=== PATIENT | female | born 1955 | race Caucasian/White ===

== ENCOUNTER 2017-09-05 11:10 | Observation (INO) | payer OTHER ==
--- NOTE | 2017-09-05 11:49 | ED ---
General Adult HPI - General Chief complaint: Shortness of Breath Stated complaint: fluid on lungs Time Seen by Provider: 09/05/17 11:10 Source: patient, RN notes reviewed Mode of arrival: ambulatory Limitations: no limitations - History of Present Illness Initial comments: This is a 62-year-old female presents emergency Department complaining of shortness of breath for the last few days. Patient states she went to an urgent care clinic and they sent her into the emergency department. Patient states she's had no fever cough but she has had some shortness of breath and occasionally some chest pain. Patient states currently she has no chest pain but she still feels a little bit short of breath. Patient denies any sputum production. Patient states she was a smoker but quit about 25 years ago. Patient denies any abdominal pain patient denies nausea vomiting diarrhea per patient denies any headache patient denies numbness weakness. Patient denies lightheadedness dizziness or near-syncopal episode. Patient denies any recent injury or trauma. - Related Data Home Medications Medication Instructions Recorded Confirmed No Known Home Medications [No 09/05/17 09/05/17 Known Home Medications] Allergies Allergy/AdvReac Type Severity Reaction Status Date / Time adhesive Allergy Rash/Hives Verified 09/05/17 12:03 Review of Systems ROS Statement: Those systems with pertinent positive or pertinent negative responses have been documented in the HPI. ROS Other: All systems not noted in ROS Statement are negative. Past Medical History Past Medical History: Cancer, Hypertension Additional Past Medical History / Comment(s): breast cancer History of Any Multi-Drug Resistant Organisms: None Reported Past Surgical History: Breast Surgery Additional Past Surgical History / Comment(s): mastectomy left 2004, lumpectomy Past Psychological History: No Psychological Hx Reported Smoking Status: Never smoker Past Alcohol Use History: None Reported Past Drug Use History: None Reported General Exam - General Exam Comments Initial Comments: GENERAL: Patient is well-developed and well-nourished. Patient is nontoxic and well- hydrated and is in mild distress. ENT: Neck is soft and supple. No significant lymphadenopathy is noted. Oropharynx is clear. Moist mucous membranes. Neck has full range of motion without eliciting any pain. EYES: The sclera were anicteric and conjunctiva were pink and moist. Extraocular movements were intact and pupils were equal round and reactive to light. Eyelids were unremarkable. PULMONARY: Unlabored respirations. Patient has decreased breath sounds in the right base. No audible rales rhonchi or wheezing was noted. CARDIOVASCULAR: There is a regular rate and rhythm without any murmurs gallops or rubs. ABDOMEN: Soft and nontender with normal bowel sounds. No palpable organomegaly was noted. There is no palpable pulsatile mass. SKIN: Skin is clear with no lesions or rashes and otherwise unremarkable. NEUROLOGIC: Patient is alert and oriented x3. Cranial nerves II through XII are grossly intact. Motor and sensory are also intact. Normal speech, volume and content. Symmetrical smile. MUSCULOSKELETAL: Normal extremities with adequate strength and full range of motion. No lower extremity swelling or edema. No calf tenderness. LYMPHATICS: No significant lymphadenopathy is noted PSYCHIATRIC: Normal psychiatric evaluation. Normal interpersonal interactions appears functionally intact in deals appropriately with others. No signs of depression. No signs of anxiety. Limitations: no limitations Course Vital Signs 09/05/17 09/05/17 09/05/17 11:13 11:44 12:17 Temperature 97.1 F L Pulse Rate 126 H 108 H Respiratory 16 24 19 Rate Blood Pressure 188/89 176/99 O2 Sat by Pulse 96 98 Oximetry 09/05/17 13:15 Temperature Pulse Rate 100 Respiratory 20 Rate Blood Pressure 188/100 O2 Sat by Pulse 99 Oximetry Medical Decision Making - Medical Decision Making EKG shows sinus tachycardia at 110 bpm GA interval is 140 QRS 108 QT interval 376 QTC is 508 per patient's EKG shows a right bundle branch block. Patient was T-wave inversions in leads V1 and V2 and V3. CT of the chest showed bilateral pleural effusions and some abdominal ascites. Patient denies any history of this. I spoke with Dr. Trejo he agreed to admit the patient admitted the patient I consult to cardiology - Lab Data Result diagrams: 09/05/17 12:09/05/17 12:17 Lab Results 09/05/17 09/05/17 09/05/17 Range/Units 12:17 12:17 12:17 WBC 8.5 (3.8-10.6) k/uL RBC 5.33 (3.80-5.40) m/uL Hgb 14.2 (11.4-16.0) gm/dL Hct 45.7 (34.0-46.0) % MCV 85.9 (80.0-100.0) fL MCH 26.6 (25.0-35.0) pg MCHC 31.0 (31.0-37.0) g/dL RDW 14.0 (11.5-15.5) % Plt Count 383 (150-450) k/uL Neutrophils % 80 % Lymphocytes % 14 % Monocytes % 4 % Eosinophils % 1 % Basophils % 0 % Neutrophils # 6.7 (1.3-7.7) k/uL Lymphocytes # 1.2 (1.0-4.8) k/uL Monocytes # 0.4 (0-1.0) k/uL Eosinophils # 0.1 (0-0.7) k/uL Basophils # 0.0 (0-0.2) k/uL PT (9.0-12.0) sec INR (<1.2) APTT (22.0-30.0) sec D-Dimer (<0.60) mg/L FEU Sodium 142 (137-145) mmol/L Potassium 4.6 (3.5-5.1) mmol/L Chloride 103 (98-107) mmol/L Carbon Dioxide 26 (22-30) mmol/L Anion Gap 13 mmol/L BUN 9 (7-17) mg/dL Creatinine 0.62 (0.52-1.04) mg/dL Est GFR (MDRD) Af Amer >60 (>60 ml/min/1.73 sqM) Est GFR (MDRD) Non-Af >60 (>60 ml/min/1.73 sqM) Glucose 105 H (74-99) mg/dL Plasma Lactic Acid Tamir (0.7-2.0) mmol/L Calcium 10.1 (8.4-10.2) mg/dL Magnesium 1.9 (1.6-2.3) mg/dL Total Bilirubin 0.5 (0.2-1.3) mg/dL AST 31 (14-36) U/L ALT 27 (9-52) U/L Alkaline Phosphatase 92 (38-126) U/L Total Creatine Kinase 38 (30-135) U/L CK-MB (CK-2) 0.3 (0.0-2.4) ng/mL CK-MB (CK-2) Rel Index 0.8 Troponin I <0.012 (0.000-0.034) ng/mL NT-Pro-B Natriuret Pep pg/mL Total Protein 8.2 (6.3-8.2) g/dL Albumin 4.2 (3.5-5.0) g/dL Urine Color Urine Appearance (Clear) Urine pH (5.0-8.0) Ur Specific [place] (1.001-1.035) Urine Protein (Negative) Urine Glucose (UA) (Negative) Urine Ketones (Negative) Urine Blood (Negative) Urine Nitrite (Negative) Urine Bilirubin (Negative) Urine Urobilinogen (<2.0) mg/dL Ur Leukocyte Esterase (Negative) Urine RBC (0-5) /hpf Urine WBC (0-5) /hpf Ur Squamous Epith Cells (0-4) /hpf Calcium Oxalate Crystal (None) /hpf Urine Mucus (None) /hpf 09/05/17 09/05/17 09/05/17 Range/Units 12:17 12:17 12:17 WBC (3.8-10.6) k/uL RBC (3.80-5.40) m/uL Hgb (11.4-16.0) gm/dL Hct (34.0-46.0) % MCV (80.0-100.0) fL MCH (25.0-35.0) pg MCHC (31.0-37.0) g/dL RDW (11.5-15.5) % Plt Count (150-450) k/uL Neutrophils % % Lymphocytes % % Monocytes % % Eosinophils % % Basophils % % Neutrophils # (1.3-7.7) k/uL Lymphocytes # (1.0-4.8) k/uL Monocytes # (0-1.0) k/uL Eosinophils # (0-0.7) k/uL Basophils # (0-0.2) k/uL PT 11.0 (9.0-12.0) sec INR 1.1 (<1.2) APTT 25.8 (22.0-30.0) sec D-Dimer 1.41 H (<0.60) mg/L FEU Sodium (137-145) mmol/L Potassium (3.5-5.1) mmol/L Chloride (98-107) mmol/L Carbon Dioxide (22-30) mmol/L Anion Gap mmol/L BUN (7-17) mg/dL Creatinine (0.52-1.04) mg/dL Est GFR (MDRD) Af Amer (>60 ml/min/1.73 sqM) Est GFR (MDRD) Non-Af (>60 ml/min/1.73 sqM) Glucose (74-99) mg/dL Plasma Lactic Acid Tamir 1.3 (0.7-2.0) mmol/L Calcium (8.4-10.2) mg/dL Magnesium (1.6-2.3) mg/dL Total Bilirubin (0.2-1.3) mg/dL AST (14-36) U/L ALT (9-52) U/L Alkaline Phosphatase (38-126) U/L Total Creatine Kinase (30-135) U/L CK-MB (CK-2) (0.0-2.4) ng/mL CK-MB (CK-2) Rel Index Troponin I (0.000-0.034) ng/mL NT-Pro-B Natriuret Pep 101 pg/mL Total Protein (6.3-8.2) g/dL Albumin (3.5-5.0) g/dL Urine Color Urine Appearance (Clear) Urine pH (5.0-8.0) Ur Specific [place] (1.001-1.035) Urine Protein (Negative) Urine Glucose (UA) (Negative) Urine Ketones (Negative) Urine Blood (Negative) Urine Nitrite (Negative) Urine Bilirubin (Negative) Urine Urobilinogen (<2.0) mg/dL Ur Leukocyte Esterase (Negative) Urine RBC (0-5) /hpf Urine WBC (0-5) /hpf Ur Squamous Epith Cells (0-4) /hpf Calcium Oxalate Crystal (None) /hpf Urine Mucus (None) /hpf 09/05/17 Range/Units 12:17 WBC (3.8-10.6) k/uL RBC (3.80-5.40) m/uL Hgb (11.4-16.0) gm/dL Hct (34.0-46.0) % MCV (80.0-100.0) fL MCH (25.0-35.0) pg MCHC (31.0-37.0) g/dL RDW (11.5-15.5) % Plt Count (150-450) k/uL Neutrophils % % Lymphocytes % % Monocytes % % Eosinophils % % Basophils % % Neutrophils # (1.3-7.7) k/uL Lymphocytes # (1.0-4.8) k/uL Monocytes # (0-1.0) k/uL Eosinophils # (0-0.7) k/uL Basophils # (0-0.2) k/uL PT (9.0-12.0) sec INR (<1.2) APTT (22.0-30.0) sec D-Dimer (<0.60) mg/L FEU Sodium (137-145) mmol/L Potassium (3.5-5.1) mmol/L Chloride (98-107) mmol/L Carbon Dioxide (22-30) mmol/L Anion Gap mmol/L BUN (7-17) mg/dL Creatinine (0.52-1.04) mg/dL Est GFR (MDRD) Af Amer (>60 ml/min/1.73 sqM) Est GFR (MDRD) Non-Af (>60 ml/min/1.73 sqM) Glucose (74-99) mg/dL Plasma Lactic Acid Tamir (0.7-2.0) mmol/L Calcium (8.4-10.2) mg/dL Magnesium (1.6-2.3) mg/dL Total Bilirubin (0.2-1.3) mg/dL AST (14-36) U/L ALT (9-52) U/L Alkaline Phosphatase (38-126) U/L Total Creatine Kinase (30-135) U/L CK-MB (CK-2) (0.0-2.4) ng/mL CK-MB (CK-2) Rel Index Troponin I (0.000-0.034) ng/mL NT-Pro-B Natriuret Pep pg/mL Total Protein (6.3-8.2) g/dL Albumin (3.5-5.0) g/dL Urine Color Yellow Urine Appearance Cloudy H (Clear) Urine pH 5.5 (5.0-8.0) Ur Specific [place] 1.025 (1.001-1.035) Urine Protein 1+ H (Negative) Urine Glucose (UA) Negative (Negative) Urine Ketones 1+ H (Negative) Urine Blood Small H (Negative) Urine Nitrite Negative (Negative) Urine Bilirubin Negative (Negative) Urine Urobilinogen <2.0 (<2.0) mg/dL Ur Leukocyte Esterase Trace H (Negative) Urine RBC 5 (0-5) /hpf Urine WBC 18 H (0-5) /hpf Ur Squamous Epith Cells 2 (0-4) /hpf Calcium Oxalate Crystal Moderate H (None) /hpf Urine Mucus Rare H (None) /hpf Disposition Clinical Impression: Bilateral pleural effusion, Ascites Disposition: ADMITTED IP TO THIS HOSP Referrals: Hilaria Obando MD [Primary Care Provider] - 1-2 days Time of Disposition: 14:42
--- NOTE | 2017-09-05 12:46 | XR ---
EXAMINATION TYPE: XR chest 2V DATE OF EXAM: 09/05/2017 COMPARISON: 09/05/2017 TECHNIQUE: PA and lateral views submitted. HISTORY: Shortness of breath FINDINGS: Bilateral consolidation and pleural effusion greater on the right. Heart size is enlarged. Pericardia l effusion in the differential. Surgical clips in the left axilla. No pneumothorax. IMPRESSION: 1. Stable bilateral consolidation and pleural effusion correlate for mild central venous congestion.
[2017-09-05 12:53] LABS: Appearance,Urine Cloudy (Clear); Bilirubin,Urine Negative (Negative); Blood,Urine Small (Negative); Calcium Oxalate Crystals,Urine Moderate /hpf; Color,Urine Yellow; Glucose,Urine (UA) Negative (Negative); Ketones,Urine 1+ (Negative); Leukocyte Esterase,Urine Trace (Negative); Mucus,Urine Rare /hpf; Nitrite,Urine Negative (Negative); PH, Urine 5.5 (5.0-8.0); Protein,Urine 1+ (Negative); RBC,Urine 5 /hpf (0-5); Specific Gravity,Urine 1.025 (1.001-1.035); Squamous Epithelial Cell,Urine 2 /hpf (0-4); Urobilinogen,Urine <2.0 mg/dL (<2.0); WBC,Urine 18 /hpf (0-5)
[2017-09-05 12:54] LABS: Basophils % (A) 0 %; Eosinophils # (A) 0.1 k/uL (0-0.7); Eosinophils % (A) 1 %; HCT 45.7 % (34.0-46.0); HGB 14.2 gm/dL (11.4-16.0); Lymphocytes # (A) 1.2 k/uL (1.0-4.8); Lymphocytes % (A) 14 %; MCH 26.6 pg (25.0-35.0); MCV 85.9 fL (80.0-100.0); Mean Platelet Volume 7.2; Monocytes # (A) 0.4 k/uL (0-1.0); Monocytes % (A) 4 %; Neutrophils # (A) 6.7 k/uL (1.3-7.7); Neutrophils % (A) 80 %; Platelet Count 383 k/uL (150-450); RBC 5.33 m/uL (3.80-5.40); WBC 8.5 k/uL (3.8-10.6)
[2017-09-05 12:57] LABS: ALT 27 U/L (9-52); AST 31 U/L (14-36); Albumin 4.2 g/dL (3.5-5.0); Alkaline Phosphatase 92 U/L (38-126); Anion Gap 13 mmol/L; Blood Urea Nitrogen 9 mg/dL (7-17); Calcium 10.1 mg/dL (8.4-10.2); Carbon Dioxide 26 mmol/L (22-30); Chloride 103 mmol/L (98-107); Glucose 105 mg/dL (74-99); Magnesium 1.9 mg/dL (1.6-2.3); Potassium 4.6 mmol/L (3.5-5.1); Sodium 142 mmol/L (137-145); Total Bilirubin 0.5 mg/dL (0.2-1.3); Total Protein 8.2 g/dL (6.3-8.2)
[2017-09-05 13:07] LABS: Creatine Kinase 38 U/L (30-135)
[2017-09-05 13:20] LABS: Creatine Kinase MB 0.3 ng/mL (0.0-2.4); Troponin I <0.012 ng/mL (0.000-0.034)
[2017-09-05 13:32] LABS: D-Dimer 1.41 mg/L FEU (<0.60); INR 1.1 (<1.2); Partial Thromboplastin Time 25.8 sec (22.0-30.0)
[2017-09-05] MEDS ORDERED: RX INFO: IV CONTRAST WAS GIVEN 1 EACH MISC MISCELLANE PRN (13:48)
--- NOTE | 2017-09-05 14:29 | CT ---
EXAMINATION TYPE: CT chest angio for PE DATE OF EXAM: 09/05/2017 COMPARISON: Chest x-ray from earlier today HISTORY: TAMI and cough x3-[address] DLP: 567 mGycm. Automated Exposure Control for Dose Reduction was Utilized. CONTRAST: CTA scan of the thorax is performed with IV Contrast, patient injected with 100ml mL of Omnipaque 350 , pulmonary embolism protocol. MIP Images are created on CT scanner and reviewed. FINDINGS: LUNGS: There is large right-sided pleural effusion and moderate to large left-sided effusion. There i s associated compressive atelectasis. There is additional focal groundglass opacity right lower lung anteriorly could reflect edema and/or infiltrate and more patchy edema and/or atelectasis anterior to the compressive atelectasis in the left lung. No pneumothorax is seen bilaterally. There is complete right lower lobe atelectasis. There is local mass effect with deviation of esophagus due to fluid in right azygoesophageal recess to left of midline. MEDIASTINUM: There is satisfactory enhancement of the pulmonary artery and its branches, there is no CT evidence for pulmonary embolism. There are no greater than 1 cm hilar or mediastinal lymph nodes. No cardiomegaly or pericardial effusion is seen. OTHER: There is partial visualization of moderate amount of ascites in the upper abdomen predominantl y surrounding the liver and spleen. Slightly irregular fluid in the anterior upper abdomen is concern ing for malignant ascites. Heterogeneous enhancement of spleen is presumed due to timing of contrast imaging for pulmonary embolism. Gallbladder has distended margins with intraluminal small gallstones. IMPRESSION: 1. No CT evidence for pulmonary embolism. 2. Large right and moderate to large size left pleural effusion. No cardiomegaly to suggest CHF. Ther e is partial visualization of at least moderate abdominal ascites. Consider further investigation of ascites. Consider imaging guided thoracentesis for both diagnostic and/or therapeutic purposes. Both pleural effusions are sufficient size.
[2017-09-05] MEDS ORDERED: SODIUM CHLORIDE 0.9% 1,000 ML IV ONE (14:43)
[2017-09-05 17:06] VITALS: RESP 18
[2017-09-05] MEDS ORDERED: ACETAMINOPHEN TAB 325 MG TAB PO PRN (17:23)
[2017-09-05] MEDS ORDERED: METOPROLOL TARTRATE 25 MG TAB PO SCH (18:00)
[2017-09-05] MEDS ORDERED: FUROSEMIDE 10 MG/ML 4 ML VIAL IV SCH (18:00)
--- NOTE | 2017-09-05 19:36 | P.HPIM ---
History of Present Illness This is a 62-year-old female presents emergency Department complaining of shortness of breath for the last few days. Patient states she went to an urgent care clinic and they sent her into the emergency department. In denied any significant orthopnea PND patient doesn't have any history of congestive heart failure patient had normal BNP. Patient denied any family history of nephrotic syndrome does have mild proteinuria in the urine patient is found to have bilateral pleural effusions significant on the right side patient does have history of breast cancer on the left side and left-sided mastectomy. Patient is not an alcoholic and also obtain hepatitis panel patient does have ascites as well INR is essentially within normal limits patient does not have any elevated liver enzymes. Etiology of bilateral pleural effusions is unknown patient is to get an ultrasound for pleural effusions will need a pleural tap which will help in diagnosis and to find etiology of his bilateral pleural effusions. Etiology of bilateral pleural effusions is unknown at this time patient will be started on IV Lasix for symptomatic relief due to hypervolemia. Review of Systems REVIEW OF SYSTEMS: CONSTITUTIONAL: No fever, no malaise, no fatigue. HEENT: No recent visual problems or hearing problems. Denied any sore throat. CARDIOVASCULAR: No chest pain, orthopnea, PND, no palpitations, no syncope. PULMONARY: no cough, no hemoptysis. GASTROINTESTINAL: No diarrhea, no nausea, no vomiting, no abdominal pain. Normoactive bowel sounds. NEUROLOGICAL: No headaches, no weakness, no numbness. HEMATOLOGICAL: Denies any bleeding or petechiae. GENITOURINARY: Denies any burning micturition, frequency, or urgency. MUSCULOSKELETAL/RHEUMATOLOGICAL: Denies any joint pain, swelling, or any muscle pain. ENDOCRINE: Denies any polyuria or polydipsia. The rest of the 14-point review of systems is negative. Past Medical History Past Medical History: Cancer, Hypertension Additional Past Medical History / Comment(s): breast cancer, enlarged heart, gout in the past History of Any Multi-Drug Resistant Organisms: None Reported Past Surgical History: Breast Surgery Additional Past Surgical History / Comment(s): lumpectomy, thenmastectomy left 2004, benign tumors removed form back of head as child, eye sx as child Past Anesthesia/Blood Transfusion Reactions: No Reported Reaction Smoking Status: Former smoker - Past Family History Mother Family Medical History: Cancer, Hypertension Additional Family Medical History / Comment(s): breast cancer, enlarged heart, Father Family Medical History: Coronary Artery Disease (CAD), Hypertension, Renal Disease Additional Family Medical History / Comment(s): cabg Brother(s) Family Medical History: Cancer Sister(s) Additional Family Medical History / Comment(s): had 2 sisters. one had hx of hypertension and kidney cancer, other sister had hypertension, breast cancer Medications and Allergies Home Medications Medication Instructions Recorded Confirmed Type No Known Home Medications [No 09/05/17 09/05/17 History Known Home Medications] Allergies Allergy/AdvReac Type Severity Reaction Status Date / Time adhesive Allergy Rash/Hives Verified 09/05/17 16:43 Physical Exam Vitals: Vital Signs Temp Pulse Pulse Resp BP BP Pulse Ox 09/05/17 19:05 108 H 178/98 09/05/17 17:05 116 H 167/112 09/05/17 16:45 97.9 F 116 H 18 155/124 94 L 09/05/17 16:17 96.9 F L 109 H 20 179/92 98 09/05/17 15:15 101 H 20 172/86 99 09/05/17 14:15 100 20 181/87 99 09/05/17 13:15 100 20 188/100 99 09/05/17 12:17 108 H 19 176/99 98 09/05/17 11:44 24 09/05/17 11:13 97.1 F L 126 H 16 188/89 96 Intake and Output 09/05/17 09/05/17 09/05/17 06:59 14:59 22:59 Intake Total 118 Balance 118 Intake: Oral 118 Other: # Voids 0 Weight 68.039 kg Patient Weight 09/06/17 06:59 Weight 68.039 kg PHYSICAL EXAMINATION: GENERAL: The patient is alert and oriented x3, not in any acute distress. Well developed, well nourished. HEENT: Pupils are round and equally reacting to light. EOMI. No scleral icterus. No conjunctival pallor. Normocephalic, atraumatic. No pharyngeal erythema. No thyromegaly. CARDIOVASCULAR: S1 and S2 present. No murmurs, rubs, or gallops. PULMONARY: Patient does not have any wheezing or crackles does have stone at a loss in the right posterior lung [place]. ABDOMEN: Abdomen is distended with shifting dullness, active bowel sounds no organomegaly was appreciated. MUSCULOSKELETAL: No joint swelling or deformity. EXTREMITIES: No cyanosis, clubbing, or pedal edema. NEUROLOGICAL: Gross neurological examination did not reveal any focal deficits. SKIN: No rashes. Results CBC & Chem 7: 09/05/17 12:17 12 12:17 Labs: Abnormal Lab Results - Last 24 Hours (Table) 09/05/17 09/05/17 09/05/17 Range/Units 12: 12: 12:17 D-Dimer 1.41 H (<0.60) mg/L FEU Glucose 105 H (74-99) mg/dL Urine Appearance Cloudy H (Clear) Urine Protein 1+ H (Negative) Urine Ketones 1+ H (Negative) Urine Blood Small H (Negative) Ur Leukocyte Esterase Trace H (Negative) Urine WBC 18 H (0-5) /hpf Calcium Oxalate Crystal Moderate H (None) /hpf Urine Mucus Rare H (None) /hpf Assessment and Plan Plan: #1 shortness of breath: Secondary to bilateral pleural effusion, patient will need diagnostic tobacco synthesis. Etiology of bilateral pleural effusions is unknown echo cardiac will be obtain although my suspicion is low that heart failure is causing this will also get nephrology opinion regarding nephrotic syndrome patient does have mild proteinuria in the urine. My suspicion is low for cirrhosis inspite ascites, we'll also obtain hepatitis panel. #2 ascites: Will need further evaluation further evaluation with the diagnostic thoracocentesis most probably tomorrow. #3 anemia: Secondary to hypoxemia #4 history of breast cancer in remission patient is status post mastectomy. Her effusions doesn't appear to be malignant at this point of time but unknown
--- NOTE | 2017-09-05 22:03 | US ---
EXAMINATION TYPE: US chest DATE OF EXAM: 09/05/2017 COMPARISON: NONE CLINICAL HISTORY: Chest markings for poss. thoracentesis. EXAM MEASUREMENTS: Right Pleural Effusion fluid pocket: 12.9 cm Right skin to fluid thickness: 2.7 cm Left Pleural Effusion fluid pocket: 8.8 cm Left skin to fluid thickness: 2.4 cm Right side marked for possible thoracentesis outside the dept. Left side marked for possible thoracentesis outside the dept. Pulmonologists are able to review the images in the patient?s EMR. IMPRESSION: BILATERAL PLEURAL EFFUSION RIGHT AND LEFT CHEST MARKED FOR POSSIBLE THORACENTESIS
[2017-09-06 01:59] LABS: Hepatitis A Antibody IgM Non-Reactive (Non-Reactive); Hepatitis B Core IgM Non-Reactive (Non-Reactive)
[2017-09-06 06:07] LABS: Basophils # (A) 0.1 k/uL (0-0.2); Basophils % (A) 0 %; Eosinophils % (A) 0 %; HCT 37.6 % (34.0-46.0); HGB 12.2 gm/dL (11.4-16.0); Lymphocytes # (A) 1.4 k/uL (1.0-4.8); Lymphocytes % (A) 12 %; MCH 26.6 pg (25.0-35.0); MCHC 32.6 g/dL (31.0-37.0); MCV 81.8 fL (80.0-100.0); Mean Platelet Volume 6.8; Monocytes # (A) 0.6 k/uL (0-1.0); Monocytes % (A) 5 %; Neutrophils # (A) 9.5 k/uL (1.3-7.7); Neutrophils % (A) 81 %; Platelet Count 395 k/uL (150-450); RDW 13.5 % (11.5-15.5); WBC 11.7 k/uL (3.8-10.6)
[2017-09-06 06:19] LABS: Anion Gap 17 mmol/L; Blood Urea Nitrogen 10 mg/dL (7-17); Calcium 9.7 mg/dL (8.4-10.2); Carbon Dioxide 22 mmol/L (22-30); Chloride 101 mmol/L (98-107); Glucose 112 mg/dL (74-99); Potassium 3.7 mmol/L (3.5-5.1); Sodium 140 mmol/L (137-145)
[2017-09-06 06:57] VITALS: BP 160/106; PULSE 114; TEMP 98.1
--- NOTE | 2017-09-06 09:41 | P.NPCON ---
History of Present Illness - Reason for Consult proteinuria - History of Present Illness Reason for consultation: Rule out nephrotic syndrome History of present illness: patient is a 62-year-old female seen in renal consultation to rule out nephrotic syndrome. Patient presented to the hospital with worsening shortness of breath going on for the last couple of months. She denies lower extremity edema. She denies any prior history of kidney disease. Her creatinine today 0.6. She is going to maintain Lasix 40 mg IV twice daily. She was scheduled for possible thoracentesis but it appears the effusions are too small at this time. Her hepatitis panel was noted to be negative. Patient states her father was on dialysis but is not sure of the cause. Her urinalysis revealed 1+ proteinuria with 5 RBCs and 18 white cells. She denies any gross hematuria. She did have an episode of vomiting this morning but otherwise she's been tolerating oral intake well. She denies history of heart failure but states she 's been told about an enlarged heart. Hemodynamically she's been stable. She does have history of high blood pressure but she stopped taking her medications a few months ago after she ran out. Her blood pressures this admission have been running high. Overall her dyspnea is improved. Vital signs are stable. General: The patient appeared well nourished and normally developed. HEENT: Head exam is unremarkable. Neck is without jugular venous distension. LUNGS: Lungs are clear to auscultation and percussion. Breath sounds decreased. HEART: Rate and Rhythm are regular. First and second heart sounds normal. No murmurs, rubs or gallops. ABDOMEN: Abdominal exam reveals normal bowel sounds. Non-tender and non- distended. No evidence of peritonitis. EXTREMITITES: No clubbing, cyanosis, or edema. Past Medical History Past Medical History: Cancer, Hypertension Additional Past Medical History / Comment(s): breast cancer, enlarged heart, gout in the past History of Any Multi-Drug Resistant Organisms: None Reported Past Surgical History: Breast Surgery Additional Past Surgical History / Comment(s): lumpectomy, thenmastectomy left 2004, benign tumors removed form back of head as child, eye sx as child Past Anesthesia/Blood Transfusion Reactions: No Reported Reaction Smoking Status: Former smoker - Past Family History Mother Family Medical History: Cancer, Hypertension Additional Family Medical History / Comment(s): breast cancer, enlarged heart, Father Family Medical History: Coronary Artery Disease (CAD), Hypertension, Renal Disease Additional Family Medical History / Comment(s): cabg Brother(s) Family Medical History: Cancer Sister(s) Additional Family Medical History / Comment(s): had 2 sisters. one had hx of hypertension and kidney cancer, other sister had hypertension, breast cancer Medications and Allergies Home Medications Medication Instructions Recorded Confirmed Type No Known Home Medications [No 09/05/17 09/05/17 History Known Home Medications] Allergies Allergy/AdvReac Type Severity Reaction Status Date / Time adhesive Allergy Rash/Hives Verified 09/05/17 16:43 Physical Exam Vitals: Vital Signs Temp Pulse Pulse Resp BP BP Pulse Ox 09/06/17 04:00 98.1 F 114 H 16 160/106 92 L 09/06/17 00:00 98.5 F 109 H 16 115/112 94 L 09/05/17 20:00 97.1 F L 101 H 16 165/108 09/05/17 19:05 108 H 178/98 09/05/17 17:05 116 H 167/112 09/05/17 16:45 97.9 F 116 H 18 155/124 94 L 09/05/17 16:17 96.9 F L 109 H 20 179/92 98 09/05/17 15:15 101 H 20 172/86 99 09/05/17 14:15 100 20 181/87 99 09/05/17 13:15 100 20 188/100 99 09/05/17 12:17 108 H 19 176/99 98 09/05/17 11:44 24 09/05/17 11:13 97.1 F L 126 H 16 188/89 96 Intake and Output 09/05/17 09/06/17 09/06/17 22:59 06:59 14:59 Intake Total 118 120 Balance 118 120 Intake: Oral 118 120 Other: Voiding Method Toilet Toilet # Voids 0 0 Weight 68.039 kg 66.4 kg Results - Lab Results Most recent lab results Calcium 9.7 mg/dL (8.4-10.2) 09/06/17 05:34 Magnesium 1.9 mg/dL (1.6-2.3) 09/05/17 12:17 09/06/17 05:34 09/06/17 05:34 Assessment and Plan Plan: assessment: #1. Dyspnea secondary to pleural effusions. Unclear as to the cause of her pleural effusions. No history of liver disease or kidney disease. Doubt nephrotic syndrome as her albumin level is 4.2 and only 1+ proteinuria noted on urinalysis. She does have an history of enlarged heart and may have developed congestive heart failure although her BNP level was normal. #2. Pyuria. #3. Benign hypertension. Uncontrolled. Plan: Continue Lasix 40 mg IV twice daily for now. Add lisinopril 10 mg daily. Recheck urinalysis. Quantify proteinuria. Check urine culture. Pending above results, will consider serologic workup. Thank you for the consultation. I will continue to follow the patient with you during her hospital stay.
--- NOTE | 2017-09-06 10:19 | ECHOF ---
Referral Reason:Pleural effusions MEASUREMENTS -------- HEIGHT: 154.9 cm WEIGHT: 68.0 kg BP: 181/87 RVIDd: 3.3 cm (< 3.3) IVSd: 1.3 cm (0.6 - 1.1) LVIDd: 2.8 cm (3.9 - 5.3) LVPWd: 1.3 cm (0.6 - 1.1) IVSs: 1.6 cm LVIDs: 2.2 cm LVPWs: 1.5 cm LA Diam: 2.5 cm (2.7 - 3.8) LAESV Index (A-L): 10.92 ml/m Ao Diam: 2.7 cm (2.0 - 3.7) AV Cusp: 1.5 cm (1.5 - 2.6) MV EXCURSION: 13.666 mm (> 18.000) MV EF SLOPE: 54 mm/s (70 - 150) EPSS: 0.3 cm FINDINGS -------- Resting tachycardia (HR>100bpm). This was a technically adequate study. The left ventricular size is normal. There is mild concentric left ventricular hypertrophy. Overa ll left ventricular systolic function is normal with, an EF between 55 - 60 %. The right ventricle is mildly enlarged. Normal LA size by volume 22+/-6 ml/m2. The right atrium is normal in size. The aortic valve is trileaflet and appears structurally normal. Mild mitral annular calcification present. The tricuspid valve appears structurally normal. The pulmonic valve was not well visualized. The aortic root size is normal. IVC Not well visulized. There is no pericardial effusion. Pleural Effusion with Fibrin. CONCLUSIONS -------- 1. Resting tachycardia (HR>100bpm). 2. This was a technically adequate study. 3. The left ventricular size is normal. 4. There is mild concentric left ventricular hypertrophy. 5. Overall left ventricular systolic function is normal with, an EF between 55 - 60 %. 6. The right ventricle is mildly enlarged. 7. Normal LA size by volume 22+/-6 ml/m2. 8. The right atrium is normal in size. 9. The aortic valve is trileaflet and appears structurally normal. 10. Mild mitral annular calcification present. 11. The tricuspid valve appears structurally normal. 12. The pulmonic valve was not well visualized. 13. The aortic root size is normal. 14. IVC Not well visulized. 15. There is no pericardial effusion. 16. Pleural Effusion with Fibrin. PUBLIC SAFETY DISPATCHER: Joana Aguilar RDCS
[2017-09-06] MEDS ORDERED: IOHEXOL 350 MG/ML 25 ML BOTTLE (ORAL USE) PO ONE ×3 (10:30→15:03)
[2017-09-06] MEDS ORDERED: METOPROLOL TARTRATE 25 MG TAB ONE (10:30)
[2017-09-06] MEDS ORDERED: ACETAMINOPHEN TAB 325 MG TAB ONE (10:30)
[2017-09-06] MEDS ORDERED: FUROSEMIDE 10 MG/ML 4 ML VIAL ONE (10:30)
--- NOTE | 2017-09-06 10:36 | CONS ---
CONSULTATION CHIEF COMPLAINT: Shortness of breath. This is a 62-year-old lady with history of breast cancer and hypertension who presented to hospital complaining of shortness of breath for the last few days. It is mild to moderate intensity, got progressively worse. Did not have clear-cut relieving or exacerbating factors. She denies leg edema, paroxysmal nocturnal dyspnea or orthopnea. Her BNP is normal. She also has ascites. Cardiology has been consulted to rule out congestive heart failure. Her clinical presentation is not consistent with congestive heart failure. At the time of my evaluation, she is comfortable at rest and is free of symptoms and is receiving IV Lasix. The patient is to undergo thoracentesis to diagnose an etiology for her pleural effusion. PAST MEDICAL HISTORY: Significant for CA breast and hypertension. MEDICATIONS: None. ALLERGIES: None. FAMILY HISTORY: Negative for premature coronary artery disease. SOCIAL HISTORY: Negative for current smoking, EtOH abuse or drug abuse. REVIEW OF SYSTEMS: HEENT is unremarkable. CARDIAC: As described above. RESPIRATORY: Significant for shortness of breath. GI: Negative. GENITOURINARY: Negative. NEUROLOGICAL: Negative. HEMATOLOGICAL: Negative. MUSCULOSKELETAL: Significant for joint pains. ENDOCRINE: Negative. CONSTITUTIONAL: Negative for fever, malaise, fatigue. Rest of the systems review is not relevant. PHYSICAL EXAMINATION: On exam, comfortable at rest. Vital signs are stable. Chest exam reveals diminished air entry at the bases. Heart exam reveals first and second heart sounds. No gallop. Abdomen appears distended. Exam of the extremities did not reveal any edema. Peripheral pulses are felt. LABS: Labs show that the BNP is normal. Creatinine is 0.6. Hemoglobin is 14.2. ASSESSMENT: 1. Shortness of breath secondary to bilateral pleural effusion. 2. Ascites. 3. History of breast cancer. PLAN: The patient's clinical presentation is not consistent with a diagnosis of congestive heart failure. Given the history of CA breast, malignancy is a very high likelihood as the other etiologies such as nephrotic syndrome. I agree with the current management plans of Dr. Trejo. I will obtain a 2D echo. If the LV function is normal, no further cardiac intervention is necessary at this time. Thank you for allowing us to participate in the care of this pleasant lady. MMODL / IJN: [id number] /
[2017-09-06] MEDS ORDERED: LIDOCAINE 2% INJ 20 MG/ML (20 ML MDV) ONE (11:30)
--- NOTE | 2017-09-06 22:55 | CONS ---
CONSULTATION DATE OF CONSULTATION: 09/06/2017 REASON FOR CONSULTATION: Dyspnea, pleural effusions. This is a very pleasant 62-year-old female patient who follows with Dr. Obando as her primary care physician. She has a history of hypertension and previous breast cancer. She is status post left mastectomy with chemoradiation in 2003. She does have a 21- year history of of smoking 1 to 2 packs per day; however, she quit 25 years ago. She presented to the emergency room with complaints of increasing cough and shortness of breath over 3 to 4 weeks now. Her cough has been dry; rare phlegm. She denied any fever, chills or night sweats. She denied any nausea, vomiting, diarrhea. She denied any hemoptysis. Denies any significant weight loss. Her chest x-ray revealed bilateral pleural effusions. Her ultrasound of the chest revealed significant pockets, more so on the right. A 2-dimensional echocardiogram revealed preserved left ventricular systolic function with estimated ejection fraction of 55% to 60%. On the CT scan the pleural effusions were noted as well as significant abdominal ascites. She is seen today in consultation. Currently she is awake and alert, in no acute distress. She is maintaining good oxygen saturations in the 90s on room air. She denies any significant abdominal pain. No chest discomfort. PAST MEDICAL HISTORY: Past medical includes breast cancer and hypertension. PAST SURGICAL HISTORY: Past surgical history includes left mastectomy. SOCIAL HISTORY: Positive for smoking for 21 years at 1 to 2 packs per day; however, quit 25 years ago. Her allergies and medications were reviewed. REVIEW OF SYSTEMS: A 14-point review of system was conducted; all negative other than as mentioned in HPI. PHYSICAL EXAMINATION: She is awake and alert, in no acute distress. HEAD: Normocephalic. Sclerae anicteric. NECK: Supple. Trachea midline. Her lungs are clear anteriorly. There are crackles in the bilateral posterior bases, diminished, more so on the right. Her abdomen is distended with a positive fluid wave. Bowel sounds are present. There is trace peripheral edema. No clubbing. No cyanosis. Peripheral pulses are intact. INVESTIGATIONS: Chest x-ray, CT scan, echocardiogram. LABS: Labs were all reviewed. Medications are reviewed. IMPRESSION: 1. Dyspnea secondary to moderate to large bilateral pleural effusions, right greater than left. There is some suspicion for neoplasm, possibly ovarian in nature based on the ascites and bilateral pleural effusions. 2. History of left-sided breast cancer. 3. Remote history of heavy tobacco use. 4. Ascites. 5. Hypertension. PLAN: The patient was seen and evaluated by Dr. Teresa. Her chest x-ray, labs and CT scans were all reviewed. He did go ahead and remove 1900 mL of dark fluid. The suspicion for malignancy is fairly high. No evidence of congestive heart failure. No cardiomegaly. BNP normal. It appears to be an exudative fluid. A CT scan of the abdomen would be recommended. The patient could go home today. She should follow up in our office in 1 week. We will repeat a chest x-ray then. She would require full pulmonary function testing to evaluate the severity of her suspected COPD. A PET scan may be needed as well. Will await fluid analysis results and discuss them in detail with her in the office. She is agreeable to the plan. She is anxious to go home. Will discuss with the hospitalist. Time not including procedure greater than 30 minutes. MMODL / IJN: [id number] /
--- NOTE | 2017-09-06 23:58 | PCN ---
PROCEDURE NOTE OPERATIVE REPORT: Right-sided thoracentesis. PREOPERATIVE DIAGNOSIS: Large right-sided pleural effusion with ascites and left pleural effusion. POSTOP DIAGNOSIS: Large right-sided pleural effusion with ascites and left pleural effusion. ANESTHESIA: Used 4 cc of 2% lidocaine. PROCEDURE: Patient was placed in a sitting upright position, the area below the right scapula was prepared in a sterile fashion, and drapes were applied. The area was locally anesthetized using a few mL of 2% lidocaine and this correlated to the 8th intercostal space and tip of the scapula. There was an area localized by ultrasound guidance. Then, a 26-gauge needle was inserted at the same site and advanced until the fluid was localized. Then a small stab wound was made with the skin with a 11 scalpel, and the thoracentesis catheter and needle were used and used into the pleural space until fluid was obtained. Then, the catheter was advanced over the needle, and the needle was pulled out of the pleural space. Free-flowing fluid was removed, roughly 1900 mL of mckenzie colored fluid removed from the right pleural space. The fluid was sent for different diagnostic studies. The procedure was well tolerated, and there was no evidence of any immediate complications. Chest x-ray was ordered postoperatively. MMODL / IJN: [id number] /
--- NOTE | 2017-09-07 04:44 | CT ---
EXAMINATION TYPE: CT abdomen pelvis w con DATE OF EXAM: 09/06/2017 COMPARISON: NONE HISTORY: Abdominal pain CONTRAST: CT scan of the abdomen and pelvis is performed and , patient injected with 100 cc Omnipaque 300 FINDINGS: LUNG BASES-: Moderate to large bilateral pleural effusions measuring 5.8 cm AP dimension on the right and 6.28 cm AP dimension on the left. Associated compressive atelectasis. LIVER/GB: Suspect gallbladder sludge. Gallbladder is mildly distended at 8.2 cm. No space occupyin g hepatic lesion. Biliary tree is of normal caliber. PANCREAS: No inflammation. No distinct mass. SPLEEN: No splenic enlargement. No lesion seen. ADRENALS: No nodule. No thickening. KIDNEYS/BLADDER: No hydronephrosis. No nephrolithiasis. No disctinct renal mass. Urinary bladder g rossly unremarkable. BOWEL: Normal appendix. Normal bowel caliber. No inflammation. GENITAL ORGANS: Large multi lobulated masses within the pelvis felt to reflect ovarian carcinoma unti l proven otherwise. There is displacement of the uterus and urinary bladder. Mass is difficult to mike sure however estimated measurement is 19.2 x 15.7 x 13.1 cm. LYMPH NODES: No greater than 1cm abdominal or pelvic lymph nodes are appreciated. AORTA: No significant abnormality. OSSEOUS STRUCTURES: No significant abnormality is seen. OTHER: Large amount of ascites throughout the abdomen and pelvis. There is omental engorgement withou t definitive caking at this time. IMPRESSION: 1. Findings felt to reflect ovarian carcinoma until proven otherwise. See above discussion. 2. Large amount of ascites within the abdomen or pelvis. 3. Suspect gallbladder sludge with distention of the gallbladder. 4. Bilateral pleural effusions and compressive atelectasis.
--- NOTE | 2017-09-07 05:15 | XR ---
EXAMINATION TYPE: TEMPORARY DATE OF EXAM: 09/06/2017 COMPARISON: 09/05/2017 TECHNIQUE: One view submitted. HISTORY: Postthoracentesis FINDINGS: Persistent bilateral pleural effusions and consolidation. Underlying venous congestion not excluded. Postsurgical change overlying the left chest. No sizable pneumothorax. Biapical pleural thickening. IMPRESSION: 1. Improvement in the right-sided pleural effusion with no sizable pneumothorax. Persistent bilateral consolidation and pleural effusions are present.
[2017-09-07 09:41] LABS: Appearance,BF Hazy; Color,BF Yellow; Nucleated Cells, Body Fluid 225 /uL; RBC, Body Fluid 2020 /uL
[2017-09-07 09:44] LABS: Mononuclear WBC,Body Fluid 96 %; Polynuclear WBC,Body Fluid 4 %; Total Cells Counted,Body Fluid 100
--- NOTE | 2017-09-07 11:21 | P.DS ---
Providers Date of admission: 09/05/17 14:43 Attending physician: Eboni Trejo Consults: 09/05/17 14:49 Consult Physician Urgent Consulting Provider: [facility] Consult Reason/Comments: Pleural effusion Do you want consulting provider notified?: Yes 09/05/17 17:21 Consult Physician Routine Consulting Provider: Endy Teresa Consult Reason/Comments: Bilateral Effusion Do you want consulting provider notified?: Yes 09/05/17 19:00 Consult Physician Routine Consulting Provider: Anson Saenz Consult Reason/Comments: R/O Nephrotic syndrome Do you want consulting provider notified?: Yes Primary care physician: Hilaria Obando [facility] Course: Patient is 62-year-old female admitted for bilateral pleural effusion shortness of breath ascites patient was assessed for although other etiologies. Patient does not appear to have CHF nephrotic syndrome of cirrhosis. Because of which obtained a CT of the abdomen with concerns of ovarian cancer. I do not have any data available by the time patient was discharged and patient wanted to be discharged patient underwent tobacco sepsis yesterday please refer to pulmonology dictation for further details. Today I am I did review her CAT scan which did show masses in the ovary and abdomen, highly suspicious for ovarian cancer. I discussed with the customer advocacy manager who will evaluate the patient is an outpatient regarding these findings and patient will be referred to [facility]IE[facility] oncology from their clinic. Patient has significant a symptomatically improvement after tobacco sepsis as today. Next PHYSICAL EXAMINATION: GENERAL: The patient is alert and oriented x3, not in any acute distress. Well developed, well nourished. HEENT: Pupils are round and equally reacting to light. EOMI. No scleral icterus. No conjunctival pallor. Normocephalic, atraumatic. No pharyngeal erythema. No thyromegaly. CARDIOVASCULAR: S1 and S2 present. No murmurs, rubs, or gallops. PULMONARY: Chest is clear to auscultation, no wheezing or crackles. ABDOMEN: Soft, nontender, nondistended, normoactive bowel sounds. No palpable organomegaly. MUSCULOSKELETAL: No joint swelling or deformity. EXTREMITIES: No cyanosis, clubbing, or pedal edema. NEUROLOGICAL: Gross neurological examination did not reveal any focal deficits. SKIN: No rashes. Assessment and Plan Plan: #1 shortness of breath: Secondary to bilateral pleural effusion, hospital etiologies as mentioned above. Patient does not appear to have nephrotic syndrome patient will be discharged on Lasix #2 ascites: Probably due to ovarian cancer #3 anemia: Secondary to hypoxemia #4 history of breast cancer in remission patient is status post mastectomy. Her effusions doesn't appear to be malignant at this point of time but unknown Plan - Discharge Summary Discharge Rx Participant: No New Discharge Prescriptions: No Action No Known Home Medications [No Known Home Medications] Discharge Medication List No Known Home Medications [No Known Home Medications] 09/05/17 [History] Follow up Appointment(s)/Referral(s): Hilaria Obando MD [Primary Care Provider] - 1-2 days Discharge Disposition: HOME SELF-CARE
--- NOTE | 2017-09-10 08:49 | ECHOF ---
Referral Reason:CP MEASUREMENTS -------- HEIGHT: 154.9 cm WEIGHT: 68.0 kg BP: IVSd: 1.4 cm (0.6 - 1.1) LVIDd: 2.5 cm (3.9 - 5.3) LVPWd: 1.2 cm (0.6 - 1.1) IVSs: 1.5 cm LVIDs: 1.8 cm LVPWs: 1.7 cm Ao Diam: 2.6 cm (2.0 - 3.7) AV Cusp: 1.9 cm (1.5 - 2.6) LA Diam: 2.9 cm (2.7 - 3.8) MV EXCURSION: 14.577 mm (> 18.000) MV EF SLOPE: 55 mm/s (70 - 150) EPSS: 0.6 cm MV E Juan R: 0.64 m/s MV DecT: 77 ms MV A Juan R: 0.84 m/s MV E/A Ratio: 0.76 RAP: 5.00 mmHg RVSP: 9.64 mmHg FINDINGS -------- Resting tachycardia (HR>100bpm). This was a technically adequate study. The left ventricular size is normal. There is moderate concentric left ventricular hypertrophy. O verall left ventricular systolic function is normal with, an EF between 55 - 60 %. The right ventricle is normal in size and function. The left atrium is normal in size. The right atrium is normal in size. The aortic valve is trileaflet, and appears structurally normal. No aortic stenosis or regurgitation. There is trace mitral regurgitation. Trace tricuspid regurgitation present. The right ventricular systolic pressure, as measured by Dopp ler, is 9.64mmHg. Pulmonic valve appears structurally normal. The aortic root size is normal. Normal inferior vena cava with normal inspiratory collapse consistent with estimated right atrial pre ssure of 5 mmHg. There is a trivial pericardial effusion present. CONCLUSIONS -------- 1. Resting tachycardia (HR>100bpm). 2. This was a technically adequate study. 3. The left ventricular size is normal. 4. There is moderate concentric left ventricular hypertrophy. 5. Overall left ventricular systolic function is normal with, an EF between 55 - 60 %. 6. The right ventricle is normal in size and function. 7. The left atrium is normal in size. 8. The right atrium is normal in size. 9. The aortic valve is trileaflet, and appears structurally normal. No aortic stenosis or regurgitati on. 10. There is trace mitral regurgitation. 11. Trace tricuspid regurgitation present. 12. The right ventricular systolic pressure, as measured by Doppler, is 9.64mmHg. 13. Pulmonic valve appears structurally normal. 14. The aortic root size is normal. 15. Normal inferior vena cava with normal inspiratory collapse consistent with estimated right atrial pressure of 5 mmHg. 16. There is a trivial pericardial effusion present. [employer] DEVELOPMENT TEAM LEAD: Mirella Valencia RDCS
--- NOTE | 2017-10-02 07:55 | CDI ---
Outpatient Documentation Clarification Form Date: 10-02-17 CDS/Baggage And Mail Agent Name: Patti Lemos Phone: If you have question, contact Kasie Sin, Registered Dental Assistant at [phone] M-F 8:30 am to 6pm. Patient Name: Georgina Farley Admit Date: 09-05-17 Discharge Date: 09-06-17 ATTENTION: The Clinical Documentation Specialists (CDI) and [facility] Coding Staff appreciate your assistance in clarifying documentation. Please respond to the clarification below the line at the bottom and electronically sign. The CDI & [facility] Coding staff will review the response and follow-up if needed. Please note: Queries are made part of the Legal Health Record. If you have any questions, please contact the author of this message via ITS or call the Registered Dental Assistant. Dr. Garsia, Please confirm the following diagnoses. Positive malignant cells on pleural effusion path report. If you agree with "malignant pleural effusion" please add diagnosis below the line on this page. Per discharge summary, ascites: probable due to ovarian cancer. Please add "ovarian cancer" OR "suspected ovarian cancer" as a diagnosis below the line on this page. Thank you. MTDD
--- NOTE | 2017-10-02 14:07 | CDI ---
Outpatient Documentation Clarification Form Date: 10-02-17 CDS/Administrative Asst Name: Patti Lemos Phone: If you have question, contact Kasie Sin, Road Machine Operator at M-F 8:30 am to 6pm. Patient Name: Georgina Farley Admit Date: 09-05-17 Discharge Date: 09-06-17 ATTENTION: The Clinical Documentation Specialists (CDI) and [facility] Coding Staff appreciate your assistance in clarifying documentation. Please respond to the clarification below the line at the bottom and electronically sign. The CDI & [facility] Coding staff will review the response and follow-up if needed. Please note: Queries are made part of the Legal Health Record. If you have any questions, please contact the author of this message via ITS or call the Road Machine Operator. Outpatient Documentation Clarification Form Dr. Trejo, Please confirm the following diagnoses: 1. Per path report for pleural effusion-positive malignant cells----Does this indicate malignant pleural effusion or other condition? Please enter your diagnosis related to this below the line on this form. 2. Per Discharge Summary- ascites-probably due to ovarian cancer. Outpatient coding guidelines require that documentation be clear related to confirmed or uncertain diagnosis. a. Please enter your diagnosis clarification below the line on this form either i. Ovarian Cancer confirmed ii. Ovarian Cancer suspected. Thank you. pleural effusion-positive malignant cells malignant pleural effusion ascites-probably due to malignancy etiology uncertain MTDD
== END 2017-09-06 18:12 | disposition home or self-care (01) ==
LOC: EC 11:10 → INTOOBSV 14:43 → 6SEL 14:43 → UNDODISIN 09-06 18:12
PROVIDERS: ADMIT Hospitalist; ATTEND Hospitalist
PROC: 0W993ZZ Drainage of Right Pleural Cavity, Percutaneous Approach (ICD-10-PCS; principal; 2017-09-06)
DX: J91.0 Malignant pleural effusion (principal); R18.8 Other ascites; I11.9 Hypertensive heart disease without heart failure; R09.02 Hypoxemia; Z80.51 Family history of malignant neoplasm of kidney; Z82.49 Family history of ischemic heart disease and other diseases of the circulatory system; Z85.3 Personal history of malignant neoplasm of breast; Z87.891 Personal history of nicotine dependence; Z90.12 Acquired absence of left breast and nipple; Z92.21 Personal history of antineoplastic chemotherapy; Z92.3 Personal history of irradiation; Z91.048 Other nonmedicinal substance allergy status; R11.10 Vomiting, unspecified; T50.996A Underdosing of other drugs, medicaments and biological substances, initial encounter; Z91.128 Patient's intentional underdosing of medication regimen for other reason; N39.0 Urinary tract infection, site not specified; R80.9 Proteinuria, unspecified; N83.9 Noninflammatory disorder of ovary, fallopian tube and broad ligament, unspecified; D64.9 Anemia, unspecified
CPT/HCPCS: 32555; 96361 ×2; 96374; 99285; 36415; 93005; 93306 ×2; 85379; 82150; 88108; 88305; 83880; 80053; 80048; 80074; 89050; 82550; 82553; 83605; 83735; 84484; 85025 ×2; 85610; 85730; 81001; 88342; 87040; 88341; 83615; 84157; 71010; 71020; 76604; 71275; 74177; G0378 ×2; J1940 ×2; Q9967 ×2; 96360; 96375; 96376

== ENCOUNTER → 2017-09-19 | Outpatient (CLI) | payer OTHER | END | disposition home or self-care (01) | LOC: LABWHC1 11:18 | PROVIDERS: ATTEND Internal Medicine | DX: R19.00 Intra-abdominal and pelvic swelling, mass and lump, unspecified site (principal) | CPT/HCPCS: 36415; 81503 ==

== ENCOUNTER → 2017-10-25 | Outpatient (CLI) | payer OTHER ==
[2017-10-25 14:09] LABS: Creatinine,Urine Random 168.5 mg/dL
[2017-10-25 14:14] LABS: ALT 26 U/L (9-52); AST 36 U/L (14-36); Albumin 4.3 g/dL (3.5-5.0); Alkaline Phosphatase 82 U/L (38-126); Anion Gap 15 mmol/L; Blood Urea Nitrogen 8 mg/dL (7-17); Calcium 9.9 mg/dL (8.4-10.2); Carbon Dioxide 26 mmol/L (22-30); Chloride 102 mmol/L (98-107); Glucose 88 mg/dL (74-99); Potassium 4.2 mmol/L (3.5-5.1); Sodium 143 mmol/L (137-145); Total Bilirubin 0.6 mg/dL (0.2-1.3); Total Protein 8.3 g/dL (6.3-8.2)
== END | disposition home or self-care (01) ==
LOC: LABWHC1 13:11
PROVIDERS: ATTEND Nurse Practitioner Family
DX: N04.9 Nephrotic syndrome with unspecified morphologic changes (principal)
CPT/HCPCS: 36415; 80053; 82570; 84156

== ENCOUNTER → 2017-10-25 | Outpatient (CLI) | payer OTHER ==
--- NOTE | 2017-10-25 16:01 | US ---
EXAMINATION TYPE: US chest DATE OF EXAM: 10/25/2017 COMPARISON: NONE CLINICAL HISTORY: J91.8 Plueral Effusion. EXAM MEASUREMENTS: Right Pleural Effusion fluid pocket: 18.5 cm Right skin to fluid thickness: 3.6 cm Left Pleural Effusion fluid pocket: 9.1 cm Left skin to fluid thickness: 3.6 cm Right side marked for possible thoracentesis outside the dept. Left side marked for possible thoracentesis outside the dept. Dr Teresa walked to inpatient side to do thora in [address]. Pulmonologists are able to review the images in the patient?s EMR. IMPRESSIONS: 1. Bilateral pleural effusions
--- NOTE | 2017-10-25 16:18 | XR ---
EXAMINATION TYPE: XR chest 1V portable DATE OF EXAM: 10/25/2017 COMPARISON: 09/06/2017 INDICATION: Status post right thoracentesis TECHNIQUE: Single frontal view of the chest is obtained. FINDINGS: The heart size is normal. The pulmonary vasculature is normal. There is a small right pleural effusion. Small left pleural effusion is present. Multiple surgical cl ips are within the left axillary region. Upper lung drummond are clear. No pneumothorax is evident. IMPRESSION: 1. Small bilateral pleural effusions right greater than left. 2. No pneumothorax postthoracentesis
--- NOTE | 2017-10-25 19:31 | PCN ---
PROCEDURE NOTE OPERATIVE PROCEDURE: Right-sided thoracentesis. PREOPERATIVE DIAGNOSIS: Malignant pleural effusion secondary to ovarian cancer. POSTOPERATIVE DIAGNOSIS: Malignant pleural effusion secondary to ovarian cancer. ANESTHESIA USED: 2 mL of 1% lidocaine. PROCEDURE: The patient was placed in a sitting upright position, the area of the back below the right scapula was prepared in a sterile fashion and drapes were applied. The area was earlier localized by ultrasound, and there was a large pocket of fluid noted, and the markings were placed at the 8th intercostal space and tip of the scapula. Then, the site at the 8th intercostal space at the tip of the scapula was anesthetized using 2 mL of 1% lidocaine. A 26-gauge needle was inserted at the same site, advanced into the pleural space until the fluid was localized by needle. Then a standard thoracentesis catheter and needle were used. The area was incised slightly with a size 11 scalpel, and then the thoracentesis catheter and needle were inserted through the site of the incision, advanced into the pleural space until the fluid was obtained. Then, the catheter was advanced out of the needle, and the needle was pulled out of the pleural space. Free-flowing fluid was removed, 2000 mL of straw-colored fluid was removed from the right pleural space. Some pain was noted at the end of the procedure. Procedure was well tolerated. No evidence of any immediate complications. Chest x-ray was ordered postoperatively. MMODL / IJN: [id number] /
== END | disposition home or self-care (01) ==
LOC: RADUSWWP 15:00
PROVIDERS: ATTEND Internal Medicine
DX: J90 Pleural effusion, not elsewhere classified (principal)
CPT/HCPCS: 71045; 76604

== ENCOUNTER 2017-11-15 10:35 | Day surgery (SDC) | payer OTHER ==
[2017-11-13 11:39] VITALS: BMI 26.9
--- NOTE | 2017-11-15 07:14 | P.GSHP ---
History of Present Illness H&P Date: 11/15/17 Chief Complaint: Malignant pleural effusion, ovarian cancer 62-year-old female with a history of ovarian cancer. This was recently diagnosed within the last year or so. She doesn't history of prior breast cancer as well. She has a history of a malignant pleural effusion. Underwent thoracentesis by pulmonary on 10/29. 2 L was removed. Here today for Port-A- Cath placement. Past Medical History Past Medical History: Cancer, Hypertension Additional Past Medical History / Comment(s): having thoracentesis last done =2L removed per pt and in Aug, scheduled for thorancentesis with Dr Teresa at office 11-14-17, current ovarian CA,nasal drip with slight bloody drainage, current steroids with chemo-receiving chemo every 2 weeks-last dose 11-07-17, breast cancer-rec chemo and rad, enlarged heart, gout in the past, History of Any Multi-Drug Resistant Organisms: None Reported Past Surgical History: Breast Surgery Additional Past Surgical History / Comment(s): lumpectomy, mastectomy left 2004 , benign tumors removed form back of head as child, eye sx as child,port a cath insertion and removal Past Anesthesia/Blood Transfusion Reactions: No Reported Reaction Additional Past Anesthesia/Blood Transfusion Reaction / Comment(s): no hx blood transfusion Smoking Status: Former smoker - Past Family History Mother Family Medical History: Cancer, Hypertension Additional Family Medical History / Comment(s): breast cancer, enlarged heart, Father Family Medical History: Coronary Artery Disease (CAD), Hypertension, Renal Disease Additional Family Medical History / Comment(s): cabg Brother(s) Family Medical History: Hypertension Sister(s) Additional Family Medical History / Comment(s): had 2 sisters. one had hx of hypertension and kidney cancer, other sister had hypertension, breast cancer Medications and Allergies Home Medications Medication Instructions Recorded Confirmed Type CARBOplatin [Paraplatin] 1 dose IV Q14D 11/13/17 11/13/17 History Lisinopril [Prinivil] 20 mg PO QAM 11/13/17 11/13/17 History PACLitaxel [Taxol] 1 dose IV Q14D 11/13/17 11/13/17 History Allergies Allergy/AdvReac Type Severity Reaction Status Date / Time adhesive Allergy blisters-states Verified 11/13/17 11:21 "can use paper tape" hydromorphone [From Dilaudid] AdvReac Nausea & Verified 11/13/17 11:22 Vomiting Surgical - Exam Deferred until patient arrives Assessment and Plan (1) Ovarian cancer Narrative/Plan: Will proceed with Port-A-Cath placement. Status: Acute Code(s): C56.9 - MALIGNANT NEOPLASM OF UNSPECIFIED OVARY SNOMED Code(s): 443037781
[~2017-11-15 10:35] MED LIST: DEXAMETHASONE SOD PHOSPHATE 10 MG/ML 1 ML VIAL IV ONE; HEPARIN SODIUM,PORCINE 5,000 UNIT/ML 1 ML VIAL SQ ONE; LACTATED RINGERS 1,000 ML IV SCH; LIDOCAINE 1% 20 ML VIAL (10MG/ML) FOR IV START INTRADERMA PRN; Pre Op ABX Message 1 EACH MISC MISCELLANE ONE; SCOPOLAMINE 1.5MG/72HR PATCH TRANSDERM ONE
[2017-11-15 12:07] VITALS: TEMP 98.4
--- NOTE | 2017-11-15 12:43 | P.HPADDEND ---
H&P Addendum H&P Addendum Date: 11/15/17 Physical exam: General: Well-developed, well-nourished HEENT: Normocephalic, sclerae nonicteric Abdomen: Nontender, nondistended Extremities: No edema Neuro: Alert and oriented
[2017-11-15] MEDS ORDERED: HEPARIN SODIUM,PORCINE 100 UNIT/ML 5 ML VIAL IV ONE (12:51)
[2017-11-15] MEDS ORDERED: LIDOCAINE (PF) 10 MG/ML 2 ML VIAL SQ ONE (12:51)
[2017-11-15] MEDS ORDERED: MIDAZOLAM 2 MG/2 ML VIAL ONE (12:53)
[2017-11-15] MEDS ORDERED: PROPOFOL 10 MG/ML 20 ML VIAL IV ONE (12:53)
[2017-11-15] MEDS ORDERED: fentaNYL (PF) 50 MCG/ML 2 ML AMP ONE (12:53)
[2017-11-15] MEDS ORDERED: LIDOCAINE 1% INJ 10MG/ML (20 ML MDV) ONE (12:53)
[2017-11-15] MEDS ORDERED: SODIUM CHLORIDE 0.9% 50 ML with ceFAZolin 2,000 MG IV ONE ×2 (13:14)
[2017-11-15] MEDS ORDERED: NALOXONE 0.4 MG/ML 1 ML VIAL IV PRN (13:41)
[2017-11-15] MEDS ORDERED: LIDOCAINE 1% INJ 10MG/ML (20 ML MDV) SQ ONE (13:42)
--- NOTE | 2017-11-15 13:44 | P.OP ---
Date of Procedure: 11/15/17 Procedure(s) Performed: PREOPERATIVE DIAGNOSIS: Ovarian cancer POSTOPERATIVE DIAGNOSIS: Same PROCEDURE: Port-A-Cath placement SURGEON: Paul EBL: Minimal ANESTHESIA: Sedation COMPLICATIONS: None OPERATIVE PROCEDURE: Patient was brought and placed on the operative table in the supine position. The patient was sedated per anesthesia that time. The chest and neck were prepped and draped in usual sterile fashion. The ultrasound probe was used to identify the location of the right internal jugular vein. The skin was localized with lidocaine. The Seldinger needle was advanced into the IJ under ultrasound guidance. The wire was advanced through the needle under fluoroscopic guidance into the superior vena cava. A port pocket was created in the right infraclavicular location through the previous scar site. The catheter was tunneled from the wire entrance site to the port pocket. The port was then connected to the catheter. The dilator introducer was threaded over the guidewire. The guidewire and dilator were then removed. The catheter was advanced through the introducer and introducer was then removed. The tip was seen to be in the right atrial junction. Of note a recurrent effusion was identified on the fluoroscopy. Port was flushed with both saline and a Hep-Lock solution. There was good flow both in and out of the port. The port was sutured in underlying tissues using 3-0 silk sutures. The subcutaneous tissues were reapproximated using 3-0 Vicryl sutures and the skin at both locations using 4-0 Monocryl sutures. Steri-Strips and sterile dressings then applied. DISPOSITION: Stable to recovery room
--- NOTE | 2017-11-15 13:48 | FL ---
EXAMINATION TYPE: FL guided central line placemt HISTORY: Fluoroscopy time Impression: 1. Fluoroscopy support provided to the referring physician. 5 seconds of fluoroscopy time provided..
--- NOTE | 2017-11-15 14:15 | XR ---
EXAMINATION TYPE: XR chest 1V confirm line [facility] DATE OF EXAM: 11/15/2017 COMPARISON: 11/14/2017 HISTORY: Line placement TECHNIQUE: Single frontal view of the chest is obtained. FINDINGS: Bilateral consolidation and pleural effusion greater on the right. Surgical clips in the l eft axilla. Diffuse interstitial pattern noted. Right-sided Mediport catheter seen with the tip overl vicente the cavoatrial junction. No pneumothorax. Diffuse osteopenia. IMPRESSION: 1. Bilateral consolidation and pleural effusion. Mediport catheter seen with the tip overlying the ca voatrial junction.
[2017-11-15 14:24] VITALS: BP 162/90; PULSE 98; RESP 18
== END 2017-11-15 15:04 | disposition home or self-care (01) ==
LOC: OR 10:35
PROVIDERS: ATTEND Surgery
DX: C56.1 Malignant neoplasm of right ovary (principal); I10 Essential (primary) hypertension; Z90.12 Acquired absence of left breast and nipple; Z87.891 Personal history of nicotine dependence; Z82.49 Family history of ischemic heart disease and other diseases of the circulatory system; J91.0 Malignant pleural effusion; Z80.3 Family history of malignant neoplasm of breast; Z85.3 Personal history of malignant neoplasm of breast; Z88.5 Allergy status to narcotic agent; Z91.048 Other nonmedicinal substance allergy status; Z79.899 Other long term (current) drug therapy; Z92.21 Personal history of antineoplastic chemotherapy
CPT/HCPCS: 77001; 36561; C1788; J2250; J1644; J1642; J1100; J2001; J3010; J0690; J2704

== ENCOUNTER 2017-11-26 09:34 | Day surgery (SDC) | payer OTHER ==
[2017-11-22 15:17] VITALS: BMI 27.3
[~2017-11-26 09:34] MED LIST changes: -HEPARIN SODIUM,PORCINE 5,000 UNIT/ML 1 ML VIAL SQ ONE; +MIDAZOLAM 2 MG/2 ML VIAL IV PRN; +MORPHINE SULFATE 4 MG/ML SYRINGE IV PRN; +ONDANSETRON 4 MG/2 ML VIAL IVP ONE
[2017-11-26] MEDS ORDERED: LIDOCAINE 1% 20 ML VIAL (10MG/ML) FOR IV START INTRADERMA ONE (10:36)
[2017-11-26] MEDS ORDERED: ceFAZolin IN SWFI 2 GM/20 ML SYRINGE IVP STA (11:17)
[2017-11-26] MEDS ORDERED: ceFAZolin 1,000 MG in DEXTROSE/WATER 1 50ML.BAG IVPB STA (11:20)
[2017-11-26] MEDS ORDERED: PROPOFOL 10 MG/ML 20 ML VIAL IV ONE (11:23)
[2017-11-26] MEDS ORDERED: LACTATED RINGERS 1,000 ML IV ONE (11:23)
[2017-11-26] MEDS ORDERED: fentaNYL (PF) 50 MCG/ML 2 ML AMP ONE (11:23)
[2017-11-26] MEDS ORDERED: MIDAZOLAM 2 MG/2 ML VIAL ONE (11:23)
[2017-11-26] MEDS ORDERED: LIDOCAINE 1% INJ 10MG/ML (20 ML MDV) SQ ONE (11:44)
[2017-11-26 12:24] VITALS: TEMP 97.5
--- NOTE | 2017-11-26 12:33 | OP ---
OPERATIVE REPORT DATE OF SURGERY: 11/26/2017. PREOPERATIVE DIAGNOSIS: Malignant pleural effusion. POSTOPERATIVE DIAGNOSIS: Malignant pleural effusion. PROCEDURE: Placement of right PleurX catheter under fluoroscopic guidance. SURGEON: Andrew Campos MD. PHOTOENGRAVING MACHINE OPERATOR/TENDER: None. ANESTHESIA: Local with IV sedation. SPECIMEN: Pleural fluid. EBL: Minimal. COMPLICATIONS: None. INDICATION: The patient is a 62-year-old female with a known history of breast cancer status post mastectomy and chemotherapy, who was admitted to the hospital with pleural effusion. Right thoracentesis was performed with cytology consistent with probable metastatic breast cancer. CT scan of the abdomen and pelvis did show an ovarian mass. Placement of a PleurX catheter was recommended. The risks, benefits, and alternatives to this procedure were discussed with the patient. All questions werer answered. Consent was obtained. FINDINGS: There was approximately 1700 mL of serous fluid drained from the right pleural space. PROCEDURE IN DETAIL: The patient was taken to the operating room and placed supine on the operating table. She was prepped and draped in the usual sterile fashion. Intravenous sedation was administered. Local anesthetic was infiltrated along the right anterior axillary line at approximately the 6th intercostal space. A finder needle was used to enter the right chest over the underlying rib. Return of serous fluid was noted. Under fluoroscopic guidance, a guidewire was then passed into the right pleural space without difficulty. Its position was confirmed again using fluoroscopy. Additional local anesthetic was infiltrated into the subcutaneous tissue. A counter incision was made. A PleurX catheter was then tunneled between these two incisions in the subcutaneous tissue. Using standard Seldinger technique, the dilator was placed over the guidewire under fluoroscopic guidance and advanced easily. The breakaway sheath was then placed in a similar fashion. The PleurX catheter was advanced through the breakaway sheath quite easily. Approximately 1700 mL of serous fluid was drained from the right pleural space. Final positioning of the Pleurx catheter was confirmed using fluoroscopy. The catheter was secured to the skin using a suture. The counter incision was closed with single interrupted Vicryl suture. Sterile dressing was applied. The patient appeared to tolerate the procedure well. There were no immediate complications. She returned to the recovery room in stable condition. MMODL / IJN: [id number] / [facility]
--- NOTE | 2017-11-26 12:49 | XR ---
EXAMINATION TYPE: XR chest 1V portable DATE OF EXAM: 11/26/2017 COMPARISON: 11/15/2017 HISTORY: Pleurx catheter placement TECHNIQUE: Single frontal view of the chest is obtained. FINDINGS: Right-sided catheter seen with interval reduction in amount pleural fluid. Small bilateral effusions and basilar consolidation persist. Underlying venous congestion not excluded. Surgical clips overlying the left axilla and there is diffuse osteopenia. Small 5% apical pneumothora x suspected. IMPRESSION: 1. Interval reduction in amount of pleural fluid post catheter insertion. A small 5% apical pneumotho rax suspected.
--- NOTE | 2017-11-26 12:57 | FL ---
EXAMINATION TYPE: FL guided central line placemt HISTORY: Fluoroscopy time Impression: 1. Fluoroscopy support provided to the referring physician. 14 seconds of fluoroscopy provided..
[2017-11-26 15:06] VITALS: RESP 20
[2017-11-26 15:23] VITALS: BP 126/59; PULSE 94
== END 2017-11-26 14:35 | disposition home health service (06) ==
LOC: OR 09:34
PROVIDERS: ATTEND Surgery
DX: I10 Essential (primary) hypertension (principal); Z90.10 Acquired absence of unspecified breast and nipple; Z92.21 Personal history of antineoplastic chemotherapy; Z85.3 Personal history of malignant neoplasm of breast; Z79.899 Other long term (current) drug therapy; Z88.5 Allergy status to narcotic agent; Z91.09 Other allergy status, other than to drugs and biological substances; J91.0 Malignant pleural effusion
CPT/HCPCS: 32550; 88108; 88305; 88342; 88341; 75989; 71045; J2250; J2270; J1100; J2405; J2001; J3010; J0690; J2704; 77001

== ENCOUNTER → 2017-12-26 | Outpatient (CLI) | payer OTHER ==
[2017-12-26 11:02] LABS: Blood Urea Nitrogen 10 mg/dL (7-17)
--- NOTE | 2017-12-26 12:47 | CT ---
EXAMINATION TYPE: CT abdomen pelvis w con DATE OF EXAM: 12/26/2017 COMPARISON: 09/06/2017 HISTORY: 62-year-old female Follow up breast and ovarian cancer TECHNIQUE: Contiguous axial scanning of the abdomen and pelvis following administration of 100 ml Omn ipaque 300 IV contrast. Delayed images through the kidneys and coronal/sagittal reconstructions perf ormed. CT DLP: 514.3 mGycm Automated exposure control for dose reduction was used. FINDINGS: Left breast surgically absent. Heart normal size without pericardial effusion. Continued moderate-sized left pleural effusion. There is improvement in the degree of basilar left lo wer lobe atelectasis. There is increased inferior lingular atelectasis. Right-sided pleural drain is present with decrease in size of the right pleural effusion, now small r esidual right pleural effusion. Small hiatal hernia. Area of subtle hypodense lesion measures 1.2 cm peripheral right liver lobe vers us 9 mm, previously. Approximately 3 other subcentimeter hypodensities remain unchanged and are too s mall for accurate characterization. Portal venous system is patent; no biliary ductal dilatation. Gallbladder, adrenal glands, kidneys, spleen, and pancreas within normal limits. No dilated small bowel or free air. There is significant improvement in the previous abdominal pelvic ascites. Small amount of residual pelvic free fluid remains. Very large complex solid cystic pelvic mass measures 19.1 m wide by 13.9 cm AP versus 19.2 x 15.7 cm, previously. Overall size has not significantly changed but there are solid mural enhancing component s that show interval increase in size on the left side of the mass, for example, axial image 71 measu ring 2.2 cm versus 1.5 cm, previously and axial image 64 measuring 3.1 cm versus 2.5 cm, previously. Uterus and ovaries are of secured in this mass. Bones: Degenerative changes lower lumbar spine. No osseous destructive process. Congenital fusion L4 -L5. IMPRESSION: 1. REDEMONSTRATED VERY LARGE COMPLEX SOLID CYSTIC PELVIC MASS LIKELY OF OVARIAN ORIGIN. THIS IS RELAT IVELY SIMILAR IN SIZE MEASURING 19.1 CM VERSUS 19.2 CM, PREVIOUSLY. HOWEVER, A COUPLE AREAS OF ENHANC ING MURAL BASED SOFT TISSUE SHOW INCREASING SIZE, FOR EXAMPLE, ON AXIAL IMAGE 64 AND 71 MEASURING 3.1 AND 2.2 CM (VERSUS 2.5 AND 1.5 CM, PREVIOUSLY AND RESPECTIVELY). 2. IMPROVEMENT AND THE PREVIOUS ABDOMINAL ASCITES, ONLY A SMALL AMOUNT OF PELVIC ASCITES REMAINS. 3. A SMALL 1.2 CM LESION IN THE RIGHT LIVER LOBE APPEARS SLIGHTLY LARGER VERSUS 9 MM, PREVIOUSLY. 4. RIGHT-SIDED PLEURAL CATHETER IS IN PLACE. THERE IS A RESIDUAL SMALL RIGHT PLEURAL EFFUSION, IMPROV ED FROM PRIOR. 5. PERSISTENT MODERATE SIZED LEFT PLEURAL EFFUSION BUT WITH IMPROVING ADJACENT LEFT LOWER LOBE ATELEC TASIS. SOME INCREASING INFERIOR LINGULAR ATELECTASIS IS NOTED.
== END | disposition home or self-care (01) ==
LOC: RADPROMAIN 09:24
PROVIDERS: ATTEND Internal Medicine Hematology & Oncology
DX: C56.1 Malignant neoplasm of right ovary (principal); R18.8 Other ascites; K76.89 Other specified diseases of liver; Z88.5 Allergy status to narcotic agent; Z91.048 Other nonmedicinal substance allergy status
CPT/HCPCS: 82565; 84520; 74177; J1642; Q9967

== ENCOUNTER → 2018-01-03 | Outpatient (CLI) | payer OTHER ==
[2018-01-03 11:28] LABS: Appearance,Urine Clear (Clear); Bilirubin,Urine Negative (Negative); Blood,Urine Negative (Negative); Color,Urine Yellow; Glucose,Urine (UA) Negative (Negative); Ketones,Urine Negative (Negative); Leukocyte Esterase,Urine Small (Negative); Mucus,Urine Occasional /hpf; Nitrite,Urine Negative (Negative); Protein,Urine Negative (Negative); RBC,Urine 2 /hpf (0-5); Specific Gravity,Urine 1.022 (1.001-1.035); Squamous Epithelial Cell,Urine 2 /hpf (0-4); Urobilinogen,Urine <2.0 mg/dL (<2.0); WBC,Urine 8 /hpf (0-5)
[2018-01-03 11:36] LABS: ALT 25 U/L (9-52); AST 24 U/L (14-36); Albumin 3.8 g/dL (3.5-5.0); Alkaline Phosphatase 84 U/L (38-126); Anion Gap 13 mmol/L; Blood Urea Nitrogen 15 mg/dL (7-17); Calcium 9.2 mg/dL (8.4-10.2); Carbon Dioxide 25 mmol/L (22-30); Chloride 103 mmol/L (98-107); Glucose 84 mg/dL (74-99); Potassium 3.9 mmol/L (3.5-5.1); Sodium 141 mmol/L (137-145); Total Bilirubin 0.4 mg/dL (0.2-1.3); Total Protein 6.8 g/dL (6.3-8.2)
[2018-01-03 11:45] LABS: Creatinine,Urine Random 147.7 mg/dL
== END | disposition home or self-care (01) ==
LOC: LABWHC1 10:33
PROVIDERS: ATTEND Nurse Practitioner Family
DX: N39.0 Urinary tract infection, site not specified (principal); R80.9 Proteinuria, unspecified; I10 Essential (primary) hypertension
CPT/HCPCS: 36415; 80053; 81001; 82570; 84156

== ENCOUNTER → 2018-04-22 | Outpatient (CLI) | payer OTHER ==
--- NOTE | 2018-04-22 15:40 | CT ---
EXAMINATION TYPE: CT ChestAbdPelvis w con DATE OF EXAM: 04/22/2018 COMPARISON: Body 12/26/2017 and chest 09/05/2017 HISTORY: 63-year-old female f/u breast and ovarian ca TECHNIQUE: Contiguous axial scanning of the chest, abdomen, and pelvis performed with IV Contrast, pa tient injected with 100 mL of Isovue 300. Delayed images through the kidneys were obtained. Coronal/s agittal reconstructions performed. CT DLP: 1083 mGycm Automated exposure control for dose reduction was used. FINDINGS: Chest: Heart normal size without pericardial effusion. Right anterior chest wall injection port with catheter tip at the cavoatrial junction. Aorta normal caliber with conventional branching anatomy. Patient is status post left mastectomy with left axillary node dissection. No thoracic lymphadenopathy by CT size criteria. A right-sided pleural catheter remains in place. No pleural effusion or consolidation. Minimal biapic al pleural parenchymal scarring. No suspicious pulmonary nodules are seen. ABDOMEN: Small hiatal hernia. Approximately 3 subcentimeter hypodensities in the liver are too small for accurate CT characterizati on and are unchanged. A 1.2 cm heterogeneous hypodense lesion peripheral right liver lobe also remain s unchanged. The gallbladder appears debris filled, possible containing multiple gallstones. No abnormal gallbladd er distention. Adrenal glands, kidneys, spleen with hilar splenule,, and pancreas appear within normal limits. Scattered small mesenteric lymph nodes are present. There is moderate to severe circumferential wall thickening of the distal 25 cm of the terminal ileum with luminal narrowing and moderate surrounding edema and fat stranding. Mild pelvic ascites and mild lower abdominal interloop fluid likely reactive. No pneumatosis or free air. No dilated small bowel loops. Oral contrast has progressed to the rectum. No pericolonic inflammatory change. Pelvis: Bladder urine distended. Interval cholecystectomy and bilateral salpingo-oophorectomy. Pelvic fluids. No pelvic lymphadenopathy identified. Bones: Degenerative changes lower lumbar spine. No osseous destructive process. Congenital fusion of the L4- L5 vertebral bodies. IMPRESSION: 1. INTERVAL HYSTERECTOMY AND BILATERAL SALPINGO-OOPHORECTOMY. PRIOR LEFT MASTECTOMY AND AXILLARY NODE DISSECTION. 2. THE DISTAL 25 CM OF THE TERMINAL ILEUM SHOWS MODERATE TO SEVERE WALL THICKENING AND SURROUNDING IN FLAMMATION. CORRELATE FOR POSSIBLE TREATMENT-RELATED TOXICITY AND/OR INFECTIOUS ENTERITIS. 3. MILD LOWER ABDOMINAL INTERLOOP FLUID AND MILD PELVIC FREE FLUID ARE LIKELY REACTIVE TO THIS INFLAM MATION. 4. THE 1.2 CM LESION IN THE PERIPHERAL RIGHT LIVER LOBE IS UNCHANGED ARE A FEW OTHER TINY SUBCENTI METER LIVER HYPODENSITIES. 5. A RIGHT-SIDED PLEURAL CATHETER REMAINS IN PLACE. 6. SUSPECT MULTIPLE GALLSTONES. SMALL HIATAL HERNIA.
== END | disposition home or self-care (01) ==
LOC: RADPROMAIN 12:26
PROVIDERS: ATTEND Internal Medicine Hematology & Oncology
DX: C50.912 Malignant neoplasm of unspecified site of left female breast (principal); C56.1 Malignant neoplasm of right ovary; K76.9 Liver disease, unspecified; K44.9 Diaphragmatic hernia without obstruction or gangrene; K63.89 Other specified diseases of intestine; Z90.710 Acquired absence of both cervix and uterus; Z90.722 Acquired absence of ovaries, bilateral
CPT/HCPCS: 71260; 74177; J1642; Q9967

== ENCOUNTER 2018-04-30 08:44 | Day surgery (SDC) | payer OTHER ==
[2018-04-29 12:10] VITALS: BMI 23.8
[~2018-04-30 08:44] MED LIST changes: -LIDOCAINE 1% 20 ML VIAL (10MG/ML) FOR IV START INTRADERMA PRN; -MORPHINE SULFATE 4 MG/ML SYRINGE IV PRN; -Pre Op ABX Message 1 EACH MISC MISCELLANE ONE; -SCOPOLAMINE 1.5MG/72HR PATCH TRANSDERM ONE; +ceFAZolin IN SWFI 2 GM/20 ML SYRINGE IVP ONE
[2018-04-30] MEDS ORDERED: LIDOCAINE 1% 20 ML VIAL (10MG/ML) FOR IV START INTRADERMA ONE (09:52)
[2018-04-30] MEDS ORDERED: LIDOCAINE 1% INJ 10MG/ML (20 ML MDV) SQ ONE (10:43)
[2018-04-30] MEDS ORDERED: fentaNYL (PF) 50 MCG/ML 2 ML AMP IVP ONE (11:05)
[2018-04-30] MEDS ORDERED: fentaNYL (PF) 50 MCG/ML 2 ML AMP IV ONE (11:10)
[2018-04-30] MEDS ORDERED: IBUPROFEN 600 MG TAB PO PRN (11:27)
--- NOTE | 2018-04-30 11:59 | OP ---
OPERATIVE REPORT DATE OF SURGERY: 04/30/2018 PREOPERATIVE DIAGNOSIS: Malignant pleural effusion. POSTOPERATIVE DIAGNOSIS: Malignant pleural effusion. PROCEDURE: Removal of PleurX catheter. SURGEON: Andrew Campos MD. PARK SUPERINTENDENT: None. ANESTHESIA: Local with IV sedation. SPECIMENS: None. ESTIMATED BLOOD LOSS: Minimal. COMPLICATIONS: None. INDICATION: The patient is a 63-year-old female with a history of breast cancer and known malignant pleural effusion. Placement of a PleurX catheter was performed in November of 2017. Over the past several weeks, she has had very minimal drainage out of her PleurX catheter. She denies shortness of breath. Removal of the PleurX catheter was requested. The risks, benefits, and alternatives to this procedure were discussed with the patient. All of her questions were answered. Consent was obtained. PROCEDURE IN DETAIL: The patient was taken to the operating room, placed supine on the operating table. The right chest was prepped and draped in the usual sterile fashion. Local anesthesia was infiltrated into the skin and subcutaneous tissue. IV sedation was administered. Using a Joann clamp, the exit site of the PleurX catheter was gently dilated and the cuff was dissected free. Using gentle retraction, the PleurX catheter was then easily pulled and was easily extracted and the entire PleurX catheter was pulled out intact. It did not appear to be clogged. Hemostasis was assured. A sterile dressing was applied. The patient appeared to tolerate the procedure well. There were no immediate complications. She returned to the recovery room in stable condition. MMODL / IJN: [id number] /
[2018-04-30] MEDS ORDERED: KETOROLAC 30 MG/ML 1 ML VIAL IVP PRN (12:04)
[2018-04-30] MEDS ORDERED: NALOXONE 0.4 MG/ML 1 ML VIAL IV PRN (12:04)
[2018-04-30] MEDS ORDERED: ACETAMINOPHEN TAB 325 MG TAB PO PRN (12:04)
[2018-04-30] MEDS ORDERED: BENZOCAINE/MENTHOL LOZENG 1 EACH LOZENGE MUCOUS MEM PRN (12:04)
[2018-04-30 13:25] VITALS: BP 149/77; PULSE 112; RESP 12; TEMP 97.4
[2018-04-30] MEDS ORDERED: FAMOTIDINE 20 MG TAB PO SCH (21:00)
[2018-05-01] MEDS ORDERED: LISINOPRIL 20 MG TAB PO SCH (09:00)
[2018-05-01] MEDS ORDERED: EXEMESTANE PO SCH (09:00)
== END 2018-04-30 15:30 | disposition home or self-care (01) ==
LOC: OR 08:44 → 3SUR 10:51 → OR 15:30
PROVIDERS: ATTEND Surgery
DX: J91.0 Malignant pleural effusion (principal); Z85.3 Personal history of malignant neoplasm of breast; Z46.82 Encounter for fitting and adjustment of non-vascular catheter; Z79.1 Long term (current) use of non-steroidal anti-inflammatories (NSAID); Z79.899 Other long term (current) drug therapy; Z88.5 Allergy status to narcotic agent; Z91.09 Other allergy status, other than to drugs and biological substances; Z79.811 Long term (current) use of aromatase inhibitors; Z87.891 Personal history of nicotine dependence; I10 Essential (primary) hypertension
CPT/HCPCS: 32552; J1100; J2405; J2001; J3010; J0690

== ENCOUNTER → 2018-10-24 | Outpatient (CLI) | payer OTHER ==
--- NOTE | 2018-10-24 13:50 | CT ---
EXAMINATION TYPE: CT ChestAbdPelvis w con DATE OF EXAM: 10/24/2018 COMPARISON: Prior CT chest abdomen pelvis 04/22/2018 HISTORY: Ovarian CA, breast CA follow up CT DLP: 638.3 mGycm Automated exposure control for dose reduction was used. CONTRAST: CT scan of the chest, abdomen and pelvis is performed with Oral Contrast and with IV Contrast, patien t injected with 100 mL of Isovue 300. FINDINGS: Post left mastectomy change is again seen. There is a small hiatal hernia. There is a Port- A-Cath in the right pectoral region, the catheter goes by internal jugular approach to the level of t he superior vena cava. Pleural drainage catheter has been removed on the right. LUNGS: The lungs are grossly clear, there is no concerning parenchymal mass or nodule identified. T here is no pleural effusion or pneumothorax seen. The tracheobronchial tree is patent. MEDIASTINUM: There are no greater than 1 cm hilar or mediastinal lymph nodes. No pericardial effusi on is seen. AORTA: No significant abnormality is seen. OTHER: No additional significant abnormality is seen. LIVER/GB: No significant interval change is appreciated. PANCREAS: No significant abnormality is seen. SPLEEN: No significant abnormality is seen. ADRENALS: No significant abnormality is seen. KIDNEYS: No significant abnormality is seen. REPRODUCTIVE ORGANS: Not seen. BOWEL: Interval improvement in much of the bowel wall thickening. Diverticular change in the sigmoid colon. FREE AIR: No Free Air visible. ASCITES: None seen. RETROPERITONEAL ADENOPATHY: No retroperitoneal adenopathy is seen. LYMPH NODES: No greater than 1 cm abdominal or pelvic lymph nodes are appreciated. URINARY BLADDER: No significant abnormality is seen. PELVIC ADENOPATHY: None visualized. OSSEOUS STRUCTURES: No significant abnormality is seen. IMPRESSION: There is interval improvement in the bowel wall thickening. No evident recurrence.
== END ==
LOC: RADCTMAIN 10:40
PROVIDERS: ATTEND Internal Medicine Hematology & Oncology
DX: K92.89 Other specified diseases of the digestive system (principal); C50.912 Malignant neoplasm of unspecified site of left female breast; C56.1 Malignant neoplasm of right ovary
CPT/HCPCS: 71260; 74177; J1642; Q9967

== ENCOUNTER → 2019-01-12 | Outpatient (CLI) | payer OTHER ==
--- NOTE | 2019-01-12 11:19 | MM ---
Reason for exam: additional evaluation requested from prior study. History: Patient is postmenopausal, has history of ovarian cancer at age 61, has history of breast cancer at age 49, and is nulliparous. Family history of breast cancer in mother at age 48 and breast cancer in sister at age 55. Mastectomy of the left breast, 2004. Physical Findings: Nurse did not find any significant physical abnormalities on exam. MG Diagnostic Mammo RT w CAD CC and MLO view(s) were taken of the right breast. There are scattered fibroglandular densities. Scattered secretory calcifications. No significant new findings when compared with previous films. These results were verbally communicated with the patient and result sheet given to the patient on 01/12/19. ASSESSMENT: Benign, BI-RAD 2 RECOMMENDATION: Routine screening mammogram of the right breast in 1 year.
== END | disposition home or self-care (01) ==
LOC: RADMAMWWP 10:16
PROVIDERS: ATTEND Internal Medicine Hematology & Oncology
DX: Z08 Encounter for follow-up examination after completed treatment for malignant neoplasm (principal); Z85.3 Personal history of malignant neoplasm of breast; Z90.12 Acquired absence of left breast and nipple
CPT/HCPCS: 77065

== ENCOUNTER → 2019-03-31 | Outpatient (CLI) | payer OTHER ==
--- NOTE | 2019-03-31 14:30 | USB ---
Reason for exam: clinical finding. History: Patient is postmenopausal, has history of ovarian cancer at age 61, has history of breast cancer at age 49, and is nulliparous. Family history of breast cancer in mother at age 48 and breast cancer in sister at age 55. Mastectomy of the left breast, 2004. Indicated problem(s): large axillary lymph nodes in the right breast. Physical Findings: Nurse did not find any significant physical abnormalities on exam. US Breast RT Right complete breast ultrasound includes all four quadrants, the retroareolar region and axilla. Finding demonstrates a 0.5 x 0.4 x 0.3cm oval, cystic lesion at 12 o'clock. These results were verbally communicated with the patient and result sheet given to the patient on 03/31/19. ASSESSMENT: Benign, BI-RAD 2 RECOMMENDATION: Follow-up diagnostic mammogram of the right breast in 9 months. Back on schedule for December 2019.
== END | disposition home or self-care (01) ==
LOC: RADUSWWP 13:24
PROVIDERS: ATTEND Internal Medicine Hematology & Oncology
DX: Z08 Encounter for follow-up examination after completed treatment for malignant neoplasm (principal); Z85.3 Personal history of malignant neoplasm of breast

== ENCOUNTER → 2020-03-15 | Outpatient (CLI) | payer MEDICARE ==
--- NOTE | 2020-03-16 10:08 | MM ---
Reason for exam: screening (asymptomatic). Last mammogram was performed 1 year and 2 months ago. History: Patient is postmenopausal, has history of ovarian cancer at age 61, has history of breast cancer at age 49, and is nulliparous. Family history of breast cancer in mother at age 48 and breast cancer in sister at age 55. Mastectomy of the left breast, 2005. Physical Findings: A clinical breast exam by your physician is recommended on an annual basis and results should be correlated with mammographic findings. MG 3D Scr Niki Unilateral W/Cad CC and MLO view(s) were taken of the right breast. Prior study comparison: January 12, 2019, right breast MG diagnostic mammo RT w CAD. The breast tissue is heterogeneously dense. This may lower the sensitivity of mammography. Stable benign calcifications. There is no discrete abnormality. No significant changes when compared with prior studies. ASSESSMENT: Benign, BI-RAD 2 RECOMMENDATION: Routine screening mammogram of the right breast in 1 year.
== END | disposition home or self-care (01) ==
LOC: RADMAMWWP 13:47
PROVIDERS: ATTEND Internal Medicine Hematology & Oncology
DX: Z08 Encounter for follow-up examination after completed treatment for malignant neoplasm (principal); Z85.3 Personal history of malignant neoplasm of breast; Z90.10 Acquired absence of unspecified breast and nipple
CPT/HCPCS: 77067

== ENCOUNTER → 2020-12-16 | Outpatient (CLI) | payer MEDICARE ==
[2020-12-16 11:05] LABS: African American GFR (CKD) >90 (>60 ml/min/1.73 sqM); Blood Urea Nitrogen 15 mg/dL (7-17); Non-African American GFR(CKD) 85 (>60 ml/min/1.73 sqM)
--- NOTE | 2020-12-16 18:53 | CT ---
EXAMINATION TYPE: CT ChestAbdPelvis w con DATE OF EXAM: 12/16/2020 INDICATION: Malignant neoplasm of Rt ovary COMPARISON: 10/26/2019 CT DLP: 1188 mGycm CONTRAST: Performed with Oral Contrast and with IV Contrast, patient injected with 100 mL of Isovue 300. TECHNIQUE: Axial images at 5 mm thick sections. Reconstructed images in the coronal plane. Delayed images through the kidneys. FINDINGS: CT CHEST: Portion of the thyroid visualized is normal. There is a left breast prosthesis. No suspicious lung nodules or focal infiltrates are present. No enlarged mediastinal or hilar adenopathy is evident. The ascending aorta diameter at the level of the main pulmonary artery is 3.7 cm. The main pulmonary artery diameter at the bifurcation is 2.4 cm. There is a small hiatal hernia present. CT ABDOMEN: Liver: Normal Spleen: Normal Pancreas: Normal Adrenal glands: The adrenal glands are normal. Gallbladder: Normal Kidneys: No masses are evident. No hydronephrosis is present. No cysts are present. Delayed images were obtained through the kidneys, which remain unremarkable. Aorta: Normal Inferior vena cava: Normal. CT PELVIS: Loops of bowel within the abdomen and pelvis are normal. Some diverticular changes to the sigmoid co chente. There are loops of bowel which are incompletely distended or lack oral contrast limiting their evaluation. Appendix: Normal as visualized. Urinary bladder: Normal. Genitourinary structures: Uterus and ovaries are not identified. Osseous structures: No suspicious lytic or sclerotic lesions. Facet degenerative changes are within t he lower lumbar spine. IMPRESSIONS: 1. No suspicious changes to suggest metastatic or recurrent breast cancer.
== END | disposition home or self-care (01) ==
LOC: RADCTMAIN 10:19
PROVIDERS: ATTEND Internal Medicine Hematology & Oncology
DX: C56.1 Malignant neoplasm of right ovary (principal); C50.912 Malignant neoplasm of unspecified site of left female breast; Z88.5 Allergy status to narcotic agent; Z91.048 Other nonmedicinal substance allergy status
CPT/HCPCS: 82565; 84520; 71260; 74177; 36415; Q9967

== ENCOUNTER → 2021-05-31 | Outpatient (CLI) | payer MEDICARE ==
--- NOTE | 2021-06-01 12:08 | MM ---
Reason for exam: screening (asymptomatic). Last mammogram was performed 1 year and 2 months ago. History: Patient is postmenopausal, has history of ovarian cancer at age 61, has history of breast cancer at age 49, and is nulliparous. Family history of breast cancer in mother at age 48 and breast cancer in sister at age 55. Mastectomy of the left breast, 2004. Benign excisional biopsy of the right breast, 1989. Taking antineoplastic beginning at age 49. Physical Findings: A clinical breast exam by your physician is recommended on an annual basis and results should be correlated with mammographic findings. MG 3D Scr Niki Unilateral W/Cad CC and MLO view(s) were taken of the right breast. Prior study comparison: March 15, 2020, bilateral MG 3d scr niki unilateral w/cad. January 12, 2019, right breast MG diagnostic mammo RT w CAD. There are scattered fibroglandular densities. There are benign appearing round, linear calcifications in the right breast. There is chronic nodularity in the right breast. There is no discrete abnormality. ASSESSMENT: Benign, BI-RAD 2 RECOMMENDATION: Routine screening mammogram of the right breast in 1 year.
== END | disposition home or self-care (01) ==
LOC: RADMAMWWP 10:15
PROVIDERS: ATTEND Internal Medicine Hematology & Oncology
DX: Z12.31 Encounter for screening mammogram for malignant neoplasm of breast (principal); Z78.0 Asymptomatic menopausal state; Z80.3 Family history of malignant neoplasm of breast; Z85.3 Personal history of malignant neoplasm of breast; Z85.43 Personal history of malignant neoplasm of ovary; Z90.12 Acquired absence of left breast and nipple
CPT/HCPCS: 77067

== ENCOUNTER → 2021-12-29 | Outpatient (CLI) | payer MEDICARE ==
[2021-12-29 13:26] LABS: African American GFR (CKD) >90 (>60 ml/min/1.73 sqM); Blood Urea Nitrogen 9 mg/dL (7-17); Non-African American GFR(CKD) 85 (>60 ml/min/1.73 sqM)
--- NOTE | 2021-12-29 15:03 | CT ---
EXAMINATION TYPE: CT ChestAbdPelvis w con DATE OF EXAM: 12/29/2021 COMPARISON: 12/16/2020 HISTORY: Malignant neoplasm of right ovary CT DLP: 1157.10 mGycm Automated exposure control for dose reduction was used. CONTRAST: CT scan of the chest, abdomen and pelvis is performed with Oral Contrast and with IV Contrast, patien t injected with 100 ml mL of Isovue 300. FINDINGS: CT chest: There is been interval development of a small to moderate left pleural effusion. The lungs are clear of consolidative, interstitial or masslike density. The great vessels the chest are normal and there is no mediastinal, hilar or axillary adenopathy. There is been a left mastectomy and lymphadenectomy on the left involving the left axilla. There is no focal lytic or blastic osseous lesion. CT abdomen and pelvis: There is been interval development of marked ascites. There is mild diffuse bowel wall thickening of the ileum and of the descending and sigmoid colon but there is no bowel obstruction. There is no free intraperitoneal air. Gallbladder is normal. No focal mass within the liver, pancreas, spleen or adrenal glands. The kidneys excrete contrast promptly and symmetrically and there is no solid renal mass or hydroneph rosis. The caliber of the abdominal aorta is normal and there is no retroperitoneal adenopathy. There are surgical absence of uterus. There is no pelvic mass or abscess. There is no focal lytic or blastic osseous abnormality. IMPRESSION: 1. Interval development of a small to moderate left pleural effusion. 2. Interval development of marked ascites. 3. Interval development of mild diffuse thickening of the distal ileum and distal colon.
== END | disposition home or self-care (01) ==
LOC: RADCTMAIN 11:45
PROVIDERS: ATTEND Internal Medicine Hematology & Oncology
DX: C56.1 Malignant neoplasm of right ovary (principal); C50.912 Malignant neoplasm of unspecified site of left female breast; J90 Pleural effusion, not elsewhere classified; R18.8 Other ascites; K63.89 Other specified diseases of intestine
CPT/HCPCS: 82565; 84520; 71260; 74177; 36415; Q9967

== ENCOUNTER 2022-02-02 12:01 | Emergency (ER) | payer MEDICARE ==
--- NOTE | 2022-02-02 12:43 | ED ---
General Adult HPI - General Chief complaint: Recheck/Abnormal Lab/Rx Stated complaint: Sent by PCP Time Seen by Provider: 02/02/22 12:30 Source: patient, RN notes reviewed, old records reviewed Mode of arrival: ambulatory Limitations: no limitations - History of Present Illness Initial comments: This is a 66-year-old female who has a past medical history significant for breast cancer in 2005 and ovarian cancer in 2018. Patient comes in today because she has noticed over the last month that her stomach has become larger. Patient states she went to see her primary medical care doctor and then set up an appointment with Dr. Eva Velasquez saw today. I want her to come over to the emergency department and she if she can get a paracentesis. Patient states the abdomen does not hurt she's had no nausea vomiting diarrhea. Patient states that she just has noticed that her clothes aren't fitting and that she looks like she is . Patient denies any recent fever chills or cough. - Related Data Home Medications Medication Instructions Recorded Confirmed lisinopriL [Prinivil] 20 mg PO QAM 11/13/17 04/30/18 Exemestane [Aromasin] 25 mg PO DAILY 04/29/18 04/30/18 Ibuprofen [Motrin] 600 mg PO Q6HR PRN 04/29/18 04/30/18 Allergies Allergy/AdvReac Type Severity Reaction Status Date / Time adhesive Allergy blisters-states Verified 02/02/22 12:05 "can use paper tape" hydromorphone [From Dilaudid] AdvReac Nausea & Verified 02/02/22 12:05 Vomiting Review of Systems ROS Statement: Those systems with pertinent positive or pertinent negative responses have been documented in the HPI. ROS Other: All systems not noted in ROS Statement are negative. Past Medical History Past Medical History: Cancer, Hyperlipidemia, Hypertension Additional Past Medical History / Comment(s): PLEURAL EFFUSION, PLEUR-X CATH PL ACED 11/26/17; HX Thoracentesis. 04/2004 HX BREAST CA, REOCCURANCE 04/2017 W/ METS TO OVARIES, COMPLETED CHEMO 02/07/18; HAS "SPOT ON LIVER." Enlarged heart. HX Gout. History of Any Multi-Drug Resistant Organisms: None Reported Past Surgical History: Breast Surgery, Hysterectomy Additional Past Surgical History / Comment(s): LT Lumpectomy. Mastectomy left 2004. Benign tumors removed back of head as child, Eye sx as child. Port-A-Cath Insertion, Removal; PORT-A-CATH 11/15/17. PLEURX CATH 11/26/17. HAKEEM 02/2018. Past Anesthesia/Blood Transfusion Reactions: No Reported Reaction, Family History of Problems w/ Anesthesia Additional Past Anesthesia/Blood Transfusion Reaction / Comment(s): MOTHER AWOKE DURING A SURGERY. Past Psychological History: Depression Past Alcohol Use History: Rare Past Drug Use History: None Reported - Past Family History Mother Family Medical History: Cancer, Hypertension Additional Family Medical History / Comment(s): breast cancer, enlarged heart, Father Family Medical History: Coronary Artery Disease (CAD), Hypertension, Renal Disease Additional Family Medical History / Comment(s): cabg Brother(s) Family Medical History: Hypertension Sister(s) Family Medical History: Cancer Additional Family Medical History / Comment(s): had 2 sisters. one had hx of hypertension and kidney cancer, other sister had hypertension, breast cancer General Exam - General Exam Comments Initial Comments: GENERAL: Patient is well-developed and well-nourished. Patient is nontoxic and well-hyd rated and is in mild distress. ENT: Neck is soft and supple. No significant lymphadenopathy is noted. Oropharynx is clear. Moist mucous membranes. EYES: The sclera were anicteric and conjunctiva were pink and moist. Extraocular movements were intact and pupils were equal round and reactive to light. Eyelids were unremarkable. PULMONARY: Unlabored respirations. Good breath sounds bilaterally. No audible rales rhonchi or wheezing was noted. CARDIOVASCULAR: There is a regular rate and rhythm without any murmurs gallops or rubs. ABDOMEN: Significantly distended abdomen and appears to be fluid filled consistent with ascites SKIN: Skin is clear with no lesions or rashes and otherwise unremarkable. NEUROLOGIC: Patient is alert and oriented x3. Cranial nerves II through XII are grossly intact. Motor and sensory are also intact. Normal speech, volume and content. Symmetrical smile. MUSCULOSKELETAL: Normal extremities with adequate strength and full range of motion. LYMPHATICS: No significant lymphadenopathy is noted PSYCHIATRIC: Normal psychiatric evaluation. Limitations: no limitations Course Vital Signs 02/02/22 02/02/22 02/02/22 12:02 13:40 13:45 Temperature 98.5 F Pulse Rate 125 H Pulse Rate [ 84 89 Pulse Oximetery ] Respiratory 20 18 16 Rate Blood Pressure 151/78 Blood Pressure 143/89 [Right Arm] O2 Sat by Pulse 96 100 100 Oximetry 02/02/22 02/02/22 02/02/22 14:00 14:15 14:30 Temperature Pulse Rate Pulse Rate [ 93 94 91 Pulse Oximetery ] Respiratory 18 16 18 Rate Blood Pressure Blood Pressure 153/89 143/90 146/105 [Right Arm] O2 Sat by Pulse 100 100 100 Oximetry 02/02/22 02/02/22 02/02/22 14:40 14:55 15:10 Temperature Pulse Rate 90 89 Pulse Rate [ 89 Pulse Oximetery ] Respiratory 18 16 16 Rate Blood Pressure 160/92 160/84 Blood Pressure 160/92 [Right Arm] O2 Sat by Pulse 100 100 100 Oximetry Medical Decision Making - Medical Decision Making Patient had a paracentesis in the emergency department. Patient's vitals of been tracked and she is stable to be discharged. Patient is without complaint - Lab Data Result diagrams: 02/02/22 13:10 02/02/22 13:10 Lab Results 02/02/22 02/02/22 02/02/22 Range/Units 13:10 13:10 13:10 WBC 9.8 (3.8-10.6) k/uL RBC 4.21 (3.80-5.40) m/uL Hgb 11.8 (11.4-16.0) gm/dL Hct 35.7 (34.0-46.0) % MCV 84.8 (80.0-100.0) fL MCH 27.9 (25.0-35.0) pg MCHC 33.0 (31.0-37.0) g/dL RDW 12.7 (11.5-15.5) % Plt Count 329 (150-450) k/uL MPV 6.8 Neutrophils % 77 % Lymphocytes % 15 % Monocytes % 4 % Eosinophils % 2 % Basophils % 1 % Neutrophils # 7.6 (1.3-7.7) k/uL Lymphocytes # 1.5 (1.0-4.8) k/uL Monocytes # 0.4 (0-1.0) k/uL Eosinophils # 0.2 (0-0.7) k/uL Basophils # 0.1 (0-0.2) k/uL PT 10.8 (9.0-12.0) sec INR 1.0 (<1.2) Sodium 140 (137-145) mmol/L Potassium 3.8 (3.5-5.1) mmol/L Chloride 107 (98-107) mmol/L Carbon Dioxide 22 (22-30) mmol/L Anion Gap 11 mmol/L BUN 9 (7-17) mg/dL Creatinine 0.67 (0.52-1.04) mg/dL Est GFR (CKD-EPI)AfAm >90 (>60 ml/min/1.73 sqM) Est GFR (CKD-EPI)NonAf >90 (>60 ml/min/1.73 sqM) Glucose 98 (74-99) mg/dL Calcium 9.1 (8.4-10.2) mg/dL Total Bilirubin 0.4 (0.2-1.3) mg/dL AST 24 (14-36) U/L ALT 16 (4-34) U/L Alkaline Phosphatase 95 (38-126) U/L Total Protein 7.1 (6.3-8.2) g/dL Albumin 4.0 (3.5-5.0) g/dL Disposition Clinical Impression: Ascites, S/P abdominal paracentesis Disposition: HOME SELF-CARE Condition: Good Instructions (If sedation given, give patient instructions): Ascites (ED), Paracentesis (DC) Is patient prescribed a controlled substance at d/c from ED?: No Referrals: Hilaria Obando MD [Primary Care Provider] - 1-2 days Time of Disposition: 15:41
[2022-02-02 13:14] LABS: Basophils # (A) 0.1 k/uL (0-0.2); Basophils % (A) 1 %; Eosinophils # (A) 0.2 k/uL (0-0.7); Eosinophils % (A) 2 %; HCT 35.7 % (34.0-46.0); HGB 11.8 gm/dL (11.4-16.0); Lymphocytes # (A) 1.5 k/uL (1.0-4.8); Lymphocytes % (A) 15 %; MCH 27.9 pg (25.0-35.0); MCV 84.8 fL (80.0-100.0); Mean Platelet Volume 6.8; Monocytes # (A) 0.4 k/uL (0-1.0); Monocytes % (A) 4 %; Neutrophils # (A) 7.6 k/uL (1.3-7.7); Neutrophils % (A) 77 %; Platelet Count 329 k/uL (150-450); RBC 4.21 m/uL (3.80-5.40); RDW 12.7 % (11.5-15.5); WBC 9.8 k/uL (3.8-10.6)
[2022-02-02 13:22] LABS: Prothrombin Time 10.8 sec (9.0-12.0)
[2022-02-02 13:23] LABS: ALT 16 U/L (4-34); AST 24 U/L (14-36); African American GFR (CKD) >90 (>60 ml/min/1.73 sqM); Alkaline Phosphatase 95 U/L (38-126); Anion Gap 11 mmol/L; Blood Urea Nitrogen 9 mg/dL (7-17); Calcium 9.1 mg/dL (8.4-10.2); Carbon Dioxide 22 mmol/L (22-30); Chloride 107 mmol/L (98-107); Glucose 98 mg/dL (74-99); Non-African American GFR(CKD) >90 (>60 ml/min/1.73 sqM); Potassium 3.8 mmol/L (3.5-5.1); Sodium 140 mmol/L (137-145); Total Bilirubin 0.4 mg/dL (0.2-1.3); Total Protein 7.1 g/dL (6.3-8.2)
[2022-02-02 15:12] VITALS: RESP 16
[2022-02-02 15:51] VITALS: BP 148/89; PULSE 97; TEMP 98.3
== END 2022-02-02 15:53 | disposition home or self-care (01) ==
LOC: EC 12:01
DX: R18.8 Other ascites (principal); Z79.890 Hormone replacement therapy; I10 Essential (primary) hypertension; E78.5 Hyperlipidemia, unspecified; Z91.048 Other nonmedicinal substance allergy status; Z88.5 Allergy status to narcotic agent
CPT/HCPCS: 36415; 49083; 80053; 85025; 85610; 99284

== ENCOUNTER → 2022-02-23 | Outpatient (CLI) | payer MEDICARE ==
--- NOTE | 2022-02-27 06:09 | PE ---
EXAMINATION TYPE: PET CT fusion skull to thigh DATE OF EXAM: 02/26/2022 COMPARISON: Most recent full body CT December 29, 2021 and older studies. HISTORY: Left-sided mastectomy 2004. Newly diagnosed right-sided breast cancer. History of ovarian ca ncer. TECHNIQUE: Following the intravenous administration of 12.07 mCi of F-18 FDG, whole body images are performed from the skull base to the midthigh. Images are reviewed on the computer in the coronal, a xial, and sagittal planes. Reconstructed rotating images are created on independent workstation and reviewed on the computer. A localization and attenuation correction CT is performed in conjunction with the PET scan. Blood glucose level equals 89. SCAN: Initial Scan FINDINGS: SKULL BASE AND NECK: No abnormal hypermetabolic uptake. CHEST, MEDIASTINUM, AND HILAR REGION: Left breast surgically absent with surgical clips in the left a xilla. No abnormal hypermetabolic masses in the right breast or suspicious right axillary adenopathy. There is small to moderate size left pleural effusion increased in size from most recent CT. No area s of abnormal hypermetabolic uptake. ABDOMEN AND PELVIS: Significant intraperitoneal nondependent fluid redemonstrated. Mild nonspecific b owel uptake. Normal excretion. No definitive hypermetabolic masses or lymph nodes. Uterus surgically absent. OSSEOUS STRUCTURES: No definitive abnormal hypermetabolic lesions. OTHER CT: Prominent ventricles only partially imaged, cannot rule out normal pressure hydrocephalus. Correlate clinically. Gallbladder has distended margins with dependent small gallstones. Diverticula in the sigmoid colon a re present. Scattered pelvic phleboliths. IMPRESSION: Nonlayering intraperitoneal fluid in patient with ovarian cancer with some areas of thick ening and slight nodularity suspicious for peritoneal carcinomatosis remains present. No areas of abn ormal hypermetabolic uptake to suggest metastatic disease. If there is new right breast neoplasm, it is not well identified on this PET/CT.
== END | disposition home or self-care (01) ==
LOC: RADPETMAIN 13:07
PROVIDERS: ATTEND Internal Medicine Hematology & Oncology
DX: C56.1 Malignant neoplasm of right ovary (principal); C50.911 Malignant neoplasm of unspecified site of right female breast
CPT/HCPCS: 78815; A9552

== ENCOUNTER 2022-03-27 12:01 | Day surgery (SDC) | payer MEDICARE ==
[2022-03-27 12:36] LABS: Platelet Count 252 k/uL (150-450)
[2022-03-27 12:38] VITALS: TEMP 97.8
[2022-03-27 12:56] LABS: INR 0.9 (<1.2); Prothrombin Time 10.2 sec (9.0-12.0)
[2022-03-27] MEDS ORDERED: LIDOCAINE 1% PF 10 MG/ML (5 ML AMP) SQ ONE (13:48)
[2022-03-27 15:20] VITALS: BP 146/78; PULSE 89; RESP 16
--- NOTE | 2022-03-27 16:45 | US ---
EXAMINATION TYPE: US paracentesis abd w/image DATE OF EXAM: 03/27/2022 COMPARISON: NONE HISTORY: Ascites. PROCEDURE: Maximal barrier technique was utilized. The skin overlying a suitable pocket of fluid was localized with ultrasound and the overlying skin was prepped and draped. Ultrasound was utilized with sterile technique. Lidocaine was used for local anesthesia and a skin salty made with a scalpel. Catheter was advanced under direct ultrasound guidance into a suitable pocket of fluid and approximately 5.8 liter s of ascites fluid were removed. Catheter was withdrawn and hemostasis achieved. There is no immedi ate complication; the patient is discharged in stable condition. IMPRESSION: STATUS POST ULTRASOUND GUIDED PARACENTESIS FOR PALLIATION OF ASCITES. THIS PROCEDURE WA S PERFORMED BY THE UNDERSIGNED.
== END 2022-03-27 15:20 | disposition home or self-care (01) ==
LOC: RADPROMAIN 12:01
PROVIDERS: ATTEND Internal Medicine Hematology & Oncology
DX: R18.8 Other ascites (principal); Z88.5 Allergy status to narcotic agent; Z91.09 Other allergy status, other than to drugs and biological substances; Z79.899 Other long term (current) drug therapy; Z87.891 Personal history of nicotine dependence; Z82.49 Family history of ischemic heart disease and other diseases of the circulatory system; Z80.3 Family history of malignant neoplasm of breast; Z80.51 Family history of malignant neoplasm of kidney; Z84.1 Family history of disorders of kidney and ureter
CPT/HCPCS: 85049; 85610; 36415; 49083; J2001

== ENCOUNTER → 2022-08-21 | Outpatient (CLI) | payer MEDICARE ==
--- NOTE | 2022-08-22 10:35 | MM ---
Reason for Exam: Screening (asymptomatic). Last mammogram was performed 1 year(s) and 3 month(s) ago. Patient History: Menarche at age 10. Patient has no children. Left ovary removed at age 62. Right ovary removed at age 62. Hysterectomy at age 62. Postmenopausal. Breast cancer, age 49. Ovarian cancer, age 61. 1989, Benign Excisional Biopsy on the right side. 2004, Mastectomy on the Left side. Sister had breast cancer, age 55. Mother had breast cancer, age 48. Prior Study Comparison: 01/12/2019 Right Diagnostic Mammogram, [facility]. 03/15/2020 Bilateral Screening Mammogram, [facility]. 05/31/2021 Bilateral Screening Mammogram, [facility]. Tissue Density: There are scattered fibroglandular densities. Findings: Analyzed By CAD. There are benign round and linear calcifications in the right breast redemonstrated. Stable small circumscribed round 5 mm lesion anteriorly in the right breast. There is no suspicious new group of microcalcifications or new distortion in the right breast. Overall Assessment: Benign, BI-RAD 2 Management: Screening Mammogram of the right breast in 1 year. A clinical breast exam by your physician is recommended on an annual basis and results should be correlated with mammographic findings. Electronically signed and approved by: Naresh Frances M.D.
== END | disposition home or self-care (01) ==
LOC: RADMAMWWP 12:32
PROVIDERS: ATTEND Internal Medicine Hematology & Oncology
DX: Z12.31 Encounter for screening mammogram for malignant neoplasm of breast (principal); Z80.3 Family history of malignant neoplasm of breast; Z78.0 Asymptomatic menopausal state; Z98.890 Other specified postprocedural states
CPT/HCPCS: 77067

== ENCOUNTER → 2022-12-03 | Outpatient (CLI) | payer MEDICARE ==
[2022-12-03 13:32] LABS: African American GFR (CKD) >90 (>60 ml/min/1.73 sqM); Blood Urea Nitrogen 12 mg/dL (7-17); Non-African American GFR(CKD) >90 (>60 ml/min/1.73 sqM)
--- NOTE | 2022-12-03 15:49 | CT ---
EXAMINATION TYPE: CT ChestAbdPelvis w con DATE OF EXAM: 12/03/2022 COMPARISON: PET/CT 02/23/2022 and 12/29/2021 CT HISTORY: 67-year-old female C56.1, with history of breast CA. Carcinoma right ovary. TECHNIQUE: Contiguous axial scanning of the chest, abdomen, and pelvis performed with IV Contrast, pa tient injected with 100 mL of Isovue 300. Delayed images through the kidneys were obtained. Coronal/s agittal reconstructions performed. CT DLP: 1481 mGycm Automated exposure control for dose reduction was used. FINDINGS: CHEST: The heart is normal size without pericardial effusion. Borderline ectatic ascending aorta 3.5 cm. Conventional arch vessels branching anatomy. No thoracic lymphadenopathy by CT size criteria. Previous left axillary lymph node dissection with acosta rgical clips. Patient is also status post left mastectomy. Stable 3 mm nodularity right apex. No consolidation or pleural effusion. Minimal emphysematous change s in the upper lungs. There appears to be a small hiatal hernia but with a circumferential wall thickening and some adjacen t fat stranding. There is also mild wall thickening of the distal esophagus. Direct visualization rec ommended to exclude a significant distal esophagitis or gastritis. ABDOMEN: A few subtle hypodensities measuring up to 7 mm within the liver appear to have been present previous ly. These are nonspecific and probably represent benign cysts. Mild prominence to the bile duct at 6 mm, acceptable given patient's age. Gallbladder is hydropic and 4.7 cm wide and shows no surrounding inflammation. Extensive heterogeneous internal material is pres ent, likely combination of sludge or noncalcified stones. Portal venous system is patent. Adrenal glands, kidneys, spleen with hilar splenule, and pancreas within normal limits. There appears to be trace fluid along the posterior wall of the gastric body, axial image 55. Additio nal trace anterior perihepatic ascites fluid. Scattered mild interloop fluid also remains. Significa nt improvement in the previous moderate to large abdominal ascites. No dilated small bowel or free air. There is circumferential wall thickening of distal ileum to the level of the ileocecal valve. Cluster ed loops of small bowel in the pelvis show wall thickening as well, axial image 101. Additional circu mferential wall thickening of the hepatic flexure of the colon. No mesenteric or retroperitoneal adenopathy seen. There is mild stool distally in the colon. Sigmoid diverticulosis. PELVIS: Mild circumferential bladder wall thickening. Trace stranding pelvic fluid. Numerous pelvic fluid was . Uterus surgically absent. Neither ovary is identified. BONES: Prominent foci of soft tissue air overlying the bilateral gluteal regions within the subcutaneous triny pose layer. Findings suggest multiple subcutaneous injections. Congenital interbody ankylosis L4-L5. Disc osteophyte complex above this level at L3-L4 mildly narrow s the spinal canal. No osseous destructive process seen. Sclerotic focus within the right iliac bone suggestive of bone island, unchanged IMPRESSION: 1. STATUS POST LEFT MASTECTOMY AND left axillary node dissection. Additional hysterectomy and bilater al salpingo-oophorectomies. 2. Circumferential wall thickening of the distal ileum, wall thickening of clustered small bowel loop s in the pelvis, and also of the hepatic flexure of the colon. Correlate for nonspecific enterocoliti s. Serosal disease is also in the differential though the thickening shows no associated nodularity. This may make serosal disease less likely. 3. Trace abdominopelvic ascites fluid remains, significantly improved from the patient's 02/23/2022 ex am. 4. Otherwise, no evidence for metastatic disease. Follow-up as clinically indicated. 5. Small hiatal hernia with circumferential wall thickening and some associated inflammation. Additio nal mild wall thickening of the distal esophagus. Correlate with patient's symptoms and with direct v isualization for possible significant distal esophagitis/gastritis. 6. Sludge and noncalcified stones filling the gallbladder. Sigmoid diverticulosis. Mild circumferenti al bladder wall thickening could represent cystitis, chronic bladder wall hypertrophy, or chronic pos ttreatment change. 7. Prominent foci of air in the subcutaneous adipose layer overlying both gluteal regions. Correlate for subcutaneous injections.
== END | disposition home or self-care (01) ==
LOC: RADCTMAIN 11:41
PROVIDERS: ATTEND Internal Medicine Hematology & Oncology
DX: C56.1 Malignant neoplasm of right ovary (principal); C50.912 Malignant neoplasm of unspecified site of left female breast; J91.0 Malignant pleural effusion; I10 Essential (primary) hypertension; K22.89 Other specified disease of esophagus; K44.9 Diaphragmatic hernia without obstruction or gangrene; K57.30 Diverticulosis of large intestine without perforation or abscess without bleeding; K80.20 Calculus of gallbladder without cholecystitis without obstruction; N32.89 Other specified disorders of bladder; R18.8 Other ascites
CPT/HCPCS: 82565; 84520; 71260; 74177; Q9967

== ENCOUNTER 2023-02-05 06:07 | Day surgery (SDC) | payer MEDICARE ==
[~2023-02-05 06:07] MED LIST changes: -DEXAMETHASONE SOD PHOSPHATE 10 MG/ML 1 ML VIAL IV ONE; +LIDOCAINE 1% (10MG/ML) FOR IV START INTRADERMA PRN; -MIDAZOLAM 2 MG/2 ML VIAL IV PRN; -ONDANSETRON 4 MG/2 ML VIAL IVP ONE; -ceFAZolin IN SWFI 2 GM/20 ML SYRINGE IVP ONE
[2023-02-05 06:53] VITALS: TEMP 97.4
[2023-02-05] MEDS ORDERED: LIDOCAINE 2% INJ 20 MG/ML (2 ML VIAL) ONE (07:21)
[2023-02-05] MEDS ORDERED: PROPOFOL 10 MG/ML 20 ML VIAL IV ONE (07:21)
--- NOTE | 2023-02-05 07:47 | P.PCN ---
Date of Procedure: 02/05/23 Procedure(s) Performed: BRIEF HISTORY: Patient is a 59-year-old, pleasant, female scheduled for an upper endoscopy with possible dilation as a part of evaluation of progressive dysphagia to solids for the last 3-4 weeks duration.. She was diagnosed with metastatic ovarian Cancer as follows with .she recently had CT of the chest, abdomen and pelvis that revealed circumferential of the distal esophagus as well as abnormal thickening of the hepatic flexure as well as the terminal ileum and hence he scheduled for an upper endoscopy as well as colonoscopy today. However the patient did not drink the prep and hence we're proceeding with an upper endoscopy only. PROCEDURE PERFORMED: Esophagoscopy with biopsy and dilation PREOPERATIVE DIAGNOSIS: Progressive dysphagia to solids for the last 2 months duration. IV sedation per anesthesia. PROCEDURE: After informed consent was obtained, the patient was brought into the endoscopy unit. IV sedation was administered by Anesthesia under continuous monitoring. Initially the Olympus GIF-140 video endoscope was inserted into the mouth. Esophagus intubated without any difficulty. It was gradually advanced into the the distal esophagus. The previously centimeters from the incisors there was a tight esophagus which are identified with a luminal diameter of almost 3-4 mm. I could not advance the scope. The scope was removed and a pediatric upper scope was introduced into the mouth and esophagus intubated without any difficulty and was advanced into the distal esophagus. Despite applying moderate pressure I was unable to advance the scope any further. At this time and proceed with dilation using 8-10 mm TTS balloon in a sequential fashion for 60 seconds. Following this there was some oozing identified but I still wasn't able to advance the scope safely into the stomach. At this time multiple biopsies were done from the esophageal stricture but there was friable mucosa identified. Just proximal to the stricture there was evidence of Anderson's esophagus which are also biopsied. The Rest of the esophagus appeared normal. The patient tolerated the procedure well. IMPRESSION: 1. Tight distal esophageal stricture at 25 cm from the incisors which did not allow the passage of the scope despite using a pediatric scope, status post dilation using 8-10 mm TTS balloon. Thickened esophageal folds with friability of the mucosa suspicious for neoplasm status post multiple biopsies . 2. Scope could not be advanced beyond the esophageal stricture. RECOMMENDATIONS: The findings of this examination were discussed with the patient .as well as a family. She was advised to follow with the biopsy results. She'll be seen in office in one week. In the meantime she was advised to continue with soft diet.
[2023-02-05 07:50] VITALS: RESP 16
[2023-02-05 08:03] VITALS: BP 143/68; PULSE 82
== END 2023-02-05 08:24 | disposition home or self-care (01) ==
LOC: ORWHC2ENDO 06:07
PROVIDERS: ATTEND Internal Medicine Gastroenterology
DX: K22.719 Barrett's esophagus with dysplasia, unspecified (principal); K22.2 Esophageal obstruction; I10 Essential (primary) hypertension; E78.5 Hyperlipidemia, unspecified; F32.A Depression, unspecified; Z79.899 Other long term (current) drug therapy; Z85.3 Personal history of malignant neoplasm of breast
CPT/HCPCS: 43239; 43249; J2704; J2001; C1726; 88305; 88341; 88342

== ENCOUNTER → 2023-06-26 | Outpatient (CLI) | payer MEDICARE ==
--- NOTE | 2023-06-26 20:42 | CT ---
EXAMINATION TYPE: CT ChestAbdPelvis wo con DATE OF EXAM: 06/26/2023 COMPARISON: 12/03/2022, 02/23/2022 HISTORY: 68-year-old female C56.1, metastatic breast CA. Patient with history of previous ovarian can cer. Left mastectomy in 2004, with more recently diagnosed right breast cancer. TECHNIQUE: Contiguous axial scanning of the chest, abdomen, and pelvis without IV contrast. Coronal a nd sagittal reconstructions performed. CT DLP: 905 mGycm Automated exposure control for dose reduction was used. FINDINGS: CHEST: The heart is normal size without pericardial effusion. Mild generalized anasarca change. Ectatic ascending aorta and 3.8 cm with conventional arch vessel branching anatomy. The patient is status post left mastectomy and left axillary node dissection. No thoracic lymphadenopathy by CT size criteria Lungs show mild emphysematous changes with biapical pleural parenchymal scarring Tiny 2 mm anterior right upper lobe pulmonary nodule unchanged from 02/23/2022. 3 mm posterior left lower lobe pulmonary nodule remains unchanged. ABDOMEN: Redemonstrated distended gallbladder measuring up to 4.6 cm wide with internal sludge and calculi. No surrounding inflammation seen. Noncontrast appearance of the liver, adrenal glands, kidneys, spleen with small hilar splenule, and pancreas show no gross anomaly. Moderate circumferential distal esophageal wall thickening is noted. There is progressive moderate ci rcumferential antral and pyloric wall thickening. No dilated small bowel. No free air. Soft tissue stranding and edema throughout the intra-abdominal f at with scattered nonenlarged mesenteric nodes. * While there is no nish omental nodularity, there is increased focal mural thickening along the as cending colon, axial images 371 and 383. * Additional focal mural thickening along the mid sigmoid colon, axial images 476 and 470. * Mural thickening of an adjacent small bowel loop in the upper pelvis, axial image 466. * Some peritoneal thickening and fluid along the anterior pelvis has increased, axial 506. Sigmoid diverticulosis. No definite acute inflammation. PELVIS: Loculated peritoneal fluid in the cul-de-sac measuring up to 5.0 cm. Similar moderate circumferential bladder wall thickening. Small pelvic phleboliths. Fluid and thickening along the anterior pelvis as mentioned above has increased. Uterus surgically absent. Neither ovary is seen, likely also surgical ly absent. BONES: Levoconvex curvature lumbar spine. Congenital interbody ankylosis L4-L5. Anterior endplate spondylosi s lower thoracic spine. IMPRESSION: 1. FOCAL AREAS OF MURAL OF SOFT TISSUE THICKENING ALONG THE ASCENDING COLON, MID SIGMOID COLON, AND A N ADJACENT SMALL BOWEL LOOP IN THE UPPER PELVIS. FINDINGS SUSPICIOUS FOR EARLY PERITONEAL DISEASE REC URRENCE. 2. INCREASED SOFT TISSUE THICKENING AND FLUID ALONG THE ANTERIOR INTRAPELVIC SPACE AND NEW LOCULATED CUL-DE-SAC FLUID MEASURING 5.0 CM ALSO SUSPICIOUS FOR PERITONEAL DISEASE. 3. CORRELATE FOR ONGOING DISTAL ESOPHAGITIS. THERE IS NOW ALSO MODERATE ANTRAL WALL THICKENING OF THE STOMACH. CORRELATE FOR GASTRITIS. DIRECT VISUALIZATION TO EXCLUDE THE POSSIBILITY OF NEW NEOPLASM HE RE. 4. STATUS POST LEFT MASTECTOMY AND LEFT AXILLARY NODE DISSECTION.
== END | disposition home or self-care (01) ==
LOC: RADCTMAIN 12:52
PROVIDERS: ATTEND Internal Medicine Hematology & Oncology
DX: C56.1 Malignant neoplasm of right ovary (principal); C50.912 Malignant neoplasm of unspecified site of left female breast; J91.0 Malignant pleural effusion; I10 Essential (primary) hypertension; Z90.13 Acquired absence of bilateral breasts and nipples; K63.89 Other specified diseases of intestine
CPT/HCPCS: 71250; 74176

== ENCOUNTER 2023-08-17 12:50 | Inpatient (IN) | payer MEDICARE ==
[2023-08-17] MEDS ORDERED: SODIUM CHLORIDE 0.9% 1,000 ML IV STA (14:20)
[2023-08-17] MEDS ORDERED: FAMOTIDINE 20 MG/2 ML VIAL IV STA (14:20)
[2023-08-17] MEDS ORDERED: ONDANSETRON 4 MG/2 ML VIAL IVP STA (14:20)
--- NOTE | 2023-08-17 14:30 | ED ---
General Adult HPI - General Chief complaint: Nausea/Vomiting/Diarrhea Stated complaint: N/V Time Seen by Provider: 08/17/23 13:55 Source: patient, RN notes reviewed Mode of arrival: ambulatory Limitations: no limitations - History of Present Illness Initial comments: Patient is a pleasant 68-year-old female presenting to the emergency department with concerns with nausea vomiting. Onset of symptoms was a few weeks ago. Patient has had decreased oral intake. Patient has lost around 20 pounds in the past several months. Patient does have known anesthetic breast cancer and does see oncology. Patient has tried antiemetic at home without improvement of symptoms. No fever. No abdominal pain. - Related Data Home Medications Medication Instructions Recorded Confirmed lisinopriL [Prinivil] 20 mg PO DAILY 11/13/17 02/05/23 Ondansetron [Zofran] 4 mg PO Q4H PRN 02/04/23 02/05/23 Palbociclib [Ibrance] 125 mg PO DAILY 02/04/23 02/05/23 Allergies Allergy/AdvReac Type Severity Reaction Status Date / Time adhesive Allergy blisters-states Verified 02/05/23 06:49 "can use paper tape" hydromorphone [From Dilaudid] AdvReac Nausea & Verified 02/05/23 06:49 Vomiting Review of Systems ROS Statement: Those systems with pertinent positive or pertinent negative responses have been documented in the HPI. ROS Other: All systems not noted in ROS Statement are negative. Constitutional: Denies: fever Eyes: Denies: eye pain ENT: Denies: ear pain Respiratory: Denies: dyspnea Cardiovascular: Denies: chest pain Endocrine: Reports: fatigue Gastrointestinal: Reports: nausea, vomiting. Denies: abdominal pain Genitourinary: Denies: dysuria Musculoskeletal: Denies: back pain Skin: Denies: rash Neurological: Denies: headache Past Medical History Past Medical History: Cancer, Hyperlipidemia, Hypertension Additional Past Medical History / Comment(s): PLEURAL EFFUSION, PLEUR-X CATH PLACED 11/26/17; HX Thoracentesis. 04/2004 HX BREAST CA, REOCCURANCE 04/2017 W/ METS TO OVARIES, COMPLETED CHEMO 02/07/18; HAS "SPOT ON LIVER." Enlarged heart. HX Gout. recurrence of cancer from aspiration of fluid from stomach x2, issues swallowing food, lymphodema left arm History of Any Multi-Drug Resistant Organisms: None Reported Past Surgical History: Breast Surgery, Hysterectomy Additional Past Surgical History / Comment(s): LT Lumpectomy. Mastectomy left 2004. Benign tumors removed back of head as child, Eye sx as child. Port-A-Cath Insertion, Removal; PORT-A-CATH 11/15/17. PLEURX CATH 11/26/17. HAKEEM 02/2018. Past Anesthesia/Blood Transfusion Reactions: No Reported Reaction, Family History of Problems w/ Anesthesia Additional Past Anesthesia/Blood Transfusion Reaction / Comment(s): MOTHER AWOKE DURING A SURGERY. Past Psychological History: Depression Smoking Status: Former smoker Past Alcohol Use History: None Reported Past Drug Use History: None Reported - Past Family History Mother Family Medical History: Cancer, Hypertension Additional Family Medical History / Comment(s): breast cancer, enlarged heart, Father Family Medical History: Coronary Artery Disease (CAD), Hypertension, Renal Disease Additional Family Medical History / Comment(s): cabg Brother(s) Family Medical History: Hypertension Sister(s) Family Medical History: Cancer Additional Family Medical History / Comment(s): had 2 sisters. one had hx of hypertension and kidney cancer, other sister had hypertension, breast cancer General Exam Limitations: no limitations General appearance: alert, in no apparent distress Head exam: Present: normocephalic Eye exam: Present: normal appearance Neck exam: Present: normal inspection Respiratory exam: Present: normal lung sounds bilaterally Cardiovascular Exam: Present: regular rate, normal rhythm GI/Abdominal exam: Present: soft. Absent: distended, tenderness, pulsatile mass Extremities exam: Present: normal inspection Neurological exam: Present: alert Psychiatric exam: Present: normal affect, normal mood Skin exam: Present: normal color Course Vital Signs 08/17/23 12:58 Temperature 98.4 F Pulse Rate 65 Respiratory 18 Rate Blood Pressure 102/71 O2 Sat by Pulse 94 L Oximetry EKG Findings - EKG Results: EKG: interpreted by ERMD (Left axis. Right bundle branch block. Nonspecific ST-T.), sinus rhythm Medical Decision Making - Medical Decision Making Was pt. sent in by a medical professional or institution (, PA, PASTE MIXING SUPERVISOR, urgent care, hospital, or shelter...) When possible be specific @ -No Did you speak to anyone other than the patient for history (EMS, parent, family, police, friend...)? What history was obtained from this source @ -No Did you review nursing and triage notes (agree or disagree)? Why? @ -I reviewed and agree with nursing and triage notes Were old charts reviewed (outside hosp., previous admission, EMS record, old EKG, old radiological studies, urgent care reports/EKG's, shelter records)? Report findings @ -Previous labs reviewed Differential Diagnosis (chest pain, altered mental status, abdominal pain women, abdominal pain men, vaginal bleeding, weakness, fever, dyspnea, syncope, headache, dizziness, GI bleed, back pain, seizure, CVA, palpatations, mental health, musculoskeletal)? @ -Differential Abdominal Pain Women: Appendicitis, Cholecystitis, diverticulosis, ischemic bowel, pancreatitis, hepatitis, UTI, gastroenteritis, AAA, incarcerated hernia, bowel obstruction, constipation, inflammatory bowel, hepatitis, peptic ulcer disease, splenic infarction, perforated viscus, vulvitis, ovarian torsion, PID, kidney stone, placenta abruption, this is not meant to be an all-inclusive list EKG interpreted by me (3pts min.). @ -As above X-rays interpreted by me (1pt min.). @ -None done CT interpreted by me (1pt min.). @ -None done U/S interpreted by me (1pt. min.). @ -None done What testing was considered but not performed or refused? (CT, X-rays, U/S, labs)? Why? @ -None What meds were considered but not given or refused? Why? @ -None Did you discuss the management of the patient with other professionals (professionals i.e. , PA, PASTE MIXING SUPERVISOR, lab, RT, psych nurse, social services, joint yarner, teacher, nuclear officer, case filler)? Give summary @ -Case was discussed with Dr. Trejo, who will admit covering for Dr. Boggs, who admits for Dr. Obando. Was smoking cessation discussed for >3mins.? @ -No Was critical care preformed (if so, how long)? @ -No Were there social determinants of health that impacted care today? How? (Homelessness, low income, unemployed, alcoholism, drug addiction, transportation, low edu. Level, literacy, decrease access to med. care, long-term, rehab)? @ -No Was there de-escalation of care discussed even if they declined (Discuss DNR or withdrawal of care, Hospice)? DNR status @ -No What co-morbidities impacted this encounter? (DM, HTN, Smoking, COPD, CAD, Cancer, CVA, ARF, Chemo, Hep., AIDS, mental health diagnosis, sleep apnea, morbid obesity)? @ -History of metastatic breast cancer Was patient admitted / discharged? Hospital course, mention meds given and route, prescriptions, significant lab abnormalities, going to OR and other p ertinent info. @ -Patient reevaluated and updated. Patient has AK eye and hypokalemia. Patient will be admitted with placement. Admission orders written. Oncology consult placed Undiagnosed new problem with uncertain prognosis? @ -No Drug Therapy requiring intensive monitoring for toxicity (Heparin, Nitro, Insulin, Cardizem)? @ -No Were any procedures done? @ -No Diagnosis/symptom? @ -Acute kidney injury, hypokalemia Acute, or Chronic, or Acute on Chronic? @ -Acute, acute Uncomplicated (without systemic symptoms) or Complicated (systemic symptoms)? @ -default Side effects of treatment? @ -No Exacerbation, Progression, or Severe Exacerbation? @ -No Poses a threat to life or bodily function? How? (Chest pain, [place], [place], pneumonia, PE, COPD, DKA, ARF, appy, cholecystitis, CVA, Diverticulitis, Homicidal, Suicidal, threat to staff... and all critical care pts) @ -No - Lab Data Result diagrams: 08/17/23 13:32 08/17/23 13:32 Lab Results 08/17/23 08/17/23 08/17/23 Range/Units 13:32 13:32 13:32 WBC 17.6 H (3.8-10.6) k/uL RBC 4.05 (3.80-5.40) m/uL Hgb 12.3 (11.4-16.0) gm/dL Hct 34.7 (34.0-46.0) % MCV 85.5 (80.0-100.0) fL MCH 30.3 (25.0-35.0) pg MCHC 35.4 (31.0-37.0) g/dL RDW 12.5 (11.5-15.5) % Plt Count 337 (150-450) k/uL MPV 7.2 Neutrophils % 93 % Lymphocytes % 2 % Monocytes % 4 % Eosinophils % 0 % Basophils % 0 % Neutrophils # 16.3 H (1.3-7.7) k/uL Lymphocytes # 0.3 L (1.0-4.8) k/uL Monocytes # 0.7 (0-1.0) k/uL Eosinophils # 0.0 (0-0.7) k/uL Basophils # 0.1 (0-0.2) k/uL Poikilocytosis Slight PT 11.5 (10.0-12.5) sec INR 1.1 (<1.2) APTT 22.8 (22.0-30.0) sec Sodium 135 L (137-145) mmol/L Potassium 2.7 L* (3.5-5.1) mmol/L Chloride 78 L (98-107) mmol/L Carbon Dioxide 40 H (22-30) mmol/L Anion Gap 17 mmol/L BUN 73 H (7-17) mg/dL Creatinine 1.77 H (0.52-1.04) mg/dL Est GFR (CKD-EPI)AfAm 33 (>60 ml/min/1.73 sqM) Est GFR (CKD-EPI)NonAf 29 (>60 ml/min/1.73 sqM) Glucose 158 H (74-99) mg/dL Plasma Lactic Acid Tamir (0.7-2.0) mmol/L Calcium 9.1 (8.4-10.2) mg/dL Total Bilirubin 2.1 H (0.2-1.3) mg/dL AST 36 (14-36) U/L ALT 23 (4-34) U/L Alkaline Phosphatase 56 (38-126) U/L Total Protein 7.9 (6.3-8.2) g/dL Albumin 4.3 (3.5-5.0) g/dL 08/17/23 Range/Units 13:32 WBC (3.8-10.6) k/uL RBC (3.80-5.40) m/uL Hgb (11.4-16.0) gm/dL Hct (34.0-46.0) % MCV (80.0-100.0) fL MCH (25.0-35.0) pg MCHC (31.0-37.0) g/dL RDW (11.5-15.5) % Plt Count (150-450) k/uL MPV Neutrophils % % Lymphocytes % % Monocytes % % Eosinophils % % Basophils % % Neutrophils # (1.3-7.7) k/uL Lymphocytes # (1.0-4.8) k/uL Monocytes # (0-1.0) k/uL Eosinophils # (0-0.7) k/uL Basophils # (0-0.2) k/uL Poikilocytosis PT (10.0-12.5) sec INR (<1.2) APTT (22.0-30.0) sec Sodium (137-145) mmol/L Potassium (3.5-5.1) mmol/L Chloride (98-107) mmol/L Carbon Dioxide (22-30) mmol/L Anion Gap mmol/L BUN (7-17) mg/dL Creatinine (0.52-1.04) mg/dL Est GFR (CKD-EPI)AfAm (>60 ml/min/1.73 sqM) Est GFR (CKD-EPI)NonAf (>60 ml/min/1.73 sqM) Glucose (74-99) mg/dL Plasma Lactic Acid Tamir 2.6 H* (0.7-2.0) mmol/L Calcium (8.4-10.2) mg/dL Total Bilirubin (0.2-1.3) mg/dL AST (14-36) U/L ALT (4-34) U/L Alkaline Phosphatase (38-126) U/L Total Protein (6.3-8.2) g/dL Albumin (3.5-5.0) g/dL Disposition Clinical Impression: Acute kidney injury, Hypokalemia Disposition: ADMITTED IP TO THIS HOSP Is patient prescribed a controlled substance at d/c from ED?: No Referrals: Hilaria Obando MD [Primary Care Provider] - 1-2 days Time of Disposition: 15:27
[2023-08-17 14:37] LABS: INR 1.1 (<1.2); Partial Thromboplastin Time 22.8 sec (22.0-30.0); Prothrombin Time 11.5 sec (10.0-12.5)
[2023-08-17 14:49] LABS: ALT 23 U/L (4-34); AST 36 U/L (14-36); African American GFR (CKD) 33 (>60 ml/min/1.73 sqM); Albumin 4.3 g/dL (3.5-5.0); Alkaline Phosphatase 56 U/L (38-126); Anion Gap 17 mmol/L; Blood Urea Nitrogen 73 mg/dL (7-17); Calcium 9.1 mg/dL (8.4-10.2); Carbon Dioxide 40 mmol/L (22-30); Chloride 78 mmol/L (98-107); Glucose 158 mg/dL (74-99); Non-African American GFR(CKD) 29 (>60 ml/min/1.73 sqM); Sodium 135 mmol/L (137-145); Total Bilirubin 2.1 mg/dL (0.2-1.3); Total Protein 7.9 g/dL (6.3-8.2)
[2023-08-17 15:02] LABS: Basophils # (A) 0.1 k/uL (0-0.2); Basophils % (A) 0 %; Eosinophils % (A) 0 %; HCT 34.7 % (34.0-46.0); HGB 12.3 gm/dL (11.4-16.0); Lymphocytes # (A) 0.3 k/uL (1.0-4.8); Lymphocytes % (A) 2 %; MCH 30.3 pg (25.0-35.0); MCHC 35.4 g/dL (31.0-37.0); MCV 85.5 fL (80.0-100.0); Mean Platelet Volume 7.2; Monocytes # (A) 0.7 k/uL (0-1.0); Monocytes % (A) 4 %; Neutrophils # (A) 16.3 k/uL (1.3-7.7); Neutrophils % (A) 93 %; Platelet Count 337 k/uL (150-450); Poikilocytosis Slight; RBC 4.05 m/uL (3.80-5.40); RDW 12.5 % (11.5-15.5); WBC 17.6 k/uL (3.8-10.6)
[2023-08-17 15:16] LABS: Potassium 2.7 mmol/L (3.5-5.1)
[2023-08-17] MEDS ORDERED: POTASSIUM CHLORIDE 20 MEQ in WATER FOR INJECTION 1 100ML.BAG IVPB STA (15:22)
[2023-08-17] MEDS ORDERED: ONDANSETRON 4 MG/2 ML VIAL IVP PRN (15:23)
[2023-08-17] MEDS ORDERED: NALOXONE 0.4 MG/ML 1 ML VIAL IV PRN (15:23)
[2023-08-17] MEDS ORDERED: POTAS-SOD-PHOS 278-164-250 MG 1 EACH PACKET PO SCH (16:00)
[2023-08-17] MEDS ORDERED: POTASSIUM BICARBONATE/CIT AC 20 MEQ TABLET.EFF PO ONE (16:24)
[2023-08-17] MEDS: 0.9% NACL WITH KCL 20 MEQ/L 1,000 ML IV SCH (21:00)
[2023-08-18] MEDS: 0.9% NACL WITH KCL 20 MEQ/L 1,000 ML IV SCH (05:12)
[2023-08-18] MEDS ORDERED: PANTOPRAZOLE 40 MG/10 ML VIAL IV SCH (09:00)
[2023-08-18] MEDS ORDERED: METOCLOPRAMIDE 5 MG/ML 2 ML VIAL IVP PRN (11:08)
[2023-08-18] MEDS ORDERED: ONDANSETRON 4 MG/2 ML VIAL IVP PRN (11:08)
[2023-08-18 12:28] LABS: Basophils % (A) 0 %; Eosinophils % (A) 0 %; HCT 27.9 % (34.0-46.0); Lymphocytes # (A) 0.4 k/uL (1.0-4.8); Lymphocytes % (A) 5 %; MCH 29.7 pg (25.0-35.0); MCHC 34.2 g/dL (31.0-37.0); MCV 86.8 fL (80.0-100.0); Mean Platelet Volume 7.7; Monocytes # (A) 0.3 k/uL (0-1.0); Monocytes % (A) 4 %; Neutrophils # (A) 7.9 k/uL (1.3-7.7); Neutrophils % (A) 90 %; Platelet Count 255 k/uL (150-450); Poikilocytosis Slight; RBC 3.21 m/uL (3.80-5.40); RDW 12.5 % (11.5-15.5); WBC 8.8 k/uL (3.8-10.6)
[2023-08-18 12:31] LABS: HGB 9.5 gm/dL (11.4-16.0)
[2023-08-18 12:36] LABS: ALT 17 U/L (4-34); AST 24 U/L (14-36); African American GFR (CKD) 40 (>60 ml/min/1.73 sqM); Albumin 3.2 g/dL (3.5-5.0); Albumin/Globulin Ratio 1.2; Alkaline Phosphatase 53 U/L (38-126); Anion Gap 9 mmol/L; Blood Urea Nitrogen 57 mg/dL (7-17); Calcium 8.2 mg/dL (8.4-10.2); Carbon Dioxide 40 mmol/L (22-30); Chloride 88 mmol/L (98-107); Globulin 2.7 g/dL; Glucose 100 mg/dL (74-99); Magnesium 2.1 mg/dL (1.6-2.3); Non-African American GFR(CKD) 35 (>60 ml/min/1.73 sqM); Phosphorus 2.8 mg/dL (2.5-4.5); Sodium 137 mmol/L (137-145); Total Bilirubin 0.9 mg/dL (0.2-1.3); Total Protein 5.9 g/dL (6.3-8.2)
[2023-08-18 12:42] LABS: Potassium 2.5 mmol/L (3.5-5.1)
[2023-08-18] MEDS ORDERED: IOPAMIDOL CONTRAST (ORAL USE) VIAL PO PRN (12:48)
[2023-08-18] MEDS ORDERED: Potassium Replacement Protocol 1 EACH MISC MISCELLANE PRN (12:49)
[2023-08-18] MEDS ORDERED: Magnesium Replacement Protocol 1 EACH MISC MISCELLANE PRN (12:49)
--- NOTE | 2023-08-18 12:57 | P.CONS ---
History of Present Illness - Reason for Consult Consult date: 08/18/23 Metastatic breast cancer - Chief Complaint Nausea and vomiting - History of Present Illness Ms. Farley is a 68-year-old woman with a past medical history significant for metastatic lobular carcinoma of the breast that is ER/AZ positive and HER2 low currently on orserdu (elacestrant) who presents with intractable nausea and vomiting. She notes having this previously when she was found to have me tastasis to the esophagus in January 2023 and underwent radiation therapy. She most recently had CT chest/abdomen/pelvis on 06/26/2023 that noted moderate esophageal wall thickening along with soft tissue stranding and edema in the abdominal fat with no nish omental nodularity, but noted focal mural thickening along the ascending and mid colon along with peritoneal thickening. There is also a loculated peritoneal fluid in the cul-de-sac measuring 5 cm. At that time, it was not thought that there was definitive disease progression on orserdu is recommended to continue treatment. Over the last 2 weeks, she has had progressive nausea and vomiting with oral intake of any solid food. Medications during this time have been difficult to tolerate and last took orserdu approximately 2 weeks ago. She denies any dysphagia, odynophagia, hematemesis, melena, hematochezia, or bright blood per rectum. She does note some abdominal bloating and discomfort without diarrhea. She does note some constipation. As her vomiting got worse, she presented to [facility] ED for additional management recommendations. On presentation, she was hemodynamically stable and afebrile. Labs revealed neutrophilic leukocytosis with WBC 17.6 (ANC 16.3), hemoglobin 12.3, platelets 337. CMP was notable for CRYSTAL and hypokalemia with creatinine 1.77, chloride 78, potassium 2.7, total bilirubin 2.1. She received 1 L bolus of normal saline in addition to potassium supplementation along with famotidine and Zofran IV. She was started on maintenance normal saline at 75 cc an hour and admitted to internal medicine for additional management recommendations. She has been taking Zofran 4 mg every 8 hours as needed, which has provided mild relief. Review of Systems 14 point review of systems was conducted with pertinent positives and negatives as noted per HPI Past Medical History Past Medical History: Cancer, Hyperlipidemia, Hypertension Additional Past Medical History / Comment(s): PLEURAL EFFUSION, PLEUR-X CATH VERNELL DOMINIQUE 3/13/18; HX Thoracentesis. 04/2004 HX BREAST CA, REOCCURANCE 04/2017 W/ METS TO OVARIES, COMPLETED CHEMO 02/07/18; HAS "SPOT ON LIVER." Enlarged heart. HX Gout. recurrence of cancer from aspiration of fluid from stomach x2, issues swallowing food-resolved, lymphodema left arm History of Any Multi-Drug Resistant Organisms: None Reported Past Surgical History: Breast Surgery, Hysterectomy Additional Past Surgical History / Comment(s): LT Lumpectomy. Mastectomy left 2004. Benign tumors removed back of head as child, Eye sx as child. Port-A-Cath Insertion, Removal; PORT-A-CATH 11/15/17. PLEURX CATH 11/26/17. HAKEEM 02/2018. Past Anesthesia/Blood Transfusion Reactions: No Reported Reaction, Family History of Problems w/ Anesthesia Additional Past Anesthesia/Blood Transfusion Reaction / Comm: MOTHER AWOKE DURING A SURGERY. Past Psychological History: Depression Additional Psychological History / Comment(s): R/T STRESS OF HEALTH, RECENT OF MOTHER Smoking Status: Former smoker Past Alcohol Use History: None Reported Additional Past Alcohol Use History / Comment(s): Started smoking age [age], 2 ppd, QUIT 1990 Past Drug Use History: None Reported - Past Family History Mother Family Medical History: Cancer, Hypertension Additional Family Medical History / Comment(s): breast cancer, enlarged heart, Father Family Medical History: Coronary Artery Disease (CAD), Hypertension, Renal Disease Additional Family Medical History / Comment(s): cabg Brother(s) Family Medical History: Hypertension Sister(s) Family Medical History: Cancer Additional Family Medical History / Comment(s): had 2 sisters. one had hx of hypertension and kidney cancer, other sister had hypertension, breast cancer Medications and Allergies Home Medications Medication Instructions Recorded Confirmed Type lisinopriL [Prinivil] 20 mg PO DAILY 11/13/17 08/17/23 History Allergies Allergy/AdvReac Type Severity Reaction Status Date / Time adhesive Allergy blisters-states Verified 08/17/23 16:09 "can use paper tape" adhesive tape Allergy blisters-states Verified 08/17/23 16:09 "can use paper tape" hydromorphone [From Dilaudid] AdvReac Nausea & Verified 08/17/23 16:09 Vomiting Physical Exam Vitals: Vital Signs Temp Pulse Pulse Pulse Resp BP BP 08/18/23 07:03 99.1 F 80 17 08/18/23 01:24 97.9 F 95 18 08/17/23 19:41 98.4 F 92 16 111/65 08/17/23 12:58 98.4 F 65 18 102/71 BP Pulse Ox 08/18/23 07:03 129/83 97 08/18/23 01:24 112/73 94 L 08/17/23 19:41 100 08/17/23 12:58 94 L Intake and Output 08/17/23 08/18/23 08/18/23 22:59 06:59 14:59 Other: Weight 45.359 kg - Constitutional Fatigued appearing General appearance: cooperative, no acute distress - EENT Eyes: EOMI ENT: normal oropharynx, no pharyngeal erythema, no thrush - Respiratory Respiratory: bilateral: CTA - Cardiovascular Rhythm: regular - Gastrointestinal General gastrointestinal: distended, hyperactive bowel sounds, soft, tenderness Localized gastrointestinal: tender: diffuse ( no rebound or guarding) - Integumentary Integumentary: decreased turgor, pale, no rash - Neurologic Neurologic: CNII-XII intact - Psychiatric Psychiatric: A&O x's 3 Results CBC & Chem 7: 08/18/23 10:30 08/17/23 13:32 Labs: Abnormal Lab Results - Last 24 Hours (Table) 08/17/23 08/17/23 08/17/23 Range/Units 13:32 13:32 13:32 WBC 17.6 H (3.8-10.6) k/uL RBC (3.80-5.40) m/uL Hgb (11.4-16.0) gm/dL Hct (34.0-46.0) % Neutrophils # 16.3 H (1.3-7.7) k/uL Lymphocytes # 0.3 L (1.0-4.8) k/uL Sodium 135 L (137-145) mmol/L Potassium 2.7 L* (3.5-5.1) mmol/L Chloride 78 L (98-107) mmol/L Carbon Dioxide 40 H (22-30) mmol/L BUN 73 H (7-17) mg/dL Creatinine 1.77 H (0.52-1.04) mg/dL Glucose 158 H (74-99) mg/dL Plasma Lactic Acid Tamir 2.6 H* (0.7-2.0) mmol/L Total Bilirubin 2.1 H (0.2-1.3) mg/dL 08/18/23 Range/Units 10:30 WBC (3.8-10.6) k/uL RBC 3.21 L (3.80-5.40) m/uL Hgb 9.5 L D (11.4-16.0) gm/dL Hct 27.9 L (34.0-46.0) % Neutrophils # 7.9 H (1.3-7.7) k/uL Lymphocytes # 0.4 L (1.0-4.8) k/uL Sodium (137-145) mmol/L Potassium (3.5-5.1) mmol/L Chloride (98-107) mmol/L Carbon Dioxide (22-30) mmol/L BUN (7-17) mg/dL Creatinine (0.52-1.04) mg/dL Glucose (74-99) mg/dL Plasma Lactic Acid Tamir (0.7-2.0) mmol/L Total Bilirubin (0.2-1.3) mg/dL Assessment and Plan (1) Nausea & vomiting Current Visit: Yes Status: Acute Code(s): R11.2 - NAUSEA WITH VOMITING, UNSPECIFIED SNOMED Code(s): 33383663 (2) Breast cancer metastasized to multiple sites Current Visit: Yes Status: Chronic Code(s): C50.919 - MALIGNANT NEOPLASM OF UNSP SITE OF UNSPECIFIED FEMALE BREAST SNOMED Code(s): 567058769 (3) Acute kidney injury Current Visit: Yes Status: Acute Code(s): N17.9 - ACUTE KIDNEY FAILURE, UNSPECIFIED SNOMED Code(s): 18061368 (4) Hypokalemia Current Visit: Yes Status: Acute Code(s): E87.6 - HYPOKALEMIA SNOMED Code(s): 19387858 Plan: #CRYSTAL, hypokalemia -Noted to have progressive nausea and vomiting over the past 2 weeks -Labs on admission were consistent with CRYSTAL and hypokalemia, likely prerenal with hypochloremic hypokalemic metabolic alkalosis secondary to intractable nausea and vomiting -Received 1 L IV fluid bolus followed by maintenance normal saline at 75 cc/h along with potassium supplementation -Unclear if this is secondary to bowel obstruction, possibly related to metastatic lobular carcinoma of the breast or localized esophageal recurrence. Nonmalignancy related obstruction is not ruled out from differential -Staging CT scans on 06/26/2023 noted possible thickening of the peritoneum, but this could have been due to prior peritoneal carcinomatosis -She was due for outpatient PET scan, but was not able to make this appointment due to persistent nausea and vomiting -We will obtain CT chest/abdomen/pelvis with IV contrast and patient for further evaluation -Increase Zofran to 8 mg IV every 8 hours as needed -CA 15-3 and CA 27-29 ordered to help assess breast cancer disease status #Metastatic lobular breast cancer -Received 3 cycles of carboplatin/paclitaxel with cytoreductive surgery in 2017 for what was thought to be primary ovarian cancer, but was unclear if this was actually metastatic breast cancer at that time -She had been on Aromasin from 2018 up until 2021 -Previously had left pleural effusion and peritoneal carcinomatosis in March 2022 -Subsequently treated with Ibrance/Faslodex until she had evidence of esophageal metastases in January 2023 -Following radiation therapy, she had been on orserdu since late February 2023 -Staging CT scans along with tumor markers as ordered above -If there is evidence of disease progression, she would be candidate for either enhertu or piqray given PIK3CA mutation noted on ctDNA testing in February 2023 Camille Velasquez MD
[2023-08-18] MEDS ORDERED: POTASSIUM BICARBONATE/CIT AC 20 MEQ TABLET.EFF PO ONE (12:58)
[2023-08-18] MEDS: POTASSIUM CHLORIDE 10 MEQ in WATER FOR INJECTION 1 100ML.BAG IVPB SCH ×8 (13:13→22:30)
[2023-08-18] MEDS ORDERED: PROCHLORPERAZINE INJ 10 MG/2 ML VIAL IVP PRN (13:43)
--- NOTE | 2023-08-18 14:00 | XR ---
EXAMINATION TYPE: XR abdomen acute w cxr DATE OF EXAM: 08/18/2023 1:28 PM CLINICAL INDICATION:Female, 68 years old with history of nausea/vomiting. COMPARISON: None. TECHNIQUE: Two radiographic views of the abdomen (upright and supine) and a frontal chest radiograph were obtained. FINDINGS CHEST: Lungs/Pleura: The lungs are clear. There is no evidence of pleural effusion, focal consolidation or p neumothorax. Mediastinum: Unremarkable. Vasculature: Normal. Heart: Normal in size. Musculoskeletal: The osseous structures are intact. Other findings: Postsurgical clips are noted in the left axilla.. FINDINGS ABDOMEN: Bowel gas pattern: Normal without dilated loops of small or large bowel. Fecal material and gas are d emonstrated throughout the colon and rectum. Abnormal calcifications: None. Musculoskeletal: Degenerative changes of the lumbar spine. IMPRESSION: 1. No radiographic evidence for acute abdominal process. 2. No acute cardiopulmonary process
--- NOTE | 2023-08-18 14:46 | CT ---
EXAMINATION TYPE: CT ChestAbdPelvis wo con CT DLP: 404.9 mGycm, Automated exposure control for dose reduction was used. DATE OF EXAM: 08/18/2023 2:30 PM COMPARISON: CT abdomen 06/26/2023. CLINICAL INDICATION:Female, 68 years old with history of abdominal cancer. Technique: Multiple axial images of the chest, abdomen, and pelvis were obtained. Two-dimensional cor onal and sagittal reconstructions were obtained. Contrast used:None. Oral contrast used: without Oral Contrast Findings: CHEST: LUNGS/ PLEURA: The lung parenchyma appears unremarkable. AIRWAY: Patent and unremarkable. HEART: Size within normal limits. MEDIASTINUM: No gross evidence of adenopathy. The esophagus is distended and fluid-filled. VASCULATURE: Atherosclerotic calcifications are present throughout the aorta and its branches. MUSCULOSKELETAL: No acute osseous abnormalities. SOFT TISSUES/LYMPH NODES: Left mastectomy changes. LOWER NECK: No significant findings. ABDOMEN: ABDOMEN LIVER: Unremarkable GALLBLADDER AND BILE DUCTS: The gallbladder is again noted to be distended. Cholelithiasis is identif ied. PANCREAS: Unremarkable. SPLEEN: Unremarkable. ADRENAL GLANDS: Unremarkable. KIDNEYS AND URETERS: No evidence of hydronephrosis or renal calculus. The ureters are unremarkable. PELVIS BLADDER: Unremarkable REPRODUCTIVE: Unremarkable. ABDOMEN & PELVIS STOMACH AND BOWEL: There is apparent wall thickening of the proximal duodenum. Small bowel loops with in the pelvis demonstrate wall thickening. The previously described nodularity along the colon is not well evaluated significant lack of IV contrast. No evidence of bowel obstruction. PERITONEUM: No evidence of pneumoperitoneum. Mild mesenteric edema is identified within the lower pel vis. VASCULATURE: Mild atherosclerotic calcifications are present throughout the abdominal aorta and its b ranches. MUSCULOSKELETAL: No acute osseous abnormalities LYMPH NODES: No gross evidence for lymphadenopathy. SOFT TISSUE/ABDOMINAL WALL: Unremarkable IMPRESSION: CT chest: 1. No acute intrathoracic process. 2. Fluid-filled esophagus tracking into the upper mediastinum, this places the patient high risk for aspiration. CT ABDOMEN: 1. Wall thickening of the duodenum and small bowel within the pelvis with associated mesenteric edema , this can be seen with underlying enteritis. 2. Stable distended gallbladder with cholelithiasis. 3. Of note, preceded described areas of nodularity discussed in the prior exam are suboptimally evalu ated secondary to lack of IV contrast.
--- NOTE | 2023-08-18 19:58 | HP ---
HISTORY AND PHYSICAL CHIEF COMPLAINT: Nausea and vomiting. HISTORY OF PRESENT ILLNESS: This is a 68-year-old woman with a past medical history of multiple medical problems including recurrent metastatic breast cancer, who was complaining of nausea and vomiting for the past several days. The patient lost about 20 pounds. The patient was unable to keep anything down. The patient had renal failure and severe hypokalemia. Even after replacement, potassium continues to be extremely low. The patient is extremely weak, unable to keep anything down. The patient is admitted for further evaluation and treatment. There is no history of any fever, rigor, or chills. The most recent CAT scan showed some suspected peritoneal involvement also. PAST MEDICAL HISTORY: Reviewed includes metastatic breast cancer. Rest of the history and rest of the chart are also reviewed. Hypertension and hyperlipidemia. HOME MEDICATIONS: Prinivil 20 mg daily. ALLERGIES: Adhesive tapes. FAMILY HISTORY: History of hypertension and cancer. SOCIAL HISTORY: Previous history of smoking. REVIEW OF SYSTEMS: Fourteen-point review is negative except as mentioned earlier. PHYSICAL EXAMINATION: VITAL SIGNS: Pulse is 80, blood pressure 129/83, respirations 17. HEENT: Conjunctivae are normal. NECK: No jugular venous distention. CARDIOVASCULAR: S1 and S2 muffled. RESPIRATORY: Breath sounds diminished at the bases. No rhonchi. No crackles. ABDOMEN: Soft. Mild diffuse distention. Mild diffuse discomfort. No guarding. No rigidity. No masses palpable. No ascites. LEGS: No edema. NERVOUS SYSTEM: Nonfocal. LABORATORY DATA: Sodium 137, potassium 2.4. Rest of the labs are noted. ASSESSMENT: 1. Intractable nausea and vomiting, possibly peritoneal carcinomatosis. 2. Severe dehydration with acute tubular necrosis and renal failure. 3. Severe hypokalemia. 4. Metastatic breast cancer. 5. Hyperlipidemia. 6. Hypertension. 7. Hyperlipidemia. 8. Full code. RECOMMENDATIONS AND DISCUSSION: In this 68-year-old woman presented with multiple complex medical issues, we will monitor the patient closely. Symptomatic treatment will be offered. Replacement of potassium. I would recommend at least 160 mEq of potassium IV and maybe an extra 40 p.o. and then repeat the potassium. Check and replace magnesium, symptomatic treatment, Protonix. Surgical and Hematology/Oncology consultation. CT scan of the abdomen and pelvis. Otherwise, the prognosis is guarded because of the multiple complex medical issues. Further recommendations to follow. See orders for details. MMODL / IJN: [id number] /
--- NOTE | 2023-08-18 20:02 | P.GSCN ---
History of Present Illness Consult date: 08/18/23 History of present illness: Reports history of gallbladder problems. She was told she needed to have it out. She reports troubles with swallowing and had bilious emesis earlier today. Presently, no moderate abdominal pain. CT reviewed with hiatal hernia also found with gallstones. Recommend EGD with dilation for dysphagia and HIDA scan for cholecystitis Past Medical History Past Medical History: Cancer, Hyperlipidemia, Hypertension Additional Past Medical History / Comment(s): PLEURAL EFFUSION, PLEUR-X CATH PLACED 11/26/17; HX Thoracentesis. 04/2004 HX BREAST CA, REOCCURANCE 04/2017 W/ METS TO OVARIES, COMPLETED CHEMO 02/07/18; HAS "SPOT ON LIVER." Enlarged heart. HX Gout. recurrence of cancer from aspiration of fluid from stomach x2, issues swallowing food-resolved, lymphodema left arm History of Any Multi-Drug Resistant Organisms: None Reported Past Surgical History: Breast Surgery, Hysterectomy Additional Past Surgical History / Comment(s): LT Lumpectomy. Mastectomy left 2004. Benign tumors removed back of head as child, Eye sx as child. Port-A-Cath Insertion, Removal; PORT-A-CATH 11/15/17. PLEURX CATH 11/26/17. HAKEEM 02/2018. Past Anesthesia/Blood Transfusion Reactions: No Reported Reaction, Family History of Problems w/ Anesthesia Additional Past Anesthesia/Blood Transfusion Reaction / Comm: MOTHER AWOKE DURING A SURGERY. Past Psychological History: Depression Additional Psychological History / Comment(s): R/T STRESS OF HEALTH, RECENT OF MOTHER Smoking Status: Former smoker Past Alcohol Use History: None Reported Additional Past Alcohol Use History / Comment(s): Started smoking age [age], 2 ppd, QUIT 1990 Past Drug Use History: None Reported - Past Family History Mother Family Medical History: Cancer, Hypertension Additional Family Medical History / Comment(s): breast cancer, enlarged heart, Father Family Medical History: Coronary Artery Disease (CAD), Hypertension, Renal Disease Additional Family Medical History / Comment(s): cabg Brother(s) Family Medical History: Hypertension Sister(s) Family Medical History: Cancer Additional Family Medical History / Comment(s): had 2 sisters. one had hx of hypertension and kidney cancer, other sister had hypertension, breast cancer Medications and Allergies Home Medications Medication Instructions Recorded Confirmed Type lisinopriL [Prinivil] 20 mg PO DAILY 11/13/17 08/17/23 History Allergies Allergy/AdvReac Type Severity Reaction Status Date / Time adhesive Allergy blisters-states Verified 08/17/23 16:09 "can use paper tape" adhesive tape Allergy blisters-states Verified 08/17/23 16:09 "can use paper tape" hydromorphone [From Dilaudid] AdvReac Nausea & Verified 08/17/23 16:09 Vomiting Surgical - Exam Vital Signs Temp Pulse Resp BP Pulse Ox 98.4 F 65 18 102/71 94 L 08/17/23 12:58 08/17/23 12:58 08/17/23 12:58 08/17/23 12:58 08/17/23 12:58 Results - Labs 08/18/23 10:30 08/18/23 10:30 Abnormal Lab Results - Last 24 Hours (Table) 08/18/23 08/18/23 Range/Units 10:30 10:30 RBC 3.21 L (3.80-5.40) m/uL Hgb 9.5 L D (11.4-16.0) gm/dL Hct 27.9 L (34.0-46.0) % Neutrophils # 7.9 H (1.3-7.7) k/uL Lymphocytes # 0.4 L (1.0-4.8) k/uL Potassium 2.5 L* (3.5-5.1) mmol/L Chloride 88 L (98-107) mmol/L Carbon Dioxide 40 H (22-30) mmol/L BUN 57 H (7-17) mg/dL Creatinine 1.52 H (0.52-1.04) mg/dL Glucose 100 H (74-99) mg/dL Calcium 8.2 L (8.4-10.2) mg/dL Total Protein 5.9 L (6.3-8.2) g/dL Albumin 3.2 L (3.5-5.0) g/dL Diabetes panel 08/18/23 Range/Units 10:30 Sodium 137 (137-145) mmol/L Potassium 2.5 L* (3.5-5.1) mmol/L Chloride 88 L (98-107) mmol/L Carbon Dioxide 40 H (22-30) mmol/L BUN 57 H (7-17) mg/dL Creatinine 1.52 H (0.52-1.04) mg/dL Glucose 100 H (74-99) mg/dL Calcium 8.2 L (8.4-10.2) mg/dL AST 24 (14-36) U/L ALT 17 (4-34) U/L Alkaline Phosphatase 53 (38-126) U/L Total Protein 5.9 L (6.3-8.2) g/dL Albumin 3.2 L (3.5-5.0) g/dL Calcium panel 08/18/23 Range/Units 10:30 Calcium 8.2 L (8.4-10.2) mg/dL Phosphorus 2.8 (2.5-4.5) mg/dL Albumin 3.2 L (3.5-5.0) g/dL Pituitary panel 08/18/23 Range/Units 10:30 Sodium 137 (137-145) mmol/L Potassium 2.5 L* (3.5-5.1) mmol/L Chloride 88 L (98-107) mmol/L Carbon Dioxide 40 H (22-30) mmol/L BUN 57 H (7-17) mg/dL Creatinine 1.52 H (0.52-1.04) mg/dL Glucose 100 H (74-99) mg/dL Calcium 8.2 L (8.4-10.2) mg/dL Adrenal panel 08/18/23 Range/Units 10:30 Sodium 137 (137-145) mmol/L Potassium 2.5 L* (3.5-5.1) mmol/L Chloride 88 L (98-107) mmol/L Carbon Dioxide 40 H (22-30) mmol/L BUN 57 H (7-17) mg/dL Creatinine 1.52 H (0.52-1.04) mg/dL Glucose 100 H (74-99) mg/dL Calcium 8.2 L (8.4-10.2) mg/dL Total Bilirubin 0.9 (0.2-1.3) mg/dL AST 24 (14-36) U/L ALT 17 (4-34) U/L Alkaline Phosphatase 53 (38-126) U/L Total Protein 5.9 L (6.3-8.2) g/dL Albumin 3.2 L (3.5-5.0) g/dL
[2023-08-18 20:15] LABS: ALT 15 U/L (4-34); AST 23 U/L (14-36); African American GFR (CKD) 56 (>60 ml/min/1.73 sqM); Albumin/Globulin Ratio 1.2; Alkaline Phosphatase 50 U/L (38-126); Anion Gap 8 mmol/L; Blood Urea Nitrogen 46 mg/dL (7-17); Calcium 7.9 mg/dL (8.4-10.2); Carbon Dioxide 33 mmol/L (22-30); Chloride 94 mmol/L (98-107); Globulin 2.5 g/dL; Glucose 93 mg/dL (74-99); Non-African American GFR(CKD) 49 (>60 ml/min/1.73 sqM); Potassium 3.4 mmol/L (3.5-5.1); Sodium 135 mmol/L (137-145); Total Bilirubin 0.8 mg/dL (0.2-1.3); Total Protein 5.5 g/dL (6.3-8.2)
[2023-08-18] MEDS: HEPARIN SODIUM,PORCINE 5,000 UNIT/ML 1 ML VIAL SQ SCH (21:45)
[2023-08-18] MEDS: PANTOPRAZOLE 40 MG/10 ML VIAL IV SCH (21:45)
[2023-08-18] MEDS: ACETAMINOPHEN TAB 325 MG TAB PO PRN (21:46)
[2023-08-18] MEDS: 0.9% NACL WITH KCL 40 MEQ/L 1,000 ML IV SCH (22:40)
[2023-08-18 23:20] LABS: ALT 15 U/L (4-34); AST 25 U/L (14-36); African American GFR (CKD) 60 (>60 ml/min/1.73 sqM); Albumin 2.9 g/dL (3.5-5.0); Albumin/Globulin Ratio 1.1; Alkaline Phosphatase 51 U/L (38-126); Anion Gap 8 mmol/L; Blood Urea Nitrogen 41 mg/dL (7-17); Calcium 7.9 mg/dL (8.4-10.2); Carbon Dioxide 32 mmol/L (22-30); Chloride 94 mmol/L (98-107); Globulin 2.7 g/dL; Glucose 89 mg/dL (74-99); Non-African American GFR(CKD) 52 (>60 ml/min/1.73 sqM); Potassium 4.1 mmol/L (3.5-5.1); Sodium 134 mmol/L (137-145); Total Bilirubin 0.9 mg/dL (0.2-1.3); Total Protein 5.6 g/dL (6.3-8.2)
[2023-08-19] MEDS: POTASSIUM CHLORIDE 10 MEQ in WATER FOR INJECTION 1 100ML.BAG IVPB SCH ×6 (00:31→06:16)
[2023-08-19 03:14] LABS: African American GFR (CKD) 60 (>60 ml/min/1.73 sqM); Albumin 2.5 g/dL (3.5-5.0); Anion Gap 7 mmol/L; Blood Urea Nitrogen 36 mg/dL (7-17); Calcium 7.4 mg/dL (8.4-10.2); Carbon Dioxide 29 mmol/L (22-30); Chloride 97 mmol/L (98-107); Glucose 86 mg/dL (74-99); Non-African American GFR(CKD) 52 (>60 ml/min/1.73 sqM); Sodium 133 mmol/L (137-145); Total Protein 4.9 g/dL (6.3-8.2)
[2023-08-19 03:15] LABS: ALT 14 U/L (4-34); AST 22 U/L (14-36); Alkaline Phosphatase 44 U/L (38-126); Globulin 2.4 g/dL; Total Bilirubin 0.7 mg/dL (0.2-1.3)
[2023-08-19] MEDS: 0.9% NACL WITH KCL 40 MEQ/L 1,000 ML IV SCH ×2 (03:21→20:23)
[2023-08-19 07:01] LABS: Basophils # (A) 0.1 k/uL (0-0.2); Basophils % (A) 1 %; Eosinophils # (A) 0.1 k/uL (0-0.7); Eosinophils % (A) 1 %; HCT 25.6 % (34.0-46.0); HGB 9.1 gm/dL (11.4-16.0); Lymphocytes # (A) 0.5 k/uL (1.0-4.8); Lymphocytes % (A) 7 %; MCH 30.3 pg (25.0-35.0); MCHC 35.4 g/dL (31.0-37.0); MCV 85.7 fL (80.0-100.0); Mean Platelet Volume 8.5; Monocytes # (A) 0.3 k/uL (0-1.0); Monocytes % (A) 5 %; Neutrophils # (A) 5.3 k/uL (1.3-7.7); Neutrophils % (A) 84 %; Platelet Count 179 k/uL (150-450); Poikilocytosis Slight; RBC 2.98 m/uL (3.80-5.40); RDW 12.7 % (11.5-15.5); WBC 6.3 k/uL (3.8-10.6)
[2023-08-19 07:33] LABS: ALT 13 U/L (4-34); AST 29 U/L (14-36); African American GFR (CKD) 78 (>60 ml/min/1.73 sqM); Albumin 2.6 g/dL (3.5-5.0); Alkaline Phosphatase 46 U/L (38-126); Anion Gap 9 mmol/L; Blood Urea Nitrogen 38 mg/dL (7-17); Calcium 7.9 mg/dL (8.4-10.2); Carbon Dioxide 28 mmol/L (22-30); Chloride 97 mmol/L (98-107); Globulin 2.5 g/dL; Glucose 81 mg/dL (74-99); Magnesium 1.8 mg/dL (1.6-2.3); Non-African American GFR(CKD) 68 (>60 ml/min/1.73 sqM); Sodium 134 mmol/L (137-145); Total Bilirubin 0.7 mg/dL (0.2-1.3); Total Protein 5.1 g/dL (6.3-8.2)
[2023-08-19 07:37] LABS: Potassium 3.7 mmol/L (3.5-5.1)
[2023-08-19] MEDS: HEPARIN SODIUM,PORCINE 5,000 UNIT/ML 1 ML VIAL SQ SCH ×2 (09:04→20:22)
[2023-08-19] MEDS: PANTOPRAZOLE 40 MG/10 ML VIAL IV SCH ×2 (09:25→20:22)
[2023-08-19] MEDS ORDERED: PROPOFOL 10 MG/ML 20 ML VIAL IV ONE (09:34)
[2023-08-19] MEDS ORDERED: LIDOCAINE 1% INJ 10MG/ML (20 ML MDV) ONE (09:34)
[2023-08-19] MEDS ORDERED: IV FLUID CONTINUATION 1,000 ML IV ONE (09:35)
[2023-08-19 12:48] VITALS: BMI 18.3
--- NOTE | 2023-08-19 16:59 | PN ---
PROGRESS NOTE DATE OF SERVICE: 08/19/2023 SUBJECTIVE: This is a 68-year-old woman, who was admitted with intractable nausea and vomiting, underwent EGD by Dr. Sorto, [email or web address]. The patient is being closely monitored at this time. The patient also had severe dehydration and acute tubular necrosis present on admission. The creatinine has improved to 0.88 at this time. Potassium is improved to 3.7. Hemoglobin is 9.1. PAST MEDICAL HISTORY: Reviewed. REVIEW OF SYSTEMS: Fourteen-point review is negative except as mentioned earlier. CURRENT MEDICATIONS: Reviewed include heparin subcutaneously. Doses and rest of the medications are noted. PHYSICAL EXAMINATION: VITAL SIGNS: Pulse is 79, blood pressure 112/75, respirations 16. HEENT: Conjunctivae are normal. NECK: No jugular venous distention. CARDIOVASCULAR: S1 and S2 muffled. RESPIRATORY: Breath sounds diminished at the bases. ABDOMEN: Soft and nontender. LEGS: No edema. NERVOUS SYSTEM: Nonfocal. LABORATORY DATA: Hemoglobin 9.1. Sodiumn. Rest of the labs are noted. ASSESSMENT: 1. Intractable nausea and vomiting, status post esophagogastroduodenoscopy. 2. Severe dehydration with acute tubular necrosis and renal failure. 3. Severe hypokalemia. 4. Metastatic breast cancer. 5. Hypertension. 6. Hyperlipidemia. 7. Full code. RECOMMENDATIONS: Recommend to continue current medical management. Continue symptomatic treatment. Repeat labs. Otherwise, closely follow with Dr. Sorto. See orders for details. Guarded prognosis. Further recommendations to follow. Continue with IV fluids and potassium. MMODL / IJN: [id number] / [facility]
--- NOTE | 2023-08-20 09:42 | NM ---
Nuclear medicine hepatobiliary scan. HISTORY: Pain. DOSAGE: The patient received 4.1 mCi of Technetium 99m Choletec. FINDINGS: There is normal hepatic extraction. The gallbladder is not seen at 60 minutes before at 2 hours. There is biliary to bowel clearance by 22 minutes. IMPRESSION: 1. Nonvisualization of the gallbladder correlate for cholecystitis.
[2023-08-20] MEDS: PANTOPRAZOLE 40 MG/10 ML VIAL IV SCH ×2 (10:12→20:46)
[2023-08-20] MEDS: HEPARIN SODIUM,PORCINE 5,000 UNIT/ML 1 ML VIAL SQ SCH ×2 (10:13→20:46)
[2023-08-20] MEDS: 0.9% NACL WITH KCL 40 MEQ/L 1,000 ML IV SCH ×2 (10:13→14:27)
--- NOTE | 2023-08-20 10:32 | FL ---
EXAMINATION TYPE: FL UGI w esophagus DATE OF EXAM: 08/20/2023 9:39 AM COMPARISON: NONE CLINICAL HISTORY: Difficulty in swallowing. A total of 112 seconds of fluoroscopic time was utilized during procedure and images obtained. Preliminary view of the abdomen reveals a normal bowel gas pattern. Upper GI examination was performed according to the single contrast technique. Barium and effervesce nt crystal was swallowed without difficulty or delay. Esophageal peristalsis and motility are within normal limits. There is no evidence for esophagitis, intraluminal mass, hiatal hernia or gastroesop hageal reflux. The stomach has a normal appearance in terms of its size, shape and location. No gas tric filling defects or ulcer craters are seen. The duodenal bulb and sweep are also free of intralu genaro lesion or ulcer crater. And single contrast cervical esophagram was also performed following the ingestion of thin liquid bar ium. There is no evidence for aspiration or penetration. No masses are seen. No filling defects ar e evident. IMPRESSION: Unremarkable evaluation.
[2023-08-20 10:54] LABS: HCT 24.9 % (37.2-46.3); HGB 8.1 g/dL (12.0-15.0); MCH 29.1 pg (27.0-32.0); MCHC 32.5 g/dL (32.0-37.0); MCV 89.6 FL (80.0-97.0); Mean Platelet Volume 9.9 FL (9.5-12.2); NRBC Per 100 WBC 0 X 10*3/uL (0.00-0.01); Platelet Count 210 X 10*3/uL (140-440); RBC 2.78 X 10*6/uL (4.10-5.20); RDW 12.2 % (11.5-14.5); WBC 6.98 X 10*3/uL (4.50-10.00)
[2023-08-20 10:55] LABS: Basophils # (A) 0.02 X 10*3/uL (0.00-0.10); Basophils % (A) 0.3 %; Eosinophils # (A) 0.11 X 10*3/uL (0.04-0.35); Eosinophils % (A) 1.6 %; Lymphocytes # (A) 0.35 X 10*3/uL (0.90-5.00); Monocytes % (A) 7.2 %; Neutrophils # (A) 5.97 X 10*3/uL (1.80-7.70); Neutrophils % (A) 85.5 %
[2023-08-20 11:19] LABS: Blood Urea Nitrogen 22.4 mg/dL (9.0-27.0); Calcium 8.1 mg/dL (8.7-10.3); Carbon Dioxide 22.4 mmol/L (21.6-31.8); Chloride 105 mmol/L (96-109); Glucose 53 mg/dL (70-110); Potassium 4.9 mmol/L (3.5-5.5); Sodium 142 mmol/L (135-145)
--- NOTE | 2023-08-20 13:59 | P.PN ---
Subjective Progress Note Date: 08/20/23 CHIEF COMPLAINT: Nausea vomiting HISTORY OF PRESENT ILLNESS: Patient presented with nausea and vomiting and dysphagia. She had EGD with dilation completed yesterday. Results showing Anderson's esophagus, esophageal ulcer, gastritis with bleeding, pyloric stenosis and hiatal hernia. Patient is tolerating ice chips. This morning she completed HIDA scan completed which showed nonvisualization of the gallbladder correlate for cholecystitis. She also had upper GI which was unremarkable. Afebrile. WB C 6.98 Hgb 8.1 platelets 210 sodium 142 potassium 4.9 creatinine 0.8 PHYSICAL EXAM: VITAL SIGNS: Reviewed GENERAL: Well-developed in no acute distress. HEENT: No sclera icterus. Extraocular movements grossly intact. Moist buccal mucosa. Head is atraumatic, normocephalic. Hears conversational speech. No nasal drainage. NECK: Supple without lymphadenopathy. CHEST: Non-labored respirations and equal bilateral excursions. CARDIOVASCULAR: Palpable 2+ radial pulses. ABDOMEN: Soft. Nondistended. Tenderness with palpation across the upper abdomen. MUSCULOSKELETAL: No clubbing or cyanosis. NEUROLOGIC: No focal or lateralizing signs. Cranial nerves II through XII grossly intact. PSYCH: Appropriate affect. Alert and oriented to person, place and time. SKIN: Well perfused. Good skin turgor. ASSESSMENT: 1. Nausea and vomiting 2. Acute kidney injury with dehydration 3. Status post EGD with pyloric stenosis, Anderson's esophagus, esophageal ulcer, gastritis and hiatal hernia 4. Cholecystitis. Nonvisualization of gallbladder noted on HIDA scan 5. History of breast cancer PLAN: -Start clear liquid diet -Patient scheduled for EGD with possible dilation tomorrow, 08/21/[address] Sorto -Nothing by mouth after midnight -Continue IV fluids -Continue IV Protonix -Continue antiemetics as needed -Repeat labs in a.m. Physician Wet End Operator note has been reviewed by physician. Signing provider agrees with the documented findings, assessment, and plan of care. Objective - Vital Signs Vital signs: Vital Signs Temp 99.1 F 08/20/23 09:37 Pulse 77 08/20/23 09:37 Resp 18 08/20/23 09:37 BP 121/79 08/20/23 09:37 Pulse Ox 96 08/20/23 09:37 FiO2 Intake & Output 08/19/23 08/20/23 08/20/23 18:59 06:59 18:59 Intake Total 1000 Balance 1000 Weight 45.359 kg Intake: IV 1000 0.9% NaCl with KCl 40 Meq 900 /l 1,000 ml @ 75 mls/hr IV .[id number] [facility] Rx#: [id number] Oral 0 Other: Voiding Method Toilet # Voids 4 5 # Bowel Movements 0 - Labs CBC & Chem 7: 08/20/23 06:07 08/20/23 06:07 Labs: Abnormal Lab Results - Last 24 Hours (Table) 08/20/23 08/20/23 Range/Units 06:07 06:07 RBC 2.78 L (4.10-5.20) X 10*6/uL Hgb 8.1 L (12.0-15.0) g/dL Hct 24.9 L (37.2-46.3) % Lymphocytes # 0.35 L (0.90-5.00) X 10*3/uL Anion Gap 14.60 H (4.00-12.00) mmol/L BUN/Creatinine Ratio 28.00 H (12.00-20.00) Ratio Glucose 53 L (70-110) mg/dL Calcium 8.1 L (8.7-10.3) mg/dL
--- NOTE | 2023-08-20 15:59 | PN ---
PROGRESS NOTE DATE OF SERVICE: 08/20/2023 SUBJECTIVE: This is a 68-year-old woman, who was admitted with intractable nausea and vomiting, also suspected gastric outlet obstruction. Upper GI series was done, which was unremarkable. No fever. No cough. PHYSICAL EXAMINATION: VITAL SIGNS: Pulse is 89, blood pressure 125/76, respirations 15. CHEST: Clear to auscultation. CARDIOVASCULAR: S1 and S2 muffled. ABDOMEN: Soft. LABORATORY DATA: Hemoglobin is 8.1. Other labs are noted. ASSESSMENT: 1. Intractable nausea and vomiting, status post esophagogastroduodenoscopy, possibly gastric outlet obstruction. 2. Severe dehydration with acute tubular necrosis and renal failure. 3. Severe hypokalemia. 4. Metastatic breast cancer. 5. Hypertension. 6. Hyperlipidemia. 7. Full code. RECOMMENDATIONS: Recommend to continue current medical management. Continue symptomatic treatment. Otherwise, closely follow with Surgery. Possible repeat endoscopies. Repeat labs. Guarded prognosis. Further recommendations to follow. MMODL / IJN: [id number] /
[2023-08-20] MEDS: ONDANSETRON 4 MG/2 ML VIAL IVP PRN (18:35)
[2023-08-20] MEDS ORDERED: MELATONIN 5 MG TABLET PO PRN (20:24)
--- NOTE | 2023-08-21 07:36 | P.PN ---
Subjective Progress Note Date: 08/20/23 No acute changes Denies n/v and abd pain at this time, reports eating makes symptoms worse S/p EGD Objective - Vital Signs Vital signs: Vital Signs Temp 97.3 F L 08/20/23 13:33 Pulse 92 08/20/23 13:33 Resp 14 08/20/23 13:33 BP 123/82 08/20/23 13:33 Pulse Ox 97 08/20/23 13:33 FiO2 Intake & Output 08/19/23 08/20/23 08/20/23 18:59 06:59 18:59 Intake Total 1000 Balance 1000 Weight 45.359 kg Intake: IV 1000 0.9% NaCl with KCl 40 Meq 900 /l 1,000 ml @ 75 mls/hr IV .[id number] [facility] Rx#: [id number] Oral 0 Other: Voiding Method Toilet # Voids 4 5 # Bowel Movements 0 - Constitutional General appearance: Present: average body habitus, no acute distress - EENT ENT: Present: hearing grossly normal - Respiratory Details: breathing is even and unlabored - Cardiovascular Details: skin warm and dry - Gastrointestinal General gastrointestinal: Present: soft. Absent: tenderness - Integumentary Integumentary: Absent: cyanotic, jaundiced - Musculoskeletal Musculoskeletal: Present: strength equal bilaterally - Psychiatric Psychiatric: Present: A&O x's 3 - Labs CBC & Chem 7: 08/20/23 06:07 08/20/23 06:07 Labs: Abnormal Lab Results - Last 24 Hours (Table) 08/20/23 08/20/23 Range/Units 06:07 06:07 RBC 2.78 L (4.10-5.20) X 10*6/uL Hgb 8.1 L (12.0-15.0) g/dL Hct 24.9 L (37.2-46.3) % Lymphocytes # 0.35 L (0.90-5.00) X 10*3/uL Anion Gap 14.60 H (4.00-12.00) mmol/L BUN/Creatinine Ratio 28.00 H (12.00-20.00) Ratio Glucose 53 L (70-110) mg/dL Calcium 8.1 L (8.7-10.3) mg/dL - Imaging and Cardiology HIDA scan and barium swallow study reviewed Assessment and Plan (1) Acute kidney injury Current Visit: Yes Status: Acute Code(s): N17.9 - ACUTE KIDNEY FAILURE, UNSPECIFIED SNOMED Code(s): 03845335 (2) Breast cancer metastasized to multiple sites Current Visit: Yes Status: Chronic Code(s): C50.919 - MALIGNANT NEOPLASM OF UNSP SITE OF UNSPECIFIED FEMALE BREAST SNOMED Code(s): 706287058 (3) Hypokalemia Current Visit: Yes Status: Acute Code(s): E87.6 - HYPOKALEMIA SNOMED Code( s): 91061883 Plan: #CRYSTAL, hypokalemia -Noted to have progressive nausea and vomiting over the past 2 weeks -Labs on admission were consistent with CRYSTAL and hypokalemia, likely prerenal with hypochloremic hypokalemic metabolic alkalosis secondary to intractable nausea and vomiting -Received 1 L IV fluid bolus followed by maintenance normal saline at 75 cc/h along with potassium supplementation -Unclear if this is secondary to bowel obstruction, possibly related to metastatic lobular carcinoma of the breast or localized esophageal recurrence. Nonmalignancy related obstruction is not ruled out from differential -Staging CT scans on 06/26/2023 noted possible thickening of the peritoneum, but this could have been due to prior peritoneal carcinomatosis -She was due for outpatient PET scan, but was not able to make this appointment due to persistent nausea and vomiting -We will obtain CT chest/abdomen/pelvis with IV contrast and patient for further evaluation -Increase Zofran to 8 mg IV every 8 hours as needed -CA 15-3 and CA 27-29 ordered #Metastatic lobular breast cancer -Received 3 cycles of carboplatin/paclitaxel with cytoreductive surgery in 2018 for what was thought to be primary ovarian cancer, but was unclear if this was actually metastatic breast cancer at that time -She had been on Aromasin from 2018 up until 2021 -Previously had left pleural effusion and peritoneal carcinomatosis in March 2022 -Subsequently treated with Ibrance/Faslodex until she had evidence of esophageal metastases in January 2023 -Following radiation therapy, she had been on orserdu since late February 2023 -CT chest abdomen pelvis without contrast revealed no acute intrathoracic process. Fluid-filled esophagus tracking in the upper mediastinum. Wall thickening of the duodenum and small bowel within the pelvis with associated mesenteric edema, rule out possible underlying enteritis. Stable distended gallbladder with cholelithiasis. Proceeded described areas of nodularity discussed in the prior exam are suboptimally evaluated secondary to lack of IV contrast. CA 15-3 elevated at 34.1, CA 27.29 pending. -If there is evidence of disease progression, she would be candidate for either enhertu or piqray given PIK3CA mutation noted on ctDNA testing in February 2023. Since CT study was ordered without contrast will plan to reobtain with contrast once pt stable, or reschedule PET CT outpt for further evaluation to r/o disease progression GI bleed: -EGD showed Anderson's esophagus, esophageal ulcer, gastritis with bleeding pyloric stenosis. Patient scheduled for EGD with possible dilation tomorrow, 08/21/[address] Sorto -Hgb 8.1 today, was normal at 12.3 upon admission. Will order anemia workup -HIDA scan revealed nonvisualization of the gallbladder correlate for for cholecystitis. Upper GI barium swallow study was unremarkable. -Defer to surgery team for management attests: I seen and examined patient, Performed H&P, developed impression and plan of care. Discussed with dictator. Agree with documentation, dictated as a scribe
[2023-08-21] MEDS: PANTOPRAZOLE 40 MG/10 ML VIAL IV SCH ×2 (08:10→20:56)
[2023-08-21] MEDS ORDERED: PROPOFOL 10 MG/ML 20 ML VIAL IV ONE (08:48)
[2023-08-21] MEDS ORDERED: LACTATED RINGERS 1,000 ML IV ONE (08:48)
[2023-08-21] MEDS ORDERED: LIDOCAINE 2% (PF) 20 MG/ML 5 ML VIAL ONE (08:48)
--- NOTE | 2023-08-21 09:20 | P.PCN ---
Date of Procedure: 08/21/23 Description of Procedure: PREOPERATIVE DIAGNOSIS: Dysphagia. Nausea with vomiting. Adult pyloric stenosis Gastric outlet obstruction POSTOPERATIVE DIAGNOSIS: Adult pyloric stenosis Gastric outlet obstruction Gastritis with bleeding Esophageal ulcer Diaphragmatic hiatal hernia Erosive esophagitis Gastric fluid Anderson's esophagus OPERATION: Esophagogastroduodenoscopy with pyloric balloon dilatation from 15 to 18 mm Esophagogastroduodenoscopy with cold biopsy forceps duodenum Esophagogastroduodenoscopy with suction 300 mL gastric contents SURGEON: Elba Sorto MD ANESTHESIA: MAC. INDICATIONS: The patient is a 68-year-old female who presents with a history of dysphagia, including nausea and vomiting. Benefits and risks of the procedure were described. Informed consent was obtained. DESCRIPTION: The patient was brought into the endoscopy suite and laid in the left lateral decubitus position. After a timeout was confirmed, the procedure was initiated. An Olympus gastroscope was passed along the posterior oropharynx down to the distal esophagus where the squamocolumnar junction. Fluid was found within the esophagus and aspirated, over 300 mL dark content. Easily friable tissue with bleeding at the distal esophagus at the squamocolumnar junction was identified consistent with Anderson's esophagus and esophageal ulcer. Severe hypertension of the pylorus is identified with easily friable tissue of the gastric antrum. Persistent pressure was placed on the pylorus for entry into the duodenum. Biopsies are obtained of the duodenum. No acute duodenal ulcer was found. A xaitment pyloric balloon dilator was placed through the scope. Final insufflation from 15 to 18 mm was performed with a total of 2 minutes. No full-thickness injury was encountered. The GI tract was desufflated. The patient tolerated the procedure well. FINDINGS: Squamocolumnar junction unremarkable at 35 cm. Diaphragmatic hiatus 39 cm from the incisors Diaphragmatic hiatal hernia, 4 cm, sliding Erosive esophagitis with esophageal ulcer, easily friable, LA grade C Hill grade 3 lower esophageal valve Papular appearance of antrum with gastritis, no ulceration Pyloric dilation of the duodenum, 18 mm Anderson's esophagus distal esophagus duodenal biopsies obtained. Aspiration 300 mL suctioned from stomach RECOMMENDATIONS: Recommend liquid diet Will need future duodenal dilations.
--- NOTE | 2023-08-21 09:26 | P.PCN ---
Date of Procedure: 08/19/23 Description of Procedure: PREOPERATIVE DIAGNOSIS: Intractable nausea with vomiting History of breast cancer metastases History of esophageal obstruction Dysphagia. POSTOPERATIVE DIAGNOSIS: Adult pyloric stenosis Gastric outlet obstruction Gastritis with bleeding Esophageal ulcer Diaphragmatic hiatal hernia Erosive esophagitis Gastric fluid Anderson's esophagus OPERATION: Esophagogastroduodenoscopy with pyloric balloon dilatation from 8 to 10 mm Esophagogastroduodenoscopy with cold biopsy forceps esophagus, antrum Esophagogastroduodenoscopy with suction 600 mL gastric contents SURGEON: Elba Sorto MD ANESTHESIA: MAC. INDICATIONS: The patient is a 68-year-old female who presents with a history intractable nausea and vomiting and gastric outlet obstruction. Upper endoscopy is described. Informed consent was obtained. DESCRIPTION: The patient was brought into the endoscopy suite and laid in the left lateral decubitus position. After a timeout was confirmed, the procedure was initiated. An Olympus gastroscope was passed along the posterior oropharynx down to the distal esophagus where the squamocolumnar junction. Fluid was found within the esophagus and aspirated, over 600 mL dark content. Easily friable tissue with bleeding at the distal esophagus at the squamocolumnar junction was identified consistent with Anderson's esophagus and esophageal ulcer. Biopsies were obtained of the esophagus and antrum with cold forceps. Severe hypertension of the pylorus is identified. The scope could not pass beyond the sphincter. A [employer] pyloric balloon dilator was placed through the scope. Final insufflation from 8 to 10 mm was performed with a total of 2 minutes. No full-thickness injury was encountered. The GI tract was desufflated. The patient tolerated the procedure well. FINDINGS: Squamocolumnar junction unremarkable at 35 cm. Diaphragmatic hiatus 39 cm from the incisors Diaphragmatic hiatal hernia, 4 cm, sliding Erosive esophagitis with esophageal ulcer, easily friable, LA grade C, biopsies obtained Hill grade 3 lower esophageal valve [place]estone appearance with biopsies obtained of antrum, stomach Pyloric dilation of the duodenum, 8 to 10 mm Anderson's esophagus distal esophagus Aspiration 600 mL suctioned from stomach RECOMMENDATIONS: Recommend nothing by mouth Recommend upper GI Will need repeat dilation
[2023-08-21] MEDS: HEPARIN SODIUM,PORCINE 5,000 UNIT/ML 1 ML VIAL SQ SCH ×2 (10:48→20:54)
[2023-08-21] MEDS: 0.9% NACL WITH KCL 40 MEQ/L 1,000 ML IV SCH ×2 (10:49→20:58)
[2023-08-21 11:09] LABS: Basophils % (A) 0 %; Eosinophils # (A) 0.1 k/uL (0-0.7); Eosinophils % (A) 3 %; HCT 27.2 % (34.0-46.0); HGB 9.2 gm/dL (11.4-16.0); Lymphocytes # (A) 0.4 k/uL (1.0-4.8); Lymphocytes % (A) 9 %; MCH 30.3 pg (25.0-35.0); MCHC 33.8 g/dL (31.0-37.0); MCV 89.7 fL (80.0-100.0); Mean Platelet Volume 7.5; Monocytes # (A) 0.3 k/uL (0-1.0); Monocytes % (A) 6 %; Neutrophils % (A) 80 %; Platelet Count 212 k/uL (150-450); RBC 3.03 m/uL (3.80-5.40); RDW 12.6 % (11.5-15.5)
--- NOTE | 2023-08-21 14:21 | P.CRDCN ---
History of Present Illness History of present illness: HISTORY OF PRESENT ILLNESS: This is a 68-year-old female with a past medical history significant for hypertension, breast and ovarian cancer, and pleural effusions requiring thoracentesis. Patient used to follow in the office with Dr. Simmons but has not been seen since February 2018. We have been asked to see the patient in consultation for cardiac clearance. Patient examined at the bedside. Patient is scheduled to undergo robotic cholecystectomy tomorrow with Dr. Sorto. Patient currently denies chest pain or pressure. She denies shortness of breath. Vital signs are stable. * EKG reveals sinus mechanism with right bundle branch block. No signs of acute ischemia. * Current home cardiac medications include lisinopril 20 mg daily * Most recent echocardiogram obtained in the office in 2017 revealed ejection fraction 55%, hypokinesis of the inferior wall at the base, trace MR and trace TR * Patient underwent Lexiscan stress test in February 2018 which was negative for ischemia REVIEW OF SYSTEMS: At the time of my exam: CONSTITUTIONAL: Denies fever or chills. HEENT: Denies blurred vision, vision changes, or eye pain. Denies hemoptysis CARDIOVASCULAR: Denies chest pain. Denies orthopnea. Denies PND. Denies palpitations RESPIRATORY: Denies shortness of breath. GASTROINTESTINAL: Denies abdominal pain. Denies nausea or vomiting. HEMATOLOGIC: Denies bleeding disorders. GENITOURINARY: Denies any blood in urine. SKIN: Denies pruitis. Denies rash. PHYSICAL EXAM: VITAL SIGNS: Reviewed. GENERAL: Well-developed in no acute distress. HEENT: Head is normocephalic. Pupils are equal, round. Sclerae anicteric. Mucous membranes of the mouth are moist. Neck supple. No JVD or thyromegaly LUNGS: Respirations even and unlabored. Lungs essentially clear to auscultation bilaterally. HEART: Regular rate and rhythm. S1 and S2 heard. ABDOMEN: Soft. Nondistended. Nontender. EXTREMITIES: Normal range of motion. No clubbing or cyanosis. Peripheral pulses intact. No lower extremity edema NEUROLOGIC: Awake and alert. Oriented x 3. ASSESSMENT: Nausea and vomiting Acute kidney injury, resolved Acute cholecystitis, scheduled for cholecystectomy Status post EGD with pyloric stenosis, Anderson's esophagus, esophageal ulcer, gastritis, and hiatal hernia Status post repeat EGD with dilation History of breast cancer History of ovarian cancer History of pleural effusion requiring thoracentesis and Pleurx catheter Known right bundle-branch block PLAN: 2-D echo has been ordered. Resume lisinopril as acute kidney injury has resolved. Continue to monitor blood pressure. Patient is clinically not in congestive heart failure and has no complaints of angina There are no contraindications for patient to proceed with surgery from a cardiac standpoint We will follow on an as-needed basis. Please reconsult if needed. Nurse practitioner note has been reviewed by physician. Signing provider agrees with the documented findings, assessment, and plan of care. Past Medical History Past Medical History: Cancer, Hyperlipidemia, Hypertension Additional Past Medical History / Comment(s): PLEURAL EFFUSION, PLEUR-X CATH PLACED 11/26/17; HX Thoracentesis. 04/2004 HX BREAST CA, REOCCURANCE 04/2017 W/ METS TO OVARIES, COMPLETED CHEMO 02/07/18; HAS "SPOT ON LIVER." Enlarged heart. HX Gout. recurrence of cancer from aspiration of fluid from stomach x2, issues swallowing food-resolved, lymphodema left arm History of Any Multi-Drug Resistant Organisms: None Reported Past Surgical History: Breast Surgery, Hysterectomy Additional Past Surgical History / Comment(s): LT Lumpectomy. Mastectomy left 2004. Benign tumors removed back of head as child, Eye sx as child. Port-A-Cath Insertion, Removal; PORT-A-CATH 11/15/17. PLEURX CATH 11/26/17. HAEKEM 02/2018. Past Anesthesia/Blood Transfusion Reactions: No Reported Reaction, Family History of Problems w/ Anesthesia Additional Past Anesthesia/Blood Transfusion Reaction / Comment(s): MOTHER AWOKE DURING A SURGERY. Past Psychological History: Depression Additional Psychological History / Comment(s): R/T STRESS OF HEALTH, RECENT OF MOTHER Smoking Status: Former smoker Past Alcohol Use History: None Reported Additional Past Alcohol Use History / Comment(s): Started smoking age [age], 2 ppd, QUIT 1990 Past Drug Use History: None Reported - Past Family History Mother Family Medical History: Cancer, Hypertension Additional Family Medical History / Comment(s): breast cancer, enlarged heart, Father Family Medical History: Coronary Artery Disease (CAD), Hypertension, Renal Disease Additional Family Medical History / Comment(s): cabg Brother(s) Family Medical History: Hypertension Sister(s) Family Medical History: Cancer Additional Family Medical History / Comment(s): had 2 sisters. one had hx of hypertension and kidney cancer, other sister had hypertension, breast cancer Medications and Allergies Home Medications Medication Instructions Recorded Confirmed Type lisinopriL [Prinivil] 20 mg PO DAILY 11/13/17 08/17/23 History Allergies Allergy/AdvReac Type Severity Reaction Status Date / Time adhesive Allergy blisters-states Verified 08/17/23 16:09 "can use paper tape" adhesive tape Allergy blisters-states Verified 08/17/23 16:09 "can use paper tape" hydromorphone [From Dilaudid] AdvReac Nausea & Verified 08/17/23 16:09 Vomiting Physical Exam Vitals: Vital Signs Temp Pulse Resp BP Pulse Ox 08/21/23 08:00 98.9 F 82 18 113/73 98 08/21/23 01:58 98.8 F 92 150/60 99 08/20/23 20:00 99.3 F 89 123/75 99 Intake and Output 08/20/23 08/21/23 08/21/23 22:59 06:59 14:59 Intake Total 300 Balance 300 Intake: IV 300 Other: # Voids 4 2 Results 08/21/23 09:59 08/20/23 06:07 CBC 08/21/23 Range/Units 09:59 WBC 5.0 (3.8-10.6) k/uL RBC 3.03 L (3.80-5.40) m/uL Hgb 9.2 L (11.4-16.0) gm/dL Hct 27.2 L (34.0-46.0) % Plt Count 212 (150-450) k/uL Current Medications Generic Name Dose Route Start Last Admin Trade Name Freq PRN Reason Stop Dose Admin Acetaminophen 650 mg 08/17/23 15:23 08/18/23 21:46 Acetaminophen Tab 325 Mg Tab PO 650 mg Q6HR PRN Administration Mild Pain or Fever > 100.5 Heparin Sodium (Porcine) 5,000 unit 08/18/23 21:00 08/21/23 10:48 Heparin Sodium,Porcine 5,000 Unit/Ml 1 Ml Vial SQ Not Given Q12HR SIMONE Potassium Chloride/Sodium Chloride 1,000 mls @ 75 mls/hr 08/18/23 13:00 03/08 10:49 Ns-Kcl 40 Meq/L Iv Solution IV Not Given .[id number] [facility] Piperacillin Sod/Tazobactam 100 mls @ 25 mls/hr 08/21/23 14:00 Sod 3.375 gm/ Sodium Chloride IVPB Q8H [facility] Protocol Melatonin 5 mg 08/20/23 20:24 08/20/23 20:46 Melatonin 5 Mg Tablet PO 5 mg HS PRN Administration See Comments Miscellaneous Information 1 each 08/18/23 12:49 Magnesium Replacement Protocol 1 Each Misc MISCELLANE DAILY PRN Per Protocol Protocol Miscellaneous Information 1 each 08/18/23 12:49 Potassium Replacement Protocol 1 Each Misc MISCELLANE DAILY PRN Per Protocol Protocol Naloxone HCl 0.2 mg 08/17/23 15:23 Naloxone 0.4 Mg/Ml 1 Ml Vial IV Q2M PRN Opioid Reversal Ondansetron HCl 8 mg 08/18/23 13:42 08/20/23 18:35 Ondansetron 4 Mg/2 Ml Vial IVP 8 mg Q8H PRN Administration Nausea And Vomiting Pantoprazole Sodium 40 mg 08/18/23 21:00 08/21/23 08:10 Pantoprazole 40 Mg/10 Ml Vial IV 40 mg BID SIMONE Administration Prochlorperazine Edisylate 10 mg 08/18/23 13:43 Prochlorperazine Inj 10 Mg/2 Ml Vial IVP Q6HR PRN Nausea And Vomiting Intake and Output 08/20/23 08/21/23 08/21/23 22:59 06:59 14:59 Intake Total 300 Balance 300 Intake: IV 300 Other: # Voids 4 2 08/21/23 09:59 08/20/23 06:07
[2023-08-21] MEDS: ACETAMINOPHEN TAB 325 MG TAB PO PRN (15:29)
[2023-08-21 15:52] LABS: % Iron Saturation 15.1 (12.00-45.00)
[2023-08-21] MEDS: PIPERACILLIN-TAZOBACTAM 3.375 GM in SODIUM CHLORIDE 0.9% 100 ML IVPB SCH ×2 (16:30→20:58)
[2023-08-21 16:31] LABS: BUN/Creat Ratio 15.75 Ratio (12.00-20.00); Blood Urea Nitrogen 12.6 mg/dL (9.0-27.0); Calcium 8.4 mg/dL (8.7-10.3); Carbon Dioxide 21.5 mmol/L (21.6-31.8); Chloride 103 mmol/L (96-109); Glucose 92 mg/dL (70-110); Potassium 3.6 mmol/L (3.5-5.5); Sodium 140 mmol/L (135-145)
[2023-08-22] MEDS: PIPERACILLIN-TAZOBACTAM 3.375 GM in SODIUM CHLORIDE 0.9% 100 ML IVPB SCH ×3 (05:33→20:49)
--- NOTE | 2023-08-22 05:56 | P.PN ---
Subjective Progress Note Date: 08/21/23 This is a 68-year-old female who was admitted with intractable nausea or vomiting underwent EGD showing gastric outlet obstruction with stenosis and scheduled to undergo repeat EGD with dilatation today with general surgery. Patient did undergo HIDA scan and gallbladder was not visualized and suggestive of cholecystitis and is being scheduled for possible acute laparoscopic cholecystectomy. Cardiology has been consulted for clearance. Oncology following as patient has significant history of breast cancer with metastasis. Patient is currently afebrile and continues to report nausea and not tolerating much appetite. Patient is being started on clear liquids. Review of systems: Constitutional: reports of fatigue, no fever, or chills Cardiovascular: No reports of chest pain or palpitations Respiratory: No reports of shortness of breath or cough GI: reports of nausea, no reports of vomiting, reports not much of an appetite : No reports of dysuria or retention Neurovascular: reports of generalized weakness, All medications have been reviewed PHYSICAL EXAMINATION: GENERAL: The patient is alert and oriented x4, Well developed, thin built, appears older than stated age, unkempt HEENT: Pupils are round and equally reacting to light. EOMI. no scleral icterus. No conjunctival pallor. Normocephalic, atraumatic. No pharyngeal erythema. No thyromegaly. CARDIOVASCULAR: S1 and S2 muffled PULMONARY: diminished breath sounds bilaterally with no wheezing or rhonchi noted. ABDOMEN: soft. tender on exam of bilateral upper quadrants. . non-distended, normoactive bowel sounds. No palpable organomegaly. MUSCULOSKELETAL: No joint swelling or deformity. EXTREMITIES: No cyanosis, clubbing, or pedal edema. NEUROLOGICAL: Gross neurological examination did not reveal any focal deficits. Diffuse weakness SKIN: No rashes. Assessment: Intractable nausea and vomiting, status post EGD, possible gastric outlet obstruction. Scheduled to undergo repeat EGD with dilatation today Severe dehydration with acute tubular necrosis and renal failure, improving Severe hypokalemia secondary to nausea and vomiting Acute cholecystitis noted on HIDA scan History metastatic breast cancer as well as ovarian cancer Hypertension Hyperlipidemia History of known right bundle branch block GI prophylaxis DVT prophylaxis Full code Plan: Recommend to continue with current medications and management per general surgery services Patient is status post EGD with dilatation repeated today for pyloric stenosis with Anderson's esophagitis and noted to have esophageal ulcer with gastritis and hiatal hernia. Cardiology consulted for surgical clearance as patient was noted have cholecystitis on HIDA scan and scheduled for laparoscopic cholecystectomy Patient started on clear liquids and nursing staff reports tolerating although patient continues with nausea and not much of an appetite Encouraged increased activity as tolerated Continue anti-nausea medications as needed Follow-up on repeat labs 2-D echo ordered and pending Midline was ordered as patient is difficult stick and unable to obtain IV access. Will initiate antibiotics in the form of Zosyn for acute cholecystitis and this was discussed with surgery The impression and plan of care has been dictated by Dana Cerda, nurse practitioner as directed. Dr. Neil FELICIANO I have performed a history and examination and MDM of this patient, discussed the same with the dictator, and agree with the dictator's assessment and plan as written ,documented as a scribe. Based on total visit time, I have performed more than 50% of the visit. Any additional findings or plans will be noted. Objective - Vital Signs Vital signs: Vital Signs Temp 99.1 F 08/22/23 01:07 Pulse 93 08/22/23 01:07 Resp 16 08/22/23 01:07 BP 130/74 08/22/23 01:07 Pulse Ox 97 08/22/23 01:07 FiO2 Intake & Output 08/21/23 08/21/23 08/22/23 06:59 18:59 06:59 Intake Total 300 Balance 300 Intake: IV 300 Other: # Voids 2 1 2 - Labs CBC & Chem 7: 08/21/23 09:59 08/21/23 09:59 Labs: Abnormal Lab Results - Last 24 Hours (Table) 08/21/23 08/21/23 08/21/23 Range/Units 09:59 09:59 09:59 RBC 3.03 L (3.80-5.40) m/uL Hgb 9.2 L (11.4-16.0) gm/dL Hct 27.2 L (34.0-46.0) % Lymphocytes # 0.4 L (1.0-4.8) k/uL Carbon Dioxide 21.5 L (21.6-31.8) mmol/L Anion Gap 15.50 H (4.00-12.00) mmol/L Calcium 8.4 L (8.7-10.3) mg/dL Iron 37 L (50-170) UG/DL Transferrin 175.0 L (204.0-354.0) mg/dL
[2023-08-22 08:00] LABS: Basophils % (A) 0 %; Eosinophils # (A) 0.1 k/uL (0-0.7); Eosinophils % (A) 1 %; HCT 24.6 % (34.0-46.0); HGB 8.4 gm/dL (11.4-16.0); Lymphocytes # (A) 0.5 k/uL (1.0-4.8); Lymphocytes % (A) 6 %; MCH 30.2 pg (25.0-35.0); MCHC 34.2 g/dL (31.0-37.0); MCV 88.4 fL (80.0-100.0); Mean Platelet Volume 7.6; Monocytes # (A) 0.3 k/uL (0-1.0); Monocytes % (A) 4 %; Neutrophils # (A) 7.9 k/uL (1.3-7.7); Neutrophils % (A) 89 %; Platelet Count 208 k/uL (150-450); RBC 2.78 m/uL (3.80-5.40); RDW 12.7 % (11.5-15.5); WBC 8.9 k/uL (3.8-10.6)
[2023-08-22 08:20] LABS: African American GFR (CKD) >90 (>60 ml/min/1.73 sqM); Anion Gap 11 mmol/L; Blood Urea Nitrogen 13 mg/dL (7-17); Calcium 7.9 mg/dL (8.4-10.2); Carbon Dioxide 25 mmol/L (22-30); Chloride 101 mmol/L (98-107); Glucose 104 mg/dL (74-99); Magnesium 1.1 mg/dL (1.6-2.3); Non-African American GFR(CKD) >90 (>60 ml/min/1.73 sqM); Sodium 137 mmol/L (137-145)
[2023-08-22] MEDS ORDERED: Potassium Replacement Protocol 1 EACH MISC MISCELLANE PRN (09:12)
[2023-08-22] MEDS: POTASSIUM CHLORIDE ER 20 MEQ TAB.ER PO SCH ×3 (09:20→11:16)
--- NOTE | 2023-08-22 09:30 | CA ---
Transthoracic Echo Report Name: Georgina Farley Age: 68 Gender: F : 1955 Exam Date: 08/21/2023 14:26 Exam Location: [place] [facility] Ht (in): 62 Wt (lb): 100 Ordering Physician: Deborah Werner Attending/Referring Phys: Drapery Estimator Joana Aguilar RDCS Procedure CPT: Indications: pre-op, check EF Cardiac Hx: Technical Quality: Good Contrast 1: Total Dose (mL): Contrast 2: Total Dose (mL): MEASUREMENTS (Male / Female) Normal Values 2D ECHO LV Diastolic Diameter PLAX 3.2 cm 4.2 - 5.9 / 3.9 - 5.3 cm LV Systolic Diameter PLAX 2.2 cm IVS Diastolic Thickness 1.2 cm 0.6 - 1.0 / 0.6 - 0.9 cm LVPW Diastolic Thickness 1.1 cm 0.6 - 1.0 / 0.6 - 0.9 cm LV Relative Wall Thickness 0.7 RV Internal Dim ED PLAX 3.1 cm LVOT Diameter 1.8 cm LA Systolic Diameter LX 2.6 cm 3.0 - 4.0 / 2.7 - 3.8 cm LV Diastolic Volume MOD BP 30.9 cm??? 67 - 155 / 56 - 104 cm??? LV Systolic Volume MOD BP 9.8 cm??? 22 - 58 / 19 - 49 cm??? LV Ejection Fraction MOD BP 68.2 % >= 55 % LV Cardiac Index MOD BP 1805.0 cm???/min???m??? LV Diastolic Volume MOD 4C 25.2 cm??? LV Systolic Volume MOD 4C 6.7 cm??? LV Ejection Fraction MOD 4C 73.5 % LV Cardiac Index MOD 4C 1582.8 cm???/min???m??? LV Diastolic Length 4C 5.8 cm LV Systolic Length 4C 3.0 cm LV Diastolic Volume MOD 2C 30.9 cm??? LV Systolic Volume MOD 2C 12.1 cm??? LV Ejection Fraction MOD 2C 60.8 % LV Cardiac Index MOD 2C 1608.0 cm???/min???m??? LV Diastolic Length 2C 6.3 cm LV Systolic Length 2C 3.4 cm LA Volume 21.4 cm??? 18 - 58 / 22 - 52 cm??? LA Volume Index 15.3 cm???/m??? 16 - 28 cm???/m??? M-MODE Aortic Root Diameter MM 2.7 cm AV Cusp Separation MM 1.7 cm DOPPLER AV Peak Velocity 172.4 cm/s AV Peak Gradient 11.9 mmHg MV Area PHT 7.0 cm??? Mitral E Point Velocity 83.2 cm/s Mitral A Point Velocity 131.6 cm/s Mitral E to A Ratio 0.6 MV Deceleration Time 108.8 ms MV E' Velocity 4.9 cm/s Mitral E to MV E' Ratio 17.0 TR Peak Velocity 213.5 cm/s TR Peak Gradient 18.2 mmHg Right Ventricular Systolic Press 23.2 mmHg FINDINGS Left Ventricle Left ventricular ejection fraction is estimated at 65-70 %. Small left ventricular cavity. Mildly increased septal wall thickness. Mildly increased posterior wall thickness. Right Ventricle Normal right ventricular size. Right ventricular systolic pressure within normal limits. Right Atrium Normal right atrial size. Left Atrium Normal left atrial size. Mitral Valve Structurally normal mitral valve. No mitral stenosis, regurgitation or prolapse. Aortic Valve Trileaflet aortic valve. Aortic valve sclerosis. No aortic valve stenosis or regurgitation. Tricuspid Valve Structurally normal tricuspid valve. Mild tricuspid regurgitation. Pulmonic Valve Structurally normal pulmonic valve. Trace pulmonic regurgitation. Pericardium No pericardial effusion. Aorta Normal size aortic root and proximal ascending aorta. CONCLUSIONS Hyperdynamic LV with an EF of 65% to 70% No significant valvular abnormalities noted Normal pulmonary artery systolic pressure No pericardial effusion Previewed by: Dr. Matthew Phillips MD (Electronically Signed) Final Date: 22 August 2023 09:29
[2023-08-22] MEDS: PANTOPRAZOLE 40 MG/10 ML VIAL IV SCH (10:16)
[2023-08-22] MEDS: MAGNESIUM SULFATE-D5W PMX 1 GM in DEXTROSE/WATER 1 100ML.BAG IVPB SCH ×3 (10:16→12:44)
--- NOTE | 2023-08-22 11:16 | P.PN ---
Subjective HISTORY OF PRESENT ILLNESS: This is a 68-year-old female with a past medical history significant for hypertension, breast and ovarian cancer, and pleural effusions requiring thoracentesis. Patient used to follow in the office with Dr. Simmons but has not been seen since February 2018. We have been asked to see the patient in consultation for cardiac clearance. Patient examined at the bedside. Patient is scheduled to undergo robotic cholecystectomy tomorrow with Dr. Sorto. Patient currently denies chest pain or pressure. She denies shortness of breath. Vital signs are stable. * EKG reveals sinus mechanism with right bundle branch block. No signs of acute ischemia. * Current home cardiac medications include lisinopril 20 mg daily * Most recent echocardiogram obtained in the office in 2017 revealed ejection fraction 55%, hypokinesis of the inferior wall at the base, trace MR and trace TR * Patient underwent Lexiscan stress test in February 2018 which was negative for ischemia 08/22/2023 Patient examined this morning at the bedside. Patient denies chest pain or pressure. She denies shortness of breath. Echocardiogram completed revealing ejection fraction 65-70% with mild tricuspid regurgitation. Vital signs are stable. She is scheduled to undergo cholecystectomy today. PHYSICAL EXAM: VITAL SIGNS: Reviewed. GENERAL: Well-developed in no acute distress. HEENT: Head is normocephalic. Pupils are equal, round. Sclerae anicteric. Mucous membranes of the mouth are moist. Neck supple. No JVD or thyromegaly LUNGS: Respirations even and unlabored. Lungs essentially clear to auscultation bilaterally. HEART: Regular rate and rhythm. S1 and S2 heard. ABDOMEN: Soft. Nondistended. Nontender. EXTREMITIES: Normal range of motion. No clubbing or cyanosis. Peripheral pulses intact. No lower extremity edema NEUROLOGIC: Awake and alert. Oriented x 3. ASSESSMENT: Nausea and vomiting Acute kidney injury, resolved Acute cholecystitis, scheduled for cholecystectomy Status post EGD with pyloric stenosis, Anderson's esophagus, esophageal ulcer, gastritis, and hiatal hernia Status post repeat EGD with dilation History of breast cancer History of ovarian cancer History of pleural effusion requiring thoracentesis and Pleurx catheter Known right bundle-branch block PLAN: Into new lisinopril as acute kidney injury has resolved. Continue to monitor blood pressure. Patient is clinically not in congestive heart failure and has no complaints of angina There are no contraindications for patient to proceed with surgery from a cardiac standpoint We will sign off. Please reconsult if needed. Nurse practitioner note has been reviewed by physician. Signing provider agrees with the documented findings, assessment, and plan of care. Objective - Vital Signs Vital signs: Vital Signs Temp 98.6 F 08/22/23 07:01 Pulse 86 08/22/23 07:01 Resp 18 08/22/23 07:01 BP 118/71 08/22/23 07:01 Pulse Ox 96 08/22/23 07:01 FiO2 Intake & Output 08/21/23 08/22/23 08/22/23 18:59 06:59 18:59 Intake Total 300 Balance 300 Intake: IV 300 Other: # Voids 1 2 - Labs CBC & Chem 7: 08/22/23 06:29 08/22/23 06:29 Labs: Abnormal Lab Results - Last 24 Hours (Table) 08/21/23 08/21/23 08/22/23 Range/Units 09:59 09:59 06:29 RBC 2.78 L (3.80-5.40) m/uL Hgb 8.4 L (11.4-16.0) gm/dL Hct 24.6 L (34.0-46.0) % Neutrophils # 7.9 H (1.3-7.7) k/uL Lymphocytes # 0.5 L (1.0-4.8) k/uL Potassium (3.5-5.1) mmol/L Carbon Dioxide 21.5 L (21.6-31.8) mmol/L Anion Gap 15.50 H (4.00-12.00) mmol/L Glucose (74-99) mg/dL Calcium 8.4 L (8.7-10.3) mg/dL Magnesium (1.6-2.3) mg/dL Iron 37 L (50-170) UG/DL Transferrin 175.0 L (204.0-354.0) mg/dL 08/22/23 Range/Units 06:29 RBC (3.80-5.40) m/uL Hgb (11.4-16.0) gm/dL Hct (34.0-46.0) % Neutrophils # (1.3-7.7) k/uL Lymphocytes # (1.0-4.8) k/uL Potassium 3.0 L (3.5-5.1) mmol/L Carbon Dioxide (21.6-31.8) mmol/L Anion Gap (4.00-12.00) mmol/L Glucose 104 H (74-99) mg/dL Calcium 7.9 L (8.7-10.3) mg/dL Magnesium 1.1 L (1.6-2.3) mg/dL Iron (50-170) UG/DL Transferrin (204.0-354.0) mg/dL
[2023-08-22] MEDS: lisinopriL 20 MG TAB PO SCH (11:17)
[2023-08-22] MEDS: HEPARIN SODIUM,PORCINE 5,000 UNIT/ML 1 ML VIAL SQ SCH ×2 (11:17→20:49)
[2023-08-22] MEDS: 0.9% NACL WITH KCL 40 MEQ/L 1,000 ML IV SCH (12:51)
[2023-08-22 13:55] LABS: ALT 16 U/L (4-34); AST 23 U/L (14-36); African American GFR (CKD) >90 (>60 ml/min/1.73 sqM); Albumin 2.6 g/dL (3.5-5.0); Alkaline Phosphatase 58 U/L (38-126); Anion Gap 11 mmol/L; Blood Urea Nitrogen 12 mg/dL (7-17); Calcium 7.8 mg/dL (8.4-10.2); Carbon Dioxide 24 mmol/L (22-30); Chloride 99 mmol/L (98-107); Globulin 2.5 g/dL; Glucose 132 mg/dL (74-99); Non-African American GFR(CKD) >90 (>60 ml/min/1.73 sqM); Potassium 2.9 mmol/L (3.5-5.1); Sodium 134 mmol/L (137-145); Total Bilirubin 0.6 mg/dL (0.2-1.3); Total Protein 5.1 g/dL (6.3-8.2)
--- NOTE | 2023-08-22 14:35 | XR ---
EXAMINATION TYPE: XR chest 2V DATE OF EXAM: 08/22/2023 COMPARISON: 11/26/2017 TECHNIQUE: PA and lateral views submitted. HISTORY: Fever FINDINGS: No pneumothorax. Vague 1 cm nodular density left upper lobe. Subsegmental changes at left lung base m ost typical of atelectasis. Biapical pleural thickening. Diffuse osteopenia. Surgical clips in the le ft axilla. AC joint arthropathy. A small bilateral pleural effusion.. Heart size normal and no overt failure. Osseous structures demonstrate hypertrophic and degenerative changes of the spine. IMPRESSION: 1. COPD with small bilateral pleural effusion. Favor basilar atelectasis over pneumonia. 2. There is a vague nodular density in the left upper lobe. Not clearly seen on the CT scan 08/18/2023 and may represent an early infiltrate. Follow up to resolution recommended.
--- NOTE | 2023-08-22 15:22 | P.PN ---
Subjective Progress Note Date: 08/22/23 CHIEF COMPLAINT: Nausea vomiting HISTORY OF PRESENT ILLNESS: Patient presented with nausea and vomiting and dysphagia. She had EGD with dilation x 2. Results showing Anderson's esophagus, esophageal ulcer, gastritis with bleeding, pyloric stenosis and hiatal hernia. Completed HIDA scan completed which showed nonvisualization of the gallbladder correlate for cholecystitis. She also had upper GI which was unremarkable. Patient did have fevers last night as high as 103. She reports having episodes of vomiting after the EGD. There are concerns for aspiration. Chest x-ray ordered. Reporting COPD with small bilateral pleural effusions. Favor basilar atelectasis over pneumonia. Vague nodular density in the left upper lobe. May represent early infiltrate. Fevers have now resolved. WBC 8.9 Hgb 8.4 platelets 208 sodium was 134 potassium 3.0 down to 2.9 after supplement creatinine 0.63 magnesium 1.1 PHYSICAL EXAM: VITAL SIGNS: Reviewed GENERAL: Well-developed in no acute distress. HEENT: No sclera icterus. Extraocular movements grossly intact. Moist buccal mucosa. Head is atraumatic, normocephalic. Hears conversational speech. No nasal drainage. NECK: Supple without lymphadenopathy. CHEST: Non-labored respirations and equal bilateral excursions. CARDIOVASCULAR: Palpable 2+ radial pulses. ABDOMEN: Soft. Nondistended. Tenderness with palpation across the upper abdomen. MUSCULOSKELETAL: No clubbing or cyanosis. NEUROLOGIC: No focal or lateralizing signs. Cranial nerves II through XII grossly intact. PSYCH: Appropriate affect. Alert and oriented to person, place and time. SKIN: Well perfused. Good skin turgor. ASSESSMENT: 1. Acute cholecystitis 3. Status post EGD with pyloric stenosis, gastric outlet obstruction, Anderson's esophagus, esophageal ulcer, erosive esophagitis, gastritis with bleeding and hiatal hernia 2. Acute kidney injury with dehydration 3. Status post EGD with pyloric stenosis, Anderson's esophagus, esophageal ulcer, gastritis and hiatal hernia 4. Cholecystitis. Nonvisualization of gallbladder noted on HIDA scan 5. History of breast cancer 6. Hypokalemia and hypomagnesemia 7. Fevers PLAN: -Surgery canceled for today due to hypokalemia -Reschedule Robotic cholecystectomy for tomorrow, 08/23/2023 -Continue clear liquid diet today -Nothing by mouth after midnight -Continue IV Protonix twice a day -Incentive spirometer ordered -Medicine service has added potassium to IV fluids -Continue to correct electrolytes -Repeat labs in a.m. -Cardiology has cleared patient for surgery -Continue antibiotics Physician Bus Attendant note has been reviewed by physician. Signing provider agrees with the documented findings, assessment, and plan of care. CHIEF COMPLAINT: Dysphagia and cholecystitis HISTORY OF PRESENT ILLNESS: The patient is a 68-year-old female with past history of breast cancer presents with nausea and vomiting on admission. Further workup included upper endoscopies demonstrated adult pyloric stenosis was gastric outlet obstruction. She reports today that she had emesis later on the evening. She also had elevated temperatures highly suspicious for aspiration. Additional diagnosis studies demonstrated cholecystitis. ROS: Has fevers. No chills. Has vomiting. Has productive sputum PHYSICAL EXAM: VITAL SIGNS: Reviewed CONSTITUTIONAL: Well developed and in no acute distress. EYES: Conjuctivae without sclera icterus. Extraocular movements grossly intact. HEAD, EARS, NOSE, THROAT: Moist buccal mucosa. Head is atraumatic, normocephalic. Hears conversational speech. No nasal drainage. RESPIRATORY: Non-labored respirations and equal bilateral excursions. CARDIOVASCULAR: Palpable 2+ radial pulses. ABDOMEN: No peritonitis. MUSCULOSKELETAL: No gross deformity of the lower extremities noted. No clubbing. No cyanosis. SKIN: Good skin turgor. Well perfused. NEUROLOGIC: Cranial nerves II through XII grossly intact. No focal or lateralizing signs. PSYCH: Appropriate affect. Alert and oriented to person, place and time. CLINICAL LABS: Reviewed. WBC normal 8.9. Anemia hemoglobin 8.4, low. Potassium low at 3.0-2.9 despite replacement. LFTs within normal limits ASSESSMENT: 1. Dysphagia due to gastric outlet obstruction 2. Adult pyloric stenosis 3. Diaphragmatic hiatal hernia 4. Anderson's esophagus 5. History of breast cancer 6. Fevers 7. Hypokalemia 8. Anemia 9. Acute cholecystitis PLAN: 1. She has persistent low potassium after multiple replacements. Reviewed referred pending correction of hypokalemia 2. Biopsies pending for risk of metastatic breast cancer to the stomach 3. Recommend chest x-ray for risk of aspiration pneumonia with transient high fevers 4. Overall, patient high risk for surgical intervention due to gastric outlet obstruction, risks were aspiration Objective - Vital Signs Vital signs: Vital Signs Temp 98.7 F 08/22/23 13:22 Pulse 92 08/22/23 13:22 Resp 18 08/22/23 13:22 BP 105/69 08/22/23 13:22 Pulse Ox 96 08/22/23 13:22 FiO2 Intake & Output 08/21/23 08/22/23 08/22/23 18:59 06:59 18:59 Intake Total 300 Balance 300 Weight 45.359 kg Intake: IV 300 Other: # Voids 1 2 - Labs CBC & Chem 7: 08/22/23 06:29 08/22/23 12:57 Labs: Abnormal Lab Results - Last 24 Hours (Table) 08/21/23 08/21/23 08/21/23 Range/Units 09:59 09:59 09:59 RBC (3.80-5.40) m/uL Hgb (11.4-16.0) gm/dL Hct (34.0-46.0) % Neutrophils # (1.3-7.7) k/uL Lymphocytes # (1.0-4.8) k/uL Sodium (137-145) mmol/L Potassium (3.5-5.1) mmol/L Carbon Dioxide 21.5 L (21.6-31.8) mmol/L Anion Gap 15.50 H (4.00-12.00) mmol/L Glucose (74-99) mg/dL Calcium 8.4 L (8.7-10.3) mg/dL Magnesium (1.6-2.3) mg/dL Iron 37 L (50-170) UG/DL Transferrin 175.0 L (204.0-354.0) mg/dL Total Protein (6.3-8.2) g/dL Albumin (3.5-5.0) g/dL RBC Folate 792 H (280 - 791) ng/mL 08/22/23 08/22/23 08/22/23 Range/Units 06:29 06:29 12:57 RBC 2.78 L (3.80-5.40) m/uL Hgb 8.4 L (11.4-16.0) gm/dL Hct 24.6 L (34.0-46.0) % Neutrophils # 7.9 H (1.3-7.7) k/uL Lymphocytes # 0.5 L (1.0-4.8) k/uL Sodium 134 L (137-145) mmol/L Potassium 3.0 L 2.9 L (3.5-5.1) mmol/L Carbon Dioxide (21.6-31.8) mmol/L Anion Gap (4.00-12.00) mmol/L Glucose 104 H 132 H (74-99) mg/dL Calcium 7.9 L 7.8 L (8.7-10.3) mg/dL Magnesium 1.1 L (1.6-2.3) mg/dL Iron (50-170) UG/DL Transferrin (204.0-354.0) mg/dL Total Protein 5.1 L (6.3-8.2) g/dL Albumin 2.6 L (3.5-5.0) g/dL RBC Folate (280 - 791) ng/mL
[2023-08-22] MEDS ORDERED: MAGNESIUM SULFATE-D5W PMX 1 GM in DEXTROSE/WATER 1 100ML.BAG IVPB ONE (16:00)
[2023-08-22] MEDS ORDERED: POTASSIUM CHLORIDE ER 20 MEQ TAB.ER PO SCH (16:00)
--- NOTE | 2023-08-22 19:34 | P.PN ---
Subjective Progress Note Date: 08/22/23 Patient stable Reports 1 episode n/v last night, denies hematemesis. Chad abd pain at this time S/p EGD with pyloric dilatation Cholecystectomy postponed today due to hypokalemia, will reattempt tomorrow Objective - Vital Signs Vital signs: Vital Signs Temp 98.7 F 08/22/23 13:22 Pulse 92 08/22/23 13:22 Resp 18 08/22/23 13:22 BP 105/69 08/22/23 13:22 Pulse Ox 96 08/22/23 13:22 FiO2 Intake & Output 08/22/23 08/22/23 08/23/23 06:59 18:59 06:59 Weight 45.359 kg Other: # Voids 2 3 - Constitutional General appearance: Present: no acute distress - EENT Eyes: Present: anicteric sclerae, EOMI ENT: Present: hearing grossly normal - Respiratory Details: breathing even and unlabored - Cardiovascular Details: skin warm and dry - Gastrointestinal General gastrointestinal: Present: soft. Absent: tenderness - Integumentary Integumentary: Absent: cyanotic - Musculoskeletal Musculoskeletal: Present: generalized weakness - Psychiatric Psychiatric: Present: A&O x's 3 - Labs CBC & Chem 7: 08/22/23 06:29 08/22/23 12:57 Labs: Abnormal Lab Results - Last 24 Hours (Table) 08/21/23 08/22/23 08/22/23 Range/Units 09:59 06:29 06:29 RBC 2.78 L (3.80-5.40) m/uL Hgb 8.4 L (11.4-16.0) gm/dL Hct 24.6 L (34.0-46.0) % Neutrophils # 7.9 H (1.3-7.7) k/uL Lymphocytes # 0.5 L (1.0-4.8) k/uL Sodium (137-145) mmol/L Potassium 3.0 L (3.5-5.1) mmol/L Glucose 104 H (74-99) mg/dL Calcium 7.9 L (8.4-10.2) mg/dL Magnesium 1.1 L (1.6-2.3) mg/dL Total Protein (6.3-8.2) g/dL Albumin (3.5-5.0) g/dL RBC Folate 792 H (280 - 791) ng/mL 08/22/23 Range/Units 12:57 RBC (3.80-5.40) m/uL Hgb (11.4-16.0) gm/dL Hct (34.0-46.0) % Neutrophils # (1.3-7.7) k/uL Lymphocytes # (1.0-4.8) k/uL Sodium 134 L (137-145) mmol/L Potassium 2.9 L (3.5-5.1) mmol/L Glucose 132 H (74-99) mg/dL Calcium 7.8 L (8.4-10.2) mg/dL Magnesium (1.6-2.3) mg/dL Total Protein 5.1 L (6.3-8.2) g/dL Albumin 2.6 L (3.5-5.0) g/dL RBC Folate (280 - 791) ng/mL Assessment and Plan (1) Acute kidney injury Current Visit: Yes Status: Acute Code(s): N17.9 - ACUTE KIDNEY FAILURE, UNSPECIFIED SNOMED Code(s): 50208620 (2) Breast cancer metastasized to multiple sites Current Visit: Yes Status: Chronic Code(s): C50.919 - MALIGNANT NEOPLASM OF UNSP SITE OF UNSPECIFIED FEMALE BREAST SNOMED Code(s): 510531767 (3) Hypokalemia Current Visit: Yes Status: Acute Code(s): E87.6 - HYPOKALEMIA SNOMED Code(s): 40020615 Plan: CRYSTAL, hypokalemia: -Noted to have progressive nausea and vomiting over the past 2 weeks -Labs on admission were consistent with CRYSTAL and hypokalemia, likely prerenal with hypochloremic hypokalemic metabolic alkalosis secondary to intractable nausea and vomiting -Received 1 L IV fluid bolus followed by maintenance normal saline with potassium supplementation -Creatinine back to baseline, 0.63, GFR >90 -Staging CT scans on 06/26/2023 noted possible thickening of the peritoneum, but this could have been due to prior peritoneal carcinomatosis -She was due for outpatient PET scan, but was not able to make this appointment due to persistent nausea and vomiting -Increase Zofran to 8 mg IV every 8 hours as needed -CA 15-3 and CA 27-29 ordered GI bleed/cholecystitis: -EGD showed Anderson's esophagus, esophageal ulcer, gastritis with bleeding pyloric stenosis. S/p EGD with pyloric sphincter dilatation. -Hgb stable, 8.4 today, was normal at 12.3 upon admission. Anemia workup revealed YASMINE, however with acute cholecystiis and fever of 103 yesterday will hold parenteral iron at this time. Folate normal. Vit B12 367, MMA pending -HIDA scan revealed nonvisualization of the gallbladder correlate for for cholecystitis. Upper GI barium swallow study was unremarkable. Robotic cholecystectomy postponed today, plan to reattempt tomorrow -Defer to surgery team for management Metastatic lobular breast cancer: -Received 3 cycles of carboplatin/paclitaxel with cytoreductive surgery in 2018 for what was thought to be primary ovarian cancer, but was unclear if this was actually metastatic breast cancer at that time -She had been on Aromasin from 2017 up until 2021 -Previously had left pleural effusion and peritoneal carcinomatosis in March 2022 -Subsequently treated with Ibrance/Faslodex until she had evidence of esophageal metastases in January 2023 -Following radiation therapy, she had been on orserdu since late February 2023 -CT chest abdomen pelvis without contrast revealed no acute intrathoracic process. Fluid-filled esophagus tracking in the upper mediastinum. Wall thickening of the duodenum and small bowel within the pelvis with associated mesenteric edema, rule out possible underlying enteritis. Stable distended gallbladder with cholelithiasis. Proceeded described areas of nodularity discussed in the prior exam are suboptimally evaluated secondary to lack of IV contrast. -CA 15-3 elevated at 34.1, CA 27.29 pending. -If there is evidence of disease progression, she would be candidate for either enhertu or piqray given [id number] mutation noted on ctDNA testing in February 2023. Since CT study was ordered without contrast will plan to reobtain with contrast once pt stable inpt, or reschedule PET CT outpt for further evaluation to r/o disease progression -Clinic f/u will be scheduled upon discharge, with plans for repeat PET CT
[2023-08-22] MEDS: POTASSIUM BICARBONATE/CIT AC 20 MEQ TABLET.EFF PO SCH ×2 (20:49→21:49)
[2023-08-22] MEDS: ONDANSETRON 4 MG/2 ML VIAL IVP PRN (21:51)
[2023-08-23] MEDS: 0.9% NACL WITH KCL 40 MEQ/L 1,000 ML IV SCH ×3 (00:31→22:52)
[2023-08-23 03:40] LABS: Magnesium 1.9 mg/dL (1.6-2.3)
[2023-08-23] MEDS: PIPERACILLIN-TAZOBACTAM 3.375 GM in SODIUM CHLORIDE 0.9% 100 ML IVPB SCH ×3 (05:53→22:52)
[2023-08-23 06:39] LABS: Methylmalonic Acid 0.13 umol/L (<0.40)
--- NOTE | 2023-08-23 06:39 | P.PN ---
Subjective Progress Note Date: 08/22/23 This is a 68-year-old female who was admitted with intractable nausea or vomiting underwent EGD showing gastric outlet obstruction with stenosis and scheduled to undergo repeat EGD with dilatation today with general surgery. Patient did undergo HIDA scan and gallbladder was not visualized and suggestive of cholecystitis and is being scheduled for possible acute laparoscopic cholecystectomy. Cardiology has been consulted for clearance. Oncology following as patient has significant history of breast cancer with metastasis. Patient is currently afebrile and continues to report nausea and not tolerating much appetite. Patient is being started on clear liquids. 08/22/2023 Patient is seen in follow-up this morning currently nothing by mouth as patient was scheduled to undergo laparoscopic cholecystectomy although potassium was found to be extremely low as well as magnesium and currently being replaced. Patient has had IV infiltrated with no IV access currently awaiting a midline is patient is a difficult stick and multiple attempts with no success. Patient undergoing oral replacement as well until midline is replaced. Patient is currently afebrile with no reports of significant nausea and no vomiting today. Will follow-up on repeat labs although unsure if patient is going to have surgery today due to electrolyte abnormalities. Review of systems: Constitutional: reports of fatigue, no fever, or chills Cardiovascular: No reports of chest pain or palpitations Respiratory: No reports of shortness of breath or cough GI: reports of nausea, no reports of vomiting, reports not much of an appetite : No reports of dysuria or retention Neurovascular: reports of generalized weakness All medications have been reviewed PHYSICAL EXAMINATION: GENERAL: The patient is alert and oriented x4, Well developed, thin built, appears older than stated age, unkempt HEENT: Pupils are round and equally reacting to light. EOMI. no scleral icterus. No conjunctival pallor. Normocephalic, atraumatic. No pharyngeal erythema. No thyromegaly. CARDIOVASCULAR: S1 and S2 muffled PULMONARY: diminished breath sounds bilaterally with no wheezing or rhonchi noted. ABDOMEN: soft. tender on exam of bilateral upper quadrants. . non-distended, normoactive bowel sounds. No palpable organomegaly. MUSCULOSKELETAL: No joint swelling or deformity. EXTREMITIES: No cyanosis, clubbing, or pedal edema. NEUROLOGICAL: Gross neurological examination did not reveal any focal deficits. Diffuse weakness SKIN: No rashes. Assessment: Intractable nausea and vomiting, status post EGD, possible gastric outlet obstruction. Status post repeat EGD with dilatation on 08/21/2023 Severe dehydration with acute tubular necrosis and renal failure, improving Severe hypokalemia as well as hypomagnesemia secondary to nausea and vomiting Acute cholecystitis noted on HIDA scan. Scheduled to undergo laparoscopic cholecystectomy History metastatic breast cancer as well as ovarian cancer Hypertension Hyperlipidemia History of known right bundle branch block GI prophylaxis DVT prophylaxis Full code Plan: Recommend to continue with current medications and management per general surgery services Patient is status post EGD with dilatation repeated for pyloric stenosis with Anderson's esophagitis and noted to have esophageal ulcer with gastritis and hiatal hernia. Cardiology consulted for surgical clearance as patient was noted have cholecystitis on HIDA scan and scheduled for laparoscopic cholecystectomy. Cardiology cleared and has signed off Patient started on clear liquids and nursing staff reports tolerating although patient continues with nausea and not much of an appetite. Currently nothing by mouth for surgical intervention although is being rescheduled for 08/23/2023 due to significant hypokalemia as well as hypomagnesemia with a potassium of 2.9 and magnesium of 1.1 Patient has lost IV access and currently awaiting to receive a midline this patient is a difficult stick with multiple attempts with no success Encouraged increased activity as tolerated Continue anti-nausea medications as needed Follow-up on repeat labs Will continue antibiotics in the form of Zosyn for acute cholecystitis and this was discussed with surgery The impression and plan of care has been dictated by Dana Cerda, nurse practitioner as directed. Dr. Elías MD I have performed a history and examination and MDM of this patient, discussed the same with the dictator, and agree with the dictator's assessment and plan as written ,documented as a scribe. Based on total visit time, I have performed more than 50% of the visit. Any additional findings or plans will be noted. Objective - Vital Signs Vital signs: Vital Signs Temp 100 F H 08/23/23 01:34 Pulse 87 08/23/23 01:34 Resp 18 08/22/23 13:22 BP 122/74 08/23/23 01:34 Pulse Ox 98 08/23/23 01:34 FiO2 Intake & Output 08/22/23 08/22/23 08/23/23 06:59 18:59 06:59 Intake Total 10 Balance 10 Weight 45.359 kg Intake: IV 10 Invasive Line 1 10 Other: Voiding Method Toilet # Voids 2 3 3 - Labs CBC & Chem 7: 08/22/23 06:29 08/23/23 01:35 Labs: Abnormal Lab Results - Last 24 Hours (Table) 08/21/23 08/22/23 08/22/23 Range/Units 09:59 06:29 06:29 RBC 2.78 L (3.80-5.40) m/uL Hgb 8.4 L (11.4-16.0) gm/dL Hct 24.6 L (34.0-46.0) % Neutrophils # 7.9 H (1.3-7.7) k/uL Lymphocytes # 0.5 L (1.0-4.8) k/uL Sodium (137-145) mmol/L Potassium 3.0 L (3.5-5.1) mmol/L Glucose 104 H (74-99) mg/dL Calcium 7.9 L (8.4-10.2) mg/dL Magnesium 1.1 L (1.6-2.3) mg/dL Total Protein (6.3-8.2) g/dL Albumin (3.5-5.0) g/dL RBC Folate 792 H (280 - 791) ng/mL 08/22/23 Range/Units 12:57 RBC (3.80-5.40) m/uL Hgb (11.4-16.0) gm/dL Hct (34.0-46.0) % Neutrophils # (1.3-7.7) k/uL Lymphocytes # (1.0-4.8) k/uL Sodium 134 L (137-145) mmol/L Potassium 2.9 L (3.5-5.1) mmol/L Glucose 132 H (74-99) mg/dL Calcium 7.8 L (8.4-10.2) mg/dL Magnesium (1.6-2.3) mg/dL Total Protein 5.1 L (6.3-8.2) g/dL Albumin 2.6 L (3.5-5.0) g/dL RBC Folate (280 - 791) ng/mL
[2023-08-23 07:08] LABS: HCT 24.6 % (34.0-46.0); HGB 8.6 gm/dL (11.4-16.0); MCH 30.7 pg (25.0-35.0); MCHC 34.9 g/dL (31.0-37.0); MCV 87.9 fL (80.0-100.0); Mean Platelet Volume 7.2; Platelet Count 215 k/uL (150-450); RDW 12.9 % (11.5-15.5); WBC 9.6 k/uL (3.8-10.6)
[2023-08-23 07:18] LABS: African American GFR (CKD) >90 (>60 ml/min/1.73 sqM); Anion Gap 11 mmol/L; Blood Urea Nitrogen 8 mg/dL (7-17); Calcium 8.1 mg/dL (8.4-10.2); Carbon Dioxide 22 mmol/L (22-30); Chloride 105 mmol/L (98-107); Glucose 85 mg/dL (74-99); Magnesium 1.8 mg/dL (1.6-2.3); Non-African American GFR(CKD) 87 (>60 ml/min/1.73 sqM); Sodium 138 mmol/L (137-145)
[2023-08-23] MEDS ORDERED: MAGNESIUM SULFATE-D5W PMX 1 GM in DEXTROSE/WATER 1 100ML.BAG IVPB ONE (08:06)
[2023-08-23] MEDS: ONDANSETRON 4 MG/2 ML VIAL IVP PRN (08:40)
[2023-08-23] MEDS: HEPARIN SODIUM,PORCINE 5,000 UNIT/ML 1 ML VIAL SQ SCH ×2 (08:41→22:36)
[2023-08-23] MEDS: lisinopriL 20 MG TAB PO SCH ×2 (08:41→08:42)
[2023-08-23] MEDS ORDERED: LACTATED RINGERS 1,000 ML IV ONE ×2 (17:28→18:41)
[2023-08-23] MEDS ORDERED: HEPARIN SODIUM,PORCINE 5,000 UNIT/ML 1 ML VIAL SQ ONE (17:31)
[2023-08-23] MEDS ORDERED: HEPARIN SODIUM,PORCINE/PF 5,000 UNIT/0.5 ML SYRINGE SQ ONE (17:32)
--- NOTE | 2023-08-23 17:43 | P.PN ---
Subjective Progress Note Date: 08/23/23 CHIEF COMPLAINT: Dysphagia and cholecystitis HISTORY OF PRESENT ILLNESS: The patient is a 68-year-old female admitted with intractable nausea and vomiting. Earlier in her hospitalization, upper endoscop y demonstrated gastritis and biopsies obtain which has not came back as metastatic breast cancer. Patient incidentally has acute cholecystitis per HIDA scan. She denies any active abdominal pain. She does report persistent nausea or vomiting. ROS: Reports intermittent emesis. No shortness of breath. PHYSICAL EXAM: VITAL SIGNS: Reviewed CONSTITUTIONAL: Well developed and in no acute distress. EYES: Conjuctivae without sclera icterus. Extraocular movements grossly intact. HEAD, EARS, NOSE, THROAT: Moist buccal mucosa. Head is atraumatic, normocephalic. Hears conversational speech. No nasal drainage. RESPIRATORY: Non-labored respirations and equal bilateral excursions. CARDIOVASCULAR: Palpable 2+ radial pulses. ABDOMEN: No peritonitis. MUSCULOSKELETAL: No gross deformity of the lower extremities noted. No clubbing. No cyanosis. SKIN: Good skin turgor. Well perfused. NEUROLOGIC: Cranial nerves II through XII grossly intact. No focal or lateralizing signs. PSYCH: Appropriate affect. Alert and oriented to person, place and time. CLINICAL LABS: Reviewed. Potassium normal 4.0. WBC normal. Hemoglobin between 8.0-9.0, anemia PATHOLOGY: A. GASTRIC ANTRUM, BIOPSY: Metastatic lobular breast carcinoma, see note. Background minimal chronic gastritis. STUDIES: HIDA scan demonstrating no visualization of the gallbladder consistent with acute cholecystitis. ASSESSMENT: 1. Dysphagia due to gastric outlet obstruction 2. Adult pyloric stenosis 3. Diaphragmatic hiatal hernia 4. Anderson's esophagus 5. History of breast cancer 6. Fevers 7. Hypokalemia 8. Anemia 9. Acute cholecystitis 10. Metastatic breast cancer to stomach PLAN: 1. I personally discussed with oncology team pathology confirming metastases to the small intestine and possibly to the gallbladder. Benefits and risks of cholecystectomy reviewed. 2. Findings also discussed with patient who wished to proceed with cholecystectomy. 3. She is overall elevated risk for surgery. Objective - Vital Signs Vital signs: Vital Signs Temp 97 F L 08/23/23 17:28 Pulse 95 08/23/23 17:28 Resp 16 08/23/23 13:20 BP 130/61 08/23/23 17:28 Pulse Ox 99 08/23/23 17:28 FiO2 Intake & Output 08/22/23 08/23/23 08/23/23 18:59 06:59 18:59 Intake Total 10 Balance 10 Weight 45.359 kg 45.359 kg Intake: IV 10 Invasive Line 1 10 Other: Voiding Method Toilet Toilet # Voids 3 3 - Labs CBC & Chem 7: 08/23/23 06:26 08/23/23 06:26 Labs: Abnormal Lab Results - Last 24 Hours (Table) 08/23/23 08/23/23 Range/Units 06:26 06:26 RBC 2.80 L (3.80-5.40) m/uL Hgb 8.6 L (11.4-16.0) gm/dL Hct 24.6 L (34.0-46.0) % Calcium 8.1 L (8.4-10.2) mg/dL
[2023-08-23] MEDS ORDERED: SUCCINYLCHOLINE CHLORIDE 200 MG/10 ML VIAL IV ONE (17:44)
[2023-08-23] MEDS ORDERED: GLYCOPYRROLATE 0.2 MG/ML 2 ML VIAL ONE (17:44)
[2023-08-23] MEDS ORDERED: INDOCYANINE GREEN 25 MG VIAL IV ONE (17:44)
[2023-08-23] MEDS ORDERED: NEOSTIGMINE 1 MG/ML 10 ML VIAL ONE (17:44)
[2023-08-23] MEDS ORDERED: PROPOFOL 10 MG/ML 20 ML VIAL IV ONE (17:44)
[2023-08-23] MEDS ORDERED: fentaNYL (PF) 50 MCG/ML 2 ML AMP ONE (17:44)
[2023-08-23] MEDS ORDERED: ONDANSETRON 4 MG/2 ML VIAL ONE (17:44)
[2023-08-23] MEDS ORDERED: LIDOCAINE 1% INJ 10MG/ML (20 ML MDV) ONE (17:44)
[2023-08-23] MEDS ORDERED: ROCURONIUM 10 MG/ML (5 ML VIAL) IV ONE (17:44)
[2023-08-23] MEDS ORDERED: LABETALOL 5 MG/ML VIAL MDV ONE (17:44)
[2023-08-23] MEDS ORDERED: MIDAZOLAM 2 MG/2 ML VIAL ONE (17:44)
[2023-08-23] MEDS ORDERED: PHENYLEPHRINE-0.9% NACL SYG 1,000 MCG/10 ML SYRINGE ONE (17:44)
--- NOTE | 2023-08-23 17:45 | P.PN ---
Subjective Progress Note Date: 08/23/23 Patient stable Reporting mild back discomfort. Denies n/v, and abd pain. S/p EGD with pyloric dilatation Objective - Vital Signs Vital signs: Vital Signs Temp 97 F L 08/23/23 17:28 Pulse 95 08/23/23 17:28 Resp 16 08/23/23 13:20 BP 130/61 08/23/23 17:28 Pulse Ox 99 08/23/23 17:28 FiO2 Intake & Output 08/22/23 08/23/23 08/23/23 18:59 06:59 18:59 Intake Total 10 Balance 10 Weight 45.359 kg 45.359 kg Intake: IV 10 Invasive Line 1 10 Other: Voiding Method Toilet Toilet # Voids 3 3 - Constitutional General appearance: Present: average body habitus, no acute distress - EENT Eyes: Present: anicteric sclerae, EOMI ENT: Present: hearing grossly normal - Respiratory Respiratory: bilateral: CTA - Cardiovascular Rhythm: regular Heart sounds: normal: S1, S2 - Gastrointestinal Gastrointestinal Comment(s): mild distention General gastrointestinal: Absent: tenderness - Integumentary Integumentary: Absent: cyanotic - Neurologic Neurologic Comment(s): grossly intact - Musculoskeletal Musculoskeletal: Present: strength equal bilaterally - Psychiatric Psychiatric: Present: A&O x's 3 - Labs CBC & Chem 7: 08/23/23 06:26 08/23/23 06:26 Labs: Abnormal Lab Results - Last 24 Hours (Table) 08/23/23 08/23/23 Range/Units 06:26 06:26 RBC 2.80 L (3.80-5.40) m/uL Hgb 8.6 L (11.4-16.0) gm/dL Hct 24.6 L (34.0-46.0) % Calcium 8.1 L (8.4-10.2) mg/dL Assessment and Plan (1) Acute kidney injury Current Visit: Yes Status: Acute Code(s): N17.9 - ACUTE KIDNEY FAILURE, UNSPECIFIED SNOMED Code(s): 62801325 (2) Breast cancer metastasized to multiple sites Current Visit: Yes Status: Chronic Code(s): C50.919 - MALIGNANT NEOPLASM OF UNSP SITE OF UNSPECIFIED FEMALE BREAST SNOMED Code(s): 833297693 (3) Hypokalemia Current Visit: Yes Status: Acute Code(s): E87.6 - HYPOKALEMIA SNOMED Code(s): 01119075 Plan: CRYSTAL, hypokalemia: -Noted to have progressive nausea and vomiting over the past 2 weeks -Labs on admission were consistent with CRYSTAL and hypokalemia, likely prerenal with hypochloremic hypokalemic metabolic alkalosis secondary to intractable nausea and vomiting -Received 1 L IV fluid bolus followed by maintenance normal saline with potassium supplementation -Creatinine back to baseline -Staging CT scans on 06/26/2023 noted possible thickening of the peritoneum, but this could have been due to prior peritoneal carcinomatosis -She was due for outpatient PET scan, but was not able to make this appointment due to persistent nausea and vomiting -Increase Zofran to 8 mg IV every 8 hours as needed -CA 15-3 and CA 27-29 ordered GI bleed/cholecystitis: -EGD showed Anderson's esophagus, esophageal ulcer, gastritis with bleeding and pyloric stenosis. S/p EGD with pyloric sphincter dilatation. -Hgb stable, 8.6 today, was normal at 12.3 upon admission. Anemia workup revealed YASMINE, however with recent fever of 103 will hold parenteral iron at this time. Folate normal. Vit B12 367, MMA normal -HIDA scan revealed nonvisualization of the gallbladder correlate for cholecystitis. Upper GI barium swallow study was unremarkable. Robotic cholecystectomy was planned for today. However, biopsy of gastric antrum revealed metastatic lobular breast cancer. Spoke with Dr. Sorto today, discussed that patients symptoms could likely be r/t disease progression within upper GI. And patient symptoms of n/v have resolved and abdominal exam is benign, making acute jen less likely. Jen will be hold at this time, and will continue to monitor patients symptoms Metastatic lobular breast cancer: -Received 3 cycles of carboplatin/paclitaxel with cytoreductive surgery in 2018 for what was thought to be primary ovarian cancer, but was unclear if this was actually metastatic breast cancer at that time -She had been on Aromasin from 2017 up until 2021 -Previously had left pleural effusion and peritoneal carcinomatosis in March 2022 -Subsequently treated with Ibrance/Faslodex until she had evidence of esophageal metastases in January 2023 -Following radiation therapy, she had been on orserdu since late February 2023 -CT chest abdomen pelvis without contrast revealed no acute intrathoracic process. Fluid-filled esophagus tracking in the upper mediastinum. Wall thickening of the duodenum and small bowel within the pelvis with associated mesenteric edema, rule out possible underlying enteritis. Stable distended gallbladder with cholelithiasis. Proceeded described areas of nodularity discussed in the prior exam are suboptimally evaluated secondary to lack of IV contrast. -CA 15-3 elevated at 34.1, CA 27.29 pending. -Biopsy of gastric antrum revealed metastatic lobular breast cancer. Duodenal biopsy pending. Since disease progression is noted, will stop Orserdu. She would be candidate for either enhertu or piqray given PIK3CA mutation noted on ctDNA testing in February 2023. This will be decided with her primary oncologist Dr. Velasquez -Clinic f/u will be scheduled upon discharge, with plans for repeat PET CT Above findings and POC was discussed in detail with patient attests: I have performed H&P and developed impression and plan of care for patient, discussed with dictator. I agree with dictated note, documented as a scribe
[2023-08-23] MEDS ORDERED: LIDOCAINE 1%-EPI 1:100,000 50 ML VIAL SQ ONE (18:12)
--- NOTE | 2023-08-23 21:48 | P.OP ---
Date of Procedure: 08/23/23 Description of Procedure: SURGEON: ILEANA HERRERA MD PREOPERATIVE DIAGNOSES: 1. Acute cholecystitis 2. Metastatic breast cancer 3. Hypertensive heart disease 4. Intractable nausea vomiting 5. Gastric outlet syndrome 6. Gastroesophageal reflux disease with erosive esophagitis 7. Pyloric stenosis due to metastatic disease 8. Depressive disorder POSTOPERATIVE DIAGNOSES: 1. Acute hydrops cholecystitis due to cystic duct obstruction from gallstones 2. Metastatic breast cancer 3. Hypertensive heart disease 4. Intractable nausea vomiting 5. Gastric outlet syndrome 6. Gastroesophageal reflux disease with erosive esophagitis 7. Pyloric stenosis due to metastatic disease 8. Depressive disorder 9. Peritoneal ascites suspicious for metastatic malignancy 10. Intra-abdominal adhesions greater omentum to abdominal wall OPERATION: 1. Robotic-assisted da Macy Xi laparoscopic lysis of adhesions over 2 hour 2. Robotic-assisted da Macy Xi laparoscopic cholecystectomy, multiport with FIREFLY ESTIMATED BLOOD LOSS: 50 mL. SPECIMENS REMOVED: Gallbladder, gallstones, peritoneal fluid cell cytology for breast cancer COMPLICATIONS: None. OPERATIVE FINDINGS: 1. Abdominal ascites with peritoneal studding suspicious for metastatic breast cancer 2. Indocyanine green confirms acute cholecystitis with lack of contrast in gallbladder 3. Common bile duct within normal limits 4. Dilated cystic duct 5. Clear bile fluid consistent with hydrops cholecystitis 6. Intra-abdominal adhesions greater omentum to abdominal wall 7. Multiple large gallstones over 3 cm impacted with gallbladder INDICATIONS: The patient is a 68 year-old female who presents with intractable nausea and vomiting, positive HIDA scan for acute cholecystitis. Recent pathology from metastatic breast cancer was confirmed within the mucosa of her stomach. Cardiac risk assessment was performed prior to surgery. Surgical intervention with cholecystectomy was described. Robotic assisted laparoscopic approach was described. Benefits and risks of the procedure including but not limited to bleeding, infection, injury to the biliary tree was reviewed. Informed consent was obtained. DESCRIPTION OF PROCEDURE: Patient was brought to the operating room, placed in supine position. After general induction, the abdomen had been prepped and draped in standard sterile fashion. The robotic da Macy XI system was primed. After a timeout protocol was performed, the patient had been prepped and draped in standard sterile fashion. The patient was injected with indocyanine green. A 5 mm 0 degrees laparoscopic trocar entry was performed along the left upper quadrant. The abdomen insufflated to 15 mmHg pressure which was tolerated well. Diagnostic laparoscopy demonstrated no injury to bowel viscera or mesentery. Ascites and peritoneal studding was identified suspicious for metastatic disease and malignant ascites. A moderately distended gallbladder was identified adding complexity to the case. Next, two 8 mm robotic ports were placed along the right upper abdomen. The camera 8-mm port was maintained along the epigastrium. Another 8 mm port was placed along the left upper abdominal wall after exchanging the 5 mm port. Please note that the ports were placed at least 10 to 15 cm away from the target anatomy of the gallbladder. The robot was docked along the left lateral abdomen. The patient was repositioned in reverse Trendelenburg position at 21 with the right side up 7. Using a grasper for arm 3, a grasper for arm 4, including hook cautery for arm 1, the robotic system was docked and primed as described. Instruments were interchanged by the health center assistant including hook cautery, Bovie cautery and clip appliers. Additional instruments including vessel sealer, robotic suction compressor station engineer chief, robotic stapler were made available. Abdominal ascites was sent for cell cytology for malignant breast cancer. I had sat at the console. The gallbladder was encased in surrounding tissue including the proximal transverse colon, omentum adding complexity to the case and requiring extensive lysis of adhesions using blunt and sharp dissection using vessel sealer including hook artery for over 1.5 hours. The gallbladder was reflected towards the dome of the liver. The gallbladder was moderately distended adding complexity to the case. Edema was found along the cystic triangle including infundibulum. Initial dissection was performed on the gallbladder infundibulum using indocyanine green to illuminate the cystic duct and common bile duct. Due to moderate distention of the infundibulum, dome down technique was performed removing the gallbladder from the hepatic fossa starting from the fundus towards the infundibulum. Using a sponge, the liver was reflected towards the diaphragm and starting at the gallbladder fundus, hook cautery was used between the liver and the gallbladder. The patient pre-existing easy bleeding from her skin incisions and from the liver bed requiring hemostatic agents such as fibular. As the gallbladder was dissected from the hepatic fossa, hemostasis was checked using vessel sealer along the posterior gallbladder. Next, indocyanine green was used to confirm the common bile duct as well as cystic duct. The entire gallbladder was without contrast consistent with acute cholecystitis. The common bile duct was well illuminated. The cystic duct was dilated. The infundibulum was retracted laterally away from the common bile duct. The left upper quadrant trocar was exchanged for a 12 mm robotic trocar. FIREFLY was used to identify the common bile duct. Robotic 45 mm green staple loads were fired across the infundibulum as the cystic duct and cystic structures were moderately edematous. Additionally, gallstone was impacted along the neck of the gallbladder. Bleeding along the liver bed was controlled with hemostatic agents SNOW. Indocyanine green was used to confirm no bile leak from the staple line. Sponges were removed from the abdomen. The robot was undocked. I re-scrubbed into the case. A 10 mm Endo Catch bag was used to remove the gallbladder in total via the left upper quadrant incision after widening the incision. The specimen was removed from the abdominal cavity. Olayinka [place] and 0 Vicryl was used to close the fascial defect of the left upper quadrant. All pneumoperitoneum instruments were evacuated from the abdominal cavity. The incisions were cleansed using dilute hydrogen peroxide. The incisions were reapproximated using 4-0 Monocryl in an interrupted subcuticular fashion. Please note along the trocar sites, local anesthetic was placed as a field block prior to insertion of all instruments. Liquid glue was applied to the skin. Optifoam was placed along the left upper quadrant. At the end of the procedure needle, sponge, and instrument count had been verified correct by the edger technician. The patient was transferred to postanesthesia care unit in stable condition. Intraoperative films were shared with her sister Jeaneth over the telephone.
[2023-08-23] MEDS ORDERED: ONDANSETRON 4 MG/2 ML VIAL IVP ONE (22:11)
--- NOTE | 2023-08-24 03:52 | P.PN ---
Subjective Progress Note Date: 08/23/23 This is a 68-year-old female who was admitted with intractable nausea or vomiting underwent EGD showing gastric outlet obstruction with stenosis and scheduled to undergo repeat EGD with dilatation today with general surgery. Patient did undergo HIDA scan and gallbladder was not visualized and suggestive of cholecystitis and is being scheduled for possible acute laparoscopic cholecystectomy. Cardiology has been consulted for clearance. Oncology following as patient has significant history of breast cancer with metastasis. Patient is currently afebrile and continues to report nausea and not tolerating much appetite. Patient is being started on clear liquids. 08/22/2023 Patient is seen in follow-up this morning currently nothing by mouth as patient was scheduled to undergo laparoscopic cholecystectomy although potassium was found to be extremely low as well as magnesium and currently being replaced. Patient has had IV infiltrated with no IV access currently awaiting a midline is patient is a difficult stick and multiple attempts with no success. Patient undergoing oral replacement as well until midline is replaced. Patient is currently afebrile with no reports of significant nausea and no vomiting today. Will follow-up on repeat labs although unsure if patient is going to have surgery today due to electrolyte abnormalities. 08/23/2023 Patient is seen in follow-up this morning scheduled to undergo laparoscopic cholecystectomy. Electrolytes have been replaced and within normal limits including magnesium and potassium. Patient is afebrile with reports of chest pain or shortness of breath. Patient continues to report some nausea and mild abdominal discomfort. Per surgery pathology came back with breast cancer metastasis possibly to the stomach and there is concerns of progression of disease causing this abdominal pain in associated symptoms. General surgery awaiting to discuss with oncology about treatment plans moving forward. Patient continues to be willing to proceed with gallbladder removal. Patient will remain nothing by mouth for now. Review of systems: Constitutional: reports of fatigue, no fever, or chills Cardiovascular: No reports of chest pain or palpitations Respiratory: No reports of shortness of breath or cough GI: reports of nausea, no reports of vomiting, reports not much of an appetite, reports continued abdominal pain : No reports of dysuria or retention Neurovascular: reports of generalized weakness All medications have been reviewed PHYSICAL EXAMINATION: GENERAL: The patient is alert and oriented x4, Well developed, thin built, appears older than stated age, unkempt HEENT: Pupils are round and equally reacting to light. EOMI. no scleral icterus. No conjunctival pallor. Normocephalic, atraumatic. No pharyngeal erythema. No thyromegaly. CARDIOVASCULAR: S1 and S2 muffled PULMONARY: diminished breath sounds bilaterally with no wheezing or rhonchi noted. ABDOMEN: soft. tender on exam of bilateral upper quadrants. . non-distended, normoactive bowel sounds. No palpable organomegaly. MUSCULOSKELETAL: No joint swelling or deformity. EXTREMITIES: No cyanosis, clubbing, or pedal edema. NEUROLOGICAL: Gross neurological examination did not reveal any focal deficits. Diffuse weakness SKIN: No rashes. Assessment: Intractable nausea and vomiting, status post EGD, possible gastric outlet obstruction. Status post repeat EGD with dilatation on 08/21/2023 Severe dehydration with acute tubular necrosis and renal failure, improving Severe hypokalemia as well as hypomagnesemia secondary to nausea and vomiting, improving and replaced per protocol Acute cholecystitis noted on HIDA scan. Scheduled to undergo laparoscopic cholecystectomy History metastatic breast cancer as well as ovarian cancer, pathology from biopsies an EGD were positive for metastatic lobular breast carcinoma with concerns of disease progression to the stomach Hypertension Hyperlipidemia History of known right bundle branch block Moderate protein calorie malnutrition with BMI of 18.3 GI prophylaxis DVT prophylaxis Full code Plan: Recommend to continue with current medications and management per general surgery services Patient is status post EGD with dilatation repeated for pyloric stenosis with Anderson's esophagitis and noted to have esophageal ulcer with gastritis and hiatal hernia. Cardiology consulted for surgical clearance as patient was noted have cholecystitis on HIDA scan and scheduled for laparoscopic cholecystectomy. Cardiology cleared and has signed off Patient Currently nothing by mouth for surgical intervention and being planned for today as electrolytes have been replaced improved Patient's pathology report from initial EGD biopsy positive for metastatic lobular breast carcinoma and high suspicion for stomach cancer in general surgery awaiting discussed with oncology. Patient continues to be agreeable to proceed with gallbladder removal. Will await surgical report Encouraged increased activity as tolerated Continue anti-nausea medications as needed Follow-up on repeat labs Will continue antibiotics in the form of Zosyn for acute cholecystitis Due to multiple complex medical issues, overall prognosis is extremely guarded The impression and plan of care has been dictated by Dana Cerda, nurse practitioner as directed. Dr. Elías MD I have performed a history and examination and MDM of this patient, discussed the same with the dictator, and agree with the dictator's assessment and plan as written ,documented as a scribe. Based on total visit time, I have performed more than 50% of the visit. Any additional findings or plans will be noted. Objective - Vital Signs Vital signs: Vital Signs Temp 99.2 F 08/23/23 06:49 Pulse 97 08/23/23 07:35 Resp 17 08/23/23 07:35 BP 110/69 08/23/23 06:49 Pulse Ox 97 08/23/23 06:49 FiO2 Intake & Output 08/22/23 08/23/23 08/23/23 18:59 06:59 18:59 Intake Total 10 Balance 10 Weight 45.359 kg Intake: IV 10 Invasive Line 1 10 Other: Voiding Method Toilet Toilet # Voids 3 3 - Labs CBC & Chem 7: 08/23/23 06:26 08/23/23 06:26 Labs: Abnormal Lab Results - Last 24 Hours (Table) 08/21/23 08/22/23 08/23/23 Range/Units 09:59 12:57 06:26 RBC 2.80 L (3.80-5.40) m/uL Hgb 8.6 L (11.4-16.0) gm/dL Hct 24.6 L (34.0-46.0) % Sodium 134 L (137-145) mmol/L Potassium 2.9 L (3.5-5.1) mmol/L Glucose 132 H (74-99) mg/dL Calcium 7.8 L (8.4-10.2) mg/dL Total Protein 5.1 L (6.3-8.2) g/dL Albumin 2.6 L (3.5-5.0) g/dL RBC Folate 792 H (280 - 791) ng/mL 08/23/23 Range/Units 06:26 RBC (3.80-5.40) m/uL Hgb (11.4-16.0) gm/dL Hct (34.0-46.0) % Sodium (137-145) mmol/L Potassium (3.5-5.1) mmol/L Glucose (74-99) mg/dL Calcium 8.1 L (8.4-10.2) mg/dL Total Protein (6.3-8.2) g/dL Albumin (3.5-5.0) g/dL RBC Folate (280 - 791) ng/mL
[2023-08-24] MEDS: HYDROmorphone 1 MG/ML 1 ML SYRINGE IVP PRN ×2 (05:03→17:28)
[2023-08-24] MEDS: PIPERACILLIN-TAZOBACTAM 3.375 GM in SODIUM CHLORIDE 0.9% 100 ML IVPB SCH ×3 (05:03→20:37)
[2023-08-24] MEDS: ACETAMINOPHEN TAB 325 MG TAB PO PRN ×3 (05:13→15:28)
[2023-08-24] MEDS: HEPARIN SODIUM,PORCINE 5,000 UNIT/ML 1 ML VIAL SQ SCH ×2 (08:25→20:37)
[2023-08-24] MEDS: lisinopriL 20 MG TAB PO SCH (08:26)
[2023-08-24 09:13] LABS: ALT 51 U/L (8-44); AST 112 U/L (13-35); Albumin 2.6 g/dL (3.8-4.9); Albumin/Globulin Ratio 1.13 Ratio (1.60-3.17); Alkaline Phosphatase 57 U/L (41-126); BUN/Creat Ratio 10.43 Ratio (12.00-20.00); Blood Urea Nitrogen 7.3 mg/dL (9.0-27.0); Calcium 7.8 mg/dL (8.7-10.3); Carbon Dioxide 19.9 mmol/L (21.6-31.8); Chloride 104 mmol/L (96-109); Globulin 2.3 g/dL (1.6-3.3); Glucose 80 mg/dL (70-110); Magnesium 1.4 mg/dL (1.5-2.4); Potassium 4.2 mmol/L (3.5-5.5); Sodium 142 mmol/L (135-145); Total Bilirubin 0.3 mg/dL (0.3-1.2); Total Protein 4.9 g/dL (6.2-8.2)
[2023-08-24 10:21] LABS: Basophils # (A) 0.02 X 10*3/uL (0.00-0.10); Basophils % (A) 0.2 %; Eosinophils # (A) 0.01 X 10*3/uL (0.04-0.35); Eosinophils % (A) 0.1 %; HCT 22.1 % (37.2-46.3); HGB 7.3 g/dL (12.0-15.0); Lymphocytes # (A) 0.59 X 10*3/uL (0.90-5.00); MCH 29.2 pg (27.0-32.0); MCV 88.4 FL (80.0-97.0); Mean Platelet Volume 9.6 FL (9.5-12.2); Monocytes # (A) 0.62 X 10*3/uL (0.20-1.00); Monocytes % (A) 6.3 %; NRBC Per 100 WBC 0 X 10*3/uL (0.00-0.01); Neutrophils # (A) 8.39 X 10*3/uL (1.80-7.70); Neutrophils % (A) 85.9 %; Platelet Count 206 X 10*3/uL (140-440); RDW 12.8 % (11.5-14.5); WBC 9.78 X 10*3/uL (4.50-10.00)
--- NOTE | 2023-08-24 10:23 | P.PN ---
Subjective Progress Note Date: 08/24/23 NAEON. No N/V. No F/C. No SOB or CP. Tolerating sips of water without issue. Endorses incisional abdominal pain. Small amount of flatus, no BM. Voiding without issue. Objective - Vital Signs Vital signs: Vital Signs Temp 98.8 F 08/24/23 07:05 Pulse 100 08/24/23 07:05 Resp 16 08/24/23 07:05 BP 149/84 08/24/23 07:05 Pulse Ox 98 08/24/23 07:05 FiO2 Intake & Output 08/23/23 08/24/23 08/24/23 18:59 06:59 18:59 Intake Total 2950 0 Output Total 50 Balance 2950 -50 Weight 45.359 kg Intake: IV 2400 0 0.9% NaCl with KCl 40 Meq 600 /l 1,000 ml @ 75 mls/hr IV .[id number] [facility] Rx#: [id number] Intake, IV Titration 200 Amount Magnesium Sulfate-D5w Pmx 100 1 gm In Dextrose/Water 1 100ml.bag @ 100 mls/hr IVPB ONCE ONE Rx#: [id number] Piperacillin-Tazobactam 3 100 .375 gm In Sodium Chloride 0.9% 100 ml @ 25 mls/hr IVPB Q8H [facility] Rx#: [id number] Oral 350 Output: Estimated Blood Loss 50 Other: Voiding Method Toilet Toilet # Voids 2 - Exam Gen: AxO, NAD Pulm: non-labored respirations Abd: soft, mildly tender around incisions, minimally distended, no guarding/rebound/rigidity Incisions: C/D/I, no erythema or fluctuence appreciated Extrem: no edema seen - Labs CBC & Chem 7: 08/24/23 06:55 08/24/23 06:55 Labs: Abnormal Lab Results - Last 24 Hours (Table) 08/24/23 08/24/23 Range/Units 06:55 06:55 RBC 2.50 L (4.10-5.20) X 10*6/uL Hgb 7.3 L (12.0-15.0) g/dL Hct 22.1 L (37.2-46.3) % Immature Gran # 0.15 H (0.00-0.04) X 10*3/uL Neutrophils # 8.39 H (1.80-7.70) X 10*3/uL Lymphocytes # 0.59 L (0.90-5.00) X 10*3/uL Eosinophils # 0.01 L (0.04-0.35) X 10*3/uL Carbon Dioxide 19.9 L (21.6-31.8) mmol/L Anion Gap 18.10 H (4.00-12.00) mmol/L BUN 7.3 L (9.0-27.0) mg/dL BUN/Creatinine Ratio 10.43 L (12.00-20.00) Ratio Calcium 7.8 L (8.7-10.3) mg/dL Magnesium 1.4 L (1.5-2.4) mg/dL AST 112 H (13-35) U/L ALT 51 H (8-44) U/L Total Protein 4.9 L (6.2-8.2) g/dL Albumin 2.6 L (3.8-4.9) g/dL Albumin/Globulin Ratio 1.13 L (1.60-3.17) Ratio
[2023-08-24] MEDS: ONDANSETRON 4 MG/2 ML VIAL IVP PRN (15:27)
[2023-08-24] MEDS: 0.9% NACL WITH KCL 40 MEQ/L 1,000 ML IV SCH (18:48)
[2023-08-24] MEDS: MAGNESIUM SULFATE-D5W PMX 1 GM in DEXTROSE/WATER 1 100ML.BAG IVPB SCH ×2 (20:37→20:39)
--- NOTE | 2023-08-24 23:32 | P.PN ---
Subjective Progress Note Date: 08/24/23 This is a 68-year-old female who was admitted with intractable nausea or vomiting underwent EGD showing gastric outlet obstruction with stenosis and scheduled to undergo repeat EGD with dilatation today with general surgery. Patient did undergo HIDA scan and gallbladder was not visualized and suggestive of cholecystitis and is being scheduled for possible acute laparoscopic cholecystectomy. Cardiology has been consulted for clearance. Oncology following as patient has significant history of breast cancer with metastasis. Patient is currently afebrile and continues to report nausea and not tolerating much appetite. Patient is being started on clear liquids. 08/22/2023 Patient is seen in follow-up this morning currently nothing by mouth as patient was scheduled to undergo laparoscopic cholecystectomy although potassium was found to be extremely low as well as magnesium and currently being replaced. Patient has had IV infiltrated with no IV access currently awaiting a midline is patient is a difficult stick and multiple attempts with no success. Patient undergoing oral replacement as well until midline is replaced. Patient is currently afebrile with no reports of significant nausea and no vomiting today. Will follow-up on repeat labs although unsure if patient is going to have s urgery today due to electrolyte abnormalities. 08/23/2023 Patient is seen in follow-up this morning scheduled to undergo laparoscopic cholecystectomy. Electrolytes have been replaced and within normal limits including magnesium and potassium. Patient is afebrile with reports of chest pain or shortness of breath. Patient continues to report some nausea and mild abdominal discomfort. Per surgery pathology came back with breast cancer metastasis possibly to the stomach and there is concerns of progression of disease causing this abdominal pain in associated symptoms. General surgery awaiting to discuss with oncology about treatment plans moving forward. Patient continues to be willing to proceed with gallbladder removal. Patient will remain nothing by mouth for now. 08/24/2023 Patient is currently lying in the bed. Awake alert and oriented. Pain is fairly controlled. Patient is status post laparoscopic cholecystectomy and lysis of adhesions. Postoperative day 1 Patient is able to pass flatus but no bowel movement yet. Denies any chest pain or shortness of breath. Patient has been afebrile. Currently on room air. Laboratory data showed WBC 9.7 hemoglobin 7.3 and platelets 206 Sodium 142 potassium 4.2 chloride 104 BUN 7.3 and creatinine 0.7 and magnesium 1.4 Review of systems: Constitutional: reports of fatigue, no fever, or chills Cardiovascular: No reports of chest pain or palpitations Respiratory: No reports of shortness of breath or cough GI: reports of nausea, no reports of vomiting, reports not much of an appetite, reports soarness at surgical site : No reports of dysuria or retention Neurovascular: reports of generalized weakness All medications have been reviewed PHYSICAL EXAMINATION: GENERAL: The patient is alert and oriented x4, Well developed, thin built, appears older than stated age, unkempt HEENT: Pupils are round and equally reacting to light. EOMI. no scleral icterus. No conjunctival pallor. Normocephalic, atraumatic. No pharyngeal erythema. No thyromegaly. CARDIOVASCULAR: S1 and S2 muffled PULMONARY: diminished breath sounds bilaterally with no wheezing or rhonchi noted. ABDOMEN: soft. tender on exam of bilateral upper quadrants. . non-distended, normoactive bowel sounds. No palpable organomegaly. MUSCULOSKELETAL: No joint swelling or deformity. EXTREMITIES: No cyanosis, clubbing, or pedal edema. NEUROLOGICAL: Gross neurological examination did not reveal any focal deficits. Diffuse weakness SKIN: No rashes. Assessment: Acute cholecystitis noted on HIDA scan. s/p laparoscopic cholecystectomyon 08/23 Intractable nausea and vomiting, status post EGD, possible gastric outlet obstruction. Status post repeat EGD with dilatation on 08/21/2023 Severe dehydration with acute tubular necrosis and renal failure, improving Severe hypokalemia as well as hypomagnesemia secondary to nausea and vomiting, improving and replaced per protocol History metastatic breast cancer as well as ovarian cancer, pathology from biopsies an EGD were positive for metastatic lobular breast carcinoma with concerns of disease progression to the stomach Hypertension Hyperlipidemia History of known right bundle branch block Moderate protein calorie malnutrition with BMI of 18.3 GI prophylaxis DVT prophylaxis Full code Plan: Recommend to continue with current medications and management per general surgery services Patient is status post EGD with dilatation repeated for pyloric stenosis with Anderson's esophagitis and noted to have esophageal ulcer with gastritis and hiatal hernia. Cardiology consulted for surgical clearance as patient was noted have cholecystitis on HIDA scan and s/p laparoscopic cholecystectomy. Cardiology cleared and has signed off electrolytes have been replaced improved Patient's pathology report from initial EGD biopsy positive for metastatic lobular breast carcinoma and high suspicion for stomach cancer in general surgery awaiting discussed with oncology. Encouraged increased activity as tolerated Continue anti-nausea medications as needed Follow-up on repeat labs Will continue antibiotics in the form of Zosyn for acute cholecystitis Due to multiple complex medical issues, overall prognosis is extremely guarded Objective - Vital Signs Vital signs: Vital Signs Temp 98.7 F 08/24/23 12:30 Pulse 87 08/24/23 12:30 Resp 17 08/24/23 12:30 BP 152/94 08/24/23 12:30 Pulse Ox 97 08/24/23 12:30 FiO2 Intake & Output 08/23/23 08/24/23 08/24/23 18:59 06:59 18:59 Intake Total 2950 0 Output Total 50 Balance 2950 -50 Weight 45.359 kg Intake: IV 2400 0 0.9% NaCl with KCl 40 Meq 600 /l 1,000 ml @ 75 mls/hr IV .[id number] [facility] Rx#: [id number] Intake, IV Titration 200 Amount Magnesium Sulfate-D5w Pmx 100 1 gm In Dextrose/Water 1 100ml.bag @ 100 mls/hr IVPB ONCE ONE Rx#: [id number] Piperacillin-Tazobactam 3 100 .375 gm In Sodium Chloride 0.9% 100 ml @ 25 mls/hr IVPB Q8H [facility] Rx#: [id number] Oral 350 Output: Estimated Blood Loss 50 Other: Voiding Method Toilet Toilet # Voids 2 - Labs CBC & Chem 7: 08/24/23 06:55 08/24/23 06:55 Labs: Abnormal Lab Results - Last 24 Hours (Table) 08/24/23 08/24/23 Range/Units 06:55 06:55 RBC 2.50 L (4.10-5.20) X 10*6/uL Hgb 7.3 L (12.0-15.0) g/dL Hct 22.1 L (37.2-46.3) % Immature Gran # 0.15 H (0.00-0.04) X 10*3/uL Neutrophils # 8.39 H (1.80-7.70) X 10*3/uL Lymphocytes # 0.59 L (0.90-5.00) X 10*3/uL Eosinophils # 0.01 L (0.04-0.35) X 10*3/uL Carbon Dioxide 19.9 L (21.6-31.8) mmol/L Anion Gap 18.10 H (4.00-12.00) mmol/L BUN 7.3 L (9.0-27.0) mg/dL BUN/Creatinine Ratio 10.43 L (12.00-20.00) Ratio Calcium 7.8 L (8.7-10.3) mg/dL Magnesium 1.4 L (1.5-2.4) mg/dL AST 112 H (13-35) U/L ALT 51 H (8-44) U/L Total Protein 4.9 L (6.2-8.2) g/dL Albumin 2.6 L (3.8-4.9) g/dL Albumin/Globulin Ratio 1.13 L (1.60-3.17) Ratio Assessment and Plan Time with Patient: Greater than 30
[2023-08-25] MEDS: MAGNESIUM SULFATE-D5W PMX 1 GM in DEXTROSE/WATER 1 100ML.BAG IVPB SCH (01:39)
[2023-08-25] MEDS: 0.9% NACL WITH KCL 40 MEQ/L 1,000 ML IV SCH ×2 (05:37→19:37)
[2023-08-25] MEDS: PIPERACILLIN-TAZOBACTAM 3.375 GM in SODIUM CHLORIDE 0.9% 100 ML IVPB SCH ×3 (05:37→20:12)
[2023-08-25] MEDS: HYDROmorphone 1 MG/ML 1 ML SYRINGE IVP PRN (05:40)
[2023-08-25] MEDS: lisinopriL 20 MG TAB PO SCH (07:42)
[2023-08-25] MEDS: HEPARIN SODIUM,PORCINE 5,000 UNIT/ML 1 ML VIAL SQ SCH ×2 (07:42→20:12)
--- NOTE | 2023-08-25 11:46 | P.PN ---
Progress Note - Text Progress Note Date: 08/25/23 The patient's complaints of some abdominal pain. Her mucosa 0.3. She has been mildly tachycardic with pulse in the 100 to the 110 range. She has some incisional pain. On exam vital signs appear stable. Abdomen is soft. Incision sites are clean dry tach Status post robotic cholecystitis with referral. Patient will K receive supportive care.
[2023-08-25] MEDS: ONDANSETRON 4 MG/2 ML VIAL IVP PRN ×2 (13:18→20:14)
[2023-08-25] MEDS: KETOROLAC 15 MG/ML 1 ML VIAL IVP PRN ×2 (14:49→20:13)
--- NOTE | 2023-08-25 22:17 | P.PN ---
Subjective Progress Note Date: 08/25/23 This is a 68-year-old female who was admitted with intractable nausea or vomiting underwent EGD showing gastric outlet obstruction with stenosis and scheduled to undergo repeat EGD with dilatation today with general surgery. Patient did undergo HIDA scan and gallbladder was not visualized and suggestive of cholecystitis and is being scheduled for possible acute laparoscopic cholecystectomy. Cardiology has been consulted for clearance. Oncology following as patient has significant history of breast cancer with metastasis. Patient is currently afebrile and continues to report nausea and not tolerating much appetite. Patient is being started on clear liquids. 08/22/2023 Patient is seen in follow-up this morning currently nothing by mouth as patient was scheduled to undergo laparoscopic cholecystectomy although potassium was found to be extremely low as well as magnesium and currently being replaced. Patient has had IV infiltrated with no IV access currently awaiting a midline is patient is a difficult stick and multiple attempts with no success. Patient undergoing oral replacement as well until midline is replaced. Patient is currently afebrile with no reports of significant nausea and no vomiting today. Will follow-up on repeat labs although unsure if patient is going to have s urgery today due to electrolyte abnormalities. 08/23/2023 Patient is seen in follow-up this morning scheduled to undergo laparoscopic cholecystectomy. Electrolytes have been replaced and within normal limits including magnesium and potassium. Patient is afebrile with reports of chest pain or shortness of breath. Patient continues to report some nausea and mild abdominal discomfort. Per surgery pathology came back with breast cancer metastasis possibly to the stomach and there is concerns of progression of disease causing this abdominal pain in associated symptoms. General surgery awaiting to discuss with oncology about treatment plans moving forward. Patient continues to be willing to proceed with gallbladder removal. Patient will remain nothing by mouth for now. 08/24/2023 Patient is currently lying in the bed. Awake alert and oriented. Pain is fairly controlled. Patient is status post laparoscopic cholecystectomy and lysis of adhesions. Postoperative day 1 Patient is able to pass flatus but no bowel movement yet. Denies any chest pain or shortness of breath. Patient has been afebrile. Currently on room air. Laboratory data showed WBC 9.7 hemoglobin 7.3 and platelets 206 Sodium 142 potassium 4.2 chloride 104 BUN 7.3 and creatinine 0.7 and magnesium 1.4 08/25/2023 Postoperative day 2 Patient is lying in the bed. Awake alert and oriented x 3. No complaints of c hest pain or shortness of breath. Abdominal pain is improved. Patient is able to pass flatus. No bowel movement yet. Patient did have episode of vomiting. Afebrile. Currently denies any nausea. Currently on IV hydration with normal saline with KCl and antibiotics of Zosyn. Review of systems: Constitutional: reports of fatigue, no fever, or chills Cardiovascular: No reports of chest pain or palpitations Respiratory: No reports of shortness of breath or cough GI: reports of nausea, no reports of vomiting, reports not much of an appetite, reports soarness at surgical site : No reports of dysuria or retention Neurovascular: reports of generalized weakness All medications have been reviewed PHYSICAL EXAMINATION: GENERAL: The patient is alert and oriented x4, Well developed, thin built, appears older than stated age, unkempt HEENT: Pupils are round and equally reacting to light. EOMI. no scleral icterus. No conjunctival pallor. Normocephalic, atraumatic. No pharyngeal erythema. No thyromegaly. CARDIOVASCULAR: S1 and S2 muffled PULMONARY: diminished breath sounds bilaterally with no wheezing or rhonchi noted. ABDOMEN: soft. tender on exam of bilateral upper quadrants. . non-distended, normoactive bowel sounds. No palpable organomegaly. MUSCULOSKELETAL: No joint swelling or deformity. EXTREMITIES: No cyanosis, clubbing, or pedal edema. NEUROLOGICAL: Gross neurological examination did not reveal any focal deficits. Diffuse weakness SKIN: No rashes. Assessment: Acute cholecystitis noted on HIDA scan. s/p laparoscopic cholecystectomyon 08/23 Intractable nausea and vomiting, status post EGD, possible gastric outlet obstruction. Status post repeat EGD with dilatation on 08/21/2023 Severe dehydration with acute tubular necrosis and renal failure, improving Severe hypokalemia as well as hypomagnesemia secondary to nausea and vomiting, improving and replaced per protocol History metastatic breast cancer as well as ovarian cancer, pathology from [facility] an EGD were positive for metastatic lobular breast carcinoma with concerns of disease progression to the stomach Hypertension Hyperlipidemia History of known right bundle branch block Moderate protein calorie malnutrition with BMI of 18.3 GI prophylaxis DVT prophylaxis Full code Plan: Recommend to continue with current medications and management per general surgery services Patient is status post EGD with dilatation repeated for pyloric stenosis with Anderson's esophagitis and noted to have esophageal ulcer with gastritis and hiatal hernia. Cardiology consulted for surgical clearance as patient was noted have cholecystitis on HIDA scan and s/p laparoscopic cholecystectomy. Cardiology cleared and has signed off electrolytes have been replaced improved Patient's pathology report from initial EGD biopsy positive for metastatic lobular breast carcinoma and high suspicion for stomach cancer in general surgery awaiting discussed with oncology. Encouraged increased activity as tolerated Continue anti-nausea medications as needed Follow-up on repeat labs Will continue antibiotics in the form of Zosyn for acute cholecystitis Due to multiple complex medical issues, overall prognosis is extremely guarded Objective - Vital Signs Vital signs: Vital Signs Temp 100.0 F H 08/25/23 13:41 Pulse 106 H 08/25/23 13:41 Resp 19 08/25/23 13:41 BP 129/80 08/25/23 13:41 Pulse Ox 94 L 08/25/23 13:41 FiO2 Intake & Output 08/24/23 08/25/23 08/25/23 18:59 06:59 18:59 Other: Voiding Method Toilet # Voids 2 3 - Labs CBC & Chem 7: 08/24/23 06:55 08/24/23 06:55
[2023-08-26] MEDS: KETOROLAC 15 MG/ML 1 ML VIAL IVP PRN (02:41)
[2023-08-26] MEDS: ONDANSETRON 4 MG/2 ML VIAL IVP PRN ×3 (02:42→17:17)
[2023-08-26] MEDS: PIPERACILLIN-TAZOBACTAM 3.375 GM in SODIUM CHLORIDE 0.9% 100 ML IVPB SCH ×2 (05:06→14:59)
[2023-08-26] MEDS: 0.9% NACL WITH KCL 40 MEQ/L 1,000 ML IV SCH ×2 (05:06→17:15)
[2023-08-26] MEDS: lisinopriL 20 MG TAB PO SCH (08:30)
[2023-08-26] MEDS: HEPARIN SODIUM,PORCINE 5,000 UNIT/ML 1 ML VIAL SQ SCH ×2 (08:30→20:49)
[2023-08-26 09:09] LABS: Basophils # (A) 0.02 X 10*3/uL (0.00-0.10); Basophils % (A) 0.2 %; Eosinophils # (A) 0.11 X 10*3/uL (0.04-0.35); HCT 22.7 % (37.2-46.3); HGB 7.5 g/dL (12.0-15.0); Lymphocytes # (A) 0.76 X 10*3/uL (0.90-5.00); Lymphocytes % (A) 6.6 %; MCH 29.5 pg (27.0-32.0); MCV 89.4 FL (80.0-97.0); Mean Platelet Volume 9.3 FL (9.5-12.2); Monocytes # (A) 0.75 X 10*3/uL (0.20-1.00); Monocytes % (A) 6.5 %; NRBC Per 100 WBC 0 X 10*3/uL (0.00-0.01); Neutrophils # (A) 9.81 X 10*3/uL (1.80-7.70); Neutrophils % (A) 84.8 %; Platelet Count 212 X 10*3/uL (140-440); RBC 2.54 X 10*6/uL (4.10-5.20); WBC 11.55 X 10*3/uL (4.50-10.00)
[2023-08-26 12:04] LABS: ALT 36 U/L (8-44); AST 35 U/L (13-35); Albumin 2.7 g/dL (3.8-4.9); Albumin/Globulin Ratio 1.08 Ratio (1.60-3.17); Alkaline Phosphatase 71 U/L (41-126); BUN/Creat Ratio 7.17 Ratio (12.00-20.00); Blood Urea Nitrogen 4.3 mg/dL (9.0-27.0); Calcium 8.2 mg/dL (8.7-10.3); Carbon Dioxide 20.5 mmol/L (21.6-31.8); Chloride 104 mmol/L (96-109); Globulin 2.5 g/dL (1.6-3.3); Glucose 80 mg/dL (70-110); Potassium 4.3 mmol/L (3.5-5.5); Sodium 139 mmol/L (135-145); Total Bilirubin 0.3 mg/dL (0.3-1.2); Total Protein 5.2 g/dL (6.2-8.2)
[2023-08-26] MEDS: METOCLOPRAMIDE 5 MG/ML 2 ML VIAL IVP PRN (12:58)
--- NOTE | 2023-08-26 14:32 | P.PN ---
Subjective Progress Note Date: 08/26/23 Principal diagnosis: Intractable N,V 2/2 metastatic breast cancer in gastric antrum In f/u today pt continues to be unable to tolerate any oral intake, she vomits within a few minutes of consuming any foods or fluids. She had gallbladder removed, pending path. She has not started any new treatments for progressive breast cancer. Objective - Vital Signs Vital signs: Vital Signs Temp 98.4 F 08/26/23 08:00 Pulse 96 08/26/23 08:00 Resp 17 08/26/23 08:00 BP 126/79 08/26/23 08:00 Pulse Ox 98 08/26/23 08:00 FiO2 Intake & Output 08/25/23 08/26/23 08/26/23 18:59 06:59 18:59 Intake Total 496 Balance 496 Intake: Oral 496 Other: Voiding Method Toilet # Voids 3 2 - Constitutional General appearance: Present: average body habitus, cooperative, no acute distress - EENT Eyes: Present: anicteric sclerae, EOMI ENT: Present: hearing grossly normal - Respiratory Details: resp even and unlabored at rest - Peripheral edema leg Peripheral Edema: bilateral: Trace - Integumentary Integumentary: Present: normal - Neurologic Neurologic: Present: CNII-XII intact - Musculoskeletal Musculoskeletal: Present: strength equal bilaterally - Psychiatric Psychiatric: Present: A&O x's 3, appropriate affect, intact judgment & insight - Labs CBC & Chem 7: 08/26/23 06:33 08/26/23 06:33 Labs: Abnormal Lab Results - Last 24 Hours (Table) 08/26/23 08/26/23 Range/Units 06:33 06:33 WBC 11.55 H (4.50-10.00) X 10*3/uL RBC 2.54 L (4.10-5.20) X 10*6/uL Hgb 7.5 L (12.0-15.0) g/dL Hct 22.7 L (37.2-46.3) % MPV 9.3 L (9.5-12.2) FL Immature Gran # 0.10 H (0.00-0.04) X 10*3/uL Neutrophils # 9.81 H (1.80-7.70) X 10*3/uL Lymphocytes # 0.76 L (0.90-5.00) X 10*3/uL Carbon Dioxide 20.5 L (21.6-31.8) mmol/L Anion Gap 14.50 H (4.00-12.00) mmol/L BUN 4.3 L (9.0-27.0) mg/dL BUN/Creatinine Ratio 7.17 L (12.00-20.00) Ratio Calcium 8.2 L (8.7-10.3) mg/dL Total Protein 5.2 L (6.2-8.2) g/dL Albumin 2.7 L (3.8-4.9) g/dL Albumin/Globulin Ratio 1.08 L (1.60-3.17) Ratio Assessment and Plan (1) Intractable nausea and vomiting Current Visit: Yes Status: Acute Priority: High Code(s): R11.2 - NAUSEA W ITH VOMITING, UNSPECIFIED SNOMED Code(s): 074822825 (2) Breast cancer metastasized to multiple sites Current Visit: Yes Status: Chronic Priority: High Code(s): C50.919 - MALIGNANT NEOPLASM OF UNSP SITE OF UNSPECIFIED FEMALE BREAST SNOMED Code(s): 951143140 Plan: Intractable N,V -08/23 pt had laparoscopic gall bladder removal for acute cholecystitis, duct obstructed from stones and lysis of adhesions. Ascitic fluid and gall bladder path pending -EGD 08/19 and 08/21 showing GERD with erosive esophagitis with pyloric stenosis, had duodenal dilation -Unfortunately, N, V persists today -Reviewed pt meds for N,V, supportive meds cont. Will see how she is doing next day or so. Metastatic breast cancer -08/19 biopsy of gastric antrum positive for metastatic breast cancer -Likely the underlying cause of her intractable N,V -Pt has not yet started new treatment, pending f/u with Dr. Abbey Velasquez to discuss options Not certain if nausea and vomiting are going to be able to be controlled with meds, underlying cause is malignancy. Pt reports wanting to do more treatment, as it may help her symptoms. Treatment would be started once she has had a week or so to recover from laparoscopic surgery. Will cont to discuss with pt which treatment options she would like to try (there is an IV and a targeted oral agent she currently qualifies for, she has been leaning toward the oral option). Will get orders going for whatever she would like to try. PET scan possibly once pt gets discharged.
--- NOTE | 2023-08-26 14:43 | P.PN ---
Subjective Progress Note Date: 08/26/23 CHIEF COMPLAINT: Nausea vomiting HISTORY OF PRESENT ILLNESS: Patient is postop day #3 status post laparoscopic cholecystectomy and lysis of adhesions. Also, status post EGD with dilation 2 for pyloric stenosis. Patient continues to have episodes of vomiting and nausea. She reports her pain is controlled. She is having flatus and bowel movements. She did have a low-grade temp of 100 yesterday afternoon. WBC is up at 11.5 Hgb is 7.5 platelets 212 PHYSICAL EXAM: VITAL SIGNS: Reviewed GENERAL: Well-developed in no acute distress. HEENT: No sclera icterus. Extraocular movements grossly intact. Moist buccal mucosa. Head is atraumatic, normocephalic. Hears conversational speech. No nasal drainage. NECK: Supple without lymphadenopathy. CHEST: Non-labored respirations and equal bilateral excursions. CARDIOVASCULAR: Palpable 2+ radial pulses. ABDOMEN: Soft. Nondistended. Tenderness with palpation across the upper abdomen. MUSCULOSKELETAL: No clubbing or cyanosis. NEUROLOGIC: No focal or lateralizing signs. Cranial nerves II through XII grossly intact. PSYCH: Appropriate affect. Alert and oriented to person, place and time. SKIN: Well perfused. Good skin turgor. ASSESSMENT: 1. Acute hydrops cholecystitis due to cystic duct obstruction from gallstones 2. Metastatic breast cancer 3. Hypertensive heart disease 4. Intractable nausea vomiting 5. Gastric outlet syndrome 6. Gastroesophageal reflux disease with erosive esophagitis 7. Pyloric stenosis due to metastatic disease 8. Depressive disorder 9. Peritoneal ascites suspicious for metastatic malignancy 10. Intra-abdominal adhesions greater omentum to abdominal wall 11. Nausea and vomiting likely due to the metastatic breast cancer in the stomach PLAN: -Continue supportive care -Continue anti-emetics -Continue clear liquid diet -Encourage patient to increase activity level -Continue oncology management and work up Physician [place]hateria Attendant note has been reviewed by physician. Signing provider agrees with the documented findings, assessment, and plan of care. Objective - Vital Signs Vital signs: Vital Signs Temp 98.4 F 08/26/23 08:00 Pulse 96 08/26/23 08:00 Resp 17 08/26/23 08:00 BP 126/79 08/26/23 08:00 Pulse Ox 98 08/26/23 08:00 FiO2 Intake & Output 08/25/23 08/26/23 08/26/23 18:59 06:59 18:59 Intake Total 676 Balance 676 Weight 45.359 kg Intake: Oral 676 Other: Voiding Method Toilet # Voids 3 2 - Labs CBC & Chem 7: 08/26/23 06:33 08/26/23 06:33 Labs: Abnormal Lab Results - Last 24 Hours (Table) 08/26/23 08/26/23 Range/Units 06:33 06:33 WBC 11.55 H (4.50-10.00) X 10*3/uL RBC 2.54 L (4.10-5.20) X 10*6/uL Hgb 7.5 L (12.0-15.0) g/dL Hct 22.7 L (37.2-46.3) % MPV 9.3 L (9.5-12.2) FL Immature Gran # 0.10 H (0.00-0.04) X 10*3/uL Neutrophils # 9.81 H (1.80-7.70) X 10*3/uL Lymphocytes # 0.76 L (0.90-5.00) X 10*3/uL Carbon Dioxide 20.5 L (21.6-31.8) mmol/L Anion Gap 14.50 H (4.00-12.00) mmol/L BUN 4.3 L (9.0-27.0) mg/dL BUN/Creatinine Ratio 7.17 L (12.00-20.00) Ratio Calcium 8.2 L (8.7-10.3) mg/dL Total Protein 5.2 L (6.2-8.2) g/dL Albumin 2.7 L (3.8-4.9) g/dL Albumin/Globulin Ratio 1.08 L (1.60-3.17) Ratio
[2023-08-27] MEDS: PIPERACILLIN-TAZOBACTAM 3.375 GM in SODIUM CHLORIDE 0.9% 100 ML IVPB SCH (00:30)
[2023-08-27] MEDS: ONDANSETRON 4 MG/2 ML VIAL IVP PRN ×3 (00:33→16:18)
[2023-08-27 01:48] LABS: Basophils % (A) 0 %; Eosinophils # (A) 0.1 k/uL (0-0.7); Eosinophils % (A) 1 %; HCT 20.9 % (34.0-46.0); HGB 7.2 gm/dL (11.4-16.0); Lymphocytes # (A) 0.6 k/uL (1.0-4.8); Lymphocytes % (A) 6 %; MCH 30.6 pg (25.0-35.0); MCHC 34.4 g/dL (31.0-37.0); Mean Platelet Volume 6.9; Monocytes # (A) 0.4 k/uL (0-1.0); Monocytes % (A) 4 %; Neutrophils # (A) 8.5 k/uL (1.3-7.7); Neutrophils % (A) 87 %; Platelet Count 229 k/uL (150-450); RBC 2.35 m/uL (3.80-5.40); RDW 13.3 % (11.5-15.5); WBC 9.7 k/uL (3.8-10.6)
--- NOTE | 2023-08-27 05:45 | P.PN ---
Subjective Progress Note Date: 08/26/23 This is a 68-year-old female who was admitted with intractable nausea or vomiting underwent EGD showing gastric outlet obstruction with stenosis and scheduled to undergo repeat EGD with dilatation today with general surgery. Patient did undergo HIDA scan and gallbladder was not visualized and suggestive of cholecystitis and is being scheduled for possible acute laparoscopic cholecystectomy. Cardiology has been consulted for clearance. Oncology following as patient has significant history of breast cancer with metastasis. Patient is currently afebrile and continues to report nausea and not tolerating much appetite. Patient is being started on clear liquids. 08/22/2023 Patient is seen in follow-up this morning currently nothing by mouth as patient was scheduled to undergo laparoscopic cholecystectomy although potassium was found to be extremely low as well as magnesium and currently being replaced. Patient has had IV infiltrated with no IV access currently awaiting a midline is patient is a difficult stick and multiple attempts with no success. Patient undergoing oral replacement as well until midline is replaced. Patient is currently afebrile with no reports of significant nausea and no vomiting today. Will follow-up on repeat labs although unsure if patient is going to have surgery today due to electrolyte abnormalities. 08/23/2023 Patient is seen in follow-up this morning scheduled to undergo laparoscopic cholecystectomy. Electrolytes have been replaced and within normal limits including magnesium and potassium. Patient is afebrile with reports of chest pain or shortness of breath. Patient continues to report some nausea and mild abdominal discomfort. Per surgery pathology came back with breast cancer metastasis possibly to the stomach and there is concerns of progression of disease causing this abdominal pain in associated symptoms. General surgery awaiting to discuss with oncology about treatment plans moving forward. Patient continues to be willing to proceed with gallbladder removal. Patient will remain nothing by mouth for now. 08/24/2023 Patient is currently lying in the bed. Awake alert and oriented. Pain is fairly controlled. Patient is status post laparoscopic cholecystectomy and lysis of adhesions. Postoperative day 1 Patient is able to pass flatus but no bowel movement yet. Denies any chest pain or shortness of breath. Patient has been afebrile. Currently on room air. Laboratory data showed WBC 9.7 hemoglobin 7.3 and platelets 206 Sodium 142 potassium 4.2 chloride 104 BUN 7.3 and creatinine 0.7 and magnesium 1.4 08/25/2023 Postoperative day 2 Patient is lying in the bed. Awake alert and oriented x 3. No complaints of chest pain or shortness of breath. Abdominal pain is improved. Patient is able to pass flatus. No bowel movement yet. Patient did have episode of vomiting. Afebrile. Currently denies any nausea. Currently on IV hydration with normal saline with KCl and antibiotics of Zosyn. 08/26/2023 Patient is seen and evaluated in follow-up today is postop day 3 status post laparoscopic cholecystectomy. Patient continues with some abdominal discomfort along with nausea and vomiting maintained on clear liquids unable to tolerate. Patient also has Compazine and will add as needed Reglan. Patient is continued on Zosyn although will discontinue and monitor off antibiotics. Patient is afebrile with no reports of chest pain and shortness of breath. Patient is weak and reports has been getting up to the bathroom. Patient needs encouragement getting out of the bed and will have physical therapy evaluate the patient Review of systems: Constitutional: reports of fatigue, no fever, or chills Cardiovascular: No reports of chest pain or palpitations Respiratory: No reports of shortness of breath or cough GI: reports of nausea, no reports of vomiting, reports not much of an appetite, reports continued abdominal pain and some discomfort at the surgical site : No reports of dysuria or retention Neurovascular: reports of generalized weakness All medications have been reviewed PHYSICAL EXAMINATION: GENERAL: The patient is alert and oriented x4, Well developed, thin built, appears older than stated age, unkempt HEENT: Pupils are round and equally reacting to light. EOMI. no scleral icterus. No conjunctival pallor. Normocephalic, atraumatic. No pharyngeal erythema. No thyromegaly. CARDIOVASCULAR: S1 and S2 muffled PULMONARY: diminished breath sounds bilaterally with no wheezing or rhonchi noted. ABDOMEN: soft. tender on exam of bilateral upper quadrants. . non-distended, normoactive bowel sounds. No palpable organomegaly. MUSCULOSKELETAL: No joint swelling or deformity. EXTREMITIES: No cyanosis, clubbing, or pedal edema. NEUROLOGICAL: Gross neurological examination did not reveal any focal deficits. Diffuse weakness SKIN: No rashes. Assessment: Acute cholecystitis noted on HIDA scan status post laparoscopic cholecystectomy on 08/23/2023 Intractable nausea and vomiting, status post EGD, with gastric outlet obstruction. Status post repeat EGD with dilatation on 08/21/2023, most likely secondary to metastasis Severe dehydration with acute tubular necrosis and renal failure, improving Severe hypokalemia as well as hypomagnesemia secondary to nausea and vomiting, improving and replaced per protocol Acute cholecystitis noted on HIDA scan. Status post laparoscopic cholecystectomy History metastatic breast cancer as well as ovarian cancer, pathology from biopsies an EGD were positive for metastatic lobular breast carcinoma with concerns of disease progression to the stomach Hypertension Hyperlipidemia History of known right bundle branch block Moderate protein calorie malnutrition with BMI of 18.3 GI prophylaxis DVT prophylaxis Full code Plan: Recommend to continue with current medications and management per general surgery services. Patient is status post laparoscopic cholecystectomy and continues to have extreme nausea with vomiting and inability to tolerate oral intake. Multiple medications being adjusted with antinausea medications. Patient to continue with clear liquids for now per surgery Patient is status post EGD with dilatation repeated for pyloric stenosis with Anderson's esophagitis and noted to have esophageal ulcer with gastritis and hiatal hernia. Patient's pathology report from initial EGD biopsy positive for metastatic lobular breast carcinoma and high suspicion for stomach cancer in general surgery awaiting discussed with oncology. Patient continues to wish to be able to receive oncological care once recovered from this Encouraged increased activity as tolerated as patient has had prolonged hospitalization and significantly weak recommend PT/OT therapy evaluation Continue anti-nausea medications as needed Follow-up on repeat labs, replace electrolytes per protocol Due to multiple complex medical issues, overall prognosis is extremely guarded The impression and plan of care has been dictated by Dana Cerda, nurse practitioner as directed. Dr. Neil MD I have performed a history and examination and MDM of this patient, discussed the same with the dictator, and agree with the dictator's assessment and plan as written ,documented as a scribe. Based on total visit time, I have performed more than 50% of the visit. Any additional findings or plans will be noted. Objective - Vital Signs Vital signs: Vital Signs Temp 98.4 F 08/26/23 08:00 Pulse 96 08/26/23 08:00 Resp 17 08/26/23 08:00 BP 126/79 08/26/23 08:00 Pulse Ox 98 08/26/23 08:00 FiO2 Intake & Output 08/25/23 08/26/23 08/26/23 18:59 06:59 18:59 Intake Total 496 Balance 496 Intake: Oral 496 Other: Voiding Method Toilet # Voids 3 2 - Labs CBC & Chem 7: 08/27/23 01:24 08/26/23 06:33 Labs: Abnormal Lab Results - Last 24 Hours (Table) 08/26/23 Range/Units 06:33 WBC 11.55 H (4.50-10.00) X 10*3/uL RBC 2.54 L (4.10-5.20) X 10*6/uL Hgb 7.5 L (12.0-15.0) g/dL Hct 22.7 L (37.2-46.3) % MPV 9.3 L (9.5-12.2) FL Immature Gran # 0.10 H (0.00-0.04) X 10*3/uL Neutrophils # 9.81 H (1.80-7.70) X 10*3/uL Lymphocytes # 0.76 L (0.90-5.00) X 10*3/uL
[2023-08-27] MEDS: lisinopriL 20 MG TAB PO SCH (08:48)
[2023-08-27] MEDS: HEPARIN SODIUM,PORCINE 5,000 UNIT/ML 1 ML VIAL SQ SCH ×2 (08:48→20:34)
[2023-08-27] MEDS: 0.9% NACL WITH KCL 40 MEQ/L 1,000 ML IV SCH (09:15)
[2023-08-27 12:19] LABS: Basophils % (A) 0 %; Eosinophils # (A) 0.1 k/uL (0-0.7); Eosinophils % (A) 1 %; HCT 30.1 % (34.0-46.0); Hypochromasia Slight; Lymphocytes # (A) 0.5 k/uL (1.0-4.8); Lymphocytes % (A) 6 %; MCH 30.5 pg (25.0-35.0); MCV 89.6 fL (80.0-100.0); Mean Platelet Volume 6.8; Monocytes # (A) 0.4 k/uL (0-1.0); Monocytes % (A) 4 %; Neutrophils # (A) 8.1 k/uL (1.3-7.7); Neutrophils % (A) 88 %; Platelet Count 249 k/uL (150-450); RBC 3.36 m/uL (3.80-5.40); RDW 13.4 % (11.5-15.5); WBC 9.1 k/uL (3.8-10.6)
[2023-08-27 12:22] LABS: African American GFR (CKD) >90 (>60 ml/min/1.73 sqM); Anion Gap 13 mmol/L; Blood Urea Nitrogen 4 mg/dL (7-17); Calcium 8.2 mg/dL (8.4-10.2); Carbon Dioxide 22 mmol/L (22-30); Chloride 103 mmol/L (98-107); Glucose 88 mg/dL (74-99); Magnesium 1.3 mg/dL (1.6-2.3); Non-African American GFR(CKD) >90 (>60 ml/min/1.73 sqM); Sodium 138 mmol/L (137-145)
[2023-08-27] MEDS: ALPELISIB PO SCH (12:26)
[2023-08-27 12:28] LABS: HGB 10.2 gm/dL (11.4-16.0)
--- NOTE | 2023-08-27 13:55 | P.PN ---
Subjective Progress Note Date: 08/27/23 CHIEF COMPLAINT: Nausea vomiting HISTORY OF PRESENT ILLNESS: Patient is postop day #4 status post laparoscopic cholecystectomy and lysis of adhesions. Also, status post EGD with dilation 2 for pyloric stenosis. Patient continues to have episodes of vomiting and nausea. Pain controlled. Afebrile. WBC 9.1 HGB 7.2 up to 10.2. Patient's emesis has been dark in color. Last night there is concerns that there may have been blood. Hemoglobin 7.2. Patient received 1 unit of blood hemoglobin is up to 10.2. PHYSICAL EXAM: VITAL SIGNS: Reviewed GENERAL: Well-developed in no acute distress. HEENT: No sclera icterus. Extraocular movements grossly intact. Moist buccal mucosa. Head is atraumatic, normocephalic. Hears conversational speech. No nasal drainage. NECK: Supple without lymphadenopathy. CHEST: Non-labored respirations and equal bilateral excursions. CARDIOVASCULAR: Palpable 2+ radial pulses. ABDOMEN: Soft. Nondistended. Patient states clean dry and intact MUSCULOSKELETAL: No clubbing or cyanosis. NEUROLOGIC: No focal or lateralizing signs. Cranial nerves II through XII grossly intact. PSYCH: Appropriate affect. Alert and oriented to person, place and time. SKIN: Well perfused. Good skin turgor. ASSESSMENT: 1. Acute hydrops cholecystitis due to cystic duct obstruction from gallstones 2. Metastatic breast cancer 3. Hypertensive heart disease 4. Intractable nausea vomiting 5. Gastric outlet syndrome 6. Gastroesophageal reflux disease with erosive esophagitis 7. Pyloric stenosis due to metastatic disease 8. Depressive disorder 9. Peritoneal ascites suspicious for metastatic malignancy 10. Intra-abdominal adhesions greater omentum to abdominal wall 11. Nausea and vomiting likely due to the metastatic breast cancer in the stomach PLAN: -Continue supportive care -Continue anti-emetics -Continue clear liquid diet -Encourage patient to increase activity level -Continue oncology management and work up Physician Strategy Lead note has been reviewed by physician. Signing provider agrees with the documented findings, assessment, and plan of care. Objective - Vital Signs Vital signs: Vital Signs Temp 99.1 F 08/27/23 07:36 Pulse 98 08/27/23 07:36 Resp 18 08/27/23 10:44 BP 155/87 08/27/23 07:36 Pulse Ox 96 08/27/23 07:36 FiO2 Intake & Output 08/26/23 08/27/23 08/27/23 18:59 06:59 18:59 Intake Total 676 276 Balance 676 276 Weight 45.359 kg Intake: Oral 676 Blood Product 276 Rc Pheresis As-3 Unit 276 [id number] Other: Voiding Method Toilet # Voids 1 1 - Labs CBC & Chem 7: 08/27/23 11:27 08/27/23 11:27 Labs: Abnormal Lab Results - Last 24 Hours (Table) 08/27/23 08/27/23 08/27/23 Range/Units 01:24 01:24 11:27 RBC 2.35 L 3.36 L (3.80-5.40) m/uL Hgb 7.2 L 10.2 L D (11.4-16.0) gm/dL Hct 20.9 L 30.1 L (34.0-46.0) % Neutrophils # 8.5 H 8.1 H (1.3-7.7) k/uL Lymphocytes # 0.6 L 0.5 L (1.0-4.8) k/uL BUN (7-17) mg/dL Calcium (8.4-10.2) mg/dL Magnesium (1.6-2.3) mg/dL Crossmatch See Detail 08/27/23 Range/Units 11:27 RBC (3.80-5.40) m/uL Hgb (11.4-16.0) gm/dL Hct (34.0-46.0) % Neutrophils # (1.3-7.7) k/uL Lymphocytes # (1.0-4.8) k/uL BUN 4 L (7-17) mg/dL Calcium 8.2 L (8.4-10.2) mg/dL Magnesium 1.3 L (1.6-2.3) mg/dL Crossmatch
[2023-08-27] MEDS ORDERED: Magnesium Replacement Protocol 1 EACH MISC MISCELLANE PRN (14:05)
--- NOTE | 2023-08-27 14:45 | P.PN ---
Subjective Progress Note Date: 08/27/23 Principal diagnosis: Intractable N,V 2/2 metastatic breast cancer in gastric antrum In f/u today pt reports that oral blood pressure medication this morning stayed down. Unfortunately, she is still vomiting majority of her oral intake up. We discussed treatment with gretchen today. Alternative sources for nutrition also discussed. Objective - Vital Signs Vital signs: Vital Signs Temp 99.1 F 08/27/23 07:36 Pulse 98 08/27/23 07:36 Resp 18 08/27/23 10:44 BP 155/87 08/27/23 07:36 Pulse Ox 96 08/27/23 07:36 FiO2 Intake & Output 08/26/23 08/27/23 08/27/23 18:59 06:59 18:59 Intake Total 676 276 Balance 676 276 Weight 45.359 kg Intake: Oral 676 Blood Product 276 Rc Pheresis As-3 Unit 276 [id number] Other: Voiding Method Toilet # Voids 1 1 - Constitutional General appearance: Present: cooperative, no acute distress, thin - EENT Eyes: Present: anicteric sclerae, EOMI ENT: Present: hearing grossly normal - Respiratory Details: Respirations even and unlabored at rest - Cardiovascular Rhythm: regular Heart sounds: normal: S1, S2 Abnormal Heart Sounds: Absent: systolic murmur, diastolic murmur, rub, S3 Gallop, S4 Gallop, click, other - Peripheral edema leg Peripheral Edema: bilateral: None - Gastrointestinal Gastrointestinal Comment(s): Laparoscopic incisions well approximated, minor bruising, no unusual tenderness to palpation General gastrointestinal: Present: soft - Integumentary Integumentary: Present: normal - Neurologic Neurologic: Present: CNII-XII intact - Musculoskeletal Musculoskeletal: Present: generalized weakness, strength equal bilaterally - Psychiatric Psychiatric: Present: A&O x's 3, appropriate affect, intact judgment & insight - Labs CBC & Chem 7: 08/27/23 11:27 08/27/23 11:27 Labs: Abnormal Lab Results - Last 24 Hours (Table) 08/27/23 08/27/23 08/27/23 Range/Units 01:24 01:24 11:27 RBC 2.35 L 3.36 L (3.80-5.40) m/uL Hgb 7.2 L 10.2 L D (11.4-16.0) gm/dL Hct 20.9 L 30.1 L (34.0-46.0) % Neutrophils # 8.5 H 8.1 H (1.3-7.7) k/uL Lymphocytes # 0.6 L 0.5 L (1.0-4.8) k/uL BUN (7-17) mg/dL Calcium (8.4-10.2) mg/dL Magnesium (1.6-2.3) mg/dL Crossmatch See Detail 08/27/23 Range/Units 11:27 RBC (3.80-5.40) m/uL Hgb (11.4-16.0) gm/dL Hct (34.0-46.0) % Neutrophils # (1.3-7.7) k/uL Lymphocytes # (1.0-4.8) k/uL BUN 4 L (7-17) mg/dL Calcium 8.2 L (8.4-10.2) mg/dL Magnesium 1.3 L (1.6-2.3) mg/dL Crossmatch Assessment and Plan (1) Intractable nausea and vomiting Current Visit: Yes Status: Acute Priority: High Code(s): R11.2 - NAUSEA WITH VOMITING, UNSPECIFIED SNOMED Code(s): 167771778 (2) Breast cancer metastasized to multiple sites Current Visit: Yes Status: Chronic Priority: High Code(s): C50.919 - MALIGNANT NEOPLASM OF UNSP SITE OF UNSPECIFIED FEMALE BREAST SNOMED Code(s): 887040102 Plan: Intractable N,V -08/23 pt had laparoscopic gall bladder removal for acute cholecystitis, duct obstructed from stones and lysis of adhesions. Ascitic fluid and gall bladder path pending -EGD 08/19 and 08/21 showing GERD with erosive esophagitis with pyloric stenosis, had duodenal dilation. Gastric antrum biopsy positive for metastatic breast cancer. This is the likely cause of the intractable nausea and vomiting -N, V persists today, She reports she was able to keep a small blood pressure pill down -Supportive meds cont. Metastatic breast cancer -08/19 biopsy of gastric antrum positive for metastatic breast cancer -Likely the underlying cause of her intractable N,V -Not certain if nausea and vomiting are going to be able to be controlled with meds, underlying cause is malignancy. -Pt Is aware that she has metastatic disease. Intent of any treatment is to relieve symptoms and progression of disease for some time, her disease is not curable. She reports she is interested in trying more treatment. Would like to start oral targeted agent -Abdomen assessment did not have any acute concerning findings, pt reports BM. Laparoscopic incisions look well, patient is not experiencing any pain. -Patient is agreeable to initiate oral targeted agent. Side effects of piqray were discussed, most concerning are elevated blood glucose and diarrhea. Patient will be placed on blood sugar monitoring before meals and at bedtime and a sliding scale insulin while inpatient. Diarrhea will be monitored for close ly. This was reviewed with nursing as well -Medication cleared by Pharmacy, patient to start today. -PET scan possibly once pt gets discharged. -Discussed with patient a temporary source of nutrition, i.e. TPN, until treatment has had a chance to take effect. Very hopeful that some of her GI sym ptoms will improve to where she is able to once again tolerate oral intake. Case discussed briefly with Internal Medicine ASSOCIATE [employer] APPLICATION ENGINEER. They are planning for PICC line placement. attests: I seen and examined patient, performed H&P, developed impression and plan of care. Discussed with dictator. Agree with documentation, dictated as a scribe. Time with Patient: Greater than 30 (>60 min spent on education, counseling and coordinating care)
[2023-08-27] MEDS ORDERED: DEXTROSE 50% SYRINGE 50 ML IVP PRN ×2 (14:46)
--- NOTE | 2023-08-27 15:01 | P.PN ---
Subjective Progress Note Date: 08/27/23 This is a 68-year-old female who was admitted with intractable nausea or vomiting underwent EGD showing gastric outlet obstruction with stenosis and scheduled to undergo repeat EGD with dilatation today with general surgery. Patient did undergo HIDA scan and gallbladder was not visualized and suggestive of cholecystitis and is being scheduled for possible acute laparoscopic cholecystectomy. Cardiology has been consulted for clearance. Oncology following as patient has significant history of breast cancer with metastasis. Patient is currently afebrile and continues to report nausea and not tolerating much appetite. Patient is being started on clear liquids. 08/22/2023 Patient is seen in follow-up this morning currently nothing by mouth as patient was scheduled to undergo laparoscopic cholecystectomy although potassium was found to be extremely low as well as magnesium and currently being replaced. Patient has had IV infiltrated with no IV access currently awaiting a midline is patient is a difficult stick and multiple attempts with no success. Patient undergoing oral replacement as well until midline is replaced. Patient is currently afebrile with no reports of significant nausea and no vomiting today. Will follow-up on repeat labs although unsure if patient is going to have surgery today due to electrolyte abnormalities. 08/23/2023 Patient is seen in follow-up this morning scheduled to undergo laparoscopic cholecystectomy. Electrolytes have been replaced and within normal limits including magnesium and potassium. Patient is afebrile with reports of chest pain or shortness of breath. Patient continues to report some nausea and mild abdominal discomfort. Per surgery pathology came back with breast cancer metastasis possibly to the stomach and there is concerns of progression of disease causing this abdominal pain in associated symptoms. General surgery awaiting to discuss with oncology about treatment plans moving forward. Patient continues to be willing to proceed with gallbladder removal. Patient will remain nothing by mouth for now. 08/24/2023 Patient is currently lying in the bed. Awake alert and oriented. Pain is fairly controlled. Patient is status post laparoscopic cholecystectomy and lysis of adhesions. Postoperative day 1 Patient is able to pass flatus but no bowel movement yet. Denies any chest pain or shortness of breath. Patient has been afebrile. Currently on room air. Laboratory data showed WBC 9.7 hemoglobin 7.3 and platelets 206 Sodium 142 potassium 4.2 chloride 104 BUN 7.3 and creatinine 0.7 and magnesium 1.4 08/25/2023 Postoperative day 2 Patient is lying in the bed. Awake alert and oriented x 3. No complaints of chest pain or shortness of breath. Abdominal pain is improved. Patient is able to pass flatus. No bowel movement yet. Patient did have episode of vomiting. Afebrile. Currently denies any nausea. Currently on IV hydration with normal saline with KCl and antibiotics of Zosyn. 08/26/2023 Patient is seen and evaluated in follow-up today is postop day 3 status post laparoscopic cholecystectomy. Patient continues with some abdominal discomfort along with nausea and vomiting maintained on clear liquids unable to tolerate. Patient also has Compazine and will add as needed Reglan. Patient is continued on Zosyn although will discontinue and monitor off antibiotics. Patient is afebrile with no reports of chest pain and shortness of breath. Patient is weak and reports has been getting up to the bathroom. Patient needs encouragement getting out of the bed and will have physical therapy evaluate the patient 08/27/2023 Patient is seen and evaluated in follow-up today reports to having continuous nausea with vomiting reports some minimal improvement of vomiting although unable to tolerate any oral intake. Oncology along with general surgery following a discussion of possible TPN to be initiated as patient has not had any oral nutrition and unable to tolerate. Most likely secondary to metastatic disease and patient will need enteral nutrition. Patient apparently had an ateam called for hematemesis although does not appear to have any blood noted in the vomit hemoglobin was slightly low and a unit of PRBCs was ordered. Follow- up labs from this morning show a hemoglobin of 10.2 and there is no active bleeding noted. Sodium improved at 138 with a potassium of 4.0, current creatinine is 0.53. Patient continued on gentle IV hydration and magnesium is 1.3 and being replaced per protocol. Oncology following as well discussing possible oral chemo meds during hospitalization to alleviate some of the symptoms have been chronically ongoing and patient is agreeable to continued care. Will plan for PICC line and consult dietitian. Patient has been encouraged to increase activity as tolerated. Review of systems: Constitutional: reports of fatigue, no fever, or chills Cardiovascular: No reports of chest pain or palpitations Respiratory: No reports of shortness of breath or cough GI: reports of nausea, reports of vomiting, reports not much of an appetite, reports continued abdominal pain and some discomfort at the surgical site : No reports of dysuria or retention Neurovascular: reports of generalized weakness All medications have been reviewed PHYSICAL EXAMINATION: GENERAL: The patient is alert and oriented x4, Well developed, thin built, appears older than stated age, unkempt HEENT: Pupils are round and equally reacting to light. EOMI. no scleral icterus. No conjunctival pallor. Normocephalic, atraumatic. No pharyngeal erythema. No thyromegaly. CARDIOVASCULAR: S1 and S2 muffled PULMONARY: diminished breath sounds bilaterally with no wheezing or rhonchi noted. ABDOMEN: soft. tender on exam of bilateral upper quadrants. . non-distended, normoactive bowel sounds. No palpable organomegaly. MUSCULOSKELETAL: No joint swelling or deformity. EXTREMITIES: No cyanosis, clubbing, or pedal edema. NEUROLOGICAL: Gross neurological examination did not reveal any focal deficits. Diffuse weakness SKIN: No rashes. Assessment: Acute cholecystitis noted on HIDA scan status post laparoscopic cholecystectomy on 08/23/2023 Intractable nausea and vomiting, status post EGD, with gastric outlet obstruction. Status post repeat EGD with dilatation on 08/21/2023, most likely secondary to metastasis Severe dehydration with acute tubular necrosis and renal failure, improving Severe hypokalemia as well as hypomagnesemia secondary to nausea and vomiting, improving and replaced per protocol Acute cholecystitis noted on HIDA scan. Status post laparoscopic cholecystectomy History metastatic breast cancer as well as ovarian cancer, pathology from biopsies an EGD were positive for metastatic lobular breast carcinoma with concerns of disease progression to the stomach Hypertension Hyperlipidemia History of known right bundle branch block Moderate protein calorie malnutrition with BMI of 18.3 GI prophylaxis DVT prophylaxis Full code Plan: Recommend to continue with current medications and management per general surgery services. Patient is status post laparoscopic cholecystectomy and continues to have extreme nausea with vomiting and inability to tolerate oral intake. Multiple medications being adjusted with antinausea medications. Patient to continue with clear liquids for now per surgery. Patient is not receiving adequate intake and will order PICC line and consider TPN and this was discussed with oncology. Patient also being started on oral chemo in hopes to alleviate her nausea and vomiting symptoms. Patient would like to proceed to alleviate some of the symptoms. Patient is status post EGD with dilatation repeated for pyloric stenosis with Anderson's esophagitis and noted to have esophageal ulcer with gastritis and hiatal hernia. Patient's pathology report from initial EGD biopsy positive for metastatic lo bular breast carcinoma and high suspicion for stomach cancer in general surgery awaiting discussed with oncology. Encouraged increased activity as tolerated as patient has had prolonged hospitalization and significantly weak recommend PT/OT therapy evaluation Continue anti-nausea medications as needed Follow-up on repeat labs, replace electrolytes per protocol. Magnesium extremely low and being replaced Due to multiple complex medical issues, overall prognosis is extremely poor and guarded The impression and plan of care has been dictated by Dana Cerda, nurse practitioner as directed. Dr. Neil MD I have performed a history and examination and MDM of this patient, discussed the same with the dictator, and agree with the dictator's assessment and plan as written ,documented as a scribe. Based on total visit time, I have performed more than 50% of the visit. Any additional findings or plans will be noted. Objective - Vital Signs Vital signs: Vital Signs Temp 99.1 F 08/27/23 07:36 Pulse 98 08/27/23 07:36 Resp 18 08/27/23 07:36 BP 155/87 08/27/23 07:36 Pulse Ox 96 08/27/23 07:36 FiO2 Intake & Output 08/26/23 08/27/23 08/27/23 18:59 06:59 18:59 Intake Total 676 276 Balance 676 276 Weight 45.359 kg Intake: Oral 676 Blood Product 276 Rc Pheresis As-3 Unit 276 [id number] Other: # Voids 1 1 - Labs CBC & Chem 7: 08/27/23 11:27 08/27/23 11:27 Labs: Abnormal Lab Results - Last 24 Hours (Table) 08/26/23 08/27/23 08/27/23 Range/Units 06:33 01:24 01:24 RBC 2.35 L (3.80-5.40) m/uL Hgb 7.2 L (11.4-16.0) gm/dL Hct 20.9 L (34.0-46.0) % Neutrophils # 8.5 H (1.3-7.7) k/uL Lymphocytes # 0.6 L (1.0-4.8) k/uL Carbon Dioxide 20.5 L (21.6-31.8) mmol/L Anion Gap 14.50 H (4.00-12.00) mmol/L BUN 4.3 L (9.0-27.0) mg/dL BUN/Creatinine Ratio 7.17 L (12.00-20.00) Ratio Calcium 8.2 L (8.7-10.3) mg/dL Total Protein 5.2 L (6.2-8.2) g/dL Albumin 2.7 L (3.8-4.9) g/dL Albumin/Globulin Ratio 1.08 L (1.60-3.17) Ratio Crossmatch See Detail
[2023-08-27 16:10] LABS: INR 1.1 (<1.2)
[2023-08-27] MEDS: MAGNESIUM SULFATE-D5W PMX 1 GM in DEXTROSE/WATER 1 100ML.BAG IVPB SCH ×4 (16:24→20:34)
[2023-08-27] MEDS: INSULIN ASPART (NovoLOG) 100 UNIT/ML VIAL SQ SCH ×2 (18:47→20:19)
[2023-08-27 20:19] LABS: Glucose,Whole Blood 149 mg/dL (70-110)
[2023-08-27] MEDS: METOCLOPRAMIDE 5 MG/ML 2 ML VIAL IVP PRN (20:33)
[2023-08-27] MEDS: PANTOPRAZOLE 40 MG/10 ML VIAL IVP SCH (20:34)
[2023-08-28] MEDS: 0.9% NACL WITH KCL 40 MEQ/L 1,000 ML IV SCH ×2 (00:29→01:45)
[2023-08-28 06:11] LABS: Glucose,Whole Blood 120 mg/dL (70-110)
[2023-08-28] MEDS: INSULIN ASPART (NovoLOG) 100 UNIT/ML VIAL SQ SCH ×4 (06:14→20:38)
[2023-08-28] MEDS: LIDOCAINE 2% (PF) 20 MG/ML 5 ML VIAL SQ ONE ×2 (08:55→09:11)
[2023-08-28] MEDS: PANTOPRAZOLE 40 MG/10 ML VIAL IVP SCH ×2 (09:28→22:37)
[2023-08-28] MEDS: ALPELISIB PO SCH (09:33)
[2023-08-28] MEDS: lisinopriL 20 MG TAB PO SCH (09:34)
[2023-08-28 11:04] LABS: Basophils # (A) 0.02 X 10*3/uL (0.00-0.10); Basophils % (A) 0.2 %; Eosinophils # (A) 0.14 X 10*3/uL (0.04-0.35); Eosinophils % (A) 1.4 %; HCT 27.6 % (37.2-46.3); HGB 9.1 g/dL (12.0-15.0); Lymphocytes # (A) 0.84 X 10*3/uL (0.90-5.00); Lymphocytes % (A) 8.5 %; MCH 28.5 pg (27.0-32.0); MCV 86.5 FL (80.0-97.0); Mean Platelet Volume 8.9 FL (9.5-12.2); Monocytes # (A) 0.61 X 10*3/uL (0.20-1.00); Monocytes % (A) 6.2 %; NRBC Per 100 WBC 0 X 10*3/uL (0.00-0.01); Neutrophils # (A) 8.15 X 10*3/uL (1.80-7.70); Neutrophils % (A) 82.5 %; Platelet Count 269 X 10*3/uL (140-440); RBC 3.19 X 10*6/uL (4.10-5.20); RDW 13.6 % (11.5-14.5); WBC 9.88 X 10*3/uL (4.50-10.00)
[2023-08-28 11:13] LABS: BUN/Creat Ratio <5.83 Ratio (12.00-20.00); Blood Urea Nitrogen <3.5 mg/dL (9.0-27.0); Calcium 8.1 mg/dL (8.7-10.3); Carbon Dioxide 21.4 mmol/L (21.6-31.8); Chloride 102 mmol/L (96-109); Glucose 126 mg/dL (70-110); Potassium 4.2 mmol/L (3.5-5.5); Sodium 137 mmol/L (135-145)
[2023-08-28 11:31] LABS: Glucose,Whole Blood 145 mg/dL (70-110)
[2023-08-28] MEDS: HEPARIN SODIUM,PORCINE 5,000 UNIT/ML 1 ML VIAL SQ SCH ×2 (14:06→20:37)
--- NOTE | 2023-08-28 14:53 | US ---
EXAMINATION TYPE: US venous doppler duplex UE LT DATE OF EXAM: 08/28/2023 COMPARISON: NONE CLINICAL INDICATION: Female, 68 years old with history of vein occluded per radiology Ryne w/ attempt pic; patient went for PICC line and was unsuccessful. No h/o dvt or svt SIDE PERFORMED: Left Left Arm: Negative for DVT - difficulty getting cephalic vein, finally got a small portion but vessel is very tiny IMPRESSION: Thrombus is not excluded. MTDD
--- NOTE | 2023-08-28 15:06 | P.PN ---
Subjective Progress Note Date: 08/28/23 CHIEF COMPLAINT: Nausea vomiting HISTORY OF PRESENT ILLNESS: Patient is postop day #5 status post laparoscopic cholecystectomy and lysis of adhesions. Also, status post EGD with dilation 2 for pyloric stenosis. Patient reported no vomiting this morning. They were unable to get the PICC line placed. Unable to start TPN. She did have a bowel movement. Her pain is controlled. Afebrile. WBC 9.8 Hgb 9.1 magnesium 2.0 PHYSICAL EXAM: VITAL SIGNS: Reviewed GENERAL: Well-developed in no acute distress. HEENT: No sclera icterus. Extraocular movements grossly intact. Moist buccal mucosa. Head is atraumatic, normocephalic. Hears conversational speech. No nasal drainage. NECK: Supple without lymphadenopathy. CHEST: Non-labored respirations and equal bilateral excursions. CARDIOVASCULAR: Palpable 2+ radial pulses. ABDOMEN: Soft. Nondistended. Incision sites clean dry and intact MUSCULOSKELETAL: No clubbing or cyanosis. NEUROLOGIC: No focal or lateralizing signs. Cranial nerves II through XII grossly intact. PSYCH: Appropriate affect. Alert and oriented to person, place and time. SKIN: Well perfused. Good skin turgor. ASSESSMENT: 1. Acute hydrops cholecystitis due to cystic duct obstruction from gallstones 2. Metastatic breast cancer 3. Hypertensive heart disease 4. Intractable nausea vomiting 5. Gastric outlet syndrome 6. Gastroesophageal reflux disease with erosive esophagitis 7. Pyloric stenosis due to metastatic disease 8. Depressive disorder 9. Peritoneal ascites suspicious for metastatic malignancy 10. Intra-abdominal adhesions greater omentum to abdominal wall 11. Nausea and vomiting likely due to the metastatic breast cancer in the stomach PLAN: -Continue supportive care -Continue anti-emetics -Continue clear liquid diet -Encourage patient to increase activity level -Continue oncology management and work up -Patient is not a candidate for PEG tube placement Physician Cork Insulator note has been reviewed by physician. Signing provider agrees with the documented findings, assessment, and plan of care. Objective - Vital Signs Vital signs: Vital Signs Temp 98.0 F 08/28/23 07:23 Pulse 77 08/28/23 07:23 Resp 19 08/28/23 07:23 BP 128/77 08/28/23 07:23 Pulse Ox 97 08/28/23 07:23 FiO2 Intake & Output 08/27/23 08/28/23 08/28/23 18:59 06:59 18:59 Intake Total 900 Balance 900 Intake: IV 900 0.9% NaCl with KCl 40 Meq 900 /l 1,000 ml @ 75 mls/hr IV .[id number] [facility] Rx#: [id number] Other: Voiding Method Toilet Toilet # Voids 1 - Labs CBC & Chem 7: 08/28/23 07:45 08/28/23 07:45 Labs: Abnormal Lab Results - Last 24 Hours (Table) 08/27/23 08/27/23 08/27/23 Range/Units 01:24 11:27 11:27 RBC 3.36 L (3.80-5.40) m/uL Hgb 10.2 L D (11.4-16.0) gm/dL Hct 30.1 L (34.0-46.0) % MPV (9.5-12.2) FL Immature Gran # (0.00-0.04) X 10*3/uL Neutrophils # 8.1 H (1.3-7.7) k/uL Lymphocytes # 0.5 L (1.0-4.8) k/uL Carbon Dioxide (21.6-31.8) mmol/L Anion Gap (4.00-12.00) mmol/L BUN 4 L (7-17) mg/dL BUN/Creatinine Ratio (12.00-20.00) Ratio Glucose (70-110) mg/dL POC Glucose (mg/dL) (70-110) mg/dL Calcium 8.2 L (8.4-10.2) mg/dL Magnesium 1.3 L (1.6-2.3) mg/dL Crossmatch See Detail 08/27/23 08/28/23 08/28/23 Range/Units 20:17 06:08 07:45 RBC (3.80-5.40) m/uL Hgb (11.4-16.0) gm/dL Hct (34.0-46.0) % MPV (9.5-12.2) FL Immature Gran # (0.00-0.04) X 10*3/uL Neutrophils # (1.3-7.7) k/uL Lymphocytes # (1.0-4.8) k/uL Carbon Dioxide 21.4 L (21.6-31.8) mmol/L Anion Gap 13.60 H (4.00-12.00) mmol/L BUN <3.5 L (7-17) mg/dL BUN/Creatinine Ratio <5.83 L (12.00-20.00) Ratio Glucose 126 H (70-110) mg/dL POC Glucose (mg/dL) 149 H 120 H (70-110) mg/dL Calcium 8.1 L (8.4-10.2) mg/dL Magnesium (1.6-2.3) mg/dL Crossmatch 08/28/23 08/28/23 Range/Units 07:45 11:30 RBC 3.19 L (3.80-5.40) m/uL Hgb 9.1 L (11.4-16.0) gm/dL Hct 27.6 L (34.0-46.0) % MPV 8.9 L (9.5-12.2) FL Immature Gran # 0.12 H (0.00-0.04) X 10*3/uL Neutrophils # 8.15 H (1.3-7.7) k/uL Lymphocytes # 0.84 L (1.0-4.8) k/uL Carbon Dioxide (21.6-31.8) mmol/L Anion Gap (4.00-12.00) mmol/L BUN (7-17) mg/dL BUN/Creatinine Ratio (12.00-20.00) Ratio Glucose (70-110) mg/dL POC Glucose (mg/dL) 145 H (70-110) mg/dL Calcium (8.4-10.2) mg/dL Magnesium (1.6-2.3) mg/dL Crossmatch
[2023-08-28 16:35] LABS: Glucose,Whole Blood 109 mg/dL (70-110)
--- NOTE | 2023-08-28 16:53 | US ---
EXAMINATION TYPE: US venous doppler duplex UE RT DATE OF EXAM: 08/28/2023 COMPARISON: NONE CLINICAL INDICATION: Female, 68 years old with history of failed PICC line; failed PICC line placemen t SIDE PERFORMED: Right Right Arm: Negative for DVT - unable to see cephalic vein throughout study, basilic vein dives after fossa within forearm IMPRESSION: 1. Right upper extremity ultrasound negative for deep venous thrombosis. 2. There is incomplete evaluation of the superficial cephalic vein.
[2023-08-28 20:26] LABS: Glucose,Whole Blood 92 mg/dL (70-110)
--- NOTE | 2023-08-28 22:10 | P.PN ---
Subjective Progress Note Date: 08/28/23 Principal diagnosis: Intractable N,V 2/2 metastatic breast cancer in gastric antrum In f/u today pt reports that she had multiple episodes of diarrhea after taking 1st dose of piqray yesterday. She refused dose this AM. She did not try any antidiarrheal agents yet. She is still experiencing vomiting, not worse but not much better. No other physical c/o at this time. Objective - Vital Signs Vital signs: Vital Signs Temp 98.2 F 08/28/23 19:31 Pulse 84 08/28/23 19:31 Resp 18 08/28/23 19:31 BP 136/84 08/28/23 19:31 Pulse Ox 98 08/28/23 19:31 FiO2 Intake & Output 08/28/23 08/28/23 08/29/23 06:59 18:59 06:59 Intake Total 900 Balance 900 Weight 45.359 kg Intake: IV 900 0.9% NaCl with KCl 40 Meq 900 /l 1,000 ml @ 75 mls/hr IV .[id number] [facility] Rx#: [id number] Other: Voiding Method Toilet Toilet # Voids 4 # Bowel Movements 1 - Constitutional General appearance: Present: cooperative, no acute distress, thin - EENT Eyes: Present: anicteric sclerae, EOMI ENT: Present: hearing grossly normal - Respiratory Details: resp even and unlabored at rest - Neurologic Neurologic: Present: CNII-XII intact - Musculoskeletal Musculoskeletal: Present: generalized weakness - Psychiatric Psychiatric: Present: A&O x's 3, appropriate affect, intact judgment & insight - Labs CBC & Chem 7: 08/28/23 07:45 08/28/23 07:45 Labs: Abnormal Lab Results - Last 24 Hours (Table) 08/28/23 08/28/23 08/28/23 Range/Units 06:08 07:45 07:45 RBC 3.19 L (4.10-5.20) X 10*6/uL Hgb 9.1 L (12.0-15.0) g/dL Hct 27.6 L (37.2-46.3) % MPV 8.9 L (9.5-12.2) FL Immature Gran # 0.12 H (0.00-0.04) X 10*3/uL Neutrophils # 8.15 H (1.80-7.70) X 10*3/uL Lymphocytes # 0.84 L (0.90-5.00) X 10*3/uL Carbon Dioxide 21.4 L (21.6-31.8) mmol/L Anion Gap 13.60 H (4.00-12.00) mmol/L BUN <3.5 L (9.0-27.0) mg/dL BUN/Creatinine Ratio <5.83 L (12.00-20.00) Ratio Glucose 126 H (70-110) mg/dL POC Glucose (mg/dL) 120 H (70-110) mg/dL Calcium 8.1 L (8.7-10.3) mg/dL 08/28/23 Range/Units 11:30 RBC (4.10-5.20) X 10*6/uL Hgb (12.0-15.0) g/dL Hct (37.2-46.3) % MPV (9.5-12.2) FL Immature Gran # (0.00-0.04) X 10*3/uL Neutrophils # (1.80-7.70) X 10*3/uL Lymphocytes # (0.90-5.00) X 10*3/uL Carbon Dioxide (21.6-31.8) mmol/L Anion Gap (4.00-12.00) mmol/L BUN (9.0-27.0) mg/dL BUN/Creatinine Ratio (12.00-20.00) Ratio Glucose (70-110) mg/dL POC Glucose (mg/dL) 145 H (70-110) mg/dL Calcium (8.7-10.3) mg/dL Assessment and Plan (1) Intractable nausea and vomiting Current Visit: Yes Status: Acute Priority: High Code(s): R11.2 - NAUSEA WITH VOMITING, UNSPECIFIED SNOMED Code(s): 962463063 (2) Breast cancer metastasized to multiple sites Current Visit: Yes Status: Chronic Priority: High Code(s): C50.919 - MALIGNANT NEOPLASM OF UNSP SITE OF UNSPECIFIED FEMALE BREAST SNOMED Code(s): 891811374 Plan: Intractable N,V -08/23 pt had laparoscopic gall bladder removal for acute cholecystitis, duct obstructed from stones and lysis of adhesions. Ascitic fluid results after pt seen, unfortunately + for breast cancer, will review with pt in AM. Gall bladder path still pending -EGD 08/19 and 08/21 showing GERD with erosive esophagitis with pyloric stenosis, had duodenal dilation. Gastric antrum biopsy positive for metastatic breast cancer. This is the likely cause of the intractable nausea and vomiting -N, V persists can sometimes keep meds down -Supportive meds cont. Metastatic breast cancer -08/19 biopsy of gastric antrum positive for metastatic breast cancer -Likely the underlying cause of her intractable N,V -Not certain if nausea and vomiting are going to be able to be controlled with meds, underlying cause is malignancy. -Pt is aware that she has metastatic disease. Intent of any treatment is to relieve symptoms and progression of disease for some time, her disease is not curable. She reports she is interested in trying more treatment. -She started targeted agent 08/27, piqray. She had moderate diarrhea after 1st dose. She had not tried antidiarrheals so, she will try that and see if that helps. She will decide if she wants to try another dose of piqray. -Abdomen assessment yesterday did not have any acute concerning findings, patient not reporting abd pain. -PET scan possibly once pt gets discharged. -F/U Dr. Abbey Velasquez -Discussed case on multiple occasions with IM LITHOGRAPH OPERATOR. There was some difficulty getting PICC line inserted initially but, IM worked it out. Dietitian consulted for TPN -Temporary TPN for nutritional support until pt is able to tolerate oral intake. F/U in AM attests: I seen and examined patient, performed H&P, developed impression and plan of care. Discussed with dictator. Agree with documentation, dictated as a scribe.
[2023-08-29] MEDS: 0.9% NACL WITH KCL 40 MEQ/L 1,000 ML IV SCH ×2 (02:07→20:23)
[2023-08-29 05:28] LABS: Glucose,Whole Blood 92 mg/dL (70-110)
--- NOTE | 2023-08-29 06:17 | P.PN ---
Subjective Progress Note Date: 08/28/23 This is a 68-year-old female who was admitted with intractable nausea or vomiting underwent EGD showing gastric outlet obstruction with stenosis and scheduled to undergo repeat EGD with dilatation today with general surgery. Patient did undergo HIDA scan and gallbladder was not visualized and suggestive of cholecystitis and is being scheduled for possible acute laparoscopic cholecystectomy. Cardiology has been consulted for clearance. Oncology following as patient has significant history of breast cancer with metastasis. Patient is currently afebrile and continues to report nausea and not tolerating much appetite. Patient is being started on clear liquids. 08/22/2023 Patient is seen in follow-up this morning currently nothing by mouth as patient was scheduled to undergo laparoscopic cholecystectomy although potassium was found to be extremely low as well as magnesium and currently being replaced. Patient has had IV infiltrated with no IV access currently awaiting a midline is patient is a difficult stick and multiple attempts with no success. Patient undergoing oral replacement as well until midline is replaced. Patient is currently afebrile with no reports of significant nausea and no vomiting today. Will follow-up on repeat labs although unsure if patient is going to have surgery today due to electrolyte abnormalities. 08/23/2023 Patient is seen in follow-up this morning scheduled to undergo laparoscopic cholecystectomy. Electrolytes have been replaced and within normal limits including magnesium and potassium. Patient is afebrile with reports of chest pain or shortness of breath. Patient continues to report some nausea and mild abdominal discomfort. Per surgery pathology came back with breast cancer metastasis possibly to the stomach and there is concerns of progression of disease causing this abdominal pain in associated symptoms. General surgery awaiting to discuss with oncology about treatment plans moving forward. Patient continues to be willing to proceed with gallbladder removal. Patient will remain nothing by mouth for now. 08/24/2023 Patient is currently lying in the bed. Awake alert and oriented. Pain is fairly controlled. Patient is status post laparoscopic cholecystectomy and lysis of adhesions. Postoperative day 1 Patient is able to pass flatus but no bowel movement yet. Denies any chest pain or shortness of breath. Patient has been afebrile. Currently on room air. Laboratory data showed WBC 9.7 hemoglobin 7.3 and platelets 206 Sodium 142 potassium 4.2 chloride 104 BUN 7.3 and creatinine 0.7 and magnesium 1.4 08/25/2023 Postoperative day 2 Patient is lying in the bed. Awake alert and oriented x 3. No complaints of chest pain or shortness of breath. Abdominal pain is improved. Patient is able to pass flatus. No bowel movement yet. Patient did have episode of vomiting. Afebrile. Currently denies any nausea. Currently on IV hydration with normal saline with KCl and antibiotics of Zosyn. 08/26/2023 Patient is seen and evaluated in follow-up today is postop day 3 status post laparoscopic cholecystectomy. Patient continues with some abdominal discomfort along with nausea and vomiting maintained on clear liquids unable to tolerate. Patient also has Compazine and will add as needed Reglan. Patient is continued on Zosyn although will discontinue and monitor off antibiotics. Patient is afebrile with no reports of chest pain and shortness of breath. Patient is weak and reports has been getting up to the bathroom. Patient needs encouragement getting out of the bed and will have physical therapy evaluate the patient 08/27/2023 Patient is seen and evaluated in follow-up today reports to having continuous nausea with vomiting reports some minimal improvement of vomiting although unable to tolerate any oral intake. Oncology along with general surgery following a discussion of possible TPN to be initiated as patient has not had any oral nutrition and unable to tolerate. Most likely secondary to metastatic disease and patient will need enteral nutrition. Patient apparently had an ateam called for hematemesis although does not appear to have any blood noted in the vomit hemoglobin was slightly low and a unit of PRBCs was ordered. Follow- up labs from this morning show a hemoglobin of 10.2 and there is no active bleeding noted. Sodium improved at 138 with a potassium of 4.0, current creatinine is 0.53. Patient continued on gentle IV hydration and magnesium is 1.3 and being replaced per protocol. Oncology following as well discussing possible oral chemo meds during hospitalization to alleviate some of the symptoms have been chronically ongoing and patient is agreeable to continued care. Will plan for PICC line and consult dietitian. Patient has been encouraged to increase activity as tolerated. 08/28/2023 Patient is seen in follow-up today continues to report nausea with vomiting and inability to tolerate oral intake. Patient is continued on clears asking for an advancement in diet although continues with vomiting. Patient also took one dose of chemotherapy medication orally and had a few episodes of diarrhea and refusing to take another dose at this time. Will try antidiarrheals along with continued antinausea medications. Attempted to obtain a PICC line and per Dr. Michele, vein was occluded recommending a central line. Patient is only able to use the right side she has previous history of breast cancer and unable to use the left side. Will obtain a venous Doppler with concerns of this occlusion to rule out a DVT. Will consider possible MediPort of which Gen. surgery can place and will consult vascular surgery and appreciate input recommendations and possible PICC line reevaluation. Patient is currently afebrile with no reports of chest pain or shortness of breath. Patient has been getting up to the bathroom. Review of systems: Constitutional: reports of fatigue, no fever, or chills Cardiovascular: No reports of chest pain or palpitations Respiratory: No reports of shortness of breath or cough GI: reports of nausea, reports of vomiting, reports not much of an appetite, reports episodes of diarrhea : No reports of dysuria or retention Neurovascular: reports of generalized weakness All medications have been reviewed PHYSICAL EXAMINATION: GENERAL: The patient is alert and oriented x4, Well developed, thin built, appe ars older than stated age, unkempt HEENT: Pupils are round and equally reacting to light. EOMI. no scleral icterus. No conjunctival pallor. Normocephalic, atraumatic. No pharyngeal erythema. No thyromegaly. CARDIOVASCULAR: S1 and S2 muffled PULMONARY: diminished breath sounds bilaterally with no wheezing or rhonchi noted. ABDOMEN: soft. tender on exam of bilateral upper quadrants. . non-distended, normoactive bowel sounds. No palpable organomegaly. MUSCULOSKELETAL: No joint swelling or deformity. EXTREMITIES: No cyanosis, clubbing, or pedal edema. NEUROLOGICAL: Gross neurological examination did not reveal any focal deficits. Diffuse weakness SKIN: No rashes. Assessment: Acute cholecystitis noted on HIDA scan status post laparoscopic cholecystectomy on 08/23/2023 Intractable nausea and vomiting, status post EGD, with gastric outlet obstruction. Status post repeat EGD with dilatation on 08/21/2023, most likely secondary to metastasis Severe dehydration with acute tubular necrosis and renal failure, improving Right arm vein occlusion, ruled out DVT Severe hypokalemia as well as hypomagnesemia secondary to nausea and vomiting, improving and replaced per protocol Acute cholecystitis noted on HIDA scan. Status post laparoscopic cholecystectomy History metastatic breast cancer as well as ovarian cancer, pathology from biopsies an EGD were positive for metastatic lobular breast carcinoma with concerns of disease progression to the stomach Hypertension Hyperlipidemia History of known right bundle branch block Moderate protein calorie malnutrition with BMI of 18.3 GI prophylaxis DVT prophylaxis Full code Plan: Recommend to continue with current medications and management per general surgery services. Patient is status post laparoscopic cholecystectomy and riley nues to have extreme nausea with vomiting and inability to tolerate oral intake. Multiple medications being adjusted with antinausea medications. Patient to continue with clear liquids for now per surgery. Patient is asking for advancement in diet although continues to have nausea and vomiting. Patient is not receiving adequate intake and ordered PICC line although reported by Dr. Lucas the vein was occluded recommending a central line. Venous Doppler of the right extremity ordered and was negative for DVT. Will consult vascular surgery for evaluation of possible PICC line. Dietitian consulted for TPN and this was discussed with oncology. Awaiting a PICC line and/or MediPort and if unable to obtain a PICC line will ask if general surgery can place the port. Patient was started on oral chemo in hopes to alleviate her nausea and vomiting symptoms. Patient having moderate diarrhea and refused today's dose. Patient would like to proceed to alleviate some of the symptoms. Patient is status post EGD with dilatation repeated for pyloric stenosis with Anderson's esophagitis and noted to have esophageal ulcer with gastritis and hiatal hernia. Patient's pathology report from initial EGD biopsy positive for metastatic lobular breast carcinoma and high suspicion for stomach cancer in general surgery awaiting discussed with oncology. Encouraged increased activity as tolerated as patient has had prolonged hospitalization and significantly weak. Encouraged patient to sit up in the chair and out of the bed more often Follow-up on repeat labs, replace electrolytes per protocol. Case management following and patient would like palliative care and referral was placed Due to multiple complex medical issues, overall prognosis is extremely poor and guarded The impression and plan of care has been dictated by Dana Cerda, nurse practitioner as directed. Dr. Neil MD I have performed a history and examination and MDM of this patient, discussed the same with the dictator, and agree with the dictator's assessment and plan as written ,documented as a scribe. Based on total visit time, I have performed more than 50% of the visit. Any additional findings or plans will be noted. Objective - Vital Signs Vital signs: Vital Signs Temp 98.0 F 08/28/23 07:23 Pulse 77 08/28/23 07:23 Resp 19 08/28/23 07:23 BP 128/77 08/28/23 07:23 Pulse Ox 97 08/28/23 07:23 FiO2 Intake & Output 08/27/23 08/28/23 08/28/23 18:59 06:59 18:59 Intake Total 900 Balance 900 Intake: IV 900 0.9% NaCl with KCl 40 Meq 900 /l 1,000 ml @ 75 mls/hr IV .[id number] [facility] Rx#: [id number] Other: Voiding Method Toilet Toilet Toilet # Voids 1 - Labs CBC & Chem 7: 08/28/23 07:45 08/28/23 07:45 Labs: Abnormal Lab Results - Last 24 Hours (Table) 08/27/23 08/27/23 08/28/23 Range/Units 01:24 20:17 06:08 RBC (4.10-5.20) X 10*6/uL Hgb (12.0-15.0) g/dL Hct (37.2-46.3) % MPV (9.5-12.2) FL Immature Gran # (0.00-0.04) X 10*3/uL Neutrophils # (1.80-7.70) X 10*3/uL Lymphocytes # (0.90-5.00) X 10*3/uL Carbon Dioxide (21.6-31.8) mmol/L Anion Gap (4.00-12.00) mmol/L BUN (9.0-27.0) mg/dL BUN/Creatinine Ratio (12.00-20.00) Ratio Glucose (70-110) mg/dL POC Glucose (mg/dL) 149 H 120 H (70-110) mg/dL Calcium (8.7-10.3) mg/dL Crossmatch See Detail 08/28/23 08/28/23 08/28/23 Range/Units 07:45 07:45 11:30 RBC 3.19 L (4.10-5.20) X 10*6/uL Hgb 9.1 L (12.0-15.0) g/dL Hct 27.6 L (37.2-46.3) % MPV 8.9 L (9.5-12.2) FL Immature Gran # 0.12 H (0.00-0.04) X 10*3/uL Neutrophils # 8.15 H (1.80-7.70) X 10*3/uL Lymphocytes # 0.84 L (0.90-5.00) X 10*3/uL Carbon Dioxide 21.4 L (21.6-31.8) mmol/L Anion Gap 13.60 H (4.00-12.00) mmol/L BUN <3.5 L (9.0-27.0) mg/dL BUN/Creatinine Ratio <5.83 L (12.00-20.00) Ratio Glucose 126 H (70-110) mg/dL POC Glucose (mg/dL) 145 H (70-110) mg/dL Calcium 8.1 L (8.7-10.3) mg/dL Crossmatch
[2023-08-29] MEDS: INSULIN ASPART (NovoLOG) 100 UNIT/ML VIAL SQ SCH ×4 (06:20→21:37)
[2023-08-29 06:52] LABS: ALT 17 U/L (4-34); AST 18 U/L (14-36); African American GFR (CKD) >90 (>60 ml/min/1.73 sqM); Albumin 2.5 g/dL (3.5-5.0); Albumin/Globulin Ratio 0.9; Alkaline Phosphatase 65 U/L (38-126); Anion Gap 11 mmol/L; Blood Urea Nitrogen 5 mg/dL (7-17); Calcium 8.2 mg/dL (8.4-10.2); Carbon Dioxide 23 mmol/L (22-30); Chloride 102 mmol/L (98-107); Globulin 2.7 g/dL; Glucose 90 mg/dL (74-99); Magnesium 1.5 mg/dL (1.6-2.3); Non-African American GFR(CKD) >90 (>60 ml/min/1.73 sqM); Phosphorus 3.9 mg/dL (2.5-4.5); Potassium 3.4 mmol/L (3.5-5.1); Sodium 136 mmol/L (137-145); Total Bilirubin 0.4 mg/dL (0.2-1.3); Total Protein 5.2 g/dL (6.3-8.2)
[2023-08-29] MEDS: lisinopriL 20 MG TAB PO SCH (08:15)
[2023-08-29] MEDS: PANTOPRAZOLE 40 MG/10 ML VIAL IVP SCH ×2 (08:15→21:46)
[2023-08-29] MEDS: HEPARIN SODIUM,PORCINE 5,000 UNIT/ML 1 ML VIAL SQ SCH ×2 (08:15→21:45)
[2023-08-29] MEDS: ALPELISIB PO SCH (11:25)
[2023-08-29 11:30] LABS: Glucose,Whole Blood 93 mg/dL (70-110)
[2023-08-29] MEDS: ONDANSETRON 4 MG/2 ML VIAL IVP PRN ×2 (12:19→21:46)
[2023-08-29] MEDS: MAGNESIUM SULFATE-D5W PMX 1 GM in DEXTROSE/WATER 1 100ML.BAG IVPB SCH ×2 (12:19→13:58)
[2023-08-29] MEDS ORDERED: POTASSIUM CHLORIDE 10 MEQ in WATER FOR INJECTION 1 100ML.BAG IVPB SCH (13:00)
[2023-08-29] MEDS ORDERED: POTASSIUM CHLORIDE ER 20 MEQ TAB.ER PO STA (15:24)
--- NOTE | 2023-08-29 15:30 | P.PN ---
Subjective Progress Note Date: 08/29/23 CHIEF COMPLAINT: Nausea vomiting HISTORY OF PRESENT ILLNESS: Patient is postop day #6 status post laparoscopic cholecystectomy and lysis of adhesions. Also, status post EGD with dilation 2 for pyloric stenosis. Patient reports no vomiting. However she has not really been eating. They've been unable to get PICC line placed. Patient needs IV access for TPN and possible cancer treatment. Request made for Mediport placement by medicine and oncology service. Afebrile. Sodium 136 potassium is 3.4 magnesium is 1.5 total bili 0.4 AST 18 ALT 17 alk phos 65 gallbladder pathology still pending. Peritoneal fluid positive for metastatic carcinoma compatible with breast cancer PHYSICAL EXAM: VITAL SIGNS: Reviewed GENERAL: Well-developed in no acute distress. HEENT: No sclera icterus. Extraocular movements grossly intact. Moist buccal mucosa. Head is atraumatic, normocephalic. Hears conversational speech. No nasal drainage. NECK: Supple without lymphadenopathy. CHEST: Non-labored respirations and equal bilateral excursions. CARDIOVASCULAR: Palpable 2+ radial pulses. ABDOMEN: Soft. Nondistended. Incision sites clean dry and intact MUSCULOSKELETAL: No clubbing or cyanosis. NEUROLOGIC: No focal or lateralizing signs. Cranial nerves II through XII grossly intact. PSYCH: Appropriate affect. Alert and oriented to person, place and time. SKIN: Well perfused. Good skin turgor. ASSESSMENT: 1. Acute hydrops cholecystitis due to cystic duct obstruction from gallstones 2. Metastatic breast cancer 3. Hypertensive heart disease 4. Intractable nausea vomiting 5. Gastric outlet syndrome 6. Gastroesophageal reflux disease with erosive esophagitis 7. Pyloric stenosis due to metastatic disease 8. Depressive disorder 9. Peritoneal ascites suspicious for metastatic malignancy 10. Intra-abdominal adhesions greater omentum to abdominal wall 11. Nausea and vomiting likely due to the metastatic breast cancer in the stomach PLAN: -Patient scheduled for Mediport placement with Dr. Sorto tomorrow, 08/30/2023 -Nothing by mouth after midnight -Patient is not a candidate for PEG tube placement Physician Bingo Worker note has been reviewed by physician. Signing provider agrees with the documented findings, assessment, and plan of care. Objective - Vital Signs Vital signs: Vital Signs Temp 98.0 F 08/29/23 07:45 Pulse 89 08/29/23 08:15 Resp 16 08/29/23 08:15 BP 124/76 08/29/23 07:45 Pulse Ox 99 08/29/23 07:45 FiO2 Intake & Output 08/28/23 08/29/23 08/29/23 18:59 06:59 18:59 Weight 45.359 kg Other: Voiding Method Toilet Toilet # Voids 4 1 1 # Bowel Movements 1 - Labs CBC & Chem 7: 08/28/23 07:45 08/29/23 05:25 Labs: Abnormal Lab Results - Last 24 Hours (Table) 08/29/23 08/29/23 Range/Units 05:25 05:25 Sodium 136 L (137-145) mmol/L Potassium 3.4 L (3.5-5.1) mmol/L BUN 5 L (7-17) mg/dL Calcium 8.2 L (8.4-10.2) mg/dL Magnesium 1.5 L (1.6-2.3) mg/dL Total Protein 5.2 L (6.3-8.2) g/dL Albumin 2.5 L (3.5-5.0) g/dL Triglycerides 181.00 H (0.00-149.00) mg/dL
[2023-08-29 17:29] LABS: Glucose,Whole Blood 118 mg/dL (70-110)
[2023-08-29 21:02] LABS: Glucose,Whole Blood 98 mg/dL (70-110)
--- NOTE | 2023-08-29 21:07 | P.PN ---
Subjective Progress Note Date: 08/29/23 Principal diagnosis: Intractable N,V 2/2 metastatic breast cancer in gastric antrum In f/u today pt reports that she is not sure if she took antidiarrheals or if she took another dose of piqray yesterday, she does not think that she took piqray today. She had BM his morning, denies diarrhea but, stool was not formed. Intermittent vomiting. Objective - Vital Signs Vital signs: Vital Signs Temp 98.0 F 08/29/23 07:45 Pulse 89 08/29/23 08:15 Resp 16 08/29/23 08:15 BP 124/76 08/29/23 07:45 Pulse Ox 99 08/29/23 07:45 FiO2 Intake & Output 08/28/23 08/29/23 08/29/23 18:59 06:59 18:59 Weight 45.359 kg Other: Voiding Method Toilet Toilet # Voids 4 1 1 # Bowel Movements 1 - Constitutional General appearance: Present: cooperative, no acute distress, thin - EENT Eyes: Present: anicteric sclerae, EOMI ENT: Present: hearing grossly normal - Respiratory Details: resp even and unlabored at rest and when ambulating - Cardiovascular Details: radial pulse - Peripheral edema leg Peripheral Edema: bilateral: None - Neurologic Neurologic: Present: CNII-XII intact - Musculoskeletal Musculoskeletal: Present: generalized weakness, strength equal bilaterally - Psychiatric Psychiatric: Present: A&O x's 3, appropriate affect, intact judgment & insight - Labs CBC & Chem 7: 08/28/23 07:45 08/29/23 05:25 Labs: Abnormal Lab Results - Last 24 Hours (Table) 08/29/23 08/29/23 Range/Units 05:25 05:25 Sodium 136 L (137-145) mmol/L Potassium 3.4 L (3.5-5.1) mmol/L BUN 5 L (7-17) mg/dL Calcium 8.2 L (8.4-10.2) mg/dL Magnesium 1.5 L (1.6-2.3) mg/dL Total Protein 5.2 L (6.3-8.2) g/dL Albumin 2.5 L (3.5-5.0) g/dL Triglycerides 181.00 H (0.00-149.00) mg/dL - Imaging and Cardiology Venous US: report reviewed Assessment and Plan (1) Intractable nausea and vomiting Current Visit: Yes Status: Acute Priority: High Code(s): R11.2 - NAUSEA WITH VOMITING, UNSPECIFIED SNOMED Code(s): 747814970 (2) Breast cancer metastasized to multiple sites Current Visit: Yes Status: Chronic Priority: High Code(s): C50.919 - MALIGNANT NEOPLASM OF UNSP SITE OF UNSPECIFIED FEMALE BREAST SNOMED Code(s): 685848259 Plan: Intractable N,V -08/23 pt had laparoscopic gall bladder removal for acute cholecystitis, duct obstructed from stones and lysis of adhesions. Reviewed positive ascitic fluid today with pt. Gall bladder path still pending -EGD 08/19 and 08/21 showing GERD with erosive esophagitis with pyloric stenosis, had duodenal dilation. Gastric antrum biopsy positive for metastatic breast cancer. This is the cause of the intractable nausea and vomiting -N, V persists, can sometimes keep meds down -Supportive meds cont. Metastatic breast cancer -08/19 biopsy of gastric antrum positive for metastatic breast cancer -Not certain if nausea and vomiting are going to be able to be controlled with meds, underlying cause is malignancy. -Pt is aware that she has metastatic disease. Intent of any treatment is to relieve symptoms and progression of disease for some time, her disease is not curable. -She started targeted agent 08/27, piqray. She had moderate diarrhea after 1st dose. Refused dose on 08/28. recommended that she try antidiarrheals, MAR checked, none have been given. Piqray was given around 1130 today. Will see how pt is doing in AM -PET scan possibly once pt gets discharged. -F/U Dr. Abbey Velasquez -Plans are for Surgery to evaluate pt for port placement. This will be useful for pt for TPN and for any IV chemotherapy she may decide to try in the future as her peripheral access is very poor and limited to one arm. -Plan is for temporary TPN for nutritional support until pt is able to tolerate oral intake.
[2023-08-30] MEDS: 0.9% NACL WITH KCL 40 MEQ/L 1,000 ML IV SCH (05:05)
[2023-08-30] MEDS: INSULIN ASPART (NovoLOG) 100 UNIT/ML VIAL SQ SCH ×3 (05:46→17:15)
[2023-08-30 05:49] LABS: Glucose,Whole Blood 103 mg/dL (70-110)
--- NOTE | 2023-08-30 05:51 | P.PN ---
Subjective Progress Note Date: 08/29/23 This is a 68-year-old female who was admitted with intractable nausea or vomiting underwent EGD showing gastric outlet obstruction with stenosis and scheduled to undergo repeat EGD with dilatation today with general surgery. Patient did undergo HIDA scan and gallbladder was not visualized and suggestive of cholecystitis and is being scheduled for possible acute laparoscopic cholecystectomy. Cardiology has been consulted for clearance. Oncology following as patient has significant history of breast cancer with metastasis. Patient is currently afebrile and continues to report nausea and not tolerating much appetite. Patient is being started on clear liquids. 08/22/2023 Patient is seen in follow-up this morning currently nothing by mouth as patient was scheduled to undergo laparoscopic cholecystectomy although potassium was found to be extremely low as well as magnesium and currently being replaced. Patient has had IV infiltrated with no IV access currently awaiting a midline is patient is a difficult stick and multiple attempts with no success. Patient undergoing oral replacement as well until midline is replaced. Patient is currently afebrile with no reports of significant nausea and no vomiting today. Will follow-up on repeat labs although unsure if patient is going to have surgery today due to electrolyte abnormalities. 08/23/2023 Patient is seen in follow-up this morning scheduled to undergo laparoscopic cholecystectomy. Electrolytes have been replaced and within normal limits including magnesium and potassium. Patient is afebrile with reports of chest pain or shortness of breath. Patient continues to report some nausea and mild abdominal discomfort. Per surgery pathology came back with breast cancer metastasis possibly to the stomach and there is concerns of progression of disease causing this abdominal pain in associated symptoms. General surgery awaiting to discuss with oncology about treatment plans moving forward. Patient continues to be willing to proceed with gallbladder removal. Patient will remain nothing by mouth for now. 08/24/2023 Patient is currently lying in the bed. Awake alert and oriented. Pain is fairly controlled. Patient is status post laparoscopic cholecystectomy and lysis of adhesions. Postoperative day 1 Patient is able to pass flatus but no bowel movement yet. Denies any chest pain or shortness of breath. Patient has been afebrile. Currently on room air. Laboratory data showed WBC 9.7 hemoglobin 7.3 and platelets 206 Sodium 142 potassium 4.2 chloride 104 BUN 7.3 and creatinine 0.7 and magnesium 1.4 08/25/2023 Postoperative day 2 Patient is lying in the bed. Awake alert and oriented x 3. No complaints of chest pain or shortness of breath. Abdominal pain is improved. Patient is able to pass flatus. No bowel movement yet. Patient did have episode of vomiting. Afebrile. Currently denies any nausea. Currently on IV hydration with normal saline with KCl and antibiotics of Zosyn. 08/26/2023 Patient is seen and evaluated in follow-up today is postop day 3 status post laparoscopic cholecystectomy. Patient continues with some abdominal discomfort along with nausea and vomiting maintained on clear liquids unable to tolerate. Patient also has Compazine and will add as needed Reglan. Patient is continued on Zosyn although will discontinue and monitor off antibiotics. Patient is afebrile with no reports of chest pain and shortness of breath. Patient is weak and reports has been getting up to the bathroom. Patient needs encouragement getting out of the bed and will have physical therapy evaluate the patient 08/27/2023 Patient is seen and evaluated in follow-up today reports to having continuous nausea with vomiting reports some minimal improvement of vomiting although unable to tolerate any oral intake. Oncology along with general surgery following a discussion of possible TPN to be initiated as patient has not had any oral nutrition and unable to tolerate. Most likely secondary to metastatic disease and patient will need enteral nutrition. Patient apparently had an ateam called for hematemesis although does not appear to have any blood noted in the vomit hemoglobin was slightly low and a unit of PRBCs was ordered. Follow- up labs from this morning show a hemoglobin of 10.2 and there is no active bleeding noted. Sodium improved at 138 with a potassium of 4.0, current creatinine is 0.53. Patient continued on gentle IV hydration and magnesium is 1.3 and being replaced per protocol. Oncology following as well discussing possible oral chemo meds during hospitalization to alleviate some of the symptoms have been chronically ongoing and patient is agreeable to continued care. Will plan for PICC line and consult dietitian. Patient has been encouraged to increase activity as tolerated. 08/28/2023 Patient is seen in follow-up today continues to report nausea with vomiting and inability to tolerate oral intake. Patient is continued on clears asking for an advancement in diet although continues with vomiting. Patient also took one dose of chemotherapy medication orally and had a few episodes of diarrhea and refusing to take another dose at this time. Will try antidiarrheals along with continued antinausea medications. Attempted to obtain a PICC line and per Dr. Michele, vein was occluded recommending a central line. Patient is only able to use the right side she has previous history of breast cancer and unable to use the left side. Will obtain a venous Doppler with concerns of this occlusion to rule out a DVT. Will consider possible MediPort of which Gen. surgery can place and will consult vascular surgery and appreciate input recommendations and possible PICC line reevaluation. Patient is currently afebrile with no reports of chest pain or shortness of breath. Patient has been getting up to the bathroom. 08/29/2023 Patient is seen and examined this morning with oncology and general surgery following. Patient continues to have nausea and vomiting currently nothing by mouth as patient was tentatively scheduled to receive a PICC line and having continued nausea and vomiting although plan now is for patient to receive a MediPort with general surgery tomorrow. Patient to continue clear diet as tolerated and will be nothing by mouth at midnight for the procedure. Patient will likely need to initiate TPN after Mediport okay to use. Oncology following as well and agreeable with this plan. Patient is afebrile with no reported chest pain or shortness of breath. Sister at the bedside with questions and concerns were answered to the best of our ability. Review of systems: Constitutional: No reports of fatigue, no fever, or chills Cardiovascular: No reports of chest pain or palpitations Respiratory: No reports of shortness of breath or cough GI: reports of nausea, reports of vomiting, reports not much of an appetite, reports episodes of diarrhea that has improved : No reports of dysuria or retention Neurovascular: reports of generalized weakness All medications have been reviewed PHYSICAL EXAMINATION: GENERAL: The patient is alert and oriented x4, Well developed, thin built, appears older than stated age, unkempt HEENT: Pupils are round and equally reacting to light. EOMI. no scleral icterus. No conjunctival pallor. Normocephalic, atraumatic. No pharyngeal erythema. No thyromegaly. CARDIOVASCULAR: S1 and S2 muffled PULMONARY: diminished breath sounds bilaterally with no wheezing or rhonchi noted. ABDOMEN: soft. Non-tender on exam . non-distended, normoactive bowel sounds. No palpable organomegaly. MUSCULOSKELETAL: No joint swelling or deformity. EXTREMITIES: No cyanosis, clubbing, or pedal edema. NEUROLOGICAL: Gross neurological examination did not reveal any focal deficits. Diffuse weakness SKIN: No rashes. Assessment: Acute cholecystitis noted on HIDA scan status post laparoscopic cholecystectomy on 08/23/2023 Intractable nausea and vomiting, status post EGD, with gastric outlet obstruction. Status post repeat EGD with dilatation on 08/21/2023, most likely secondary to metastasis Severe dehydration with acute tubular necrosis and renal failure, improving Right arm vein occlusion, ruled out DVT Severe hypokalemia as well as hypomagnesemia secondary to nausea and vomiting, being replaced per protocol Acute cholecystitis noted on HIDA scan. Status post laparoscopic cholecystectomy History metastatic breast cancer as well as ovarian cancer, pathology from biop sies an EGD were positive for metastatic lobular breast carcinoma with concerns of disease progression to the stomach Hypertension Hyperlipidemia History of known right bundle branch block Moderate protein calorie malnutrition with BMI of 18.3 GI prophylaxis DVT prophylaxis Full code Plan: Recommend to continue with current medications and management per general surgery services. Patient is status post laparoscopic cholecystectomy and continues to have extreme nausea with vomiting and inability to tolerate oral intake. Multiple medications being adjusted with antinausea medications. Patie nt to continue with clear liquids for now per surgery. Nothing by mouth at midnight and patient will be receiving a MediPort. Dietary consulted and pending at this time to initiate TPN Patient was started on oral chemo in hopes to alleviate her nausea and vomiting symptoms. Patient having moderate diarrhea and refused today's dose. Patient would like to proceed to alleviate some of the symptoms. Patient is status post EGD with dilatation repeated for pyloric stenosis with Anderson's esophagitis and noted to have esophageal ulcer with gastritis and hiatal hernia. Patient's pathology report from initial EGD biopsy positive for metastatic lobular breast carcinoma and high suspicion for stomach cancer Encouraged increased activity as tolerated as patient has had prolonged hospitalization and significantly weak. Encouraged patient to sit up in the chair and out of the bed more often Follow-up on repeat labs, replace electrolytes per protocol. Case management following and patient would like palliative care and referral was placed. Working on potentially requiring outpatient TPN for continued nutrition Due to multiple complex medical issues, overall prognosis is extremely poor and guarded The impression and plan of care has been dictated by Dana Cerda, nurse practitioner as directed. Dr. Neil MD I have performed a history and examination and MDM of this patient, discussed the same with the dictator, and agree with the dictator's assessment and plan as written ,documented as a scribe. Based on total visit time, I have performed more than 50% of the visit. Any additional findings or plans will be noted. Objective - Vital Signs Vital signs: Vital Signs Temp 98.0 F 08/29/23 07:45 Pulse 89 08/29/23 08:15 Resp 16 08/29/23 08:15 BP 124/76 08/29/23 07:45 Pulse Ox 99 08/29/23 07:45 FiO2 Intake & Output 08/28/23 08/29/23 08/29/23 18:59 06:59 18:59 Weight 45.359 kg Other: Voiding Method Toilet Toilet # Voids 4 1 1 # Bowel Movements 1 - Labs CBC & Chem 7: 08/28/23 07:45 08/29/23 05:25 Labs: Abnormal Lab Results - Last 24 Hours (Table) 08/29/23 08/29/23 Range/Units 05:25 05:25 Sodium 136 L (137-145) mmol/L Potassium 3.4 L (3.5-5.1) mmol/L BUN 5 L (7-17) mg/dL Calcium 8.2 L (8.4-10.2) mg/dL Magnesium 1.5 L (1.6-2.3) mg/dL Total Protein 5.2 L (6.3-8.2) g/dL Albumin 2.5 L (3.5-5.0) g/dL Triglycerides 181.00 H (0.00-149.00) mg/dL
[2023-08-30 06:19] LABS: Basophils % (A) 0 %; Eosinophils # (A) 0.1 k/uL (0-0.7); Eosinophils % (A) 2 %; HCT 28.1 % (34.0-46.0); HGB 9.2 gm/dL (11.4-16.0); Hypochromasia Slight; Lymphocytes # (A) 0.7 k/uL (1.0-4.8); Lymphocytes % (A) 10 %; MCH 29.7 pg (25.0-35.0); MCHC 32.9 g/dL (31.0-37.0); MCV 90.2 fL (80.0-100.0); Monocytes # (A) 0.3 k/uL (0-1.0); Monocytes % (A) 5 %; Neutrophils # (A) 5.1 k/uL (1.3-7.7); Neutrophils % (A) 81 %; Platelet Count 317 k/uL (150-450); RBC 3.11 m/uL (3.80-5.40); RDW 13.8 % (11.5-15.5); WBC 6.3 k/uL (3.8-10.6)
[2023-08-30 06:28] LABS: ALT 15 U/L (4-34); AST 19 U/L (14-36); African American GFR (CKD) >90 (>60 ml/min/1.73 sqM); Albumin 2.4 g/dL (3.5-5.0); Albumin/Globulin Ratio 0.9; Alkaline Phosphatase 61 U/L (38-126); Anion Gap 11 mmol/L; Blood Urea Nitrogen 3 mg/dL (7-17); Carbon Dioxide 17 mmol/L (22-30); Chloride 108 mmol/L (98-107); Globulin 2.8 g/dL; Glucose 102 mg/dL (74-99); Magnesium 1.6 mg/dL (1.6-2.3); Non-African American GFR(CKD) >90 (>60 ml/min/1.73 sqM); Phosphorus 3.2 mg/dL (2.5-4.5); Potassium 3.7 mmol/L (3.5-5.1); Sodium 136 mmol/L (137-145); Total Bilirubin 0.4 mg/dL (0.2-1.3); Total Protein 5.2 g/dL (6.3-8.2)
[2023-08-30] MEDS: HEPARIN SODIUM,PORCINE 5,000 UNIT/ML 1 ML VIAL SQ SCH (07:37)
[2023-08-30] MEDS: lisinopriL 20 MG TAB PO SCH (08:04)
[2023-08-30] MEDS: PANTOPRAZOLE 40 MG/10 ML VIAL IVP SCH (08:04)
[2023-08-30] MEDS: ALPELISIB PO SCH (08:04)
[2023-08-30] MEDS: ONDANSETRON 4 MG/2 ML VIAL IVP PRN (08:05)
[2023-08-30 11:12] LABS: Glucose,Whole Blood 110 mg/dL (70-110)
--- NOTE | 2023-08-30 15:31 | P.PN ---
Subjective Progress Note Date: 08/30/23 In f/u today pt reports she reports 2 episodes of loose stools today. Has not used antidiarrheals ordered. Continues on piqray. Denies N/V Objective - Vital Signs Vital signs: Vital Signs Temp 98.0 F 08/30/23 13:45 Pulse 76 08/30/23 13:45 Resp 19 08/30/23 13:45 BP 130/74 08/30/23 13:45 Pulse Ox 96 08/30/23 13:45 FiO2 Intake & Output 08/29/23 08/30/23 08/30/23 18:59 06:59 18:59 Weight 45.359 kg Other: Voiding Method Toilet Toilet # Voids 3 1 - Constitutional General appearance: Present: average body habitus, no acute distress - EENT Eyes: Present: anicteric sclerae, EOMI ENT: Present: hearing grossly normal - Respiratory Details: breathing even and unlabored - Cardiovascular Details: well-perfused - Integumentary Integumentary: Absent: cyanotic - Neurologic Neurologic Comment(s): grossly intact - Musculoskeletal Musculoskeletal: Present: strength equal bilaterally - Psychiatric Psychiatric: Present: A&O x's 3 - Labs CBC & Chem 7: 08/30/23 05:27 08/30/23 05:27 Labs: Abnormal Lab Results - Last 24 Hours (Table) 08/29/23 08/30/23 08/30/23 Range/Units 17:28 05:27 05:27 RBC 3.11 L (3.80-5.40) m/uL Hgb 9.2 L (11.4-16.0) gm/dL Hct 28.1 L (34.0-46.0) % Lymphocytes # 0.7 L (1.0-4.8) k/uL Sodium 136 L (137-145) mmol/L Chloride 108 H (98-107) mmol/L Carbon Dioxide 17 L (22-30) mmol/L BUN 3 L (7-17) mg/dL Glucose 102 H (74-99) mg/dL POC Glucose (mg/dL) 118 H (70-110) mg/dL Calcium 8.0 L (8.4-10.2) mg/dL Total Protein 5.2 L (6.3-8.2) g/dL Albumin 2.4 L (3.5-5.0) g/dL Assessment and Plan (1) Acute kidney injury Current Visit: Yes Status: Acute Code(s): N17.9 - ACUTE KIDNEY FAILURE, UNSPECIFIED SNOMED Code(s): 47468361 (2) Breast cancer metastasized to multiple sites Current Visit: Yes Status: Chronic Priority: High Code(s): C50.919 - MALIGNANT NEOPLASM OF UNSP SITE OF UNSPECIFIED FEMALE BREAST SNOMED Code(s): 659101411 (3) Hypokalemia Current Visit: Yes Status: Acute Code(s): E87.6 - HYPOKALEMIA SNOMED Code(s): 67697096 Plan: Intractable N,V -08/23 pt had laparoscopic gall bladder removal for acute cholecystitis, duct obstructed from stones and lysis of adhesions. Reviewed positive ascitic fluid today with pt. Gall bladder path still pending -EGD 08/19 and 08/21 showing GERD with erosive esophagitis with pyloric stenosis, had duodenal dilation. Gastric antrum biopsy positive for metastatic breast cancer. This is the cause of the intractable nausea and vomiting -N, V improved today -Supportive meds cont. Metastatic breast cancer -08/19 biopsy of gastric antrum positive for metastatic breast cancer -Not certain if nausea and vomiting are going to be able to be controlled with meds, underlying cause is malignancy. -Pt is aware that she has metastatic disease. Intent of any treatment is to relieve symptoms and progression of disease for some time, her disease is not curable. -She started targeted agent 08/27, piqray. She had moderate diarrhea after 1st dose. Refused dose on 08/28. Piqray taken last two days. Reports 2 loose stools today. Recommended that she try antidiarrheals, MAR checked, none have been given. -PET scan possibly once pt gets discharged. -F/U Dr. Abbey Velasquez -Port placement scheduled for today. This will be useful for pt for TPN and for any IV chemotherapy she may decide to try in the future as her peripheral access is very poor and limited to one arm. -Plan is for temporary TPN for nutritional support until pt is able to tolerate oral intake.
[2023-08-30 16:14] LABS: Glucose,Whole Blood 93 mg/dL (70-110)
[2023-08-30] MEDS ORDERED: LACTATED RINGERS 1,000 ML IV ONE ×2 (19:22→23:16)
[2023-08-30] MEDS ORDERED: LIDOCAINE 1%-EPI 1:100,000 50 ML VIAL SQ ONE (21:40)
[2023-08-30] MEDS ORDERED: DEXAMETHASONE SOD PHOSPHATE 4 MG/ML 1 ML VIAL ONE (21:49)
[2023-08-30] MEDS ORDERED: PROPOFOL 10 MG/ML 20 ML VIAL IV ONE (21:49)
[2023-08-30] MEDS ORDERED: LIDOCAINE 1% INJ 10MG/ML (20 ML MDV) ONE (21:49)
[2023-08-30] MEDS ORDERED: fentaNYL (PF) 50 MCG/ML 2 ML AMP ONE (21:49)
[2023-08-30] MEDS ORDERED: ONDANSETRON 4 MG/2 ML VIAL ONE (21:49)
--- NOTE | 2023-08-30 22:57 | P.OP ---
Date of Procedure: 08/30/23 Description of Procedure: SURGEON: ILEANA HERRERA MD RUBBLE PLACER: None. PREOPERATIVE DIAGNOSES: 1. Recurrent metastatic breast cancer 2. Need for chemotherapeutic access. POSTOPERATIVE DIAGNOSES: 1. Recurrent metastatic breast cancer 2. Need for chemotherapeutic access. PROCEDURES PERFORMED: 1. Ultrasound guided central venous access of the right internal jugular venous vein. 2. Fluoroscopic guidance for central venous access right internal jugular vein less than 1 seconds. 3. Placement of right internal jugular power port 6 Georgian by Sensobi, Xcela Plus Port ANESTHESIA: LMA sedation with local. ESTIMATED BLOOD LOSS: 5 mL. SPECIMENS REMOVED: None. COMPLICATIONS: None. FINDINGS: 1. No thrombus encountered along the right carotid artery or internal jugular vein. 2. Access of the right internal jugular vein under ultrasound guidance. 3. Fluoroscopy of less than 1 seconds. INDICATIONS: The patient is a 68-year-old female recently diagnosed with metastatic breast cancer. She presents for chemotherapeutic access. Benefits and risks of surgical intervention were described including bleeding, infection, mechanical problems with his port. Informed consent was obtained. DESCRIPTION OR PROCEDURE: Patient was brought into the operating room, laid in supine position. After adequate IV sedation, the chest and right neck were prepped and draped in a standard sterile fashion including the shoulder with ChloraPrep. Timeout protocol was confirmed with the surgical team regarding the patient's name, procedure to be performed including preoperative medications for which she received IV antibiotics. Bilateral SCDs were placed. An ultrasound was used to capture views of the right internal jugular vein including right carotid artery, which was patent and without thrombus along its course. The right IJ was then localized using anesthetic for the skin. A 16 Georgian needle was used to access the IJ. A guidewire was advanced into the IJ with dark nonpulsatile venous blood. Two fingerbreadths distal to the clavicle, on the lateral third, a transverse 1.5 to 2 cm incision was deepened into the skin after localizing the skin. A pocket was created for the port. The port on the back table was flushed with heparinized saline and then attached to the catheter tubing. An adapter was fastened to the actual port site over the tubing. The port easily had fit snug into the pocket. A subcutaneous tunneler was placed along the open end of the tubing and brought out through the separate stab incision. Fluoroscopic guidance confirmed no kinking along the tubing and the port site. Next, the J-wire was exchanged for a catheter sheath for which the tubing was cut to 23 cm and then advanced through the catheter sheath. The Peel-away sheath was then removed and the tubing was secured at the junction of the superior vena cava as well as the right atrium. The tubing was found to be crossed however functional. This was all done under fluoroscopic guidance under 1 seconds. Easy pullback as well as return and aspiration was obtained of the port site. The skin incision was closed using layers using 3-0 Vicryl for the subcu followed by 4-0 Monocryl in a running subcuticular fashion. At the stick site this was also reapproximated using 4-0 Monocryl. The incisions were covered with Optifoam, The skin was cleansed and Exofin liquid glue was applied. Optifoam dressing was placed over the port site. A total of 30 mL of local anesthetic was placed. At the end of the procedure, needle, sponge, and instrument count was verified correct by surgical garment inspector. Heparin lock of 5 mL was placed. The patient was awoken and pain free and taken to the second stage postanesthesia care unit. The patient tolerated the procedure well.
[2023-08-30 23:44] LABS: Glucose,Whole Blood 92 mg/dL (70-110)
[2023-08-31] MEDS: INSULIN ASPART (NovoLOG) 100 UNIT/ML VIAL SQ SCH ×5 (00:12→21:37)
[2023-08-31] MEDS: 0.9% NACL WITH KCL 40 MEQ/L 1,000 ML IV SCH ×3 (00:13→21:00)
[2023-08-31] MEDS: PANTOPRAZOLE 40 MG/10 ML VIAL IVP SCH ×3 (00:27→21:38)
[2023-08-31] MEDS: HEPARIN SODIUM,PORCINE 5,000 UNIT/ML 1 ML VIAL SQ SCH ×3 (00:27→21:38)
--- NOTE | 2023-08-31 04:37 | P.PN ---
Subjective Progress Note Date: 08/30/23 This is a 68-year-old female who was admitted with intractable nausea or vomiting underwent EGD showing gastric outlet obstruction with stenosis and scheduled to undergo repeat EGD with dilatation today with general surgery. Patient did undergo HIDA scan and gallbladder was not visualized and suggestive of cholecystitis and is being scheduled for possible acute laparoscopic cholecystectomy. Cardiology has been consulted for clearance. Oncology following as patient has significant history of breast cancer with metastasis. Patient is currently afebrile and continues to report nausea and not tolerating much appetite. Patient is being started on clear liquids. 08/22/2023 Patient is seen in follow-up this morning currently nothing by mouth as patient was scheduled to undergo laparoscopic cholecystectomy although potassium was found to be extremely low as well as magnesium and currently being replaced. Patient has had IV infiltrated with no IV access currently awaiting a midline is patient is a difficult stick and multiple attempts with no success. Patient undergoing oral replacement as well until midline is replaced. Patient is currently afebrile with no reports of significant nausea and no vomiting today. Will follow-up on repeat labs although unsure if patient is going to have surgery today due to electrolyte abnormalities. 08/23/2023 Patient is seen in follow-up this morning scheduled to undergo laparoscopic cholecystectomy. Electrolytes have been replaced and within normal limits including magnesium and potassium. Patient is afebrile with reports of chest pain or shortness of breath. Patient continues to report some nausea and mild abdominal discomfort. Per surgery pathology came back with breast cancer metastasis possibly to the stomach and there is concerns of progression of disease causing this abdominal pain in associated symptoms. General surgery awaiting to discuss with oncology about treatment plans moving forward. Patient continues to be willing to proceed with gallbladder removal. Patient will remain nothing by mouth for now. 08/24/2023 Patient is currently lying in the bed. Awake alert and oriented. Pain is fairly controlled. Patient is status post laparoscopic cholecystectomy and lysis of adhesions. Postoperative day 1 Patient is able to pass flatus but no bowel movement yet. Denies any chest pain or shortness of breath. Patient has been afebrile. Currently on room air. Laboratory data showed WBC 9.7 hemoglobin 7.3 and platelets 206 Sodium 142 potassium 4.2 chloride 104 BUN 7.3 and creatinine 0.7 and magnesium 1.4 08/25/2023 Postoperative day 2 Patient is lying in the bed. Awake alert and oriented x 3. No complaints of chest pain or shortness of breath. Abdominal pain is improved. Patient is able to pass flatus. No bowel movement yet. Patient did have episode of vomiting. Afebrile. Currently denies any nausea. Currently on IV hydration with normal saline with KCl and antibiotics of Zosyn. 08/26/2023 Patient is seen and evaluated in follow-up today is postop day 3 status post laparoscopic cholecystectomy. Patient continues with some abdominal discomfort along with nausea and vomiting maintained on clear liquids unable to tolerate. Patient also has Compazine and will add as needed Reglan. Patient is continued on Zosyn although will discontinue and monitor off antibiotics. Patient is afebrile with no reports of chest pain and shortness of breath. Patient is weak and reports has been getting up to the bathroom. Patient needs encouragement getting out of the bed and will have physical therapy evaluate the patient 08/27/2023 Patient is seen and evaluated in follow-up today reports to having continuous nausea with vomiting reports some minimal improvement of vomiting although unable to tolerate any oral intake. Oncology along with general surgery following a discussion of possible TPN to be initiated as patient has not had any oral nutrition and unable to tolerate. Most likely secondary to metastatic disease and patient will need enteral nutrition. Patient apparently had an ateam called for hematemesis although does not appear to have any blood noted in the vomit hemoglobin was slightly low and a unit of PRBCs was ordered. Follow- up labs from this morning show a hemoglobin of 10.2 and there is no active bleeding noted. Sodium improved at 138 with a potassium of 4.0, current creatinine is 0.53. Patient continued on gentle IV hydration and magnesium is 1.3 and being replaced per protocol. Oncology following as well discussing possible oral chemo meds during hospitalization to alleviate some of the symptoms have been chronically ongoing and patient is agreeable to continued care. Will plan for PICC line and consult dietitian. Patient has been encouraged to increase activity as tolerated. 08/28/2023 Patient is seen in follow-up today continues to report nausea with vomiting and inability to tolerate oral intake. Patient is continued on clears asking for an advancement in diet although continues with vomiting. Patient also took one dose of chemotherapy medication orally and had a few episodes of diarrhea and refusing to take another dose at this time. Will try antidiarrheals along with continued antinausea medications. Attempted to obtain a PICC line and per Dr. Michele, vein was occluded recommending a central line. Patient is only able to use the right side she has previous history of breast cancer and unable to use the left side. Will obtain a venous Doppler with concerns of this occlusion to rule out a DVT. Will consider possible MediPort of which Gen. surgery can place and will consult vascular surgery and appreciate input recommendations and possible PICC line reevaluation. Patient is currently afebrile with no reports of chest pain or shortness of breath. Patient has been getting up to the bathroom. 08/29/2023 Patient is seen and examined this morning with oncology and general surgery following. Patient continues to have nausea and vomiting currently nothing by mouth as patient was tentatively scheduled to receive a PICC line and having continued nausea and vomiting although plan now is for patient to receive a MediPort with general surgery tomorrow. Patient to continue clear diet as tolerated and will be nothing by mouth at midnight for the procedure. Patient will likely need to initiate TPN after Mediport okay to use. Oncology following as well and agreeable with this plan. Patient is afebrile with no reported chest pain or shortness of breath. Sister at the bedside with questions and concerns were answered to the best of our ability. 08/30/2023 Patient seen and evaluated in follow-up this morning currently nothing by mouth as patient is scheduled to undergo MediPort with general surgery today. Dietary following an awaiting to initiate TPN once access is obtained. Case management following as well and continuing to work on TPN for the outpatient setting. Also discussed with dietary and patient will need to be initiated on TPN and monitored over the next couple of days given patient's significant malnutrition and prolonged hospitalization. Patient is extremely anxious to go home and asking if after receiving the Mediport she can go home. Patient's diet has been advanced per surgery although patient continues with nausea and vomiting and electrolyte imbalance. Encouraged oral intake with small frequent meals and will continue antinausea medication. Patient is currently afebrile denies chest pain or shortness of breath. Patient denies abdominal pain and reports has been getting up with no significant weakness. Overall prognosis remains extremely guarded at this time. Review of systems: Constitutional: No reports of fatigue, no fever, or chills Cardiovascular: No reports of chest pain or palpitations Respiratory: No reports of shortness of breath or cough GI: reports of nausea, no reports of vomiting today, reports not much of an appetite, reports episodes of diarrhea that has improved : No reports of dysuria or retention Neurovascular: reports of generalized weakness All medications have been reviewed PHYSICAL EXAMINATION: GENERAL: The patient is alert and oriented x4, Well developed, thin built, appears older than stated age, unkempt HEENT: Pupils are round and equally reacting to light. EOMI. no scleral icterus. No conjunctival pallor. Normocephalic, atraumatic. No pharyngeal erythema. No thyromegaly. CARDIOVASCULAR: S1 and S2 muffled PULMONARY: diminished breath sounds bilaterally with no wheezing or rhonchi noted. ABDOMEN: soft. Non-tender on exam . non-distended, normoactive bowel sounds. No palpable organomegaly. MUSCULOSKELETAL: No joint swelling or deformity. EXTREMITIES: No cyanosis, clubbing, or pedal edema. NEUROLOGICAL: Gross neurological examination did not reveal any focal deficits. Diffuse weakness SKIN: No rashes. Assessment: Acute cholecystitis noted on HIDA scan status post laparoscopic cholecystectomy on 08/23/2023 Intractable nausea and vomiting, status post EGD, with gastric outlet obstruction. 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 Status post laparoscopic cholecystectomy History metastatic breast cancer as well as ovarian cancer, pathology from biopsies an EGD were positive for metastatic lobular breast carcinoma with concerns of disease progression to the stomach Hypertension Hyperlipidemia History of known right bundle branch block Moderate protein calorie malnutrition with BMI of 18.3 GI prophylaxis DVT prophylaxis Full code Plan: Recommend to continue with current medications and management per general surgery services. Patient is status post laparoscopic cholecystectomy and continues to have extreme nausea with vomiting and inability to tolerate oral intake. Multiple medications being adjusted with antinausea medications. Patient is currently nothing by mouth and diet has been resumed regular or surgery after patient is to receive MediPort. Dietary following and pending at this time is patient will be initiated on TPN. Dietary recommending monitoring once initiating the TPN over the next few days as patient has had significant prolonged hospitalization with malnutrition. Patient is asking if she can go home after the Mediport was placed. Patient was started on oral chemo in hopes to alleviate her nausea and vomiting symptoms. Patient having moderate diarrhea and refused today's dose. Patient would like to proceed to alleviate some of the symptoms. Patient is status post EGD with dilatation repeated for pyloric stenosis with Naderson's esophagitis and noted to have esophageal ulcer with gastritis and hiatal hernia. Patient's pathology report from initial EGD biopsy positive for metastatic lobular breast carcinoma and high suspicion for stomach cancer Encouraged increased activity as tolerated as patient has had prolonged hospitalization and significantly weak. Encouraged patient to sit up in the chair and out of the bed more often Follow-up on repeat labs, replace electrolytes per protocol. Case management following and patient would like palliative care and referral was placed. Working on potentially requiring outpatient TPN for continued nutrition Due to multiple complex medical issues, overall prognosis is extremely poor and guarded Will consider discharge planning early next week once outpatient arrangements have been made. The impression and plan of care has been dictated by Dana Cerda, nurse practitioner as directed. Dr. Neil MD I have performed a history and examination and MDM of this patient, discussed the same with the dictator, and agree with the dictator's assessment and plan as written ,documented as a scribe. Based on total visit time, I have performed more than 50% of the visit. Any additional findings or plans will be noted. Objective - Vital Signs Vital signs: Vital Signs Temp 97.8 F 08/30/23 23:45 Pulse 107 H 08/31/23 01:02 Resp 16 08/30/23 23:45 BP 156/85 08/31/23 01:02 Pulse Ox 99 08/31/23 01:02 FiO2 Intake & Output 08/30/23 08/30/23 08/31/23 06:59 18:59 06:59 Intake Total 750 Output Total 5 Balance 745 Weight 45.359 kg Intake: IV 750 Output: Estimated Blood Loss 5 Other: Voiding Method Toilet # Voids 1 5 - Labs CBC & Chem 7: 08/30/23 05:27 08/30/23 05:27 Labs: Abnormal Lab Results - Last 24 Hours (Table) 08/30/23 08/30/23 Range/Units 05:27 05:27 RBC 3.11 L (3.80-5.40) m/uL Hgb 9.2 L (11.4-16.0) gm/dL Hct 28.1 L (34.0-46.0) % Lymphocytes # 0.7 L (1.0-4.8) k/uL Sodium 136 L (137-145) mmol/L Chloride 108 H (98-107) mmol/L Carbon Dioxide 17 L (22-30) mmol/L BUN 3 L (7-17) mg/dL Glucose 102 H (74-99) mg/dL Calcium 8.0 L (8.4-10.2) mg/dL Total Protein 5.2 L (6.3-8.2) g/dL Albumin 2.4 L (3.5-5.0) g/dL
[2023-08-31 05:45] LABS: Glucose,Whole Blood 187 mg/dL (70-110)
[2023-08-31] MEDS: LOPERAMIDE 2 MG CAP PO PRN (06:30)
--- NOTE | 2023-08-31 07:08 | XR ---
EXAMINATION TYPE: XR chest 1V confirm line plcmt DATE OF EXAM: 08/31/2023 1:11 AM CLINICAL INDICATION:Female, 68 years old with history of Mediport placement; [facility] COMPARISON: Chest radiographs from 08/22/2023 TECHNIQUE: XR chest 1V confirm line plcmt Frontal view of the chest. FINDINGS: Lungs/Pleura: There is no evidence of pleural effusion, focal consolidation, or pneumothorax. Pulmonary vascularity: Unremarkable. Heart/mediastinum: Cardiomediastinal silhouette is unremarkable. Musculoskeletal: No acute osseous pathology. Other findings: None Lines/Tubes: [id number] projecting over the right hemithorax with distal tip projecting over the superior vena cava. IMPRESSION: 1. No acute cardiopulmonary disease/process. 2. Right chest wall [id number] with tip in appropriate position.
--- NOTE | 2023-08-31 08:04 | FL ---
EXAMINATION TYPE: FL guided central line placemt Intraoperative/procedural fluoroscopic services were provided. Total fluoroscopy time is 0.6 seconds with a total of 1 submitted images to PACS. Please s ee the operative/procedural note for further details. DAP: 0.0304 Gycm2
[2023-08-31] MEDS: lisinopriL 20 MG TAB PO SCH (08:51)
[2023-08-31] MEDS: ALPELISIB PO SCH (08:51)
[2023-08-31 11:28] LABS: Glucose,Whole Blood 206 mg/dL (70-110)
--- NOTE | 2023-08-31 11:30 | P.PN ---
Progress Note - Text Progress Note Date: 08/31/23 HISTORY OF PRESENT ILLNESS: Patient is postop day #7 status post laparoscopic cholecystectomy and lysis of adhesions. POD #1 Mediport Insertion. Also, status post EGD with dilation 2 for pyloric stenosis. Patient reports no vomiting. However she has not really been eating. PHYSICAL EXAM: VITAL SIGNS: Reviewed GENERAL: Well-developed in no acute distress. HEENT: No sclera icterus. Extraocular movements grossly intact. Moist buccal mucosa. Head is atraumatic, normocephalic. Hears conversational speech. No nasal drainage. NECK: Supple without lymphadenopathy. CHEST: Non-labored respirations and equal bilateral excursions. CARDIOVASCULAR: Palpable 2+ radial pulses. ABDOMEN: Soft. Nondistended. Incision sites clean dry and intact MUSCULOSKELETAL: No clubbing or cyanosis. NEUROLOGIC: No focal or lateralizing signs. Cranial nerves II through XII grossly intact. PSYCH: Appropriate affect. Alert and oriented to person, place and time. SKIN: Well perfused. Good skin turgor. ASSESSMENT: 1. Acute hydrops cholecystitis due to cystic duct obstruction from gallstones 2. Metastatic breast cancer 3. Hypertensive heart disease 4. Intractable nausea vomiting 5. Gastric outlet syndrome 6. Gastroesophageal reflux disease with erosive esophagitis 7. Pyloric stenosis due to metastatic disease 8. Depressive disorder 9. Peritoneal ascites suspicious for metastatic malignancy 10. Intra-abdominal adhesions greater omentum to abdominal wall 11. Nausea and vomiting likely due to the metastatic breast cancer in the stomach PLAN: -Regular Diet -Pain and Nausea Control -PT/OT -Onc recs
[2023-08-31] MEDS: ACETAMINOPHEN TAB 325 MG TAB PO PRN (13:25)
--- NOTE | 2023-08-31 14:42 | P.PN ---
Subjective Progress Note Date: 08/31/23 This is a 68-year-old female who was admitted with intractable nausea or vomiting underwent EGD showing gastric outlet obstruction with stenosis and scheduled to undergo repeat EGD with dilatation today with general surgery. Patient did undergo HIDA scan and gallbladder was not visualized and suggestive of cholecystitis and is being scheduled for possible acute laparoscopic cholecystectomy. Cardiology has been consulted for clearance. Oncology following as patient has significant history of breast cancer with metastasis. Patient is currently afebrile and continues to report nausea and not tolerating much appetite. Patient is being started on clear liquids. 08/22/2023 Patient is seen in follow-up this morning currently nothing by mouth as patient was scheduled to undergo laparoscopic cholecystectomy although potassium was found to be extremely low as well as magnesium and currently being replaced. Patient has had IV infiltrated with no IV access currently awaiting a midline is patient is a difficult stick and multiple attempts with no success. Patient undergoing oral replacement as well until midline is replaced. Patient is currently afebrile with no reports of significant nausea and no vomiting today. Will follow-up on repeat labs although unsure if patient is going to have acosta rgery today due to electrolyte abnormalities. 08/23/2023 Patient is seen in follow-up this morning scheduled to undergo laparoscopic cholecystectomy. Electrolytes have been replaced and within normal limits including magnesium and potassium. Patient is afebrile with reports of chest pain or shortness of breath. Patient continues to report some nausea and mild abdominal discomfort. Per surgery pathology came back with breast cancer metastasis possibly to the stomach and there is concerns of progression of disease causing this abdominal pain in associated symptoms. General surgery awaiting to discuss with oncology about treatment plans moving forward. Patient continues to be willing to proceed with gallbladder removal. Patient will remain nothing by mouth for now. 08/24/2023 Patient is currently lying in the bed. Awake alert and oriented. Pain is fairly controlled. Patient is status post laparoscopic cholecystectomy and lysis of adhesions. Postoperative day 1 Patient is able to pass flatus but no bowel movement yet. Denies any chest pain or shortness of breath. Patient has been afebrile. Currently on room air. Laboratory data showed WBC 9.7 hemoglobin 7.3 and platelets 206 Sodium 142 potassium 4.2 chloride 104 BUN 7.3 and creatinine 0.7 and magnesium 1.4 08/25/2023 Postoperative day 2 Patient is lying in the bed. Awake alert and oriented x 3. No complaints of ch est pain or shortness of breath. Abdominal pain is improved. Patient is able to pass flatus. No bowel movement yet. Patient did have episode of vomiting. Afebrile. Currently denies any nausea. Currently on IV hydration with normal saline with KCl and antibiotics of Zosyn. 08/26/2023 Patient is seen and evaluated in follow-up today is postop day 3 status post laparoscopic cholecystectomy. Patient continues with some abdominal discomfort along with nausea and vomiting maintained on clear liquids unable to tolerate. Patient also has Compazine and will add as needed Reglan. Patient is continued on Zosyn although will discontinue and monitor off antibiotics. Patient is afebrile with no reports of chest pain and shortness of breath. Patient is weak and reports has been getting up to the bathroom. Patient needs encouragement getting out of the bed and will have physical therapy evaluate the patient 08/27/2023 Patient is seen and evaluated in follow-up today reports to having continuous nausea with vomiting reports some minimal improvement of vomiting although unable to tolerate any oral intake. Oncology along with general surgery following a discussion of possible TPN to be initiated as patient has not had any oral nutrition and unable to tolerate. Most likely secondary to metastatic disease and patient will need enteral nutrition. Patient apparently had an ateam called for hematemesis although does not appear to have any blood noted in the vomit hemoglobin was slightly low and a unit of PRBCs was ordered. Follow- up labs from this morning show a hemoglobin of 10.2 and there is no active bleeding noted. Sodium improved at 138 with a potassium of 4.0, current c reatinine is 0.53. Patient continued on gentle IV hydration and magnesium is 1.3 and being replaced per protocol. Oncology following as well discussing possible oral chemo meds during hospitalization to alleviate some of the symptoms have been chronically ongoing and patient is agreeable to continued care. Will plan for PICC line and consult dietitian. Patient has been encouraged to increase activity as tolerated. 08/28/2023 Patient is seen in follow-up today continues to report nausea with vomiting and inability to tolerate oral intake. Patient is continued on clears asking for an advancement in diet although continues with vomiting. Patient also took one dose of chemotherapy medication orally and had a few episodes of diarrhea and refusing to take another dose at this time. Will try antidiarrheals along with continued antinausea medications. Attempted to obtain a PICC line and per Dr. Michele, vein was occluded recommending a central line. Patient is only able to use the right side she has previous history of breast cancer and unable to use the left side. Will obtain a venous Doppler with concerns of this occlusion to rule out a DVT. Will consider possible MediPort of which Gen. surgery can place and will consult vascular surgery and appreciate input recommendations and possible PICC line reevaluation. Patient is currently afebrile with no reports of chest pain or shortness of breath. Patient has been getting up to the bathroom. 08/29/2023 Patient is seen and examined this morning with oncology and general surgery following. Patient continues to have nausea and vomiting currently nothing by mouth as patient was tentatively scheduled to receive a PICC line and having continued nausea and vomiting although plan now is for patient to receive a MediPort with general surgery tomorrow. Patient to continue clear diet as tolerated and will be nothing by mouth at midnight for the procedure. Patient will likely need to initiate TPN after Mediport okay to use. Oncology following as well and agreeable with this plan. Patient is afebrile with no reported chest pain or shortness of breath. Sister at the bedside with questions and concerns were answered to the best of our ability. 08/30/2023 Patient seen and evaluated in follow-up this morning currently nothing by mouth as patient is scheduled to undergo MediPort with general surgery today. Dietary following an awaiting to initiate TPN once access is obtained. Case management following as well and continuing to work on TPN for the outpatient setting. Also discussed with dietary and patient will need to be initiated on TPN and monitored over the next couple of days given patient's significant malnutrition and prolonged hospitalization. Patient is extremely anxious to go home and asking if after receiving the Mediport she can go home. Patient's diet has been advanced per surgery although patient continues with nausea and vomiting and electrolyte imbalance. Encouraged oral intake with small frequent meals and will continue antinausea medication. Patient is currently afebrile denies chest pain or shortness of breath. Patient denies abdominal pain and reports has been getting up with no significant weakness. Overall prognosis remains extremely guarded at this time. 08/31/2023 Patient is evaluated today sitting up in bed. Patient is postoperative day #7 laparoscopic cholecystectomy and lysis of adhesions. Patient also had an EGD with dilation 2 for pyloric stenosis. Family at the bedside. She does report improvement nausea and was able to tolerate breakfast at this time. She states that her oral medications are mostly making her nauseous would recommend to take her medications with a small meal like crackers or toast etc instead of on an empty stomach. She can also time her antiemetics. Patient underwent Mediport placement yesterday for initiation of TPN. No labs from today available for review. Review of systems: Constitutional: No reports of fatigue, no fever, or chills Cardiovascular: No reports of chest pain or palpitations Respiratory: No reports of shortness of breath or cough GI: reports of nausea, no reports of vomiting today, reports not much of an appetite, reports episodes of diarrhea that has improved : No reports of dysuria or retention Neurovascular: reports of generalized weakness All medications have been reviewed PHYSICAL EXAMINATION: GENERAL: The patient is alert and oriented x4, Well developed, thin built, appears older than stated age, unkempt HEENT: Pupils are round and equally reacting to light. EOMI. no scleral icterus. No conjunctival pallor. Normocephalic, atraumatic. No pharyngeal erythema. No thyromegaly. CARDIOVASCULAR: S1 and S2 muffled PULMONARY: diminished breath sounds bilaterally with no wheezing or rhonchi noted. ABDOMEN: soft. Non-tender on exam . non-distended, normoactive bowel sounds. No palpable organomegaly. MUSCULOSKELETAL: No joint swelling or deformity. EXTREMITIES: No cyanosis, clubbing, or pedal edema. NEUROLOGICAL: Gross neurological examination did not reveal any focal deficits. Diffuse weakness SKIN: No rashes. Assessment: Acute cholecystitis noted on HIDA scan status post laparoscopic cholecystectomy on 08/23/2023 Intractable nausea and vomiting, status post EGD, with gastric outlet obstruction. 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 Status post laparoscopic cholecystectomy History metastatic breast cancer as well as ovarian cancer, pathology from biopsies an EGD were positive for metastatic lobular breast carcinoma with concerns of disease progression to the stomach Hypertension Hyperlipidemia History of known right bundle branch block Moderate protein calorie malnutrition with BMI of 18.3 GI prophylaxis DVT prophylaxis Full code Plan: Recommend to continue with current medications and management per general surgery services. Patient is status post laparoscopic cholecystectomy and continues to have extreme nausea with vomiting and inability to tolerate oral intake. Multiple medications being adjusted with antinausea medications. Patient is currently nothing by mouth and diet has been resumed regular or surgery after patient is to receive MediPort. Dietary following and pending at this time is patient will be initiated on TPN. Dietary recommending monitoring once initiating the TPN over the next few days as patient has had significant prolonged hospitalization with malnutrition. Patient is asking if she can go home after the Mediport was placed. Patient was started on oral chemo in hopes to alleviate her nausea and vomiting symptoms. Patient having moderate diarrhea and refused today's dose. Patient would like to proceed to alleviate some of the symptoms. Patient is status post EGD with dilatation repeated for pyloric stenosis with Anderson's esophagitis and noted to have esophageal ulcer with gastritis and hiatal hernia. Patient's pathology report from initial EGD biopsy positive for metastatic lobular breast carcinoma and high suspicion for stomach cancer Encouraged increased activity as tolerated as patient has had prolonged hospital ization and significantly weak. Encouraged patient to sit up in the chair and out of the bed more often Follow-up on repeat labs, replace electrolytes per protocol. Case management following and patient would like palliative care and referral was placed. Working on potentially requiring outpatient TPN for continued nutrition Due to multiple complex medical issues, overall prognosis is extremely poor and guarded Will consider discharge planning early next week once outpatient arrangements have been made. The impression and plan of care has been dictated by Savannah Lemus Nurse Practitioner as directed. Dr. Neil MD I have performed a history and physical examination and medical decision making of this patient, discussed the same with the dictator, and agree with the dictators assessment and plan as written, documented as a scribe. Based on total visit time, I have performed more than 50% of this visit. Objective - Vital Signs Vital signs: Vital Signs Temp 98.0 F 08/31/23 07:07 Pulse 91 08/31/23 07:07 Resp 17 08/31/23 07:07 BP 161/88 08/31/23 07:07 Pulse Ox 99 08/31/23 07:07 FiO2 Intake & Output 08/30/23 08/31/23 08/31/23 18:59 06:59 18:59 Intake Total 750 Output Total 5 Balance 745 Weight 45.359 kg Intake: IV 750 Output: Estimated Blood Loss 5 Other: # Voids 5 2 - Labs CBC & Chem 7: 08/30/23 05:27 08/30/23 05:27 Labs: Abnormal Lab Results - Last 24 Hours (Table) 08/31/23 Range/Units 05:43 POC Glucose (mg/dL) 187 H (70-110) mg/dL Assessment and Plan Time with Patient: Less than 30
[2023-08-31 15:30] LABS: African American GFR (CKD) >90 (>60 ml/min/1.73 sqM); Anion Gap 11 mmol/L; Blood Urea Nitrogen 4 mg/dL (7-17); Calcium 7.9 mg/dL (8.4-10.2); Carbon Dioxide 18 mmol/L (22-30); Chloride 108 mmol/L (98-107); Glucose 203 mg/dL (74-99); Magnesium 1.3 mg/dL (1.6-2.3); Non-African American GFR(CKD) >90 (>60 ml/min/1.73 sqM); Phosphorus 2.9 mg/dL (2.5-4.5); Potassium 3.8 mmol/L (3.5-5.1); Sodium 137 mmol/L (137-145)
[2023-08-31] MEDS: MAGNESIUM SULFATE-D5W PMX 1 GM in DEXTROSE/WATER 1 100ML.BAG IVPB SCH ×2 (16:23→23:59)
[2023-08-31 16:25] LABS: Glucose,Whole Blood 177 mg/dL (70-110)
[2023-08-31] MEDS ORDERED: MVI, ADULT NO.4 WITH VIT K 10 ML, TRACE (CONC-1ML/DOSE) 1 ML in AMINO ACID 5%-D15W+LYTE... IV ONE ×3 (17:00)
[2023-08-31] MEDS ORDERED: FAT EMULSION 20% 250 ML in EMPTY BAG 1 BAG IV SCH (17:00)
[2023-08-31 19:58] LABS: Glucose,Whole Blood 209 mg/dL (70-110)
[2023-09-01] MEDS: MAGNESIUM SULFATE-D5W PMX 1 GM in DEXTROSE/WATER 1 100ML.BAG IVPB SCH ×3 (00:09→01:33)
[2023-09-01 05:49] LABS: Glucose,Whole Blood 165 mg/dL (70-110)
[2023-09-01 06:32] LABS: African American GFR (CKD) >90 (>60 ml/min/1.73 sqM); Anion Gap 8 mmol/L; Blood Urea Nitrogen 5 mg/dL (7-17); Calcium 7.8 mg/dL (8.4-10.2); Carbon Dioxide 21 mmol/L (22-30); Chloride 106 mmol/L (98-107); Glucose 165 mg/dL (74-99); Magnesium 1.9 mg/dL (1.6-2.3); Non-African American GFR(CKD) >90 (>60 ml/min/1.73 sqM); Phosphorus 2.2 mg/dL (2.5-4.5); Potassium 2.8 mmol/L (3.5-5.1); Sodium 135 mmol/L (137-145)
[2023-09-01] MEDS: INSULIN ASPART (NovoLOG) 100 UNIT/ML VIAL SQ SCH ×4 (06:40→21:37)
[2023-09-01] MEDS ORDERED: MAGNESIUM SULFATE-D5W PMX 1 GM in DEXTROSE/WATER 1 100ML.BAG IVPB ONE (08:00)
[2023-09-01] MEDS ORDERED: POTASSIUM CHLORIDE 20 MEQ in WATER FOR INJECTION 1 100ML.BAG IVPB SCH (08:00)
[2023-09-01] MEDS: POTASSIUM CHLORIDE ER 20 MEQ TAB.ER PO SCH ×3 (08:33→11:58)
[2023-09-01] MEDS: lisinopriL 20 MG TAB PO SCH (08:33)
[2023-09-01] MEDS: ALPELISIB PO SCH (08:33)
[2023-09-01] MEDS: PANTOPRAZOLE 40 MG/10 ML VIAL IVP SCH ×2 (08:33→21:37)
[2023-09-01] MEDS: HEPARIN SODIUM,PORCINE 5,000 UNIT/ML 1 ML VIAL SQ SCH ×2 (08:33→21:37)
[2023-09-01] MEDS: ONDANSETRON 4 MG/2 ML VIAL IVP PRN ×2 (10:30→19:41)
--- NOTE | 2023-09-01 11:10 | P.PN ---
Subjective Progress Note Date: 09/01/23 Principal diagnosis: Metastatic breast cancer Patient complains of fatigue. Says she is not sleeping well here. No significant abdominal pain. Tolerating diet. Objective - Vital Signs Vital signs: Vital Signs Temp 97.7 F 09/01/23 07:39 Pulse 76 09/01/23 08:00 Resp 18 09/01/23 08:00 BP 119/76 09/01/23 07:39 Pulse Ox 98 09/01/23 07:39 FiO2 Intake & Output 08/31/23 09/01/23 09/01/23 18:59 06:59 18:59 Intake Total 187 Balance 187 Intake: Intake, IV Titration 187 Amount Mvi, Adult No.4 with Vit 187 K 10 ml Trace (Conc-1Ml/ Dose) 1 ml In Amino Acid 5%-D15w+Lytes*E* 1,000 ml @ 30 mls/hr IV .Q24H ONE Rx#:[id number] Other: Voiding Method Toilet Toilet # Voids 4 4 - Exam Abdomen: Soft, nontender, nondistended - Labs CBC & Chem 7: 08/30/23 05:27 09/01/23 05:59 Labs: Abnormal Lab Results - Last 24 Hours (Table) 08/31/23 08/31/23 08/31/23 Range/Units 05:49 11:27 16:23 Sodium (137-145) mmol/L Potassium (3.5-5.1) mmol/L Chloride 108 H (98-107) mmol/L Carbon Dioxide 18 L (22-30) mmol/L BUN 4 L (7-17) mg/dL Glucose 203 H (74-99) mg/dL POC Glucose (mg/dL) 206 H 177 H (70-110) mg/dL Calcium 7.9 L (8.4-10.2) mg/dL Phosphorus (2.5-4.5) mg/dL Magnesium 1.3 L (1.6-2.3) mg/dL 08/31/23 08/31/23 09/01/23 Range/Units 19:57 22:35 05:48 Sodium (137-145) mmol/L Potassium (3.5-5.1) mmol/L Chloride (98-107) mmol/L Carbon Dioxide (22-30) mmol/L BUN (7-17) mg/dL Glucose (74-99) mg/dL POC Glucose (mg/dL) 209 H 165 H (70-110) mg/dL Calcium (8.4-10.2) mg/dL Phosphorus (2.5-4.5) mg/dL Magnesium 1.5 L (1.6-2.3) mg/dL 09/01/23 Range/Units 05:59 Sodium 135 L (137-145) mmol/L Potassium 2.8 L (3.5-5.1) mmol/L Chloride (98-107) mmol/L Carbon Dioxide 21 L (22-30) mmol/L BUN 5 L (7-17) mg/dL Glucose 165 H (74-99) mg/dL POC Glucose (mg/dL) (70-110) mg/dL Calcium 7.8 L (8.4-10.2) mg/dL Phosphorus 2.2 L (2.5-4.5) mg/dL Magnesium (1.6-2.3) mg/dL Assessment and Plan (1) Breast cancer metastasized to multiple sites Narrative/Plan: Continue diet as tolerated. Mediport placed for palliative chemotherapy. Discharge tomorrow. Current Visit: Yes Status: Chronic Priority: High Code(s): C50.919 - MALIGNANT NEOPLASM OF UNSP SITE OF UNSPECIFIED FEMALE BREAST SNOMED Code(s): 227987658
[2023-09-01 11:50] LABS: Glucose,Whole Blood 156 mg/dL (70-110)
[2023-09-01] MEDS ORDERED: MVI, ADULT NO.4 WITH VIT K 10 ML, TRACE (CONC-1ML/DOSE) 1 ML in AMINO ACID 5%-D15W+LYTE... IV SCH ×3 (17:00)
[2023-09-01 17:02] LABS: Glucose,Whole Blood 146 mg/dL (70-110)
[2023-09-01] MEDS: LOPERAMIDE 2 MG CAP PO PRN (17:03)
[2023-09-01] MEDS: POTASSIUM BICARBONATE/CIT AC 20 MEQ TABLET.EFF PO SCH ×3 (17:03→18:57)
--- NOTE | 2023-09-01 18:38 | P.PN ---
Subjective Progress Note Date: 09/01/23 This is a 68-year-old female who was admitted with intractable nausea or vomiting underwent EGD showing gastric outlet obstruction with stenosis and scheduled to undergo repeat EGD with dilatation today with general surgery. Patient did undergo HIDA scan and gallbladder was not visualized and suggestive of cholecystitis and is being scheduled for possible acute laparoscopic cholecystectomy. Cardiology has been consulted for clearance. Oncology following as patient has significant history of breast cancer with metastasis. Patient is currently afebrile and continues to report nausea and not tolerating much appetite. Patient is being started on clear liquids. 08/22/2023 Patient is seen in follow-up this morning currently nothing by mouth as patient was scheduled to undergo laparoscopic cholecystectomy although potassium was found to be extremely low as well as magnesium and currently being replaced. Patient has had IV infiltrated with no IV access currently awaiting a midline is patient is a difficult stick and multiple attempts with no success. Patient undergoing oral replacement as well until midline is replaced. Patient is currently afebrile with no reports of significant nausea and no vomiting today. Will follow-up on repeat labs although unsure if patient is going to have acosta rgery today due to electrolyte abnormalities. 08/23/2023 Patient is seen in follow-up this morning scheduled to undergo laparoscopic cholecystectomy. Electrolytes have been replaced and within normal limits including magnesium and potassium. Patient is afebrile with reports of chest pain or shortness of breath. Patient continues to report some nausea and mild abdominal discomfort. Per surgery pathology came back with breast cancer metastasis possibly to the stomach and there is concerns of progression of disease causing this abdominal pain in associated symptoms. General surgery awaiting to discuss with oncology about treatment plans moving forward. Patient continues to be willing to proceed with gallbladder removal. Patient will remain nothing by mouth for now. 08/24/2023 Patient is currently lying in the bed. Awake alert and oriented. Pain is fairly controlled. Patient is status post laparoscopic cholecystectomy and lysis of adhesions. Postoperative day 1 Patient is able to pass flatus but no bowel movement yet. Denies any chest pain or shortness of breath. Patient has been afebrile. Currently on room air. Laboratory data showed WBC 9.7 hemoglobin 7.3 and platelets 206 Sodium 142 potassium 4.2 chloride 104 BUN 7.3 and creatinine 0.7 and magnesium 1.4 08/25/2023 Postoperative day 2 Patient is lying in the bed. Awake alert and oriented x 3. No complaints of ch est pain or shortness of breath. Abdominal pain is improved. Patient is able to pass flatus. No bowel movement yet. Patient did have episode of vomiting. Afebrile. Currently denies any nausea. Currently on IV hydration with normal saline with KCl and antibiotics of Zosyn. 08/26/2023 Patient is seen and evaluated in follow-up today is postop day 3 status post laparoscopic cholecystectomy. Patient continues with some abdominal discomfort along with nausea and vomiting maintained on clear liquids unable to tolerate. Patient also has Compazine and will add as needed Reglan. Patient is continued on Zosyn although will discontinue and monitor off antibiotics. Patient is afebrile with no reports of chest pain and shortness of breath. Patient is weak and reports has been getting up to the bathroom. Patient needs encouragement getting out of the bed and will have physical therapy evaluate the patient 08/27/2023 Patient is seen and evaluated in follow-up today reports to having continuous nausea with vomiting reports some minimal improvement of vomiting although unable to tolerate any oral intake. Oncology along with general surgery following a discussion of possible TPN to be initiated as patient has not had any oral nutrition and unable to tolerate. Most likely secondary to metastatic disease and patient will need enteral nutrition. Patient apparently had an ateam called for hematemesis although does not appear to have any blood noted in the vomit hemoglobin was slightly low and a unit of PRBCs was ordered. Follow- up labs from this morning show a hemoglobin of 10.2 and there is no active bleeding noted. Sodium improved at 138 with a potassium of 4.0, current c reatinine is 0.53. Patient continued on gentle IV hydration and magnesium is 1.3 and being replaced per protocol. Oncology following as well discussing possible oral chemo meds during hospitalization to alleviate some of the symptoms have been chronically ongoing and patient is agreeable to continued care. Will plan for PICC line and consult dietitian. Patient has been encouraged to increase activity as tolerated. 08/28/2023 Patient is seen in follow-up today continues to report nausea with vomiting and inability to tolerate oral intake. Patient is continued on clears asking for an advancement in diet although continues with vomiting. Patient also took one dose of chemotherapy medication orally and had a few episodes of diarrhea and refusing to take another dose at this time. Will try antidiarrheals along with continued antinausea medications. Attempted to obtain a PICC line and per Dr. Michele, vein was occluded recommending a central line. Patient is only able to use the right side she has previous history of breast cancer and unable to use the left side. Will obtain a venous Doppler with concerns of this occlusion to rule out a DVT. Will consider possible MediPort of which Gen. surgery can place and will consult vascular surgery and appreciate input recommendations and possible PICC line reevaluation. Patient is currently afebrile with no reports of chest pain or shortness of breath. Patient has been getting up to the bathroom. 08/29/2023 Patient is seen and examined this morning with oncology and general surgery following. Patient continues to have nausea and vomiting currently nothing by mouth as patient was tentatively scheduled to receive a PICC line and having continued nausea and vomiting although plan now is for patient to receive a MediPort with general surgery tomorrow. Patient to continue clear diet as tolerated and will be nothing by mouth at midnight for the procedure. Patient will likely need to initiate TPN after Mediport okay to use. Oncology following as well and agreeable with this plan. Patient is afebrile with no reported chest pain or shortness of breath. Sister at the bedside with questions and concerns were answered to the best of our ability. 08/30/2023 Patient seen and evaluated in follow-up this morning currently nothing by mouth as patient is scheduled to undergo MediPort with general surgery today. Dietary following an awaiting to initiate TPN once access is obtained. Case management following as well and continuing to work on TPN for the outpatient setting. Also discussed with dietary and patient will need to be initiated on TPN and monitored over the next couple of days given patient's significant malnutrition and prolonged hospitalization. Patient is extremely anxious to go home and asking if after receiving the Mediport she can go home. Patient's diet has been advanced per surgery although patient continues with nausea and vomiting and electrolyte imbalance. Encouraged oral intake with small frequent meals and will continue antinausea medication. Patient is currently afebrile denies chest pain or shortness of breath. Patient denies abdominal pain and reports has been getting up with no significant weakness. Overall prognosis remains extremely guarded at this time. 08/31/2023 Patient is evaluated today sitting up in bed. Patient is postoperative day #7 laparoscopic cholecystectomy and lysis of adhesions. Patient also had an EGD with dilation 2 for pyloric stenosis. Family at the bedside. She does report improvement nausea and was able to tolerate breakfast at this time. She states that her oral medications are mostly making her nauseous would recommend to take her medications with a small meal like crackers or toast etc instead of on an empty stomach. She can also time her antiemetics. Patient underwent Mediport placement yesterday for initiation of TPN. No labs from today available for review. 09/01/2023 Patient evaulated today postoperative day #8 laproscopic cholecystectomy. Patient having nausea and vomiting today and unable to tolerate the oral potassium supplementation she states she had vomited it up and that it also got stuck in her throat. Mediport in place. Patient has been started on TPN. Dietary to follow up tomorrow. Potassium was 2.8 we will repeat this afternoon and give K-Lyte which may be better tolerated. Review of systems: Constitutional: No reports of fatigue, no fever, or chills Cardiovascular: No reports of chest pain or palpitations Respiratory: No reports of shortness of breath or cough GI: reports of nausea and vomiting, no diarrhea today. : No reports of dysuria or retention Neurovascular: reports of generalized weakness All medications have been reviewed PHYSICAL EXAMINATION: GENERAL: The patient is alert and oriented x4, Well developed, thin built, appears older than stated age, unkempt HEENT: Pupils are round and equally reacting to light. EOMI. no scleral icterus. No conjunctival pallor. Normocephalic, atraumatic. No pharyngeal erythema. No thyromegaly. CARDIOVASCULAR: S1 and S2 muffled PULMONARY: diminished breath sounds bilaterally with no wheezing or rhonchi noted. ABDOMEN: soft. Non-tender on exam . non-distended, normoactive bowel sounds. No palpable organomegaly. MUSCULOSKELETAL: No joint swelling or deformity. EXTREMITIES: No cyanosis, clubbing, or pedal edema. NEUROLOGICAL: Gross neurological examination did not reveal any focal deficits. Diffuse weakness SKIN: No rashes. Mediport in place on upper chest wall, site clean dry and intact. Assessment: Acute cholecystitis noted on HIDA scan status post laparoscopic cholecystectomy on 08/23/2023 Intractable nausea and vomiting, status post EGD, with gastric outlet obstruction. 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 Status post laparoscopic cholecystectomy History metastatic breast cancer as well as ovarian cancer, pathology from biops ies an EGD were positive for metastatic lobular breast carcinoma with concerns of disease progression to the stomach Hypertension Hyperlipidemia History of known right bundle branch block Moderate protein calorie malnutrition with BMI of 18.3 GI prophylaxis DVT prophylaxis Full code Plan: Recommend to continue with current medications and management per general surgery services. Patient is status post laparoscopic cholecystectomy and continues to have extreme nausea with vomiting and inability to tolerate oral intake. Multiple medications being adjusted with antinausea medications. Patient is currently nothing by mouth and diet has been resumed regular or surgery after patient is to receive MediPort. Dietary following and pending at this time is patient will be initiated on TPN. Dietary recommending monitoring once initiating the TPN over the next few days as patient has had significant prolonged hospitalization with malnutrition. Patient is asking if she can go home after the Mediport was placed. Patient was started on oral chemo in hopes to alleviate her nausea and vomiting symptoms. Patient having moderate diarrhea and refused today's dose. Patient would like to proceed to alleviate some of the symptoms. Patient is status post EGD with dilatation repeated for pyloric stenosis with Anderson's esophagitis and noted to have esophageal ulcer with gastritis and hiatal hernia. Patient's pathology report from initial EGD biopsy positive for metastatic lobular breast carcinoma and high suspicion for stomach cancer Encouraged increased activity as tolerated as patient has had prolonged hospitalization and significantly weak. Encouraged patient to sit up in the chair and out of the bed more often Follow-up on repeat labs, replace electrolytes per protocol. Case management following and patient would like palliative care and referral was placed. Working on potentially requiring outpatient TPN for continued nutrition Due to multiple complex medical issues, overall prognosis is extremely poor and guarded Will consider discharge planning early next week once outpatient arrangements have been made. The impression and plan of care has been dictated by Savannah Lemus Nurse Practitioner as directed. Dr. Neil MD I have performed a history and physical examination and medical decision making of this patient, discussed the same with the dictator, and agree with the dictators assessment and plan as written, documented as a scribe. Based on total visit time, I have performed more than 50% of this visit. Objective - Vital Signs Vital signs: Vital Signs Temp 97.7 F 09/01/23 07:39 Pulse 76 09/01/23 08:00 Resp 18 09/01/23 08:00 BP 119/76 09/01/23 07:39 Pulse Ox 98 09/01/23 07:39 FiO2 Intake & Output 08/31/23 09/01/23 09/01/23 18:59 06:59 18:59 Intake Total 187 Balance 187 Intake: Intake, IV Titration 187 Amount Mvi, Adult No.4 with Vit 187 K 10 ml Trace (Conc-1Ml/ Dose) 1 ml In Amino Acid 5%-D15w+Lytes*E* 1,000 ml @ 30 mls/hr IV .Q24H ONE Rx#:[id number] Other: Voiding Method Toilet Toilet # Voids 4 4 - Labs CBC & Chem 7: 08/30/23 05:27 09/01/23 14:31 Labs: Abnormal Lab Results - Last 24 Hours (Table) 08/31/23 08/31/23 08/31/23 Range/Units 05:49 16:23 19:57 Sodium (137-145) mmol/L Potassium (3.5-5.1) mmol/L Chloride 108 H (98-107) mmol/L Carbon Dioxide 18 L (22-30) mmol/L BUN 4 L (7-17) mg/dL Glucose 203 H (74-99) mg/dL POC Glucose (mg/dL) 177 H 209 H (70-110) mg/dL Calcium 7.9 L (8.4-10.2) mg/dL Phosphorus (2.5-4.5) mg/dL Magnesium 1.3 L (1.6-2.3) mg/dL 08/31/23 09/01/23 09/01/23 Range/Units 22:35 05:48 05:59 Sodium 135 L (137-145) mmol/L Potassium 2.8 L (3.5-5.1) mmol/L Chloride (98-107) mmol/L Carbon Dioxide 21 L (22-30) mmol/L BUN 5 L (7-17) mg/dL Glucose 165 H (74-99) mg/dL POC Glucose (mg/dL) 165 H (70-110) mg/dL Calcium 7.8 L (8.4-10.2) mg/dL Phosphorus 2.2 L (2.5-4.5) mg/dL Magnesium 1.5 L (1.6-2.3) mg/dL 09/01/23 Range/Units 11:48 Sodium (137-145) mmol/L Potassium (3.5-5.1) mmol/L Chloride (98-107) mmol/L Carbon Dioxide (22-30) mmol/L BUN (7-17) mg/dL Glucose (74-99) mg/dL POC Glucose (mg/dL) 156 H (70-110) mg/dL Calcium (8.4-10.2) mg/dL Phosphorus (2.5-4.5) mg/dL Magnesium (1.6-2.3) mg/dL Assessment and Plan Time with Patient: Less than 30
[2023-09-01] MEDS: 0.9% NACL WITH KCL 40 MEQ/L 1,000 ML IV SCH ×2 (19:38→21:13)
[2023-09-01 20:14] LABS: Glucose,Whole Blood 174 mg/dL (70-110)
[2023-09-01] MEDS: METOCLOPRAMIDE 5 MG/ML 2 ML VIAL IVP PRN (21:42)
[2023-09-01] MEDS ORDERED: CALCIUM CARBONATE 500 MG CHEWABLE PO PRN (21:49)
[2023-09-02] MEDS ORDERED: MVI, ADULT NO.4 WITH VIT K 10 ML, TRACE (CONC-1ML/DOSE) 1 ML in AMINO ACID 5%-D15W+LYTE... IV SCH ×3
[2023-09-02 05:54] LABS: Glucose,Whole Blood 161 mg/dL (70-110)
[2023-09-02] MEDS: INSULIN ASPART (NovoLOG) 100 UNIT/ML VIAL SQ SCH ×2 (06:35→12:33)
[2023-09-02 07:28] LABS: African American GFR (CKD) >90 (>60 ml/min/1.73 sqM); Anion Gap 8 mmol/L; Blood Urea Nitrogen 10 mg/dL (7-17); Calcium 8.4 mg/dL (8.4-10.2); Carbon Dioxide 24 mmol/L (22-30); Chloride 105 mmol/L (98-107); Glucose 161 mg/dL (74-99); Magnesium 1.8 mg/dL (1.6-2.3); Non-African American GFR(CKD) >90 (>60 ml/min/1.73 sqM); Phosphorus 2.8 mg/dL (2.5-4.5); Sodium 137 mmol/L (137-145)
[2023-09-02] MEDS: ALPELISIB PO SCH (08:57)
[2023-09-02] MEDS: PANTOPRAZOLE 40 MG/10 ML VIAL IVP SCH (08:57)
[2023-09-02] MEDS: lisinopriL 20 MG TAB PO SCH (08:59)
[2023-09-02] MEDS: POTASSIUM BICARBONATE/CIT AC 20 MEQ TABLET.EFF PO SCH ×2 (08:59→11:07)
[2023-09-02] MEDS: HEPARIN SODIUM,PORCINE 5,000 UNIT/ML 1 ML VIAL SQ SCH (09:02)
[2023-09-02] MEDS: ONDANSETRON 4 MG/2 ML VIAL IVP PRN (11:06)
[2023-09-02 11:31] LABS: Glucose,Whole Blood 168 mg/dL (70-110)
--- NOTE | 2023-09-02 13:12 | P.PN ---
Subjective Progress Note Date: 09/02/23 CHIEF COMPLAINT: Nausea vomiting HISTORY OF PRESENT ILLNESS: Patient is status post Mediport placement on 08/30/2023. Patient reports that she was able to tolerate diet. She had no vomiting. Her pain is controlled. She is having loose stools. She is status post laparoscopic cholecystectomy on 08/23/2023. Patient scheduled for possible discharge today. Afebrile. Potassium 3.0 and being replaced PHYSICAL EXAM: VITAL SIGNS: Reviewed GENERAL: Well-developed in no acute distress. HEENT: No sclera icterus. Extraocular movements grossly intact. Moist buccal mucosa. Head is atraumatic, normocephalic. Hears conversational speech. No nasal drainage. NECK: Supple without lymphadenopathy. CHEST: Non-labored respirations and equal bilateral excursions. CARDIOVASCULAR: Palpable 2+ radial pulses. ABDOMEN: Soft. Nondistended. Incision sites clean dry and intact MUSCULOSKELETAL: No clubbing or cyanosis. NEUROLOGIC: No focal or lateralizing signs. Cranial nerves II through XII sarai sly intact. PSYCH: Appropriate affect. Alert and oriented to person, place and time. SKIN: Well perfused. Good skin turgor. ASSESSMENT: 1. Acute hydrops cholecystitis due to cystic duct obstruction from gallstones 2. Metastatic breast cancer 3. Hypertensive heart disease 4. Intractable nausea vomiting 5. Gastric outlet syndrome 6. Gastroesophageal reflux disease with erosive esophagitis 7. Pyloric stenosis due to metastatic disease 8. Depressive disorder 9. Peritoneal ascites suspicious for metastatic malignancy 10. Intra-abdominal adhesions greater omentum to abdominal wall 11. Nausea and vomiting likely due to the metastatic breast cancer in the stomach PLAN: -Patient can be discharged from surgical standpoint when medically cleared -Continue diet as tolerated -Continue supportive care -Continue oncology management Physician Sweatband Separator note has been reviewed by physician. Signing provider agrees with the documented findings, assessment, and plan of care. Objective - Vital Signs Vital signs: Vital Signs Temp 98.7 F 09/02/23 07:16 Pulse 104 H 09/02/23 07:16 Resp 16 09/02/23 07:16 BP 117/75 09/02/23 07:16 Pulse Ox 97 09/02/23 07:16 FiO2 Intake & Output 09/01/23 09/02/23 09/02/23 18:59 06:59 18:59 Intake Total 559 Balance 559 Intake: Intake, IV Titration 559 Amount Mvi, Adult No.4 with Vit 559 K 10 ml Trace (Conc-1Ml/ Dose) 1 ml In Amino Acid 5%-D15w+Lytes*E* 1,000 ml @ 30 mls/hr IV .Q24H ONE Rx#:[id number] Other: Voiding Method Toilet # Voids 3 4 # Bowel Movements 5 - Labs CBC & Chem 7: 08/30/23 05:27 09/02/23 06:45 Labs: Abnormal Lab Results - Last 24 Hours (Table) 09/01/23 09/01/23 09/01/23 Range/Units 14:31 17:01 20:12 Potassium 3.1 L (3.5-5.1) mmol/L Glucose (74-99) mg/dL POC Glucose (mg/dL) 146 H 174 H (70-110) mg/dL 09/01/23 09/02/23 09/02/23 Range/Units 22:01 05:53 06:45 Potassium 3.4 L 3.0 L (3.5-5.1) mmol/L Glucose 161 H (74-99) mg/dL POC Glucose (mg/dL) 161 H (70-110) mg/dL 09/02/23 Range/Units 11:30 Potassium (3.5-5.1) mmol/L Glucose (74-99) mg/dL POC Glucose (mg/dL) 168 H (70-110) mg/dL
[2023-09-02 15:15] VITALS: BP 119/76; PULSE 91; RESP 17; TEMP 98.2
--- NOTE | 2023-09-02 16:19 | P.PN ---
Subjective Progress Note Date: 09/02/23 Principal diagnosis: Intractable N,V 2/2 metastatic breast cancer in gastric antrum In f/u today pt reports that she has been taking the piqray, she is having diarrhea, more then 5 stools a day, she is not taking the imodium ATC. Denies N,V, or pain, she is ambulatory independently. She had her port placed and it tolerating TPN thus far. She is still having intermittent vomiting, mostly when trying to take the oral potassium liquid, she is keeping most oral tabs down, some liquids. Objective - Vital Signs Vital signs: Vital Signs Temp 98.7 F 09/02/23 07:16 Pulse 104 H 09/02/23 07:16 Resp 16 09/02/23 07:16 BP 117/75 09/02/23 07:16 Pulse Ox 97 09/02/23 07:16 FiO2 Intake & Output 09/01/23 09/02/23 09/02/23 18:59 06:59 18:59 Intake Total 559 Balance 559 Weight 45.359 kg Intake: Intake, IV Titration 559 Amount Mvi, Adult No.4 with Vit 559 K 10 ml Trace (Conc-1Ml/ Dose) 1 ml In Amino Acid 5%-D15w+Lytes*E* 1,000 ml @ 30 mls/hr IV .Q24H ONE Rx#:[id number] Other: Voiding Method Toilet # Voids 3 4 # Bowel Movements 5 - Constitutional General appearance: Present: cooperative, no acute distress, thin - EENT Eyes: Present: anicteric sclerae, EOMI ENT: Present: hearing grossly normal - Respiratory Details: Respirations even and unlabored at rest - Cardiovascular Details: Skin warm and dry to the touch Rhythm: regular (Radial pulse) - Peripheral edema leg Peripheral Edema: bilateral: None - Gastrointestinal General gastrointestinal: Present: soft - Neurologic Neurologic: Present: CNII-XII intact - Musculoskeletal Musculoskeletal: Present: generalized weakness, strength equal bilaterally - Psychiatric Psychiatric: Present: A&O x's 3, appropriate affect, intact judgment & insight - Labs CBC & Chem 7: 08/30/23 05:27 09/02/23 06:45 Labs: Abnormal Lab Results - Last 24 Hours (Table) 12/17/23 12/17/23 12/17/23 Range/Units 14:31 17:01 20:12 Potassium 3.1 L (3.5-5.1) mmol/L Glucose (74-99) mg/dL POC Glucose (mg/dL) 146 H 174 H (70-110) mg/dL 09/01/23 09/02/23 09/02/23 Range/Units 22:01 05:53 06:45 Potassium 3.4 L 3.0 L (3.5-5.1) mmol/L Glucose 161 H (74-99) mg/dL POC Glucose (mg/dL) 161 H (70-110) mg/dL 09/02/23 Range/Units 11:30 Potassium (3.5-5.1) mmol/L Glucose (74-99) mg/dL POC Glucose (mg/dL) 168 H (70-110) mg/dL Assessment and Plan (1) Intractable nausea and vomiting Current Visit: Yes Status: Acute Priority: High Code(s): R11.2 - NAUSEA WITH VOMITING, UNSPECIFIED SNOMED Code(s): 354177140 (2) Breast cancer metastasized to multiple sites Current Visit: Yes Status: Chronic Priority: High Code(s): C50.919 - MALIGNANT NEOPLASM OF UNSP SITE OF UNSPECIFIED FEMALE BREAST SNOMED Code(s): 932298777 Plan: Intractable N,V -08/23 pt had laparoscopic gall bladder removal for acute cholecystitis, duct obstructed from stones and lysis of adhesions. Reviewed positive ascitic fluid today with pt. Gall bladder path is neg -EGD 08/19 and 08/21 showing GERD with erosive esophagitis with pyloric stenosis, had duodenal dilation. Gastric antrum biopsy positive for metastatic breast cancer. This is the cause of the intractable nausea and vomiting -N, V persists, can sometimes keep meds down and some foods/fluids -Supportive meds cont. -Plan is for temporary TPN for nutritional support until pt is able to tolerate oral intake better. Metastatic breast cancer -08/19 biopsy of gastric antrum positive for metastatic breast cancer -Not certain if nausea and vomiting are going to be able to be controlled with meds but, pt is doing ok so far -Pt is aware that she has metastatic disease. Intent of any treatment is to relieve symptoms and progression of disease for some time, her disease is not curable. -She started targeted agent 12/12, piqray. She had moderate diarrhea after 1st dose. Refused dose on 08/28. Recommended that she try antidiarrheals, she is trying them occasionally. Will change to ATC. She had been taking piqray daily since -Lomotil Erx to her pharmacy from the office -PET scan possibly once pt gets discharged. -F/U Dr. Abbey Velasquez in the [place] plan
== END 2023-09-02 16:57 | disposition home health service (06) | DRG 326 ==
LOC: EC 12:50 → 5NMEDONC 15:24 → 4SSUR 17:10
PROVIDERS: ADMIT Hospitalist; ATTEND Hospitalist
PROC: 0D768ZZ Dilation of Stomach, Via Natural or Artificial Opening Endoscopic (ICD-10-PCS; 2023-08-19)
PROC: 0DB58ZX Excision of Esophagus, Via Natural or Artificial Opening Endoscopic, Diagnostic (ICD-10-PCS; 2023-08-19)
PROC: 0DB78ZX Excision of Stomach, Pylorus, Via Natural or Artificial Opening Endoscopic, Diagnostic (ICD-10-PCS; 2023-08-19)
PROC: 0D968ZZ Drainage of Stomach, Via Natural or Artificial Opening Endoscopic (ICD-10-PCS; principal; 2023-08-19 08:25)
PROC: 0D958ZZ Drainage of Esophagus, Via Natural or Artificial Opening Endoscopic (ICD-10-PCS; 2023-08-21)
PROC: 0DB98ZX Excision of Duodenum, Via Natural or Artificial Opening Endoscopic, Diagnostic (ICD-10-PCS; 2023-08-21)
PROC: 0D798ZZ Dilation of Duodenum, Via Natural or Artificial Opening Endoscopic (ICD-10-PCS; 2023-08-21)
PROC: 0DNW4ZZ Release Peritoneum, Percutaneous Endoscopic Approach (ICD-10-PCS; 2023-08-23)
PROC: 0FT44ZZ Resection of Gallbladder, Percutaneous Endoscopic Approach (ICD-10-PCS; 2023-08-23)
PROC: 8E0W4CZ Robotic Assisted Procedure of Trunk Region, Percutaneous Endoscopic Approach (ICD-10-PCS; 2023-08-23)
PROC: BF52200 Other Imaging of Gallbladder using Fluorescing Agent, Indocyanine Green Dye, Intraoperative (ICD-10-PCS; 2023-08-23)
PROC: 0JH60WZ Insertion of Totally Implantable Vascular Access Device into Chest Subcutaneous Tissue and Fascia, Open Approach (ICD-10-PCS; 2023-08-30)
PROC: 02HV33Z Insertion of Infusion Device into Superior Vena Cava, Percutaneous Approach (ICD-10-PCS; 2023-08-30)
PROC: 3E0436Z Introduction of Nutritional Substance into Central Vein, Percutaneous Approach (ICD-10-PCS; 2023-09-01)
DX: K31.1 Adult hypertrophic pyloric stenosis (principal); K29.51 Unspecified chronic gastritis with bleeding; N17.0 Acute kidney failure with tubular necrosis; R18.0 Malignant ascites; K82.1 Hydrops of gallbladder; K80.13 Calculus of gallbladder with acute and chronic cholecystitis with obstruction; E44.0 Moderate protein-calorie malnutrition; C78.89 Secondary malignant neoplasm of other digestive organs; C78.4 Secondary malignant neoplasm of small intestine; C78.7 Secondary malignant neoplasm of liver and intrahepatic bile duct; J90 Pleural effusion, not elsewhere classified; Z68.1 Body mass index [BMI] 19.9 or less, adult; I82.611 Acute embolism and thrombosis of superficial veins of right upper extremity; Z53.8 Procedure and treatment not carried out for other reasons; G54.0 Brachial plexus disorders; I11.9 Hypertensive heart disease without heart failure; F32.A Depression, unspecified; E87.6 Hypokalemia; K22.70 Barrett's esophagus without dysplasia; K44.9 Diaphragmatic hernia without obstruction or gangrene; K21.00 Gastro-esophageal reflux disease with esophagitis, without bleeding; K31.89 Other diseases of stomach and duodenum; D63.0 Anemia in neoplastic disease; K82.8 Other specified diseases of gallbladder; K66.0 Peritoneal adhesions (postprocedural) (postinfection); I45.10 Unspecified right bundle-branch block; E86.0 Dehydration; E83.42 Hypomagnesemia; E78.5 Hyperlipidemia, unspecified; Z85.3 Personal history of malignant neoplasm of breast; Z90.12 Acquired absence of left breast and nipple; Z85.43 Personal history of malignant neoplasm of ovary; Z92.3 Personal history of irradiation; Z79.899 Other long term (current) drug therapy; Z92.21 Personal history of antineoplastic chemotherapy; Z90.710 Acquired absence of both cervix and uterus; Z80.3 Family history of malignant neoplasm of breast; Z80.51 Family history of malignant neoplasm of kidney; Z87.891 Personal history of nicotine dependence; Z63.4 Disappearance and death of family member; Z91.048 Other nonmedicinal substance allergy status; Z88.5 Allergy status to narcotic agent; Z82.49 Family history of ischemic heart disease and other diseases of the circulatory system
CPT/HCPCS: 36410; 36415; 36573; 43239; 43245; 71046; 71250; 74022; 74176; 74240; 77001; 78226; 80048; 80053; 82607; 82728; 82747; 83036; 83540; 83550; 83605; 83735; 83921; 84100; 84132; 84478; 85025; 85027; 85610; 85730; 86300; 86850; 86900; 86901; 86920; 88108; 88304; 88305; 88341; 88342; 93005; 93306; 96365; 96366; 99285

== ENCOUNTER → 2023-10-10 | Outpatient (CLI) | payer MEDICARE ==
--- NOTE | 2023-10-10 16:47 | PE ---
EXAMINATION TYPE: PET CT fusion skull to thigh DATE OF EXAM: 10/10/2023 CLINICAL INDICATION:Female, 68 years old with history of C50.811 Breast CA; TECHNIQUE: Following the intravenous administration of 11.98 mCi of F-18 FDG, whole body images are performed from the skull base to the midthigh. Images are reviewed on the computer in the coronal, axial, and sagittal planes. Reconstructed rotating images are created on independent workstation and reviewed on the computer. A non-contrast CT is performed in conjunction with the PET scan. Glucose level 106 mg/dL CT DLP: 207 mGycm, Automated exposure control for dose reduction was used. COMPARISON: CT 08/18/2023, PET/CT 02/23/2022, FINDINGS: Mediastinal SUV mean is 1.7. Hepatic parenchyma SUV mean is 2.2. SKULL BASE AND NECK: No suspicious radiotracer activity. CHEST, MEDIASTINUM, AND HILAR REGION: * No suspicious radiotracer activity. * Postsurgical changes to the left breast. No abnormal normal soft tissue or evidence for FDG avid l esion. ABDOMEN AND PELVIS: No suspicious radiotracer activity. MUSCULOSKELETAL STRUCTURES: No suspicious radiotracer activity. OTHER CT: Bilateral aphakia. Atherosclerosis of the carotid bifurcations. Right chest wall Infuse-a-P ort tip terminating superior vena cava. Trace bilateral pleural effusions. Trace amount of free fluid in the abdomen. Scattered colonic diverticula. IMPRESSION: No suspicious radiotracer activity.
== END | disposition home or self-care (01) ==
LOC: RADPETMAIN 11:54
PROVIDERS: ATTEND Internal Medicine Hematology & Oncology
DX: C50.811 Malignant neoplasm of overlapping sites of right female breast (principal)
CPT/HCPCS: 78815; A9552